=== PATIENT | male | born 1955 | race Caucasian/White ===

== ENCOUNTER 2022-02-15 09:30 | Outpatient (RCR) | payer MEDICARE, BC, SELFPAY | END 2022-03-12 13:48 | disposition home or self-care (01) | PROVIDERS: PCP Surgery; Visit Provider Surgery | DX: M62.81 Muscle weakness (generalized) (principal) | CPT/HCPCS: 97110; 97112 ==

== ENCOUNTER 2022-05-26 11:38 | Emergency (ER) | payer MEDICARE, BC, SELFPAY ==
[2022-05-26 11:51] VITALS: BP 137/93; PULSE 74; RESP 18; TEMP 36.9; O2SAT 95
--- NOTE | 2022-05-26 13:10 | CRLHL7_ITS ---
For Patients: As a result of the Century Cures Act, medical imaging exams and procedure reports are released immediately into your electronic medical record. You may view this report before your referring provider. If you have questions, please contact your health care provider. INDICATION: Fall. Head and neck pain. TECHNIQUE: CT head without contrast. COMPARISON: 09/25/2021 CT head FINDINGS: CSF spaces: Prominence of the ventricles and sulci similar to prior exam likely due to age related volume loss. Brain parenchyma: The ray-white differentiation is normal. No sign of hemorrhage, or midline shift. Pituitary mass measures 1.5 cm in AP dimension, similar to prior examination. Skull base and calvarium: Ethmoid sinus mucosal thickening. Right sphenoid sinus opacification/fluid level. The visualized orbits are grossly unremarkable. No skull fractures. IMPRESSION: : 1. No acute intracranial abnormality. 2. Ethmoid sinus mucosal thickening and right sphenoid sinus opacification/fluid level which can be seen with sinusitis. 3. 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 Please note that all CT scans at this facility use dose modulation, iterative reconstruction, and/or weight-based dosing when appropriate to reduce radiation dose to as low as reasonably achievable. Dictated by Crow Elizabeth MD @ 05/26/2022 2:29:32 PM (Electronically Signed)
--- NOTE | 2022-05-26 13:10 | CRLHL7_ITS ---
For Patients: As a result of the Century Cures Act, medical imaging exams and procedure reports are released immediately into your electronic medical record. You may view this report before your referring provider. If you have questions, please contact your health care provider. INDICATION: Fall with head and neck pain. TECHNIQUE: CT cervical spine without contrast. COMPARISON: 09/16/2014 CT neck. 11/22/2016 CT chest. FINDINGS: Vertebrae: Alignment is normal. There are no fractures or suspicious bony lesions. Discs and facet joints: There are degenerative disc changes most severe at C4-C5. There are multilevel degenerative changes in the facets. Extraspinal findings: Changes of right upper lobectomy are partially imaged, better seen on 11/22/2016 CT chest. Small left apical pulmonary nodules are similar to prior chest CT. IMPRESSION: 1. No sign of acute injury. 2. Multilevel degenerative changes as above. Please note that all CT scans at this facility use dose modulation, iterative reconstruction, and/or weight-based dosing when appropriate to reduce radiation dose to as low as reasonably achievable. Dictated by Crow Elizabeth MD @ 05/26/2022 2:36:59 PM (Electronically Signed)
[2022-05-26] MEDS: ACETAMINOPHEN 500 MG TABLET 1000 MG PO (13:25)
--- NOTE | 2022-05-26 13:25 | ED.FALL ---
HPI - Fall General Date Seen: 05/26/22 Chief Complaint: Fall/Minor Trauma Stated Complaint: Fell last night, face injured Time Seen by Provider: 05/26/22 11:43 Source: patient Mode of arrival: ambulatory Limitations: no limitations History of Present Illness HPI Narrative: Patient is a 67-year-old gentleman who was at his niece's last night was coming down the stairs and tripped on the last stair falling flat onto the concrete onto his face. No loss of conscious he is not on any anticoagulants, but is not face and head did bruise and bleed a little bit, his niece who is the nurse was able to put some Steri-Strips on the laceration on his forehead, he called the clinic today but they said they could not cm, he came here to the emergency room, he has no nausea vomiting, diplopia double vision or any feeling of dizziness or vertigo, there is no loss of consciousness when this occurred, he did not feel his heart racing. He does however have some neck discomfort he says with this. Has not MD complaint: fall Onset (ago): day(s) Fall from: standing Fall witnessed: yes, by family Place fall occurred: home Loss of consciousness: No Prolonged down time: no Symptoms prior to fall: none Context: tripped/slipped Location of injury: head and neck Severity: moderate Associated symptoms (after fall): neck pain Related Data Allergies Allergy/AdvReac Type Severity Reaction Status Date / Time quetiapine [From Seroquel] AdvReac Severe Hallucinati Verified 05/26/22 11:57 ng Review of Systems Status of ROS: Reports: 10 or more systems reviewed and unremarkable except as noted in History and below Exam Narrative: Exam Narrative: Patient is seen in room 3 in no apparent distress alert oriented x3 speaking to me normally, he has a laceration of approximately 2.5-3 cm just above his right eyebrow and oblique type presentation with some slight bit gaping, and Steri-Strips across this small hematomas noted, his nose appears to be fairly straight, I do not see a obvious fracture noted within it or least externally, there is no septal hematomas, he can breathe out of both nostrils. There is some dry blood at naris. His mouth opening is normal, TMJs are normal, no tenderness on palpation over cervical spine, on palpation percussion, he is however have been decreased range of motion of his cervical spine, he can come to 8 cm on flexion is extensions to 16, his lateral flexion is 5 in his rotation is approximately 50?. Beater Room Supervisor strengths are equal bilaterally, biceps triceps power and shoulder abduction are normal, pulses are normal, he is able to walk around the room normally formed. Const: Vital Signs, click to edit/add: Vital Signs - 24 hr 05/26/22 11:51 Temperature 98.4 F Pulse Rate [Pulse Oximeter] 74 Respiratory Rate 18 Blood Pressure [Ri ght Upper Arm] 137/93 H Pulse Oximetry 95 Oxygen Delivery Me thod Room Air Documenting provider has reviewed patient's vital signs: yes Course Vital Signs Vital signs: Initial Vital Signs Temperature 98.4 F 05/26/22 11:51 Temperature Source Temporal Artery Scan 05/26/22 11:51 Pulse Rate 74 05/26/22 11:51 Pulse Rhythm 05/26/22 11:51 Respiratory Rate 18 05/26/22 11:51 Blood Pressure 137/93 H 05/26/22 11:51 Blood Pressure Mean 107 05/26/22 11:51 Blood Pressure Position Sitting 05/26/22 11:51 Pulse Oximetry 95 05/26/22 11:51 Oxygen Delivery Method 05/26/22 11:51 Vital Signs Temperature 98.4 F 05/26/22 11:51 Pulse Rate 74 05/26/22 11:51 Respiratory Rate 18 05/26/22 11:51 Blood Pressure 137/93 H 05/26/22 11:51 Pulse Oximetry 95 05/26/22 11:51 Oxygen Delivery Method 05/26/22 11:51 Temperature 98.4 F 05/26/22 11:51 Pulse Rate 74 05/26/22 11:51 Respiratory Rate 18 05/26/22 11:51 Blood Pressure 137/93 H 05/26/22 11:51 Pulse Oximetry 95 05/26/22 11:51 Oxygen Delivery Method 05/26/22 11:51 MDM - Fall MDM Narrative Medical decision making narrative: We will go ahead and do a CT of the head and neck, we will put some let on his wound, and clean it up. Medical Records Attestation: I reviewed the patient's medical records. Imaging Data CT scan - head: Attestation: I have reviewed the pertinent imaging results. My impression: Nasal fracture with a fluid level is at might sinus, Radiologist's impression: Patient: [facility] Facility: [facility] Site . Site : 1955 Study: CT Spine Cervical W/O-05/26/2022 1:47:40 PM Ordering Physician: Parish Serrano Final Report: INDICATION: Fall with head and neck pain. TECHNIQUE: CT cervical spine without contrast. COMPARISON: 09/16/2014 CT neck. 11/22/2016 CT chest. FINDINGS: Vertebrae: Alignment is normal. There are no fractures or suspicious bony lesions. Discs and facet joints: There are degenerative disc changes most severe at C4-C5. There are multilevel degenerative changes in the facets. Extraspinal findings: Changes of right upper lobectomy are partially imaged, better seen on 11/22/2016 CT chest. Small left apical pulmonary nodules are similar to prior chest CT. IMPRESSION: 1. No sign of acute injury. 2. Multilevel degenerative changes as above. Please note that all CT scans at this facility use dose modulation, iterative reconstruction, and/or weight-based dosing when appropriate to reduce radiation dose to as low as reasonably achievable. Dictated by Crow Elizabeth MD @ 05/26/2022 2:36:59 PM (Electronic Signature) Patient: [facility] Facility: [facility] Site . Site : 1955 Study: CT Head W/O-05/26/2022 1:47:03 PM Ordering Physician: Parish Serrano Final Report: INDICATION: Fall. Head and neck pain. TECHNIQUE: CT head without contrast. COMPARISON: 09/25/2021 CT head FINDINGS: CSF spaces: Prominence of the ventricles and sulci similar to prior exam likely due to age related volume loss. Brain parenchyma: The ray-white differentiation is normal. No sign of hemorrhage, or midline shift. Pituitary mass measures 1.5 cm in AP dimension, similar to prior examination. Skull base and calvarium: Ethmoid sinus mucosal thickening. Right sphenoid sinus opacification/fluid level. The visualized orbits are grossly unremarkable. No skull fractures. IMPRESSION: : 1. No acute intracranial abnormality. 2. Ethmoid sinus mucosal thickening and right sphenoid sinus opacification/fluid level which can be seen with sinusitis. 3. 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 Please note that all CT scans at this facility use dose modulation, iterative reconstruction, and/or weight-based dosing when appropriate to reduce radiation dose to as low as reasonably achievable. Dictated by Crow Elizabeth MD @ 05/26/2022 2:29:32 PM (Electronic Signature) Discharge Plan Discharge Clinical Impression: Cervical spine pain, Closed fracture nasal bone, Laceration, Head injury Patient Disposition: Home, Self-Care Condition: Stable Instructions: Head Injury (ED), Skin Adhesive Care (ED), Neck Pain (ED) Additional Instructions: Home rest Tylenol 1 g p.o. t.i.d., leave the glue on her forehead, this will come off by itself in approximately 3-4 days, increasing swelling redness, fevers chills is infection he should come back to be seen, Follow Up/Referrals: Joon Dodson MD [Primary Care Provider] - Stand Alone Forms: [employer] Info Instructions
[2022-05-26] MEDS: TETANUS/DIPHTH/PERTUSSIS 0.5 ML SYRINGE IM (14:55)
--- NOTE | 2022-05-26 15:10 | ED.NURSE ---
Wound cleansed. Dermabond per MD. No sutures. Adacel administered in R AC. VIS provided.
[2022-05-26 15:12] VITALS: BP 137/93; PULSE 74; RESP 18; TEMP 36.9
== END 2022-05-26 15:12 | disposition home or self-care (01) ==
PROVIDERS: Emergency Provider Family Medicine; PCP Surgery
DX: S01.111A Laceration without foreign body of right eyelid and periocular area, initial encounter (principal); M54.2 Cervicalgia; S02.2XXA Fracture of nasal bones, initial encounter for closed fracture; W10.8XXA Fall (on) (from) other stairs and steps, initial encounter
CPT/HCPCS: 12011; 70450; 72125; 90471; 90715; 99284; A9270

== ENCOUNTER 2023-04-15 11:27 | Emergency (ER) | payer MEDICARE, BC, SELFPAY ==
[2023-04-15 12:22] VITALS: BP 182/128; PULSE 83; RESP 16; TEMP 36.5; O2SAT 97; BMI 27.6
[2023-04-15 13:30] VITALS: BP 198/123; PULSE 52; RESP 16; TEMP 36.7; O2SAT 96
== END 2023-04-15 15:28 | disposition left against medical advice (07) ==
PROVIDERS: Emergency Provider Emergency Medicine; PCP Surgery
DX: Z53.21 Procedure and treatment not carried out due to patient leaving prior to being seen by health care provider (principal)

== ENCOUNTER 2023-12-03 14:30 | Outpatient (RCR) | payer MEDICARE, SELFPAY, BC, MEDICAID | END 2024-02-11 09:40 | disposition home or self-care (01) | PROVIDERS: PCP Surgery; Visit Provider Surgery | DX: M76.62 Achilles tendinitis, left leg (principal); M72.2 Plantar fascial fibromatosis; Z51.89 Encounter for other specified aftercare | CPT/HCPCS: 97110; 97140; 97162 ==

== ENCOUNTER 2024-04-18 13:34 | Outpatient (CLI) | payer MEDICARE, MEDICAID, SELFPAY ==
--- OUTSIDE RECORDS SUMMARY | 2024-04-21 04:11 | XMS_ITS | Encounter Summary ---
Author Organization [facility] Address [address] [place] [address] Care Team Providers Care Furnace Feeder Name Role Phone Joon Dodson MD Primary Care Provider [phone] Encounter Details Date Type Department Care Team (Late st Contact Info) Description 12/26/2020 Lab Requisition [facility] [address] [facility] [place], [place] [address] [facility] [place], [place] [id number] Anemia, unspecified Social History Tobacco Use Types Packs/Day Years Used Date Smoking Tobacco: Light Smoker Cigarettes Smokeless Tobacco: Never Comments:Smoking History Pac ks/day: Alcohol Use Standard Drinks/Week Comments Yes 0 (1 standard drink = 0.6 oz pur e alcohol) occasional Sex and Gender Information Value Date Recorded Sex Assigned at Not on file Gender Identity Not on file Sexual Orientation Not on file documented as of this encounter Plan of Treatment Not on file documented as of this encounter Procedures Procedure Name Priority Date/Time Associated Diagnosis Comments HEMOGLOBIN, BLOOD Routine 12/26/2020 7:1 0 AM CDT Anemia, unspecified documented in this encounter Results * (ABNORMAL) Hemoglobin, Blood (12/26/2020 7:10 AM CDT) Hemoglobin 10.0(L) 13.5 - 17.5 g/dL 12/26/2020 1:51 PM CDT [facility] Blood Venipuncture / Unknown 12/26/2020 7:10 AM CDT 12/26/2020 1:25 PM CDT Deonna Leela LAB_1 [facility] [address] [place], [place] [phone] [place] [address] documented in this encounter Visit Diagnoses Diagnosis Anemia, unspecified documented in this encounter Care Teams Furnace Feeder Relationship Specialty Start Date End Date Joon Dodson MD [address] [place] [address] PCP - General Family Practice 10/16/17 documented as of this encounter
--- OUTSIDE RECORDS SUMMARY | 2024-04-21 04:11 | XMS_ITS | Encounter Summary ---
Author Organization [facility] Address [address] [place] [address] Care Team Providers Care Bell Cleaner Name Role Phone Joon Dodson MD Primary Care Provider [phone] Adrianne Steele Primary Care Provider Unavailab paula Montoya Tanya PharmD Unavailable [phone] Joon Dodson MD Primary Care Provider [phone] Adrianne Steele Primary Care Provider Unavailab paula Montoya, Tanya PharmD Unavailable [phone] Jan Tanya PharmD Unavailable [phone] Encounter Details Date Type Department Care Team (Late st Contact Info) Description 08/17/2020 Documentation Only INTERFACED REPORT Unknown, Provider Social History Tobacco Use Types Packs/Day Years Used Date Smoking Tobacco: Former Cigarettes 0.5 35 0 11/27/1980 - 11/28/2015 Smokeless Tobacco: Never Alcohol Use Standard Drinks/Week Comments No 0 (1 standard drink = 0.6 oz pur e alcohol) Sex and Gender Information Value Date Recorded Sex Assigned at Not on file Legal Sex Male 3:29 AM [employer] INTER[employer] Gender Identity Not on file Sexual Orientation Not on file documented as of this encounter Plan of Treatment Not on file documented as of this encounter Visit Diagnoses Not on filedocumented in this encounter Additional Health Concerns Infection Onset Date Last Indicated Resolved Time COVID-19 06/26/2021 06/26/2021 07/07/2021 9:38 AM [employer] 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 Pt meets Covid Recovered criteria. 06/26/2021 08/28/2021 09/25/2021 11:39 PM CDT documented as of this encounter Care Teams Bell Cleaner Relationship Specialty Start Date End Date Joon Dodson MD [address] [place] [address] PCP - General 03/25/17 10/04/20 Adrianne Steele PCP - General 10/05/20 12/17/20 Joon Dodson MD [address] [place] [address] PCP - General 12/18/20 08/30/21 Adrianne Steele PCP - General 08/31/21 Tanya Montoya, PharmD [address] [place] [address] [id number] Pharmacist Pharmacist 11/08/20 Tanya Montoya, PharmD [address] [place] [address] [id number] Assigned MTM Pharmacist 10/27/21 Tanya Montoya, PharmD [address] [place] [address] [id number] Assigned MTM Pharmacist 02/27/22 3 documented as of this encounter
--- OUTSIDE RECORDS SUMMARY | 2024-04-21 04:11 | XMS_ITS | Encounter Summary ---
Author Organization [facility] Address [address] [place] [address] Care Team Providers Care Tobacco Stripper Hand Name Role Phone Tanya Montoya PharmD Unavailable [phone] Joon Dodson MD Primary Care Provider [phone] Adrianne Steele Primary Care Provider Unavailab le Tanya Montoya PharmD Unavailable [phone] Tanya Montoya PharmD Unavailable [phone] Reason for Visit * Reason Onset Date Comments MH/CD Inpatient 06/05/2021 Encounter Details Date Type Department Care Team ([facility] st Contact Info) Description 06/05/2021 [facility] Behavioral Health Intake [address] [place] [phone] Generic, Behavioral Intake, MH/CD Inpatient Social History Tobacco Use Types Packs/Day Years Used Date Smoking Tobacco: Some Days Cigarettes 0.5 35 Started: 11/27/1980; Last attempted to quit: 11/28/2015 Pipe Smokeless Tobacco: Never Comments:occas pipe tobacco Alcohol Use Standard Drinks/Week Comments Yes 0 (1 standard drink = 0.6 oz pur e alcohol) very rare Sex and Gender Information Value Date Recorded Sex Assigned at Not on file Legal Sex Male 3:29 AM MANAGER TRANSMISSION Gender Identity Not on file Sexual Orientation Not on file COVID-19 Exposure Response Date Recorded In the last month, have you been in contact with someone who was confirmed or suspected to have Coronavirus / COVID-19? No / Unsure 06/04/2021 1:08 PM MANAGER TRANSMISSION documented as of this encounter Miscellaneous Notes * Telephone Encounter - Evelyne Thompson - 06/06/2021 5:23 AM CST 0523 Bed Search Update [facility]): [facility] beds [facility] Pt remains on wait list pending bed availability. GER TRANSMISSION * Telephone Encounter - Tonya Smith - 06/05/2021 10:20 PM CST Updated Bed Search @930PM: Joselyn llamas [facility] @ [facility] @ cap [facility] @ [facility] @ [facility] @ cap [facility] @ [facility] @ [facility] @ [facility] @ cap Pt remains on work list until appropriate placement is available. GER TRANSMISSION * Telephone Encounter - Evelyne Thomposn - 06/05/2021 4:25 AM CST 0245 Bed Search Update ([facility]): [facility] beds available [facility] available [facility] available [facility] beds available Pt remains on wait list pending bed availability. GER [employer]SMISSION documented in this encounter Plan of Treatment Not on file documented as of this encounter Visit Diagnoses Not on filedocumented in this encounter Additional Health Concerns Infection Onset Date Last Indicated Resolved Time COVID-19 06/26/2021 06/26/2021 07/07/2021 9:38 AM MANAGER TRANSMISSION 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 Pt meets Covid Recovered criteria. 06/26/2021 08/28/2021 09/25/2021 11:39 PM CDT documented as of this encounter Care Teams Tobacco Stripper Hand Relationship Specialty Start Date End Date Joon Dodson MD [address] [place] [address] PCP - General 12/18/20 08/30/21 Adrianne Steele PCP - General 08/31/21 Tanya Montoya, PharmD [facility] [phone] Pharmacist Pharmacist 11/08/20 Tanya Montoya, PharmD [address] [phone] Assigned MTM Pharmacist 10/27/21 Tanya Montoya, PharmD [address] [place] [address] [phone] Assigned MTM Pharmacist 02/27/22 3 documented as of this encounter
--- OUTSIDE RECORDS SUMMARY | 2024-04-21 04:11 | XMS_ITS | Encounter Summary ---
Author Organization [facility] Address [address] [place] [address] Care Team Providers Care Television Program Director Name Role Phone Joon Dodson MD Primary Care Provider [phone] Encounter Details Date Type Department Care Team (Late st Contact Info) Description 01/02/2021 Lab Requisition [facility] [address] [facility] [place], [place] [phone] Margaux Man, PA-C [address] [facility] [address] [place], [place] [phone] Magnesium deficiency Social History Tobacco Use Types Packs/Day Years [...] Procedure Name Priority Date/Time Associated Diagnosis Comments MAGNESIUM Routine 01/03/2021 7:07 AM CDT Magnesium deficiency documented in this encounter Results * Magnesium (01/03/2021 7:07 AM CDT) Magnesium 2.5 1.6 - 2.6 mg/dL 01/03/2021 1:22 PM CDT [facility] Blood Venipuncture / Unknown 01/03/2021 7:07 AM CDT 01/03/2021 12:44 PM CDT Margaux aMn PA-C LAB_1 [facility] [address] documented in this encounter Visit Diagnoses Diagnosis 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
--- OUTSIDE RECORDS SUMMARY | 2024-04-21 04:11 | XMS_ITS | Encounter Summary ---
Author Organization [facility] Address [address] [place] [address] Care Team Providers Care Terminal Operations Supervisor Name Role Phone Joon Dodson MD Primary Care Provider [phone] Encounter Details Date Type Department Care Team (Late st Contact Info) Description 01/01/2021 Lab Requisition [facility] [address] [facility] [place], [place] [phone] Julia Victor MD [address] [place], [place] [phone] Dyspnea, unspecified Social History Tobacco Use Types Packs/Day [...] Procedure Name Priority Date/Time Associated Diagnosis Comments CBC AND DIFFERENTIAL PANEL Routine 01/02/2021 6:30 AM CDT Dyspnea, unspecified BRAIN NATRIURETIC PEPTIDE (BNP) Routine 01/02/2021 6:30 AM CDT Dyspnea, unspecified COMPLETE BLOOD COUNT-W/DIFF Routine 01/02/2021 6:30 AM CDT Dyspnea, unspecified documented in this encounter Results * (ABNORMAL) Complete Blood Count-W/Diff (01/02/2021 6:30 AM CDT) WBC 8.1 3.5 - 10.5 x10(9)/L 01/02/2021 2:16 PM CDT [facility] RBC 3.46(L) 4.32 - 5.72 x10(12)/L 01/02/2021 2:16 PM CDT [facility] Hemoglobin 10.7(L) 13.5 - 17.5 g/dL 01/02/2021 2:16 PM CDT [facility] HCT 35.4(L) 38.8 - 50.0 % 01/02/2021 2:16 PM CDT [facility] MCV 102.3(H) 80.0 - 100.0 fL 01/02/2021 2:16 PM CDT [facility] MCH 30.9 27.6 - 33.3 pg 01/02/2021 2:16 PM CDT [facility] MCHC 30.2(L) 31.5 - 35.2 g/dL 01/02/2021 2:16 PM CDT [facility] RDW 13.4 11.9 - 15.5 % 01/02/2021 2:16 PM CDT [facility] Platelets 486(H) 150 - 450 x10(9)/L 01/02/2021 2:16 PM CDT [facility] Automated NRBC 0 <=0 /100 WBC 01/02/2021 2:16 PM CDT [facility] Neutrophil Absolute 4.3 1.7 - 7.0 10(9)/L 01/02/2021 2:16 PM CDT [facility] Lymphocyte Absolute 2.3 1.0 - 4.8 10(9)/L 01/02/2021 2:16 PM CDT [facility] Monocyte Absolute 0.8 0.2 - 0.9 10(9)/L 01/02/2021 2:16 PM CDT [facility] Eosinophil Absolute 0.6(H) 0.0 - 0.5 10(9)/L 01/02/2021 2:16 PM CDT [facility] Basophil Absolute 0.1 0.0 - 0.3 10(9)/L 01/02/2021 2:16 PM CDT [facility] Immature Granulocyte % 2.0(H) 0.0 - 0.5 % 01/02/2021 2:16 PM CDT [facility] Blood Venipuncture / Unknown 01/02/2021 6:30 AM CDT 01/02/2021 1:45 PM CDT Julia Victor MD LAB_1 Performing Organization Address City/[facility]/ZIP Co de Phone Number [facility] [address] * B-Type Natriuretic Peptide (01/02/2021 6:30 AM CDT) B Type Natr. Peptide <10 <=99 pg/mL 01/02/2021 2:33 PM CDT [facility] Blood Venipuncture / Unknown 01/02/2021 6:30 AM CDT 01/02/2021 1:43 PM CDT Julia Victor MD LAB_1 Performing Organization Address [facility] [[email or web address]] Co de Phone Number [facility] [address] documented in this encounter Visit Diagnoses Diagnosis Dyspnea, unspecified documented in this encounter Care Teams Terminal Operations Supervisor Relationship Specialty Start Date End Date Joon Dodson MD [address] [place] [address] PCP - General Family Practice 10/16/17 documented as of this encounter
--- OUTSIDE RECORDS SUMMARY | 2024-04-21 04:11 | XMS_ITS | Encounter Summary ---
Author Organization [facility] Address [address] [place] [address] Care Team Providers Care Oyster Unloader Name Role Phone Sandra, Inder Coronado Primary Care Provider Joon Dodson MD Primary Care Provider Adrianne Steele Primary Care Provider Unavailab Tanya Ruiz PharmD Unavailable [phone] Joon Dodson MD Primary Care Provider [phone] Adrianne Steele Primary Care Provider Unavailab Tanya Ruiz PharmD Unavailable Tanya Montoya PharmD Unavailable Encounter Details Date Type Department Care Team (Late st Contact Info) Description 09/11/2016 [facility] Only [facility] [address] [place] [address] Panda Mesa MD [facility] [address] [facility] [address] [place] [address] Pre-operative laboratory examination (Primary Dx) Social History Tobacco Use Types Packs/Day Years Used Date Smoking Tobacco: Every Day Cigarettes 0.5 35 Smokeless Tobacco: Never Alcohol Use Standard Drinks/Week Comments Yes 0 (1 standard drink = 0.6 oz pur e alcohol) rare Sex and Gender Information Value Date Recorded Sex Assigned at Not on file Legal Sex Male 3:29 AM PROGRAMMING DIRECTOR Gender Identity Not on file Sexual Orientation Not on file documented as of this encounter Plan of Treatment Not on file documented as of this encounter Results * Methicillin Resistant Staph Aureus PCR (09/12/2016 12:36 PM CDT) Specimen Description Nares [facility] Methicillin Resist/Sens S. aureus PCR Negative MRSA Negative: SA Negative MRSA and Staphylococcus aureus target DNA not detected, presumed negative for MRSA and SA colonization or the number of bacteria present may be below the limit of detection for the assay. FDA approved assay performed using [employer] GeneXpert(R) real-time PCR. [facility] 09/12/2016 12:3 6 PM CDT 09/12/2016 1:24 PM CDT us Panda Mesa MD LAB - MICRO GENERAL ORDERABLES Final Result [facility] [address] [place], [place] [address] [phone] documented in this encounter Visit Diagnoses Diagnosis Pre-operative laboratory examination- Primary Pre-procedural laboratory examination documented in this encounter Additional Health Concerns Infection Onset Date Last Indicated Resolved Time COVID-19 06/26/2021 06/26/2021 07/07/2021 9:38 AM PROGRAMMING DIRECTOR 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 Pt meets Covid Recovered criteria. 06/26/2021 08/28/2021 09/25/2021 11:39 PM CDT documented as of this encounter Care Teams Oyster Unloader Relationship Specialty Start Date End Date [facility], [facility] [address] [place] [address] PCP - General 09/30/14 03/24/17 Joon Dodson MD [address] [place] [address] PCP - General 03/25/17 10/04/20 Adrianne Steele PCP - General 10/05/20 12/17/20 Joon Dodson MD [address] [place] [address] PCP - General 12/18/20 08/30/21 Adrianne Steele PCP - General 08/31/21 Tanya Montoya, PharmD [address] [place] [address] Pharmacist Pharmacist 11/08/20 Tanya Montoya, PharmD [address] [place] [id number] Assigned MTM Pharmacist 10/27/21 Tanya Montoya, PharmD [address] [place] [address] Assigned MTM Pharmacist 02/27/22 3 documented as of this encounter
--- OUTSIDE RECORDS SUMMARY | 2024-04-21 04:11 | XMS_ITS | Encounter Summary ---
Author Organization [facility] Address [address] [place] [address] Care Team Providers Care Sales Support Representative Name Role Phone Joon Dodson MD Primary Care Provider Adrianne Steele Primary Care Provider Unavailab paula Jan, Tanya PharmD Unavailable Joon Dodson MD Primary Care Provider [phone] Adrianne Steele Primary Care Provider Unavailab le Jan, Tanya PharmD Unavailable [phone] Jan, Tanya PharmD Unavailable [phone] Encounter Details Date Type Department Care Team (Late st Contact Info) Description 08/29/2020 [facility] [address] [place] [address] Seth Sutton MD [facility] [address] [facility] [address] [place] [address] Pre-operative laboratory examination (Primary Dx) Social History Tobacco Use Types Packs/Day Years Used Date Smoking Tobacco: Former Cigarettes 0.5 35 0 11/27/1980 - 11/28/2015 Smokeless Tobacco: Never Alcohol Use Standard Drinks/Week Comments No 0 (1 standard drink = 0.6 oz pur e alcohol) Sex and Gender Information Value Date Recorded Sex Assigned at Not on file Legal Sex Male 3:29 AM PHARMACY TECHNICIAN TRAINEE Gender Identity Not on file Sexual Orientation Not on file documented as of this encounter Plan of Treatment Not on file documented as of this encounter Visit Diagnoses Diagnosis Pre-operative laboratory examination- Primary Pre-procedural laboratory examination documented in this encounter Additional Health Concerns Infection Onset Date Last Indicated Resolved Time COVID-19 06/26/2021 06/26/2021 07/07/2021 9:38 AM PHARMACY TECHNICIAN TRAINEE 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 Pt meets Covid Recovered criteria. 06/26/2021 08/28/2021 09/25/2021 11:39 PM CDT documented as of this encounter Care Teams Sales Support Representative Relationship Specialty Start Date End Date Joon Dodson MD [address] [place] [address] PCP - General 03/25/17 10/04/20 Adrianne Steele PCP - General 10/05/20 12/17/20 Joon Dodson MD [address] [place] [address] PCP - General 12/18/20 08/30/21 Adrianne Steele PCP - General 08/31/21 Tanya Montoya, MartitaD [address] [place] [address] Pharmacist Pharmacist 11/08/20 Tanya Montoya, MartitaD [address] [place] [address] Assigned MTM Pharmacist 10/27/21 Tanya Montoya, MartitaD [address] [place] [address] Assigned MTM Pharmacist 02/27/22 3 documented as of this encounter
--- OUTSIDE RECORDS SUMMARY | 2024-04-21 04:11 | XMS_ITS | Encounter Summary ---
Author Organization [facility] Address [address] [place] [address] Care Team Providers Care Legger Press Operator Name Role Phone Joon Dodson MD Primary Care Provider [phone] Adrianne Steele Primary Care Provider Unavailab paula Montoya, Tanya PharmD Unavailable [phone] Joon Dodson MD Primary Care Provider [phone] Adrianne Steele Primary Care Provider Unavailab paula Jan, Tanya PharmD Unavailable [phone] Jan, Tayna PharmD Unavailable [phone] Reason for Visit * Reason Onset Date Comments MH/CD Inpatient 10/23/2017 Encounter Details Date Type Department Care Team ([facility] st Contact Info) Description 10/23/2017 Telephone [facility]ake [address] [place] [address] Generic, Behavioral Intake, MH/CD Inpatient Social History Tobacco Use Types Packs/Day Years Used Date Smoking Tobacco: Some Days Cigarettes 0.5 35 Started: 11/27/1980; Last attempted to quit: 11/28/2015 Smokeless Tobacco: Never Alcohol Use Standard Drinks/Week Comments No 0 (1 standard drink = 0.6 oz pur e alcohol) Sex and Gender Information Value Date Recorded Sex Assigned at Not on file Legal Sex Male 3:29 AM GRINDING ROOM SUPERVISOR Gender Identity Not on file Sexual Orientation Not on file documented as of this encounter Miscellaneous Notes * Telephone Encounter - Alexandra Engle - 10/23/2017 8:11 AM CDT R: called [facility] for potential d/c @ 8:03 AM and spoke to nurse. Potential step-down bed d/c @ 9am. Nurse going to meet pt in ED to verify step- down bed. Pt wants to stay at [facility]. Tawanda/ Daly: notified ED @ 8:32. [address] went to meet with pt for step-down bed. documented in this encounter Plan of Treatment Not on file documented as of this encounter Visit Diagnoses Not on filedocumented in this encounter Additional Health Concerns Infection Onset Date Last Indicated Resolved Time COVID-19 06/26/2021 06/26/2021 07/07/2021 9:38 AM GRINDING ROOM SUPERVISOR 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 Pt meets Covid Recovered criteria. 06/26/2021 08/28/2021 09/25/2021 11:39 PM CDT documented as of this encounter Care Teams Legger Press Operator Relationship Specialty Start Date End Date Joon Dodson MD [address] [place] [address] PCP - General 03/25/17 10/04/20 Adrianne Steele PCP - General 10/05/20 12/17/20 Joon Dodson MD [address] [place] [address] PCP - General 12/18/20 08/30/21 Adrianne Steele PCP - General 08/31/21 Tanya Montoya PharmD [address] [place] [address] [phone] Pharmacist Pharmacist 11/08/20 Tanya Montoya PharmD [address] [place] [address] [phone] Assigned MTM Pharmacist 10/27/21 Tanya Montoya, PharmD [address] [place], [place] [id number] [place] [address] Assigned MTM Pharmacist 02/27/22 3 documented as of this encounter
--- OUTSIDE RECORDS SUMMARY | 2024-04-21 04:11 | XMS_ITS | Encounter Summary ---
Author Organization [facility] Address [address] [place] [address] Care Team Providers Care Pellet Mill Operator Name Role Phone Adrianne Steele Primary Care Provider Unavailab Jerrica Ruizine PharmD Unavailable [phone] Joon Dodson MD Primary Care Provider Adrianne Steele Primary Care Provider Unavailab paula Montoya Tanya PharmD Unavailable [phone] Jan Tanya PharmD Unavailable [phone] Encounter Details Date Type Department Care Team (Late st Contact Info) Description 11/13/2020 Documentation Only INTERFACED REPORT Unknown, Provider Social History Tobacco Use Types Packs/Day Years Used Date Smoking Tobacco: Former Cigarettes 0.5 35 0 11/27/1980 - 11/28/2015 Pipe Smokeless Tobacco: Never Comments:occas pipe tobacco Alcohol Use Standard Drinks/Week Comments Yes 0 (1 standard drink = 0.6 oz pur e alcohol) very rare Sex and Gender Information Value Date Recorded Sex Assigned at Not on file Legal Sex Male 3:29 AM REFERENCE AND INSTRUCTION LIBRARIAN Gender Identity Not on file Sexual Orientation Not on file COVID-19 Exposure Response Date Recorded In the last month, have you been in contact with someone who was confirmed or suspected to have Coronavirus / COVID-19? No / Unsure 11/16/2020 1:16 PM CDT documented as of this encounter Plan of Treatment Not on file documented as of this encounter Visit Diagnoses Not on filedocumented in this encounter Additional Health Concerns Infection Onset Date Last Indicated Resolved Time COVID-19 06/26/2021 06/26/2021 07/07/2021 9:38 AM REFERENCE AND INSTRUCTION LIBRARIAN 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 Pt meets Covid Recovered criteria. 06/26/2021 08/28/2021 09/25/2021 11:39 PM CDT documented as of this encounter Care Teams Pellet Mill Operator Relationship Specialty Start Date End Date Adrianne Steele PCP - General 10/05/20 12/17/20 Joon Dodson MD [address] [place] [address] PCP - General 12/18/20 08/30/21 Adrianne Steele PCP - General 08/31/21 Tanya Montoya, PharmD [address] [place] [address] [phone] Pharmacist Pharmacist 11/08/20 Tanya Montoya, PharmD [address] [place] [address] [phone] Assigned MTM Pharmacist 10/27/21 Tanya Montoya, PharmD [address] [place] [address] [phone] Assigned MTM Pharmacist 02/27/22 3 documented as of this encounter
--- OUTSIDE RECORDS SUMMARY | 2024-04-21 04:11 | XMS_ITS | Encounter Summary ---
Author Organization [facility] Address [address] [place] [address] Care Team Providers Care Pin Machine Tender Name Role Phone Tanya Montoya PharmD Unavailable [phone] Joon Dodson MD Primary Care Provider [phone] Adrianne Steele Primary Care Provider Unavailab le Tanya Montoya PharmD Unavailable [phone] Tanya Montoya PharmD Unavailable [phone] Encounter Details Date Type Department Care Team (Late st Contact Info) Description 07/16/2021 Community Resource Summary INTERFACED REPORT Social History Tobacco Use Types Packs/Day Years Used Date Smoking Tobacco: Some Days Cigarettes 0.5 35 Started: 11/27/1980; Last attempted to quit: 11/28/2015 Pipe Smokeless Tobacco: Never Comments:occas pipe tobacco Alcohol Use Standard Drinks/Week Comments Yes 0 (1 standard drink = 0.6 oz pur e alcohol) very rare PHQ-2 Answer Date Recorded PHQ-2 Score 6 07/08/2021 Sex and Gender Information Value Date Recorded Sex Assigned at Not on file Legal Sex Male 3:29 AM INTERNAL MEDICINE VETERINARY TECHNICIAN Gender Identity Not on file Sexual Orientation Not on file COVID-19 Exposure Response Date Recorded In the last month, have you been in contact with someone who was confirmed or suspected to have Coronavirus / COVID-19? No / Unsure 07/18/2021 8:10 AM INTERNAL MEDICINE VETERINARY TECHNICIAN documented as of this encounter Plan of Treatment Not on file documented as of this encounter Visit Diagnoses Not on filedocumented in this encounter Additional Health Concerns Infection Onset Date Last Indicated Resolved Time 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 Pt meets Covid Recovered criteria. 06/26/2021 08/28/2021 09/25/2021 11:39 PM CDT Assessment Noted Time PHQ-9 Depression Total Score: 26 022 9:58 AM INTERNAL MEDICINE VETERINARY TECHNICIAN documented as of this encounter Care Teams Pin Machine Tender Relationship Specialty Start Date End Date Joon Dodson MD [address] [place] [address] PCP - General 12/18/20 08/30/21 Adrianne Steele PCP - General 08/31/21 Tanya Montoya, PharmD [address] [place] [address] [phone] Pharmacist Pharmacist 11/08/20 Tanya Montoya, PharmD [address] [place] [address] [phone] Assigned MTM Pharmacist 10/27/21 Tanya Montoya, PharmD [address] [place] [address] [phone] Assigned MTM Pharmacist 02/27/22 3 documented as of this encounter
--- OUTSIDE RECORDS SUMMARY | 2024-04-21 04:11 | XMS_ITS | Encounter Summary ---
Author Organization [facility] Address [address] [place] [address] Care Team Providers Care Broadcast Meteorologist Name Role Phone Sandra, Guremetgayatri Marcus Hook Primary Care Provider Joon Dodson MD Primary Care Provider Adrianne Steele Primary Care Provider Unavailab Tanya Ruiz PharmD Unavailable Joon Dodson MD Primary Care Provider Adrianne Steele Primary Care Provider Unavailab Tanya Ruiz PharmD Unavailable [phone] Tanya Montoya PharmD Unavailable Reason for Visit * Reason Onset Date Comments MH/CD Inpatient 10/11/2014 Encounter Details Date Type Department Care Team ([facility] st Contact Info) Description 10/11/2014 Telephone [facility] [address] [place] [address] Generic, Behavioral Intake, MH/CD Inpatient Social History Tobacco Use Types Packs/Day Years Used Date Smoking Tobacco: Every Day Cigarettes 0.5 35 Smokeless Tobacco: Never Alcohol Use Standard Drinks/Week Comments No 0 (1 standard drink = 0.6 oz pur e alcohol) Sex and Gender Information Value Date Recorded Sex Assigned at Not on file Legal Sex Male 3:29 AM CANVAS CUTTER HAND Gender Identity Not on file Sexual Orientation Not on file documented as of this encounter Miscellaneous Notes * Telephone Encounter - Tonya Smith - 10/11/2014 7:48 PM CDT S: pt is a 59 yr old male in [facility] for SI w/ no plan B: pt reports hx of bipolar. Pt reports racing thoughts, feeling helpless and hopeless and increasing anxiety. 3 prev ip admissions. Several recent med changes. 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 Denies any cd issues. A: vol R: 77 / [place] documented in this encounter Plan of Treatment Not on file documented as of this encounter Visit Diagnoses Not on filedocumented in this encounter Additional Health Concerns Infection Onset Date Last Indicated Resolved Time COVID-19 06/26/2021 06/26/2021 07/07/2021 9:38 AM CANVAS CUTTER HAND 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 Pt meets Covid Recovered criteria. 06/26/2021 08/28/2021 09/25/2021 11:39 PM CDT documented as of this encounter Care Teams Broadcast Meteorologist Relationship Specialty Start Date End Date [facility], [facility] [address] [place] [address] PCP - General 09/30/14 03/24/17 Joon Dodson MD [address] [place] [address] PCP - General 03/25/17 10/04/20 Adrianne Steele PCP - General 10/05/20 12/17/20 Joon Dodson MD [address] [place] [address] PCP - General 12/18/20 08/30/21 Adrianne Steele PCP - General 08/31/21 Tanya Montoya, PharmD [address] [id number] [place] [address] Pharmacist Pharmacist 11/08/20 Tanya Montoya, PharmD [address] [place] [address] [phone] Assigned MTM Pharmacist 10/27/21 Tanya Montoya, PharmD [address] [place] [address] [phone] Assigned MTM Pharmacist 02/27/22// 3 documented as of this encounter
--- OUTSIDE RECORDS SUMMARY | 2024-04-21 04:11 | XMS_ITS | Encounter Summary ---
Author Organization [facility] Address [address] [place] [address] Care Team Providers Care Substitute Nurse Name Role Phone Adrianne Steele Primary Care Provider Unavailab Jerrica Ruizine PharmD Unavailable [phone] Joon Dodson MD Primary Care Provider [phone] Adrianne Steele Primary Care Provider Unavailab paula Montoya Tanya PharmD Unavailable [phone] Jan Tanya PharmD Unavailable [phone] Encounter Details Date Type Department Care Team (Late st Contact Info) Description 12/08/2020 Documentation Only INTERFACED REPORT Unknown, Provider Social [...] file Legal Sex Male 3:29 AM MANAGER CRISIS Gender Identity Not on file Sexual Orientation [...] COVID-19 06/26/2021 06/26/2021 07/07/2021 9:38 AM MANAGER CRISIS 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 Pt meets Covid Recovered criteria. 06/26/2021 08/28/2021 09/25/2021 11:39 PM CDT documented as of this encounter Care Teams Substitute Nurse Relationship Specialty Start Date End Date Adrianne Steele PCP - General 10/05/20 12/17/20 Joon Dodson MD [address] [place] [address] PCP - General 12/18/20 08/30/21 Adrianne Steele PCP - General 08/31/21 Tanya Montoya, PharmD [address] [place], [place] 56[address] Pharmacist Pharmacist 11/08/20 Tanya Montoya, PharmD [address] [place], [place] 785[address] Assigned MTM Pharmacist 10/27/21 Tanya Montoya, PharmD [address] [place], [place] 250924 Assigned MTM Pharmacist 02/27/22 3 documented as of this encounter
--- OUTSIDE RECORDS SUMMARY | 2024-04-21 04:11 | XMS_ITS | Encounter Summary ---
Author Organization [facility] Address [address] [place] [address] Care Team Providers Care Eligibility Technician Name Role Phone Sandra, Inder Coronado Primary Care Provider Joon Dodson MD Primary Care Provider [phone] Adrianne Steele Primary Care Provider Unavailab Tanya Ruiz PharmD Unavailable Joon Dodson MD Primary Care Provider [phone] Adrianne Steele Primary Care Provider Unavailab Tanya Ruiz PharmD Unavailable Tanya Montoya PharmD Unavailable Encounter Details Date Type Department Care Team (Late st Contact Info) Description 01/23/2017 Orders Only [facility] [address] [place] [address] Panda Mesa MD [facility] [address] [facility] [address] [place] [address] Pre-operative laboratory examination (Primary Dx) [...] on file Legal Sex Male 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 Gender Identity Not on file Sexual Orientation Not on file documented as of this encounter Plan of Treatment Not on file documented as of this encounter Results * ABO/Rh type and screen (01/24/2017 1:49 PM CDT) ABO O 01/24/2017 2:53 PM CDT [facility] RH(D) Pos [facility] Antibody Screen Neg 01/24/2017 2:53 PM CDT [facility] Test Valid Only At [facility] 01/24/2017 2:54 PM CDT [facility] Specimen Expires 01/30/2017 01/24/2017 2:54 PM CDT [facility] Blood specimen (specimen) 01/24/2017 1:49 PM CDT 01/24/2017 1:52 PM CDT Panda Mesa MD LAB - BLOOD BANK TEST ORDER Fi nal Result Performing Organization Address [facility] Co de Phone Number [facility] [address] [phone] * Hemoglobin (01/24/2017 1:49 PM CDT) Hemoglobin 14.9 13.3 - 17.7 g/dL 01/24/2017 1:55 PM CDT [facility] Blood specimen (specimen) 01/24/2017 1:49 PM CDT 01/24/2017 1:52 PM CDT Panda Mesa MD LAB - BLOOD ORDERABLES Final R esult Performing Organization Address [facility] Co de Phone Number [facility] [address] [phone] documented in this encounter Visit Diagnoses Diagnosis Pre-operative laboratory examination- Primary Pre-procedural laboratory examination documented in this encounter Additional Health Concerns Infection Onset Date Last Indicated Resolved Time COVID-19 06/26/2021 06/26/2021 07/07/2021 9:38 AM POLE TRUCK DRIVER 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 Pt meets Covid Recovered criteria. 06/26/2021 08/28/2021 09/25/2021 11:39 PM CDT documented as of this encounter Care Teams Eligibility Technician Relationship Specialty Start Date End Date Clinic, [facility] [address] [place] [address] PCP - General 09/30/14 03/24/17 Joon Dodson MD [address] [place] [address] PCP - General 03/25/17 10/04/20 Adrianne Steele PCP - General 10/05/20 12/17/20 Joon Dodson MD [address] [place] [address] PCP - General 12/18/20 08/30/21 Adrianne Steele PCP - General 08/31/21 Tanya Montoya, PharmD [address] [place] [address] [address] Pharmacist Pharmacist 11/08/20 Tanya Montoya, PharmD [address] [place] [address] [address] Assigned MTM Pharmacist 10/27/21 Tanya Montoya, PharmD [facility] [place], [place] [phone] Assigned MTM Pharmacist 02/27/22 1// 3 documented as of this encounter
--- OUTSIDE RECORDS SUMMARY | 2024-04-21 04:11 | XMS_ITS | Encounter Summary ---
Author Organization [facility] Address [address] [place] [address] Care Team Providers Care Er Medical Technician Name Role Phone Joon Dodson MD Primary Care Provider [phone] Adrianne Steele Primary Care Provider Unavailab paula Jan, Tanya PharmD Unavailable [phone] Joon Dodson MD Primary Care Provider [phone] Adrianne Steele Primary Care Provider Unavailab le Jan, Tanya PharmD Unavailable [phone] Jan, Tanya PharmD Unavailable [phone] Encounter Details Date Type Department Care Team (Late st Contact Info) Description 02/10/2019 [facility] [address] [place] [address] Seth Sutton MD [facility] [address] [facility] [address] [place] [address] Pre-operative laboratory examination (Primary Dx) Social History Tobacco Use Types Packs/Day Years Used Date Smoking Tobacco: Former Cigarettes 0.5 35 0 11/27/1980 - 11/28/2015 Smokeless Tobacco: Never Alcohol Use Standard Drinks/Week Comments No 0 (1 standard drink = 0.6 oz pur e alcohol) Sex and Gender Information Value Date Recorded Sex Assigned at Not on file Legal Sex Male 3:29 AM METER AND REGULATOR SHOP SUPERVISOR Gender Identity Not on file Sexual Orientation Not on file documented as of this encounter Plan of Treatment Not on file documented as of this encounter Results * Methicillin Resist/Sens S. aureus PCR (02/16/2019 2:50 PM CDT) Specimen Description Nares 02/16/2019 2:55 PM CDT [facility] Methicillin Resist/Sens S. aureus PCR Negative NEG^Negat darius 02/16/2019 10:12 PM CDT [facility] Comment: MRSA Negative: SA Negative MRSA and Staphylococcus aureus target DNA not detected, presumed negative for MRSA and SA colonization or the number of bacteria present may be below the limit of detection for the assay. FDA approved assay performed using [employer] GeneXpert(R) real-time PCR. Nasal structure (body structure) 02/16/2019 2:50 PM CDT 02/16/2019 2:55 PM CDT us Seth Sutton MD LAB - MICRO GENERAL ORDERA BLES Final Result Performing Organization Address City/State/[place] Co de Phone Number [facility] [address] [phone] documented in this encounter Visit Diagnoses Diagnosis Pre-operative laboratory examination- Primary Pre-procedural laboratory examination documented in this encounter Additional Health Concerns Infection Onset Date Last Indicated Resolved Time COVID-19 06/26/2021 06/26/2021 07/07/2021 9:38 AM METER AND REGULATOR SHOP SUPERVISOR 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 Pt meets Covid Recovered criteria. 06/26/2021 08/28/2021 09/25/2021 11:39 PM CDT documented as of this encounter Care Teams Er Medical Technician Relationship Specialty Start Date End Date Joon Dodson MD [address] [place] [address] PCP - General 03/25/17 10/04/20 Adrianne Steele PCP - General 10/05/20 12/17/20 Joon Dodson MD [address] [place] [address] PCP - General 12/18/20 08/30/21 Adrianne Steele PCP - General 08/31/21 Tanya Montoya, PharmD [id number] [phone] Pharmacist Pharmacist 11/08/20 Tanya Montoya, PharmD [address] [phone] Assigned MTM Pharmacist 10/27/21 Tanya Montoya, PharmD [id number] [address] [phone] Assigned MTM Pharmacist 02/27/22 3 documented as of this encounter
--- OUTSIDE RECORDS SUMMARY | 2024-04-21 04:11 | XMS_ITS | Clinical Summary ---
Author Organization [facility] Address [address] [place] [address] Care Team Providers Care Ground Crew Linesman Name Role Phone Joon Dodson MD Primary Care Provider [phone] Source Comments You are receiving this document as you are listed as the primary care provider,follow-up provider, or the patient has been referred to you for consultation.This is in compliance with the Medicare and[facility], In[facility]aid EHR Incentive Program,which states Providers who transition their patient to another setting of careor provider of care or refers their patient to another provider of care shouldprovide summary care record for each transition of care or referral. [facility] Allergies Active Allergy Reactions Criticality Noted Date Comments Other 06/04/2012 PN: seasonal allergies Medications Medication Sig Dispensed Refills Start Date End Date Status buPROPion (AKA WELLBUTRIN SR) 200 MG 12 hour release tablet Take 1 tablet by mouth daily (every 24 hours). LW Addl Instr:Indicated for: Depression 02/19/2010 Active LITHium carbonate 300 MG capsule Take 1 capsule by mouth 2 times daily. Take 1 tab in AM and 1.5 tab at HS 3 08/20/2012 Active B COMPLEX-C OR follow package directions 1 Bottle 12 06/11/2013 Active ALBUterol sulfate HFA 108 (90 BASE) MCG/ACT inhaler Inhale 1-2 puffs every 6 hours as needed for Wheezing. 3 Inhaler 3 07/28/2013 Active terbinafine (ANTIFUNGAL FOOT) 1 % cream Apply topically 2 times daily. 30 g 6 11/19/2013 Active traZODone (AKA DESYREL) 50 MG tablet Indications: PN: 11/16/2013 Active mometasone (AKA NASONEX) 50 MCG/ACT nasal solution Place 2 sprays into each nostril daily (every 24 hours). 17 g 11 02/11/2014 Active simvastatin (AKA ZOCOR) 20 MG tablet Take 1 tablet by mouth nightly. 90 tablet 1 06/21/2014 Active ketoconazole (AKA NIZORAL) 2 % cream Apply topically daily (every 24 hours). 60 g 0 12/01/2014 Active Multiple Vitamins-Minerals (MULTIVITAMIN ADULT OR) Take 1 tablet by mouth daily (every 24 hours). 06/04/2012 Active Bitely-3 Fatty Acids (SUPER OMEGA 3 EPA/DHA OR) Take by mouth. 06/04/2012 Active lurasidone (LATUDA) 40 MG tablet Take 40 mg by mouth daily with food. Active hydrOXYzine HCl (ATARAX) 25 MG tablet Take 25 mg by mouth three times a day as needed. Active montelukast (SINGULAIR) 10 MG tablet Take 10 mg by mouth every evening. Active Fluticasone-[place] rol (ADVAIR DISKUS IN) Take 1 Puff by mouth two times a day. Active HYDROcodone-acetami nophen (NORCO) 5-325 MG tablet Take 1-2 Tabs by mouth every 4 hours as needed. 20 Tab 10/16/2017 Active Active Problems Problem Noted Date Diagnosed Date HTN (hypertension) 06/24/2013 Hyperlipidemia 06/24/2013 Personal history of smoking 06/24/2013 Obstructive sleep apnea 05/28/2011 Overview (01/22/2017): Setting: Auto 10/14 Supplied by: PSG done: 05-24-11 AHI 84 RDI 103 Lowest O2 Sat: 81% Freking / CODER Ed. Order 01/28/13 Addison CAMACHO/cmn 2-24-16 mailed to home ; Severe Obstructive sleep apnea Bipolar affective disorder 02/19/2010 Overview (01/22/2017): Bipolar II Dis Immunizations Name Administration Dates Next Due Flu Vac Preserv Free (3+yrs) 05/01/2011,02/20/20 10 Influenza, Unspecified Formulation 2012 PPSV23 (Pneumovax) 05/14/2011 TDAP (ADACEL) 05/01/2011 Zoster (Zostavax) 05/17/2011 Family History Medical History Relation Name Comments Cataract Father High Blood Pressure Father High Cholesterol Father Hypertension Father Macular Degeneration Father Stroke Father Vision Loss Father macular deg Mental Disorder Mother bipolar, marbella cide Heart Disease Sister 1 [place]'s in 50's Hypertension Sister 1 Hypertension Sister 2 Relation Name Status Comments Father (Age 88) broken nec k, fall from wheelchair Mother (Age 54) suicide Sister 1 Alive Sister 2 Alive Sister 3 Alive Social History Tobacco Use Types Packs/Day Years Used Date Smoking Tobacco: Light Smoker Cigarettes Smokeless Tobacco: Never Comments:Smoking History Pac ks/day: Alcohol Use Standard Drinks/Week Comments Yes 0 (1 standard drink = 0.6 oz pur e alcohol) occasional Sex and Gender Information Value Date Recorded Sex Assigned at Not on file Gender Identity Not on file Sexual Orientation Not on file Last Filed Vital Signs Vital Sign Reading Time Taken Comments Blood Pressure 137/74 10/16/2017 9:14 AM CDT Pulse 72 10/16/2017 9:14 AM CDT Temperature 37.1 C (98.7 F) 10/16/2017 8:58 AM CDT Respiratory Rate 16 10/16/2017 9:14 AM CDT Oxygen Saturation 98% 10/16/2017 9:14 AM CDT Inhaled Oxygen Concentration - - Weight 90.7 kg (200 lb) 10/16/2017 6:39 AM CDT Height 188 cm (6' 2.02) 10/16/2017 6:39 AM CDT Body Mass Index 25.67 10/16/2017 6:39 AM CDT Plan of Treatment Health Maintenance Due Date Last Done Comments Colon Cancer Screening Plan Due 1955 Hep C Screening (Preventive Services) 1955 Medicare Annual Wellness Visit 1955 PSA Screening Discussion 06/24/2014 014, 05/05/2012, 05/01/2011, Additional history exists Cholesterol 03/28/2019 03/28/2014, 06/03, 06/19/2012, Additional history exists Zoster/Shingles (3 of 3) 06/05/2020 04/10/2020, 05/02 Pneumococcal 65+ Yrs (2 - PCV) 2022 05/14/2011 DTaP/Tdap/Td (3 - Tdap) 06/02/2022 06/02/2012, 05/01 COVID-19 Vaccine ( season) 2024 Influenza (#1) 2024 02/17/2020, 1007/2018, 06/01/2018, Additional history exists RSV (1 - 1-dose 75+ series) 2032 HepA Aged Out No longer eligi ble based on patient's age to complete this topic HepB Aged Out No longer eligi ble based on patient's age to complete this topic Hib Aged Out No longer eligi ble based on patient's age to complete this topic IPV (Polio) Aged Out No longer eligi ble based on patient's age to complete this topic RSV Aged Out No longer eligi ble based on patient's age to complete this topic MCV4 Aged Out No longer eligi ble based on patient's age to complete this topic Procedures Procedure Name Priority Date/Time Associated Diagnosis Comments LIPID PANEL & DIRECT LDL (IF NEEDED) Routine 03/28/2014 12:35 PM CDT Bipolar disorder, unspecified ([facility]) PROSTATIC SPECIFIC ANTIGEN(SCREEN) Routine 06/24/2013 11:41 AM BRADDISHER Screening for prostate cancer from Last 3 Months or Most Recently Relevant to Health Maintenance Results * Lipid Panel and Direct LDL(If Needed) (03/28/2014 12:35 PM CDT) Cholesterol 160 0 - 200 mg/dL HP CONVERSION Triglycerides 62 0 - 149 mg/dL HP CONVERSION HDL Cholesterol 65 >39 mg/dL HP CONVERSION Cholesterol/HDL Ratio Screen 2.5 HP CONVERSION LDL Calculated 83 19 - 130 mg/dL HP CONVERSION Hours Fasting 12.0 HP CONVERSION 03/28/2014 12:3 5 PM CDT 03/28/2014 4:02 PM CDT Shayne Espinal MD LAB_1 HP CONVERSION * Prostatic Specific Antigen (Screen) (06/24/2013 11:41 AM BRADDISHER) Prostate Specific Antigen 1.7 0.0 - 4.0 ng/mL HP CONVERSION 06/24/2013 11:4 1 AM BRADDISHER 06/24/2013 1:22 PM BRADDISHER Panda Escamilla MD LAB_1 HP CONVERSION from Last 3 Months or Most Recently Relevant to Health Maintenance Advance Directives * Full Code (Latest Code Status on File) Date Activated Date Inactivated Comments 10/16/2017 7:45 AM 10/16/2017 11:45 AM Care Teams Ground Crew Linesman Relationship Specialty Start Date End Date Joon Dodson MD [address] [place] [address] PCP - General Family Practice 10/16/17
--- OUTSIDE RECORDS SUMMARY | 2024-04-21 04:11 | XMS_ITS | Encounter Summary ---
Author Organization [facility] Address [address] [place] [address] Care Team Providers Care Dust Sampler Name Role Phone Sandra, Inder Coronado Primary Care Provider Joon Dodson MD Primary Care Provider [phone] Adrianne Steele Primary Care Provider Unavailab Tanya Ruiz PharmD Unavailable Joon Dodson MD Primary Care Provider Adrianne Steele Primary Care Provider Unavailab Tanya Ruiz PharmD Unavailable Tanya Montoya PharmD Unavailable Encounter Details Date Type Department Care Team (Late st Contact Info) Description 01/03/2017 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 aureus PCR Negative NEG^Negat darius 01/14/2017 8:36 PM CDT [facility] Comment: MRSA Negative: SA Negative MRSA and Staphylococcus aureus target DNA not detected, presumed negative for MRSA and SA colonization or the number of bacteria present may be below the limit of detection for the assay. FDA approved assay performed using [employer] GeneXpert(R) real-time PCR. Nasal structure (body structure) 01/14/2017 1:00 PM CDT 01/14/2017 1:42 PM CDT us Panda Mesa MD LAB - MICRO GENERAL [place] [address], [facility] [address] [phone] documented in this encounter Visit Diagnoses Diagnosis Pre-operative laboratory examination- Primary Pre-procedural laboratory examination documented in this encounter Additional Health Concerns Infection Onset Date Last Indicated Resolved Time COVID-19 06/26/2021 06/26/2021 07/07/2021 9:38 AM RENTAL AGENT 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 Pt meets Covid Recovered criteria. 06/26/2021 08/28/2021 09/25/2021 11:39 PM CDT documented as of this encounter Care Teams Dust Sampler Relationship Specialty Start Date End Date [facility], [address] [address] PCP - General 09/30/14 03/24/17 Joon Dodson MD [address] [place] [id number] PCP - General 03/25/17 10/04/20 Lupillojose Adrianne Pappas PCP - General 10/05/20 12/17/20 Joon Dodson MD [address] [facility] [place] [id number] PCP - General 12/18/20 08/30/21 Lupillojose Adrianne Pappas PCP - General 08/31/21 Tanya Montoya, MartitaD [address] [place] [phone] Pharmacist Pharmacist 11/08/20 Tanya Montoya, PharmD [address] [place] [phone] Assigned MTM Pharmacist 10/27/21 Tanya Montoya, PharmD [address] [place] [phone] Assigned MTM Pharmacist 02/27/2206/07/ 3 documented as of this encounter
--- OUTSIDE RECORDS SUMMARY | 2024-04-21 04:11 | XMS_ITS | Clinical Summary ---
Author Organization [employer] [facility] Address [place], [place] [address] Care Team Providers Care Disintegrator Feeder Name Role Phone Joon Dodson MD Primary Care Provider [phone] Steph Oneil MD Unavailable [phone] Zen Ybarra MD Unavailable [phone] Allergies Active Allergy Reactions Criticality Noted Date Comments House Dust Runny Nose 04/26/2020 Other reaction(s): Runny Nose Mold Cough 01/21/2019 Quetiapine Encephalopathy,Hallu ci nations,Other - Describe In Comment Field High 11/02/2021 Other reaction(s): Other (see comments) Encephalopathy Other reaction(s): Hallucinating Medications Medication Sig Dispensed Refills Start Date End Date Status vitamin E 200 unit capsule Take 400 units by mouth once daily. Active multivitamin (MVI) tablet Take 1 Tablet by mouth once daily. Active ascorbic acid, vitamin C, (Vitamin C) 1,000 mg tablet Take 1,000 mg by mouth once daily. Active acetaminophen (TYLENOL EXTRA STRGTH) 500 mg tablet Take 2 Tablets (1,000 mg) by mouth 3 times daily. Max acetaminophen dose: 4000mg in 24 hrs. 1 Active albuterol HFA (PRO-AIR; VENTOLIN; PROVENTIL) 90 mcg/actuation inhalerIndications: Pulmonary emphysema, unspecified emphysema type (HC) Inhale 1-2 Puffs by mouth every 4 hours if needed for Shortness Of Breath or Wheezing. 2 Each 3 3 Active albuterol-ipratropi um (DUONEB) (2.5-0.5 mg) in 3 mL NEBULIZATION solutionIndications :Pulmonary emphysema, unspecified emphysema type (HC) Inhale 3 mL via a nebulizer 4 times daily if needed for Shortness Of Breath or Wheezing. 84 mL 3 3 Active [id number]-[id number]-[id number]-Fis h Oil (Fish OiL) 1,000 mg (120 mg-180 mg) cap Take by mouth. 4 Active vitamin B complex (B-COMPLEX VITAMIN) tablet Take 1 Tablet by mouth once daily. 4 Active cyclobenzaprine (FLEXERIL) 5 mg tabletIndications:M uscle spasms of neck Take 1 Tablet (5 mg) by mouth at bedtime. As needed for muscle spasms 15 Tablet 4 Active theanine 100 mg capIndications:Weig ht loss Take by mouth. Liquid, also includes quercetin, resveratrol, curcumin, berberine, respiratory crawl, green tea extracts, moringa leaf 4 Active celecoxib (CELEBREX) 100 mg capsuleIndications: Chronic left shoulder pain Take 1 Capsule (100 mg) by mouth two times daily with meals. 180 Capsule 3 4 Active lamoTRIgine 200 mg tabletIndications:B ipolar 1 disorder (HC) Take 1 Tablet (200 mg) by mouth once daily. 90 Tablet 3 4 Active primidone (MYSOLINE) 50 mg tabletIndications:M edication-induced postural tremor Take 1 Tablet (50 mg) by mouth once daily. if needed for tremors/shaking. 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 16 mL 5 4 Active ketoconazole 2 % creamIndications:Gr oin rash Use twice daily as needed for rash in groin 60 g 1 4 Active lisinopriL (PRINIVIL; ZESTRIL) 5 mg tabletIndications:H ypertension Take 1 Tablet (5 mg) by mouth once daily. 90 Tablet 3 4 Active amLODIPine (NORVASC) 5 mg tabletIndications:H ypertension Take 1 Tablet (5 mg) by mouth once daily. 90 Tablet 3 4 Active tamsulosin (FLOMAX) 0.4 mg capsuleIndications: BPH with urinary obstruction Take 2 Capsules (0.8 mg) by mouth once daily after a meal. 180 Capsule 3 4 Active atorvastatin (LIPITOR) 20 mg tabletIndications:H yperlipidemia, unspecified hyperlipidemia type Take 1 Tablet (20 mg) by mouth once daily. 90 Tablet 3 4 Active fluticasone propion-salmeteroL (Advair HFA) 115-21 mcg/actuation inhalerIndications: Chronic obstructive pulmonary disease, unspecified COPD type (HC) Inhale 2 Puffs by mouth two times daily. 1 Each 11 4 Active lithium carbonate (LITHONATE) 300 mg capsuleIndications: Bipolar I disorder with seasonal pattern (HC) Take 1 Capsule (300 mg) by mouth at bedtime. 90 Capsule 3 4 Active cariprazine (Vraylar) 1.5 mg capsuleIndications: Bipolar 1 disorder (HC) Take 1 Capsule (1.5 mg) by mouth once daily. 90 Capsule 3 4 Active hydrOXYzine HCL (ATARAX) 25 mg tabletIndications:B ipolar 1 disorder (HC),Insomnia due to mental condition Take 1 Tablet (25 mg) by mouth every 4 hours if needed (anxiety). Preferably limit yourself to 100 mg per day to limit the risk of confusion, trouble peeing or constipation 180 Tablet 5 4 Active lumateperone (CAPLYTA) 42 mg capsuleIndications: Bipolar 1 disorder (HC) Take 1 Capsule (42 mg) by mouth once daily. 30 Capsule 2 4 Active hydrOXYzine HCL (ATARAX) 50 mg tabletIndications:B ipolar 1 disorder (HC),Insomnia due to mental condition Take 1/2-1 tablet (25-50mg) by mouth up to twice daily as needed for anxiety or sleep 90 Tablet 3 4 04/05/20 Discontinu ed(*Medica tion adjustment ) cariprazine (Vraylar) 3 mg capsuleIndications: Bipolar 1 disorder (HC) Take 1 Capsule (3 mg) by mouth once daily. 90 Capsule 3 4 04/05/20 Discontinu ed(*Medica tion adjustment ) lithium carbonate (LITHONATE) 150 mg capsuleIndications: Bipolar I disorder with seasonal pattern (HC) Take 1 Capsule (150 mg) by mouth at bedtime. Start on 03/28/2024 in addition to a 300 mg capsule for a total of 450 mg at bedtime. Blood draw needed for refills 90 Capsule 4 04/05/20 Discontinu ed(*Medica tion adjustment ) lithium carbonate (LITHONATE) 300 mg capsuleIndications: Bipolar I disorder with seasonal pattern (HC) Take 1 Capsule (300 mg) by mouth at bedtime. Blood draw needed for refills 90 Capsule 4 04/05/20 Discontinu ed(*Medica tion adjustment ) Active Problems Problem Noted Date Diagnosed Date Neuroleptic-induced tardive dyskinesia 4 Controlled substance agreeme nt signed By Joey Ramirez MD, psychiatry on 02/12/24 / Harry Barriga, MANUEL 02/12/2024 Medication-induced postural tremor 08/25/2023 Colon polyp 10/29/2022 Overview (10/29/2022): Colonoscopy 08/2022 multiple TA, repeat in 3 years, PEG 8L Head injury 07/11/2022 Closed fracture nasal bone 07/11/2022 History of partial adherence to treatment 2021 Bipolar I disorder with seas onal pattern, hypomania in the fall 05/03/2021 S/P total knee arthroplasty 12/18/2020 Bilateral impacted cerumen 09/29/2019 Suicidal ideations 08/19/2019 ACP (advance care planning) 10/19/2016 Overview (10/19/2016): 10/19/15: Patient's code status reviewed upon admission to TCU as FULL CODE. Jeannette Espinoza, ANP/GNP [facility] M &Weds: [phone] Brad: [phone] Pager: [phone] Constipation 10/14/2016 Insomnia due to mental condition 10/14/2016 Aftercare following right knee joint replacement surgery 10/11/2016 Gastroesophageal reflux disease 10/11/2016 Benign prostatic hyperplasia 10/11/2016 Degenerative arthritis of knee 10/07/2016 Tobacco use disorder, modera te, in sustained remission since 201509/12/2016 Kidney cysts 06/17/2016 Neuroendocrine carcinoma 02/10/2015 Overview (02/10/2015): Removed 10/2014. Recommended 6 month follow up 05/2015 Nodule of right lung 11/18/2014 Hyperlipidemia 09/16/2014 COPD (chronic obstructive pulmonary disease) 10/2014 Syncopal episodes 09/05/2014 Overview (02/14/2020): Unknown cause - 3x in past 15 years. Hospitalized for observation 2x. Hypertension 06/24/2013 JORDAN 05/14/2011 AHI-57 pillows 05/28/2011 Overview (11/15/2021): Overview: AutoPAP 5-15 cmH20, SS 05/24/2011 AHI 84 RDI 103 low sats 81% [place] Manpreet Freking / HEAVY REPAIRER Ed. Order 01/28/13 [place] Setting: Auto 10/14 Supplied by: PSG done: 05-24-11 AHI 84 RDI 103 Lowest O2 Sat: 81% Freking / HEAVY REPAIRER Ed. Order 01/28/13 [place] CMS/cmn 2-24-16 mailed to home ; Severe Obstructive sleep apnea Resolved Problems Problem Noted Date Diagnosed Date Resolved Date Neuroleptic-induced tardive dyskinesia 12/25/2023 02/12/2024 History of partial adherence to treatment 02/17/2023 02/12/2024 Pullman-induced postural and intention tremor 03/14/20 22 05/09/2023 Dizziness 05/10/2021 12/21/2021 Hypotension 05/10/2021 09/17/2021 ARLEEN (generalized anxiety disorder) 10/11/2014 12/27/2022 Bipolar affective disorder, currently depressed, mild 09/17/2014 11/02/2021 Overview (02/14/2020): Numerous hospitalizations. Many med trials. ECT 2017 (mild effect? With 5-6 treatments). Distinct episodes of devon/hypomania and major depression. Tobacco dependence 09/05/2014 7 Personal history of tobacco use, presenting hazards to health 06/24/2013 11/02/2021 Encounters Date Type Department Care Team Description 04/20/2024 11:00 AM REGISTERED NURSE AMBULATORY Telemedicine [facility] [address] [place] [address] Joey Ramirez MD Telehealth 04/20/2024 Telephone [facility] [address] [place] [address] Ines Beltran 04/20/2024 Travel 04/20/2024 Telephone [facility] [address] [place] [address] Joey Ramirez MD Appointment 04/13/2024 Telephone [facility] [address] [place] [address] Joey Ramirez MD Medication Management (cariprazine (Vraylar) 1.5 mg capsule ) 04/07/2024 Telephone [facility] [address] [place] [address] Joon Dodson MD Form 04/05/2024 12:30 PM REGISTERED NURSE AMBULATORY Office Visit [address] [address] Joey Ramirez MD Medication Management (finances-anxious ) 04/05/[address] [address] Joey Ramirez MD Error-please disregard 04/05/2024 Travel 03/25/2024 10:00 AM CDT Office Visit [facility] [address] [place] [address] Joey Ramirez MD Medication Management (Feeling pretty stressed out) 03/25/2024 Telephone [facility] [address] [place] [address] Joon Dodson MD Questions; Follow Up (Sharmila from [facility] following up with Faye Smith LPN.) 03/25/2024 Travel 03/22/2024 Telephone [facility] [address] [place] [address] Joey Ramirez MD Medication Management (cariprazine (Vraylar) 3 mg capsule) 02/27/2024 2:00 PM CDT Office Visit [facility] [address] [place] [address] Joon Dodson MD Medicare ANNUAL (subsequent) Visit (68 years) 02/27/2024 Telephone [facility] [address] [place] [address] Joon Dodson MD Medication Management (fluticasone propion-salmeteroL (Advair Diskus) 250-50 mcg/Dose diskus inhaler) 02/27/2024 Travel 02/16/2024 Refill [facility] [address] [place] [address] Joon Dodson MD Refill Request (Lisinopril) 02/12/2024 8:30 AM CDT Office Visit [facility] [address] [place] [address] Joey Ramirez MD Follow Up; Medication Management (feeling, great, except it's early for me) 02/12/2024 Travel from Last 3 Months Immunizations Name Administration Dates Next Due COVID-19 vaccine (Moderna 100mcg/0.5mL) PF MDV 11/03/2020 Influenza Intradermal PF 18-64 yrs 2012 Influenza Virus, Unspecified 2012,02/20/20 10 Influenza, IIV3 (Age 6-35 mos) 05/01/2011 Influenza, IIV3 (Age >=3 years) 05/01/2011,02/19 Influenza, IIV4 02/08/2022, 0,03/04/2019,2017,04/28/2017,05/09/2015 Pneumococcal Conj 20-valent (Prevnar 20) 06/11/2022 Pneumococcal Poly,23-Valent (Pneumovax) 05/14/2011 Pneumococcal, Unspecified 05/14/2011 Tdap 05/26/2022,06/02/2012,05/01/2011 Zoster (Shingrix-RZV, recombinant) 07/29/2022, Zoster (Zostavax-ZVL, live) 05/17/2011 Family History Medical History Relation Name Comments Arthritis Father Hypertension Father Other Father macular degener ation Arthritis Mother Bipolar disorder Mother Schizophrenia Mother Suicide Attempts Mother Hypertension Sister 3 Hypertension Sister 4 Heart Disease Sister 5 heart attack Arthritis Sister 6 Relation Name Status Comments Father (Age 88) Fractured neck r/t accident Mother (Age 56) Suicide, h x of manic depression Sister 1 Alive Sister 2 Alive Sister 3 Sister 4 Sister 5 Sister 6 Social History Tobacco Use Types Packs/Day Years Used Date Smoking Tobacco: Former Cigarettes Q uit: 11/01/2015 Pipe Smokeless Tobacco: Never Tobacco Cessation:Counseling Given: No Comments:pipe Alcohol Use Standard Drinks/Week Comments Yes 0 (1 standard drink = 0.6 oz pur e alcohol) occasional PHQ-2 Answer Date Recorded PHQ-2 TOTAL SCORE 6 04/20/2024 Social Connections Answer Date Recorded Do you often feel lonely or isolated from those around you? 0 09/04/2023 Alcohol Use Answer Date Recorded How often do you have a drink containing alcohol ? 2 11/02/2021 How many drinks containing a lcohol do you have on a typical day when you are drinking? 0 11/02/2021 How often do you have five or more drinks on one occasion? 0 11/02/2021 Financial Resource Strain Answer Date R ecorded Difficulty of Paying Living Expenses 3 09/04/2023 Difficulty of Paying Living Expenses Not on file 09/04/2023 Food Insecurity Answer Date Recorded Do you worry your food will run out before you are able to buy more? 1 09/04/2023 Transportation Needs Answer Date Record ed Does lack of transportation keep you from medica l appointments? 1 09/04/2023 Does lack of transportation keep you from work, meetings or getting things that you need? 1 09/04/2023 Housing Stability Answer Date Recorded What is your housing situation today? 2 09/04/2023 Education Answer Date Recorded What is the highest level of school you have completed or the highest degree you have received? Bachelor's degree (e.g., BA, AB, BS) 11/02/2021 Sex and Gender Information Value Date Recorded Sex Assigned at Not on file Gender Identity Not on file Sexual Orientation Not on file Obstetrics History Last Filed Vital Signs Vital Sign Reading Time Taken Comments Blood Pressure 111/74 04/05/2024 12:25 PM REGISTERED NURSE AMBULATORY Pulse 107 04/05/2024 12:25 PM REGISTERED NURSE AMBULATORY Temperature 36.4 C (97.5 F) 02/21/2023 9:45 AM CDT Respiratory Rate 16 02/21/2023 9:45 AM CDT Oxygen Saturation 95% 02/27/2024 1:57 PM CDT Inhaled Oxygen Concentration - - Weight 76.7 kg (169 lb) 04/05/2024 12:25 PM REGISTERED NURSE AMBULATORY Height 183.5 cm (6' 0.24) 02/27/2024 1:53 PM CD T Body Mass Index 22.77 02/27/2024 1:53 PM CDT Plan of Treatment Upcoming Encounters Date Type Department Care Team (Late st Contact Info) Description 04/27/2024 11:20 AM REGISTERED NURSE AMBULATORY Office Visit [facility] [address] [place] [address] Joon Dodson MD [address] [place] [address] 05/03/2024 12:30 PM REGISTERED NURSE AMBULATORY Office Visit [facility] [address] [place] [address] Joey Ramirez MD [address] [place] [address] 05/24/2024 8:30 AM REGISTERED NURSE AMBULATORY Office Visit [facility] [address] [place] [address] Joey Ramirez MD [address] [place] [address] 06/07/2024 8:00 AM REGISTERED NURSE AMBULATORY Office Visit [facility] [address] [facility] [address] Joey Ramirez MD [address] [place] [address] Health Maintenance Due Date Last Done Comments COVID-19 vaccine series ( season) 2024 12/01/2020, 11/03/2020 Influenza for age 65+ 02/01/2024 02/08/2022 , 02/17/2020, 03/04/2019, Additional history exists BMI (ht and wt on same day) for age 18+ 02/26/2025 02/27/2024, 12/27/2022, 09/28/2021, Additional history exists Medicare Wellness for age 65+ 02/27/2025, 01/14/2023, 09/28/2021, Additional history exists Depression screening for age 12+ 04/20/2025 04/20/2024, 04/20/2024, 04/07/2024, Additional history exists Colonoscopy through age 75 10/24/202510/24, 10/24/2022, 10/24/2022, Additional history exists Lipids for age 45-75 04/05/2029 04/05/2024, 05/01/2023, 03/25/2022, Additional history exists Tetanus booster 05/26/2032 05/26/2022, 06/2012, 05/01/2011 Hepatitis C screening for ag e 18-79 Completed 10/20/2015 Tdap Completed 05/26/2022, 06/2012, 05/01/2011 Pneumococcal series for age 65+ Completed 06/11/2022, 05/14/2011, 05/14/2011 AAA screening age 65-74 Completed 07/22/2022 Zoster (shingles) series for age 50+ Completed 07/29/2022, 04/10/2020, 05/17/2011 Procedures Procedure Name Priority Date/Time Associated Diagnosis Comments HEMOGLOBIN A1C Routine 04/05/2024 2:14 PM REGISTERED NURSE AMBULATORY Long-term use of high-risk medication LIPID PANEL W REFLEX MEASURED LDL Routine 04/05/2024 2:14 PM REGISTERED NURSE AMBULATORY Long-term use of high-risk medication UA W/ SEDIMENT EXAM REFLEXED PER CRITERIA Routine 04/05/2024 2:14 PM REGISTERED NURSE AMBULATORY Long-term use of high-risk medication BASIC METABOLIC PANEL Routine 04/05/2024 2:14 PM REGISTERED NURSE AMBULATORY Long-term use of high-risk medication CBC WITH AUTO DIFFERENTIAL Routine 04/05/2024 2:14 PM REGISTERED NURSE AMBULATORY Long-term use of high-risk medication TSH WITH REFLEX Routine 04/05/2024 2:14 PM REGISTERED NURSE AMBULATORY Long-term use of high-risk medication LITHIUM Routine 04/05/2024 2:14 PM REGISTERED NURSE AMBULATORY Long-term use of high-risk medication COLONOSCOPY SCREENING Routine 10/24/2022 10:55 AM CDT Screening for colon cancer US ABD AORTA SCREENING Routine 07/22/2022 2:00 PM REGISTERED NURSE AMBULATORY Screening for AAA (aortic abdominal aneurysm) ANTI HCV Routine 10/20/2015 2:41 PM CDT Need for hepatitis C screening test from Last 3 Months or Most Recently Relevant to Health Maintenance Results * HEMOGLOBIN A1C (04/05/2024 2:14 PM REGISTERED NURSE AMBULATORY) HEMOGLOBIN A1C 5.5 <5.7 % of total Hgb [facility] Comment: For the purpose of screening for the presence of diabetes: <5.7% Consistent with the absence of diabetes 5.7-6.4% Consistent with increased risk for diabetes (prediabetes) > or =6.5% Consistent with diabetes This assay result is consistent with a decreased risk of diabetes. Currently, no consensus exists regarding use of hemoglobin A1c for diagnosis of diabetes in children. According to [place] Diabetes Association (ADA) guidelines, hemoglobin A1c <7.0% represents optimal control in non- diabetic patients. Different metrics may apply to specific patient populations. Standards of Medical Care in Diabetes(ADA). Blood BLOOD SPECIMEN / Unknown 04/05/2024 2:14 PM REGISTERED NURSE AMBULATORY 04/05/2024 2:15 PM REGISTERED NURSE AMBULATORY Joey Ramirez MD CHEMISTRY [facility] [address] [place] [address], [facility] [address] [place] [address] * TSH WITH REFLEX (04/05/2024 2:14 PM REGISTERED NURSE AMBULATORY) TSH W/REFLEX TO FT4 1.46 0.40 - 4.50 mIU/L [facility] Blood BLOOD SPECIMEN / Unknown 04/05/2024 2:14 PM REGISTERED NURSE AMBULATORY 04/05/2024 2:15 PM REGISTERED NURSE AMBULATORY Joey Ramirez MD CHEMISTRY Performing Organization Address City/[facility]/ZIP Co de Phone Number [facility] [address] [place] [address], [facility] [address] [place] [address] * LIPID PANEL W REFLEX MEASURED LDL (04/05/2024 2:14 PM REGISTERED NURSE AMBULATORY) CHOLESTEROL, TOTAL 169 <200 mg/dL [facility] HDL CHOLESTEROL 67 > OR = 40 mg/dL [facility] TRIGLYCERIDES 84 <150 mg/dL [facility] LDL-CHOLESTEROL 85 mg/dL (calc) [facility] Comment: Reference range: <100 Desirable range <100 mg/dL for primary prevention; <70 mg/dL for patients with CHD or diabetic patients with > or = 2 CHD risk factors. LDL-C is now calculated using the Lucia calculation, which is a validated novel method providing better accuracy than the Friedewald equation in the estimation of LDL-C. Trino SS et al. EVELYN. 2013;310(19): 1811-7621 (http://education.[employer]/faq/NXE491) CHOL/HDLC RATIO 2.5 <5.0 (calc) [facility] NON HDL CHOLESTEROL 102 <130 mg/dL (calc) [facility] Comment: For patients with diabetes plus 1 major ASCVD risk factor, treating to a non-HDL-C goal of <100 mg/dL (LDL-C of <70 mg/dL) is considered a therapeutic option. Blood BLOOD SPECIMEN / Unknown 04/05/2024 2:14 PM REGISTERED NURSE AMBULATORY 04/05/2024 2:15 PM REGISTERED NURSE AMBULATORY Joey Ramirez MD CHEMISTRY Performing Organization Address [facility]/ZIP Co de Phone Number [facility] [address] [address], [facility] [address] * UA W/ SEDIMENT EXAM REFLEXED PER CRITERIA (04/05/2024 2:14 PM REGISTERED NURSE AMBULATORY) COLOR YELLOW YELLOW [facility] APPEARANCE CLEAR CLEAR [facility] SPECIFIC GRAVITY 1.020 1.001 - 1.035 [facility] PH 7.0 5.0 - 8.0 [facility] GLUCOSE NEGATIVE NEGATIVE [facility] BILIRUBIN NEGATIVE NEGATIVE [facility] KETONES NEGATIVE NEGATIVE [facility] OCCULT BLOOD NEGATIVE NEGATIVE [facility] PROTEIN NEGATIVE NEGATIVE [facility] NITRITE NEGATIVE NEGATIVE [facility] LEUKOCYTE ESTERASE NEGATIVE NEGATIVE [facility] Urine URINE SPECIMEN / Unknown 04/05/2024 2:14 PM REGISTERED NURSE AMBULATORY 04/05/2024 2:15 PM REGISTERED NURSE AMBULATORY Joey Ramirez MD URINE Performing Organization Address [facility]/ZIP Co de Phone Number [facility] [address] [place] [address], [facility] [address] [place] [address] * CBC AND DIFFERENTIAL (04/05/2024 2:14 PM REGISTERED NURSE AMBULATORY) Pathologist [facility] WHITE BLOOD CELL COUNT 10.5 3.8 - 10.8 Thousand/u L [email or web address] RED BLOOD CELL COUNT 4.83 4.20 - 5.80 Million/uL [email or web address] HEMOGLOBIN 15.2 13.2 - 17.1 g/dL [facility] HEMATOCRIT 45.2 38.5 - 50.0 % [facility] MCV 93.6 80.0 - 100.0 fL [facility] MCH 31.5 27.0 - 33.0 pg [facility] MCHC 33.6 32.0 - 36.0 g/dL [facility] Comment: For adults, a slight decrease in the calculated MCHC value (in the range of 30 to 32 g/dL) is most likely not clinically significant; however, it should be interpreted with caution in correlation with other red cell parameters and the patient's clinical condition. RDW 12.1 11.0 - 15.0 % [facility] PLATELET COUNT 327 140 - 400 Thousand/u L [email or web address] MPV 9.6 7.5 - 12.5 fL [email or web address] ABSOLUTE NEUTROPHILS 7,392 1,500 - 7,800 cells/uL [facility] ABSOLUTE LYMPHOCYTES 2,132 850 - 3,900 cells/uL [facility] ABSOLUTE MONOCYTES 819 200 - 950 cells/uL [facility] ABSOLUTE EOSINOPHILS 95 15 - 500 cells/uL [facility] ABSOLUTE BASOPHILS 63 0 - 200 cells/uL [facility] NEUTROPHILS 70.4 % [facility] LYMPHOCYTES 20.3 % [facility] MONOCYTES 7.8 % [facility] EOSINOPHILS 0.9 % [facility] BASOPHILS 0.6 % [facility] Blood BLOOD SPECIMEN / Unknown 04/05/2024 2:14 PM REGISTERED NURSE AMBULATORY 04/05/2024 2:15 PM REGISTERED NURSE AMBULATORY Joey Ramirez MD HEMATOLOGY [facility] [address] [place] [address], [facility] [address] [place] [address] * (ABNORMAL) LITHIUM (04/05/2024 2:14 PM REGISTERED NURSE AMBULATORY) LITHIUM 0.3(L) 0.6 - 1.2 mmol/L [facility] Blood BLOOD SPECIMEN / Unknown 04/05/2024 2:14 PM REGISTERED NURSE AMBULATORY 04/05/2024 2:15 PM REGISTERED NURSE AMBULATORY Joey Ramirez MD CHEMISTRY Performing Organization Address City/[facility]/ZIP Co de Phone Number [facility] [address] [address], [facility] [address] [place] [address] * BASIC METABOLIC PANEL (04/05/2024 2:14 PM REGISTERED NURSE AMBULATORY) GLUCOSE 87 65 - 99 mg/dL [facility] Comment: Fasting reference interval UREA NITROGEN (BUN) 21 7 - 25 mg/dL [facility] CREATININE 0.86 0.70 - 1.35 mg/dL [facility] EGFR 95 > OR = 60 mL/min/1. 73m2 [facility] BUN/CREATININE RATIO SEE NOTE: 6 - 22 (calc) [facility] Comment: Not Reported: BUN and Creatinine are within reference range. SODIUM 139 135 - 146 mmol/L [facility] POTASSIUM 4.5 3.5 - 5.3 mmol/L [facility] CHLORIDE 107 98 - 110 mmol/L [facility] CARBON DIOXIDE 24 20 - 32 mmol/L [facility] ELECTROLYTE BALANCE 8 7 - 17 mmol/L (calc) [facility] CALCIUM 10.0 8.6 - 10.3 mg/dL [facility] Blood BLOOD SPECIMEN / Unknown 04/05/2024 2:14 PM REGISTERED NURSE AMBULATORY 04/05/2024 2:15 PM REGISTERED NURSE AMBULATORY Joey Ramirez MD CHEMISTRY [facility] [address] [place] [address], [facility] [address] [place] [address] * COLONOSCOPY (10/24/2022 11:01 AM CDT) 10/24/2022 11:0 1 AM CDT Narrative Transcriptions Trino Strickland MD - 10/24/2022 12:15 PM CDT Patient Name: Reynaldo Bruget Procedure Date: 10/24/2022 Gender: Male Date of : 1955 Admit Type: Outpatient Procedure: Colonoscopy Proceduralist: Trino Strickland MD , Elly Espinoza RN(Nurse), Carmen Dickinson (Nurse) Referring MD: Joon Dodson Indications/Pre-Op Diagnosis: Screening for colorectal malignant neoplasm, Last colonoscopy: June 2012 Medications: Fentanyl 100 micrograms IV, Midazolam 2 mgIV, The level of sedation administered wasmoderate Procedure Description: The patient had risks, benefits and alternatives explained to andgave informed consent. The patient had a stable cardiopulmonary status and judged an adequate candidate for conscious sedation. The endoscope [id number] was passed through the anus andadvanced to the cecum, identified by appendiceal orifice and ileocecal valve.The colonoscopy was performed without difficulty. The patient toleratedthe procedure well. The quality of the bowel preparation was good. The ileocecal valve, appendiceal orifice, and rectum were photographed. Complications: No immediate complications. Estimated Blood Loss & Specimen: Estimated blood loss: none. Specimen collected - Yes and sent to Laboratory Findings: The perianal and digital rectal examinations were normal. A 3 mm polyp was found in the cecum. The polyp was sessile. The polyp was removed with a cold snare. Resection was complete, but the polyp tissue was not retrieved. Four sessile polyps were found in the transverse colon. The polypswere 3 to 4 mm in size. These polyps were removed with a cold snare. Resection was complete, but the polyp tissue was only partially retrieved. Two sessile polyps were found in the descending colon. The polypswere 3 to 4 mm in size. These polyps were removed with a cold snare.Resection was complete, but the polyp tissue was only partially retrieved. Scattered small and large-mouthed diverticula were found in thesigmoid colon and descending colon. A small amount of semi-solid stool was found in the ascending colonand in the cecum, interfering with visualization. Lavage of the area was performed using a large amount of sterile water, resulting inclearance with good visualization. The exam was otherwise without abnormality on direct and retroflexion views. Impressions/Post-Op Diagnosis: - One 3 mm polyp in the cecum, removed with a cold snare. Complete resection. Polyp tissue not retrieved. - Four 3 to 4 mm polyps in the transverse colon, removed with a cold snare. Complete resection. Partial retrieval. - Two 3 to 4 mm polyps in the descending colon, removed with a cold snare. Complete resection. Partial retrieval. - Diverticulosis in the sigmoid colon and in the descending colon. - Stool in the ascending colon and in the cecum. - The examination was otherwise normal on direct and retroflexionviews. Recommendation: - Patient has a contact number available for emergencies. The signsand symptoms of potential delayed complications were discussed with the patient. Return to normal activities tomorrow. Written discharge instructions were provided to the patient. - Resume previous diet. - Continue present medications. - Await pathology results. - Repeat colonoscopy is recommended. The colonoscopy date will be determined after pathology results from today's exam become available for review. - For future colonoscopy the patient will require an extended preparation, Peg 8L. If there are any questions, please contact the packer denture. Moderate Sedation: A time out was performed before the procedure. Moderate (conscious) sedation was administered by the endoscopy nurse and supervised bythe endoscopist. The following parameters were monitored: oxygensaturation, heart rate, blood pressure, EKG, CO2, respiratory rate, adequacy of pulmonary ventilation and reponse to care. Please refer to the patient's medical record flowsheets and nursing notes for moderate sedation details. Total physician intraservice time was 30 minutes. Trino Strickland MD 10/24/2022 12:15:34 PM This report has been signed electronically. Note Initiated On: 10/24/2022 11:01 AM Procedure Code(s): --- Professional --- 35490, Colonoscopy, flexible; with removalof tumor(s), polyp(s), or other lesion(s) bysnare technique Diagnosis Code(s): --- Professional --- Z12.11, Encounter for screening formalignant neoplasm of colon D12.0, Benign neoplasm of cecum D12.3, Benign neoplasm of transverse colon (hepatic flexure or splenic flexure) D12.4, Benign neoplasm of descending colon K57.30, Diverticulosis of large intestine without perforation or abscess withoutbleeding CPT copyright 2021 [employer]. All rights reserved. The codes documented in this report are preliminary and upon hair specialist reviewmay be revised to meet current compliance requirements. Scope In: 11:33:03 AM Scope Withdrawal Time 0 hours 21 minutes 20 seconds Scope Out: 12:01:37 PM Trino Strickland MD PROCEDURE ORD * US ABD AORTA SCREENING [[id number]] (07/22/2022 2:00 PM REGISTERED NURSE AMBULATORY) Anatomical Region Laterality Modality Abdomen, AORTA Ultrasound 07/22/2022 3:15 PM REGISTERED NURSE AMBULATORY Narrative 07/22/2022 3:15 PM REGISTERED NURSE AMBULATORY For Patients: As a result of the Cures Act, medical imaging exams and procedure reports are released immediately into your electronic medical record. You may view this report before your referring provider. If you have questions, please contact your health care provider. Examination: US abdominal aorta Indication: Abdominal aortic aneurysm screening. Technique: Casey scale and color Doppler images of the aorta and common iliac arteries are obtained. Comparison: None Findings: Proximal aorta: 2.7 x 2.6 cm Mid aorta: 2.3 x 2.2 cm Distal aorta: 1.9 x 1.9 cm Right common iliac artery: 1.6 x 1.4 cm Left common iliac artery: 1.6 x 1.5 cm Impression: No abdominal aortic aneurysm. Dictated by Crow Zambrano MD @ Jul 22 2022 3:15PM (Electronically Signed) Procedure Note Crow Zambrano MD - 07/22/2022 For Patients: As a result of the Cures Act, medical imagingexams and procedure reports are released immediately into your electronicmedical record. You may view this report before your referring provider.If you have questions, please contact your health care provider. Examination: US abdominal aorta Indication: Abdominal aortic aneurysm screening. Technique: Casey scale and color Doppler images of the aorta and common iliac arteriesare obtained. Comparison: None Findings: Proximal aorta: 2.7 x 2.6 cm Mid aorta: 2.3 x 2.2 cm Distal aorta: 1.9 x 1.9 cm Right common iliac artery: 1.6 x 1.4 cm Left common iliac artery: 1.6 x 1.5 cm Impression: No abdominal aortic aneurysm. Dictated by Crow Zambrano MD @ Jul 22 2022 3:15PM (Electronically Signed) Joon Dodson MD US * ANTI HCV [[id number]] (10/20/2015 2:41 PM CDT) HEPATITIS C ANTIBODY Non-Reacti ve Non-Reacti ve 10/20/2015 8:58 PM CDT [facility] Blood specimen (specimen) BLOOD SPECIMEN / Unknown Venipuncture / Unknown 10/20/2015 2:41 PM CDT 10/20/2015 2:41 PM CDT Narrative [facility] - 10/20/2015 8:58 PM CDT Antibodies to HCV not detected; does not exclude the possibility of exposure to HCV. Joon Dodson MD SEND OUTS [facility] [address] [place] [address], from Last 3 Months or Most Recently Relevant to Health Maintenance Advance Directives * Full Code (Latest Code Status on File) Date Activated Date Inactivated Comments 02/21/2023 7:05 AM 02/21/2023 2:50 PM Question Answer Comments Code Status Discussion: Not Discussed Care Teams Disintegrator Feeder Relationship Specialty Start Date End Date [place] [address] PCP - General Family Practice 08/29/14 [place] [address] [address], [place] [address] Clinical Nurse Specialist 01/27/20 Zen Ybarra MD [address] [facility] [address] [place] [address] Endocrinology 07/23/23
--- OUTSIDE RECORDS SUMMARY | 2024-04-21 04:11 | XMS_ITS | Encounter Summary ---
Author Organization [facility] Address [address] [place] [id number] Care Team Providers Care [facility] Pruner Name Role Phone Joon Dodson MD Primary Care Provider [phone] Adrianne Steele Primary Care Provider Unavailab paula Montoya, Tanya PharmD Unavailable [phone] Joon Dodson MD Primary Care Provider [phone] Adrianne Steele Primary Care Provider Unavailab paula Montoya, Tanya PharmD Unavailable [phone]- [phone], Tanya PharmD Unavailable [phone] Encounter Details Date Type Department Care Team (Late st Contact Info) Description 08/12/2019 Records - [facility] CONVERSION Scan, Non-Provider Social History Tobacco Use Types Packs/Day Years Used Date Smoking Tobacco: Former Cigarettes 0.5 35 0 11/27/1980 - 11/28/2015 Smokeless Tobacco: Never Alcohol Use Standard Drinks/Week Comments No 0 (1 standard drink = 0.6 oz pur e alcohol) Sex and Gender Information Value Date Recorded Sex Assigned at Not on file 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 Pt meets Covid Recovered criteria. 06/26/2021 08/28/2021 09/25/2021 11:39 PM CDT documented as of this encounter Care Teams Orchard Pruner Relationship Specialty Start Date End Date Joon Dodson MD [address] [place] [address] PCP - General 03/25/17 10/04/20 Adrianne Steele PCP - General 10/05/20 12/17/20 Joon Dodson MD [address] [place] [address] PCP - General 12/18/20 08/30/21 Adrianne Steele PCP - General 08/31/21 Tanya Montoya, PharmD [address] [place] [id number] Pharmacist Pharmacist 11/08/20 Tanya Montoya, PharmD [address] [place] [address] [id number] Assigned MTM Pharmacist 10/27/21 Tanya Montoya, PharmD [address] [place] [address] [id number] Assigned MTM Pharmacist 02/27/22 3 documented as of this encounter
--- OUTSIDE RECORDS SUMMARY | 2024-04-21 04:11 | XMS_ITS | Referral Summary ---
Author Organization [facility] Address [address] [place] [address] Care Team Providers Care Co Founder And President Name Role Phone Tanya Montoya PharmD Unavailable [phone] Adrianne Steele Primary Care Provider Unavailab le Allergies Active Allergy Reactions Criticality Noted Date Comments Dust Mite Extract 04/26/2020 Other reaction(s): Runny Nose Mold Cough 01/21/2019 Medications * This document contains information received from the source organization and may not represent a complete record from that organization. Ascorbic Acid (VITAMIN C PO) Take 1,000 mg by mouth daily Active [place]-3 Fatty Acids (FISH OIL OMEGA-3 PO) Take 1,000 mg by mouth daily Active acetaminophen (TYLENOL) 325 MG tabletIndicatio ns:Pain Take 3 tablets (975 mg) by mouth 3 times daily 270 tablet 1 09/01/19 22 Active famotidine (PEPCID) 10 MG tabletIndicatio ns:Gastroesopha geal reflux disease, unspecified whether esophagitis present Take 1 tablet (10 mg) by mouth 2 times daily as needed (heartburn) 180 tablet 1 09/01/19 22 Active multivitamin, therapeutic (THERA-VIT) TABS tabletIndicatio ns:Severe bipolar I disorder, most recent episode depressed with mixed features (H) Take 1 tablet by mouth daily 90 tablet 1 09/01/19 22 Active simvastatin (ZOCOR) 20 MG tabletIndicatio ns:Hypercholest erolemia Take 1 tablet (20 mg) by mouth At Bedtime 90 tablet 1 09/01/19 22 Active umeclidinium (INCRUSE ELLIPTA) 62.5 MCG/INH inhalerIndicati ons:Severe bipolar I disorder, most recent episode depressed with mixed features (H) Inhale 1 puff into the lungs daily 30 each 09/01/19 22 Active vitamin E (TOCOPHEROL) 200 units (90 mg) capsuleIndicati ons:Vitamin deficiency Take 2 capsules (400 Units) by mouth daily 180 capsule 1 09/01/19 22 Active alum & mag hydroxide-simet hicone (MAALOX) 200-200-20 MG/5ML SUSP suspensionIndic ations:Gastroes ophageal reflux disease, unspecified whether esophagitis present Take 30 mLs by mouth every 4 hours as needed for indigestion 355 mL 1 09/01/19 22 Active amLODIPine (NORVASC) 2.5 MG tabletIndicatio ns:Severe bipolar I disorder, most recent episode depressed with mixed features (H) Take 1 tablet (2.5 mg) by mouth daily 90 tablet 1 09/01/19 22 Active fluticasone-radha anterol (BREO ELLIPTA) 200-25 MCG/INH inhalerIndicati ons:Chronic obstructive pulmonary disease, unspecified COPD type (H) Inhale 1 puff into the lungs daily 60 each 09/01/19 22 Active folic acid (FOLVITE) 1 MG tabletIndicatio ns:Bipolar disorder, current episode depressed, severe, without psychotic features (H) Take 5 tablets (5 mg) by mouth daily 150 tablet 09/01/19 22 Active hydrOXYzine (ATARAX) 50 MG tabletIndicatio ns:Severe bipolar I disorder, most recent episode depressed with mixed features (H) Take 1 tablet (50 mg) by mouth every 6 hours as needed for anxiety 90 tablet 09/01/19 22 Active lamoTRIgine (LAMICTAL) 200 MG tabletIndicatio ns:Mood disorder (H) Take 1 tablet (200 mg) by mouth 2 times daily 180 tablet 09/01/19 22 Active lithium (ESKALITH CR/LITHOBID) 450 MG CR tabletIndicatio ns:Severe bipolar I disorder, most recent episode depressed with mixed features (H) Take 1 tablet (450 mg) by mouth At Bedtime 90 tablet 09/01/19 22 Active lithium ER (LITHOBID) 300 MG CR tabletIndicatio ns:Bipolar I disorder, most recent episode (or current) manic (H) Take 1 tablet (300 mg) by mouth daily 90 tablet 3 09/01/19 22 Active sennosides (SENOKOT) 8.6 MG tabletIndicatio ns:Severe bipolar I disorder, most recent episode depressed with mixed features (H) Take 2 tablets by mouth 2 times daily as needed for constipation 60 tablet 09/01/19 22 Active tamsulosin (FLOMAX) 0.4 MG capsuleIndicati ons:Benign prostatic hyperplasia without lower urinary tract symptoms Take 1 capsule (0.4 mg) by mouth daily 90 capsule 1 09/01/19 22 Active artificial saliva (BIOTENE MT) SOLN solutionIndicat ions:Dry mouth, unspecified Swish and spit 1-2 mLs in mouth 4 times daily as needed for dry mouth 44.3 mL 1 09/01/19 Active gabapentin (NEURONTIN) 100 MG capsuleIndicati ons:Anxiety Take 1 capsule (100 mg) by mouth 3 times daily (with meals) 270 capsule 09/01/19 22 Active nicotine polacrilex (NICORETTE) 4 MG gumIndications: Nicotine dependence, uncomplicated, unspecified nicotine product type Place 1 each (4 mg) inside cheek every hour as needed for other (nicotine withdrawal symptoms) 110 each 09/01/19 22 Active OLANZapine (ZYPREXA) 15 MG tabletIndicatio ns:Hallucinatio ns Take 1 tablet (15 mg) by mouth daily (with dinner) 90 tablet 09/01/19 22 Active pramipexole (MIRAPEX) 1 MG tabletIndicatio ns:Severe bipolar I disorder, most recent episode depressed with mixed features (H) Take 1 tablet (1 mg) by mouth daily 90 tablet 09/01/19 22 Active propranolol (INDERAL) 10 MG tabletIndicatio ns:Akathisia Take 0.5 tablets (5 mg) by mouth 3 times daily (before meals) 135 tablet 09/01/19 22 Active traZODone (DESYREL) 50 MG tabletIndicatio ns:Other insomnia Take 1 tablet (50 mg) by mouth At Bedtime 90 tablet 09/01/19 22 Active albuterol (PROAIR HFA/PROVENTIL HFA/VENTOLIN HFA) 108 (90 Base) MCG/ACT inhalerIndicati ons:Chronic obstructive pulmonary disease, unspecified COPD type (H) Inhale 1-2 puffs into the lungs every 2 hours as needed for shortness of breath / dyspnea 18 g 4 09/01/19 22 Active buPROPion (WELLBUTRIN SR) 200 MG 12 hr tabletIndicatio ns:Severe bipolar I disorder, most recent episode depressed with mixed features (H) Take 1 tablet (200 mg) by mouth daily 180 tablet 3 09/01/19 22 Active Atorvastatin Calcium (LIPITOR PO) Take 10 mg by mouth At Bedtime 015 Discontin ued(Patie nt Discharge ) escitalopram (LEXAPRO) 20 MG tablet Take 20 mg by mouth daily 019 Discontin ued(Patie nt Discharge ) Active Problems Problem Noted Date Diagnosed Date Other insomnia 07/03/2021 Mood disorder 06/27/2021 Noncompliance with medication regimen 06/06/2021 Unable to function independently 06/06/2021 Bipolar I disorder, most recent episode (or curr ent) manic 05/03/2021 S/P total knee arthroplasty 12/18/2020 Suicidal thoughts 10/04/2020 Severe bipolar I disorder, m ost recent episode depressed with mixed features 10/03/2020 Passive suicidal ideations 10/03/2020 Depression 10/23/2017 Syncope 03/25/2017 Degenerative arthritis of knee 10/07/2016 Nodule of right lung 11/18/2014 ARLEEN (generalized anxiety disorder) 10/11/2014 Bipolar 1 disorder 06/30/2012 Resolved Problems Problem Noted Date Diagnosed Date Resolved Date Severe episode of recurrent major depressive disorder, without psychotic features 08/12/2019 Immunizations Name Administration Dates Next Due Flu, Unspecified 2012,02/19/2010 Influenza (IIV3) PF 05/01/2011,02/19/2010 Influenza (intradermal) 2012 Influenza (prior to 2023) 05/01/2011,02/19/2010 Influenza Vaccine >6 months,quad, PF ,03/04/2019,06/01/2018,2016,05/09/2015 Pneumococcal 23 valent 05/14/2011 Pneumococcal, Unspecified 05/14/2011 TDAP (Adacel,Boostrix) 06/02/2012,05/01/2011 Zoster recombinant adjuvante d (SHINGRIX) 04/10/2020 Zoster vaccine, live 05/17/2011 Social History Tobacco Use Types Packs/Day Years Used Date Smoking Tobacco: Some Days Cigarettes 0.5 35 Started: 11/27/1980; Last attempted to quit: 11/28/2015 Pipe Smokeless Tobacco: Never Comments:occas pipe tobacco Alcohol Use Standard Drinks/Week Comments Yes 0 (1 standard drink = 0.6 oz pur e alcohol) very rare PHQ-2 Answer Date Recorded PHQ-2 Score 6 07/08/2021 Adolescent Education Answer Date Record ed Getting School Help Needed Not on file 02/22 Sex and Gender Information Value Date Recorded Sex Assigned at Not on file Legal Sex Male 3:29 AM PARK MANAGER Gender Identity Not on file Sexual Orientation Not on file Last Filed Vital Signs Vital Sign Reading Time Taken Comments Blood Pressure 127/86 08/31/2021 12:29 PM CDT Pulse 75 08/31/2021 12:29 PM CDT Temperature 36.4 C (97.5 F) 08/31/2021 7:40 AM CDT Respiratory Rate 16 08/31/2021 7:40 AM CDT Oxygen Saturation 97% 08/31/2021 7:40 AM CDT Inhaled Oxygen Concentration - - Weight 89.3 kg (196 lb 14.4 oz) 08/30/2021 8:10 AM CDT Height 188 cm (6' 2) 07/21/2021 1:00 PM PARK MANAGER Body Mass Index 25.28 07/21/2021 1:00 PM PARK MANAGER Plan of Treatment Not on file Medical Devices Implanted Type Area President Practicing Urologist Device Identifier Shelf Expiration Date Model / Serial / Lot Bone Cement Simplex Full Dose 6191-1-001 Implanted:Qty : 1 on 10/07/2016 by Panda Mesa MD at [facility] Cement, Bone Right: Knee [employer] 01/30/2019 6191-1-00 1 / / [id number] Bone Cement Simplex Full Dose 6191-1-001 Implanted:Qty : 1 on 10/07/2016 by Panda Mesa MD at [facility] Cement, Bone Right: Knee [employer] 04/01/2018 6191-00 1 / / [id number] Bone Cement Simplex Full Dose 6191-1-001 - [id number] Implanted:Qty : 2 on 12/18/2020 by Seth Sutton MD at [facility] Cement, Bone Left: Knee [employer] 03/01/2022 6191-1-00 1 / / [id number] Imp Comp Fem Strk Triathln Ps Rt 6 5515-F-602 Implanted:Qty : 1 on 10/07/2016 by Panda Mesa MD at [facility] Total Joint Component /Insert Right: Knee [employer] 06/26/2021 5515-F-60 2 / / [id number] Imp Peg Distal Femoral Strk 5575-X-000 Implanted:Qty : 1 on 10/07/2016 by Panda Mesa MD at [facility] Total Joint Component /Insert Right: Knee [employer] 07/31/2021 5575-X-00 0 / / [id number] Imp Comp Patella Strk Tri Sym X3 33x9mm 5550-G-339 Implanted:Qty : 1 on 10/07/2016 by Panda Mesa MD at [facility] Total Joint Component /Insert Right: Knee [employer] 09/04/2021 5550-G-33 9 / / [id number] Imp Baseplate Tibial Howm Tri 6 5520-B-600 Implanted:Qty : 1 on 10/07/2016 by Panda Mesa MD at [facility] Total Joint Component /Insert Right: Knee [employer] 06/10/2021 5520-B-60 0 / / [id number] Imp Insert Tibial Howm Tri Size 6 09mm 5532-G-609 Implanted:Qty : 1 on 10/07/2016 by Panda Mesa MD at [facility] Total Joint Component /Insert Right: Knee [employer] 04/10/2021 5532-G-60 9 / / [id number] Imp Insert Baseplate Tibial Howm Tri 5 5521-B-500 - [id number] Implanted:Qty : 1 on 12/18/2020 by Seth Sutton MD at [facility] Total Joint Component /Insert Left: Knee [employer] 07/19/2025 5521-B-50 0 / / [id number] Imp Comp Patella Tri 33x9mm 5550-L-339 - [id number] Implanted:Qty : 1 on 12/18/2020 by Seth Sutton MD at [facility] Total Joint Component /Insert Left: Knee [employer] 06/06/2025 5550-L-33 9 / / [id number] Imp Insert Tibial Howm Tri Size 5 09mm 5532-G-509 - [id number] Implanted:Qty : 1 on 12/18/2020 by Seth Sutton MD at [facility] Total Joint Component /Insert Left: Knee [employer] 03/22/2024 5532-G-50 9 / / [id number] Imp Insert Tibial Howm Tri Size 5 09mm 5532-G-509 - [id number] Implanted:Qty : 1 on 12/18/2020 by Seth Sutton MD at [facility] Total Joint Component /Insert Left: Knee [employer] [id number] 08/31/2022 5532-G-50 9 / / [id number] Imp Comp Fem Strk Triathln Ps Lt 5 5515-F-501 - [id number] Implanted:Qty : 1 on 12/18/2020 by Seth Sutton MD at [facility] Total Joint Component /Insert Left: Knee [employer] 08/15/2025 5515-F-50 1 / / [id number] Procedures Procedure Name Priority Date/Time Associated Diagnosis Comments COMPREHENSIVE METABOLIC PANEL Routine 08/07/2021 2:04 PM PARK MANAGER LIPID REFLEX TO DIRECT LDL PANEL Routine 06/08/2021 8:[address] CHEST W/O CONTRAST Routine 11/18/2014 7:48 AM CDT Lung nodule from Last 3 Months or Most Recently Relevant to Health Maintenance Results * (ABNORMAL) Comprehensive metabolic panel (08/07/2021 2:04 PM PARK MANAGER) Sodium 138 133 - 144 mmol/L 08/07/2021 2:53 PM PARK MANAGER [facility] Potassium 5.1 3.4 - 5.3 mmol/L 08/07/2021 2:53 PM PARK MANAGER [facility] Chloride 107 94 - 109 mmol/L 08/07/2021 2:53 PM PARK MANAGER [facility] Carbon Dioxide (CO2) 25 20 - 32 mmol/L 08/07/2021 2:53 PM PARK MANAGER [facility] Anion Gap 6 3 - 14 mmol/L 08/07/2021 2:53 PM PARK MANAGER [facility] Urea Nitrogen 25 7 - 30 mg/dL 08/07/2021 2:53 PM PARK MANAGER [facility] Creatinine 1.09 0.66 - 1.25 mg/dL 08/07/2021 2:53 PM PARK MANAGER [facility] Calcium 9.4 8.5 - 10.1 mg/dL 08/07/2021 2:53 PM PARK MANAGER [facility] Glucose 115(H) 70 - 99 mg/dL 08/07/2021 2:53 PM PARK MANAGER [facility] Alkaline Phosphatase 92 40 - 150 U/L 08/07/2021 2:53 PM PARK MANAGER [facility] AST 21 0 - 45 U/L 08/07/2021 2:53 PM PARK MANAGER [facility] ALT 30 0 - 70 U/L 08/07/2021 2:53 PM PARK MANAGER [facility] Protein Total 6.5(L) 6.8 - 8.8 g/dL 08/07/2021 2:53 PM PARK MANAGER [facility] Albumin 3.3(L) 3.4 - 5.0 g/dL 08/07/2021 2:53 PM PARK MANAGER [facility] Bilirubin Total 0.2 0.2 - 1.3 mg/dL 08/07/2021 2:53 PM PARK MANAGER [facility] GFR Estimate 76 >60 mL/min/1.7 3m2 08/07/2021 2:53 PM PARK MANAGER [facility] Comment:Effective May 032020 eGFRcr in adults is calculated using the 2020 CKD-EPI creatinine equation which includes age and gender (Yeny et al., NEJM, DOI: 10.1056/MJUStv1021876) Blood STRUCTURE OF RIGHT UPPER LIMB / Unknown Venipuncture / Unknown 08/07/2021 2:04 PM PARK MANAGER 08/07/2021 2:26 PM PARK MANAGER us Margaux Osborn MD LAB - BLOOD ORDERABLES F inal Result [facility] [address] [facility], [address] [place] [phone], [facility] [phone] * Lipid panel reflex to direct LDL (06/08/2021 8:24 AM PARK MANAGER) Pathologist [facility] Cholesterol 169 <200 mg/dL 06/08/2021 9:48 AM PARK MANAGER [facility] Triglycerides 130 <150 mg/dL 06/08/2021 9:48 AM PARK MANAGER [facility] Direct Measure HDL 51 >=40 mg/dL 2021 9:48 AM PARK MANAGER [facility] LDL Cholesterol Calculated 92 <=100 mg/dL 06/08/2021 9:48 AM PARK MANAGER [facility] Non HDL Cholesterol 118 <130 mg/dL 06/08/2021 9:48 AM PARK MANAGER [facility] Blood STRUCTURE OF RIGHT HAND / Unknown Venipuncture / Unknown 06/08/2021 8:24 AM PARK MANAGER 06/08/2021 8:57 AM PARK MANAGER Narrative [facility] - 06/08/2021 9:48 AM PARK MANAGER Cholesterol Desirable: <200 mg/dL Triglycerides Normal: Less than 150 mg/dL Borderline High: 150-199 mg/dL High: 200-499 mg/dL Very High: Greater than or equal to 500 mg/dL Direct Measure HDL Female: Greater than or equal to 50 mg/dL Male: Greater than or equal to 40 mg/dL LDL Cholesterol Desirable: <100mg/dL Above Desirable: 100-129 mg/dL Borderline High: 130-159 mg/dL High: 160-189 mg/dL Very High: >= 190 mg/dL Non HDL Cholesterol Desirable: 130 mg/dL Above Desirable: 130-159 mg/dL Borderline High: 160-189 mg/dL High: 190-219 mg/dL Very High: Greater than or equal to 220 mg/dL us Malorie James MD LAB - BLOOD ORDERABLES Kim l Result UR LABORATORY [facility] [address] [facility] [address], [address] [place] [address], [facility] [phone] * CT Chest w/o Contrast (11/18/2014 7:48 AM CDT) Anatomical Region Laterality Modality Chest, SUBRAD CT BODY, [facility] CT CHEST Computed Tomography Impressions 11/18/2014 8:12 AM CDT IMPRESSION: 1. Indeterminate nodule in the right upper lobe. 2. Mild pleural nodularity bilaterally. 3. Coronary calcifications. 4. Mild pericardial thickening and/or fluid anteriorly. 5. Right renal cyst with several tiny calcifications in the upper pole of the left kidney. DARLEEN SCHULTZ MD Narrative 11/18/2014 8:[address] CHEST WITHOUT CONTRAST 11/18/2014 7:48 AM HISTORY: Right upper lobe nodule. TECHNIQUE: Scans obtained from the apices through the diaphragm without IV contrast. COMPARISON: None. FINDINGS: No mediastinal or hilar adenopathy or mass. Coronary calcifications. Mild pericardial thickening and/or fluid anteriorly. Benign cyst in the left kidney with several tiny calcifications in the left kidney. 0.8 x 1.1 cm mildly lobulated nodule in the right upper lobe on image 11 which is nonspecific. Mild pleural nodularity bilaterally in the upper lungs most marked on the right. No other intrapulmonary abnormality identified. Remainder of the scan is negative. Procedure Note Darleen Schultz MD - 11/18/2014 CT CHEST WITHOUT CONTRAST 11/18/2014 7:48 AM HISTORY: Right upper lobe nodule. TECHNIQUE: Scans obtained from the apices through the diaphragm without IV contrast. COMPARISON: None. FINDINGS: No mediastinal or hilar adenopathy or mass. Coronary calcifications. Mild pericardial thickening and/or fluid anteriorly. Benign cyst in the left kidney with several tiny calcifications in the left kidney. 0.8 x 1.1 cm mildly lobulated nodule in the right upper lobe on image 11 which is nonspecific. Mild pleural nodularity bilaterally in the upper lungs most marked on the right. No other intrapulmonary abnormality identified. Remainder of the scan is negative. IMPRESSION IMPRESSION: 1. Indeterminate nodule in the right upper lobe. 2. Mild pleural nodularity bilaterally. 3. Coronary calcifications. 4. Mild pericardial thickening and/or fluid anteriorly. 5. Right renal cyst with several tiny calcifications in the upper pole of the left kidney. DARLEEN SCHULTZ MD Zeyad Ivey MD IMG CT ORDERABLES Kim schwarz Result from Last 3 Months or Most Recently Relevant to Health Maintenance Insurance * Guarantor: Reynaldo Rivers Rakesh Account Type Relation to Patient Date of Phone Billing Address Personal/Family Self 1955 [address] [place] [address] MEDICARE [facility] MEDICARE SUPPLEMENT * Guarantor: Coralloyd Reynaldo Rakesh Account Type Relation to Patient Date of Phone Billing Address Behavioral Self 1955 [address] [place] [address] [place] * Guarantor: Reynaldo Rivers Account Type Relation to Patient Date of Phone Billing Address Medication Therapy Self 1955 [address] [place] [address] [place] Advance Directives For more information, please contact: [phone] * Full Code (Latest Code Status on File) Date Activated Date Inactivated Comments 07/21/2021 2:04 PM 08/31/2021 3:27 PM All basic and advanced life-sustaining interventions are performed as appropriate Question Answer Comments Code status determined by: Unable to dis cuss and no AD/POLST on file; continue PREVIOUSLY ORDERED code status * Full Code Date Activated Date Inactivated Comments 07/08/2021 12:13 PM 07/21/2021 1:19 PM All basic an d advanced life-sustaining interventions are performed as appropriate Question Answer Comments Code status determined by: Unable to dis cuss and no AD/POLST on file; continue PREVIOUSLY ORDERED code status * Full Code Date Activated Date Inactivated Comments 07/07/2021 11:06 AM 07/08/2021 12:13 PM All basic an d advanced life-sustaining interventions are performed as appropriate Question Answer Comments Code status determined by: Unable to dis cuss and no AD/POLST on file; continue PREVIOUSLY ORDERED code status * Full Code Date Activated Date Inactivated Comments 06/29/2021 8:20 PM 07/07/2021 11:05 AM All basic an d advanced life-sustaining interventions are performed as appropriate Question Answer Comments Code status determined by: Unable to dis cuss and no AD/POLST on file; continue PREVIOUSLY ORDERED code status * Full Code Date Activated Date Inactivated Comments 06/29/2021 6:21 PM 06/29/2021 8:20 PM All basic an d advanced life-sustaining interventions are performed as appropriate Question Answer Comments Code status determined by: Unable to dis cuss and no AD/POLST on file; continue PREVIOUSLY ORDERED code status Care Teams Co Founder And President Relationship Specialty Start Date End Date Adrianne Steele PCP - General 08/31/21 Tanya Montoya, PharmD [address] [place] [id number] Pharmacist Pharmacist 11/08/20
--- OUTSIDE RECORDS SUMMARY | 2024-04-21 04:11 | XMS_ITS | Clinical Summary ---
Author Organization [facility] Address [address] [place] [id number] Care Team Providers Care Vice President Business Development Name Role Phone Tanya Montoya PharmD Unavailable [phone] Adrianne Steele Primary Care Provider Unavailab le Allergies Active Allergy Reactions Criticality Noted Date Comments Dust Mite Extract 04/26/2020 Other reaction(s): Runny Nose Mold Cough 01/21/2019 Medications * This document contains information received from the source organization and may not represent a complete record from that organization. 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 Gender Identity Not on file Sexual Orientation [...] 188 cm (6' 2) 07/21/2021 1:00 PM ASSEMBLER BICYCLE Body Mass Index 25.28 07/21/2021 1:00 PM ASSEMBLER BICYCLE Plan of Treatment Health Maintenance Due Date Last Done Comments ADVANCE CARE PLANNING 1955 ANNUAL REVIEW OF HM ORDERS 1955 CT COLONOGRAPHY 1955 FIT 1955 FLEX SIG 1955 sDNA (Cologuard) 1955 HEPATITIS C SCREENING 1975 LUNG CANCER SCREENING 11/19/2015 11/18/2014 ZOSTER IMMUNIZATION (3 of 3) 06/05/2020 04/10/2020, 05/17/2011 FALL RISK ASSESSMENT 2022 Pneumococcal Vaccine: 65+ Years (3 of 3 - PPSV23 or PCV20) 2022 05/14/2011, 05/14/2011 DTAP/TDAP/TD IMMUNIZATION (3 - Td or Tdap) 06/02/2022 06/02/2012, 05/01/2011 LIPID 06/08/2022 06/08/2021, 05/0 10/2020, 08/13/2019 BMP 08/07/2022 08/07/2021, 07/03, 07/07/2021, Additional history exists PHQ-2 (once per calendar year) 2023 07/06/2021, 07/06/2021 MEDICARE ANNUAL WELLNESS VISIT 01/15/2024 01/14/2023, 09/28/2021, 01/27/2020 COVID-19 Vaccine ( season) 2024 12/01/2020, 11/03/2020 INFLUENZA VACCINE (#1) 2024 , 03/04/2019, 06/01/2018, Additional history exists GLUCOSE 08/07/2024 08/07/2021, 07/03, 07/07/2021, Additional history exists RSV VACCINE (1 - 1-dose 75+ series) 2032 COLONOSCOPY 10/24/2032 10/24/2022 COLORECTAL CANCER SCREENING 10/24/2032 HPV IMMUNIZATION Aged Out No longer e ligible based on patient's age to complete this topic MENINGITIS IMMUNIZATION Aged Out No l onger eligible based on patient's age to complete this topic RSV MONOCLONAL ANTIBODY Aged Out No l onger eligible based on patient's age to complete this topic Medical Devices Implanted Type Area Law Firm Partner Device Identifier Shelf Expiration Date Model / Serial / Lot Bone Cement Simplex Full Dose 6191-1-001 Implanted:Qty : 1 on 10/07/2016 by Panda Mesa MD at [facility] Cement, Bone Right: Knee [employer] 01/30/2019 6191-1-00 1 / / [id number] Bone Cement Simplex Full Dose 6191-1-001 Implanted:Qty : 1 on 10/07/2016 by Panda Mesa MD at [facility] Cement, Bone Right: Knee [employer] 04/01/2018 6191-1-00 1 / / [id number] Bone Cement Simplex Full Dose 6191-1-001 - [id number] Implanted:Qty : 2 on 12/18/2020 by Seth Sutton MD at [facility] Cement, Bone Left: Knee [employer] 03/01/2022 6191-1-00 1 / / [id number] Imp Comp Fem Strk Triathln Ps Rt 6 5515-F-602 Implanted:Qty : 1 on 10/07/2016 by Panda Mesa MD at [facility] Total Joint Component /Insert Right: Knee [employer] 06/26/2021 5515-F-60 2 / / [id number] Imp Peg Distal Femoral Strk 5575-X-000 Implanted:Qty : 1 on 10/07/2016 by Panda Mesa MD at [facility] Total Joint Component /Insert Right: Knee [employer] 07/31/2021 5575-X-00 0 / / [id number] Imp Comp Patella Strk Tri Sym X3 33x9mm 5550-G-339 Implanted:Qty : 1 on 10/07/2016 by Panda Mesa MD at [facility] Total Joint Component /Insert Right: Knee [employer] 09/04/2021 5550-G-33 9 / / [id number] Imp Baseplate Tibial Howm Tri 6 5520-B-600 Implanted:Qty : 1 on 10/07/2016 by Panda Mesa MD at [facility] Total Joint Component /Insert Right: Knee [employer] 06/10/2021 5520-B-60 0 / / [id number] Imp Insert Tibial Howm Tri Size 6 09mm 5532-G-609 Implanted:Qty : 1 on 10/07/2016 by Panda Mesa MD at [facility] Total Joint Component /Insert Right: Knee [employer] 04/10/2021 5532-G-60 9 / / [id number] Imp Insert Baseplate Tibial Howm Tri 5 5521-B-500 - [id number] Implanted:Qty : 1 on 12/18/2020 by Seth Sutton MD at [facility] Total Joint Component /Insert Left: Knee [employer] 07/19/2025 5521-B-50 0 / / [id number] Imp Comp Patella Tri 33x9mm 5550-L-339 - [id number] Implanted:Qty : 1 on 12/18/2020 by Seth Sutton MD at [facility] Total Joint Component /Insert Left: Knee [employer] 06/06/2025 5550-L-33 9 / / [id number] Imp Insert Tibial Howm Tri Size 5 09mm 5532-G-509 - [id number] Implanted:Qty : 1 on 12/18/2020 by Seth Sutton MD at [facility] Total Joint Component /Insert Left: Knee [employer] 03/22/2024 5532-G-50 9 / / [id number] Imp Insert Tibial Howm Tri Size 5 09mm 5532-G-509 - [id number] Implanted:Qty : 1 on 12/18/2020 by Seth Sutton MD at [facility] Total Joint Component /Insert Left: Knee [employer] [id number] 08/31/2022 5532-G-50 9 / / [id number] Imp Comp Fem Strk Triathln Ps Lt 5 5515-F-501 - [id number] Implanted:Qty : 1 on 12/18/2020 by Seth Sutton MD at [facility] Total Joint Component /Insert Left: Knee [employer] 08/15/2025 5515-F-50 1 / / [id number] Procedures Procedure Name Priority Date/Time Associated Diagnosis Comments COMPREHENSIVE METABOLIC PANEL Routine 08/07/2021 2:04 PM ASSEMBLER BICYCLE LIPID REFLEX TO DIRECT LDL PANEL Routine 06/08/2021 8:[address] CHEST W/O CONTRAST Routine 11/18/2014 7:48 AM CDT Lung nodule from Last 3 Months or Most Recently Relevant to Health Maintenance Results * (ABNORMAL) Comprehensive metabolic panel (08/07/2021 2:04 PM ASSEMBLER BICYCLE) Sodium 138 133 - 144 mmol/L 08/07/2021 2:53 PM ASSEMBLER BICYCLE [facility] Potassium 5.1 3.4 - 5.3 mmol/L 08/07/2021 2:53 PM ASSEMBLER BICYCLE [facility] Chloride 107 94 - 109 mmol/L 08/07/2021 2:53 PM ASSEMBLER BICYCLE [facility] Carbon Dioxide (CO2) 25 20 - 32 mmol/L 08/07/2021 2:53 PM ASSEMBLER BICYCLE [facility] Anion Gap 6 3 - 14 mmol/L 08/07/2021 2:53 PM ASSEMBLER BICYCLE [facility] Urea Nitrogen 25 7 - 30 mg/dL 08/07/2021 2:53 PM ASSEMBLER BICYCLE [facility] Creatinine 1.09 0.66 - 1.25 mg/dL 08/07/2021 2:53 PM ASSEMBLER BICYCLE [facility] Calcium 9.4 8.5 - 10.1 mg/dL 08/07/2021 2:53 PM ASSEMBLER BICYCLE [facility] Glucose 115(H) 70 - 99 mg/dL 08/07/2021 2:53 PM ASSEMBLER BICYCLE [facility] Alkaline Phosphatase 92 40 - 150 U/L 08/07/2021 2:53 PM ASSEMBLER BICYCLE [facility] AST 21 0 - 45 U/L 08/07/2021 2:53 PM ASSEMBLER BICYCLE [facility] ALT 30 0 - 70 U/L 08/07/2021 2:53 PM ASSEMBLER BICYCLE [facility] Protein Total 6.5(L) 6.8 - 8.8 g/dL 08/07/2021 2:53 PM ASSEMBLER BICYCLE [facility] Albumin 3.3(L) 3.4 - 5.0 g/dL 08/07/2021 2:53 PM ASSEMBLER BICYCLE [facility] Bilirubin Total 0.2 0.2 - 1.3 mg/dL 08/07/2021 2:53 PM ASSEMBLER BICYCLE [facility] GFR Estimate 76 >60 mL/min/1.7 3m2 08/07/2021 2:53 PM ASSEMBLER BICYCLE [facility] Comment:Effective May 032020 eGFRcr in adults is calculated using the 2020 CKD-EPI creatinine equation which includes age and gender (Yeny et al., NEJM, DOI: 10.1056/TJOSwe9656943) Blood STRUCTURE OF RIGHT UPPER LIMB / Unknown Venipuncture / Unknown 08/07/2021 2:04 PM ASSEMBLER BICYCLE 08/07/2021 2:26 PM ASSEMBLER BICYCLE us Margaux Osborn MD LAB - BLOOD ORDERABLES F inal Result UR LABORATORY [facility] [address] [place] [address], [facility] [phone] * Lipid panel reflex to direct LDL (06/08/2021 8:24 AM ASSEMBLER BICYCLE) Pathologist [facility] Cholesterol 169 <200 mg/dL 06/08/2021 9:48 AM ASSEMBLER BICYCLE [facility] Triglycerides 130 <150 mg/dL 06/08/2021 9:48 AM ASSEMBLER BICYCLE [facility] Direct Measure HDL 51 >=40 mg/dL 2021 9:48 AM ASSEMBLER BICYCLE [facility] LDL Cholesterol Calculated 92 <=100 mg/dL 06/08/2021 9:48 AM ASSEMBLER BICYCLE [facility] Non HDL Cholesterol 118 <130 mg/dL 06/08/2021 9:48 AM ASSEMBLER BICYCLE [facility] Blood STRUCTURE OF RIGHT HAND / Unknown Venipuncture / Unknown 06/08/2021 8:24 AM ASSEMBLER BICYCLE 06/08/2021 8:57 AM ASSEMBLER BICYCLE Narrative UR LAB[facility] - 06/08/2021 9:48 AM ASSEMBLER BICYCLE Cholesterol Desirable: <200 mg/dL Triglycerides Normal: Less [...] BLOOD ORDERABLES Kim l Result UR LABORATORY [facility] [address], [address] [place] [address], [facility] [phone] * CT Chest w/o Contrast (11/18/2014 7:48 AM CDT) Anatomical Region Laterality Modality Chest, [facility]BRAD CT BODY, [facility] CT CHEST Computed Tomography Impressions 11/18/2014 [...] to Health Maintenance Insurance * Guarantor: Reynaldo Rivesr Rakesh Account Type Relation to Patient Date of Phone Billing Address Personal/Family Self 1955 [address] [place] [address] MEDICARE [facility] MEDICARE SUPPLEMENT * Guarantor: Coralloyd Reynaldo Rakesh Account Type Relation to Patient Date of Phone Billing Address Behavioral Self 1955 [address] [place] [address] [place] * Guarantor: Reynaldo Rivers Account Type Relation to Patient Date of Phone Billing Address Medication Therapy Self 1955 [address] [place] [address] [place] Advance Directives For more information, please contact: [phone] * Full Code (Latest Code Status on [...] continue PREVIOUSLY ORDERED code status Care Teams Vice President Business Development Relationship Specialty Start Date End Date Adrianne Steele PCP - General 08/31/21 Tanya Montoya, PharmD [address] [place] [id number] Pharmacist Pharmacist 11/08/20
--- OUTSIDE RECORDS SUMMARY | 2024-04-21 04:11 | XMS_ITS | Encounter Summary ---
Author Organization [facility] Address [address] [place] [address] Care Team Providers Care Spot Sprayer Name Role Phone Joon Dodson MD Primary Care Provider [phone] Adrianne Steele Primary Care Provider Unavailab paula Montoya, Tanya PharmD Unavailable [phone] Joon Dodson MD Primary Care Provider Adrianne Steele Primary Care Provider Unavailab paula Jan, Tanya PharmD Unavailable [phone] Jan Tanya PharmD Unavailable [phone] Reason for Visit * Reason Onset Date Comments MH/CD Inpatient 10/22/2017 Encounter Details Date Type Department Care Team ([facility] st Contact Info) Description 10/22/2017 Telephone [facility] Intake [address] [place] [id number] Generic, Behavioral Intake, MH/CD Inpatient Social [...] on file 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 Pt reports feeling dep. Pt reports he's not getting out of bed and when he does he paces. Pt reports some delusions and paranoia. No reported hx of attempts. Medical: COPD, hyperlipidemia, and sleep apnea. A: vol R: Pt requesting to be admitted at [facility]. Pt waiting in ED at this time due to no availability for a male admission at [facility]. documented in this encounter Plan of Treatment Not on file documented as of this encounter Visit Diagnoses Not on filedocumented in this encounter Additional Health Concerns Infection Onset Date Last Indicated Resolved Time COVID-19 06/26/2021 06/26/2021 07/07/2021 9:38 AM ANIMAL CRUELTY INVESTIGATOR 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 Pt meets Covid Recovered criteria. 06/26/2021 08/28/2021 09/25/2021 11:39 PM CDT documented as of this encounter Care Teams Spot Sprayer Relationship Specialty Start Date End Date Joon Dodson MD [address] [place] [address] PCP - General 03/25/17 10/04/20 Adrianne Steele PCP - General 10/05/20 12/17/20 Joon Dodson MD [address] [place] [address] PCP - General 12/18/20 08/30/21 Adrianne Steele PCP - General 08/31/21 Tanya Montoya, PharmD [address] [place] [phone] Pharmacist Pharmacist 11/08/20 Tanya Montoya, MartitaD [address] [place] [address] [phone] Assigned MTM Pharmacist 10/27/21 Tanya Montoya, PharmD [address] [place] [address] [phone] Assigned MTM Pharmacist 02/27/22 3 documented as of this encounter
--- OUTSIDE RECORDS SUMMARY | 2024-04-21 04:12 | XMS_ITS | Data Portability ---
Author Organization [place] [facility] [place] [facility], [facility] Address [address] [facility] [address] [place] [address] Care Team Providers Care Hop Farmer Name Role Phone [facility] Primary Care Pro vider Assessment No assessment recorded. Plan of Treatment Reminders Order Date Submit Date Provider Last Modified By Organization Details Last Modified Time Details Appointments None recorded. Lab PSA, total, serum or plasma 2022 023 [email or web address] Not available 3 10:01:08 PSA, serum or plasma 2022 023 [email or web address] [facility], [address], [place], [address], 3 15:23:46 biopsy, prostate 2022 023 [email or web address] 30 Not available 3 14:11:37 PSA, serum or plasma 2023 024 [email or web address] [facility], [address], [place], [address], 4 14:50:00 PSA, total, serum or plasma 2023 024 [email or web address] [facility], [address] [facility], [place], [address], 4 08:11:52 Referral None recorded. Procedures None recorded. Surgeries None recorded. Imaging MRI, prostate, w/wo contrast 2022 023 [email or web address] 30 [facility], [address], [address], [place], [address], 3 09:04:34 Medication Orders ceftriaxone 1 gram solution for injection 2022 023 [id number], [address] [facility] [address], [place], [address], 4 14:32:29 Patient TargetsNo targets recorded. Patient InstructionsNo instructions recorded. Reason for Referral None Reported. Results Created Date Observation Date Name Description Value Unit Range Abnormal Flag Note LastModifiedBy Organization Detail LastModifiedTime 12/10/1912/09/2022 PSA, serum or plasm a PSA 5.5 ng/mL 0-4.0 Not Available [facility] [address], [place], [address], 12/09/2022 15:23:28 09/08/19 24 09/08/2023 PSA, serum or plasm a PSA 4.8ng/ mL 0-4.0 Not Available [facility] [address], [place], [address], 09/08/2023 14:39:05 12/20/19 23 12/18/2022 MRI, prost ate, w/wo contr ast No observ ation record ed. LEE [facility] [address], [place], [address], 12/23/2022 15:25:47 Result Notes None recorded. Procedures Surgical History Date Name Laterality Status Provider Name and Address Organization Details Recorded Time 4 Blood Draw/TRICHOLOGIST/PSA RESULTS completed Cindi Hidalgo [facility] 09/04/2023 15:51:29 3 Prostate Biopsy Procedure completed Valentino Baker MD [address] [facility],[address], [place], [address], [facility] 01/31/2023 17:08:26 3 URONAV completed Valentino Baker MD [address] [facility],[address], [place], [address], [facility] 01/30/2023 23:48:02 3 Blood Draw/TRICHOLOGIST/PSA RESULTS completed Toyin Olivaresrosalind [facility] 12/09/2022 15:23:15 3 [facility] 15:41:40 Hernia [facility]air [facility]/23[facility]2022 15:41:47 Orthopedic Surgery completed Segundo Leonardo [facility] 09/23/2022 15:41:56 repair of lung completed [facility] 09/23/2022 15:42:13 Imaging Results Imaging Date Name Status LastModified by Organiz ation Details LastModified Time 12/18/2022 MRI, prostate, w/wo contrast completed [facility] [address] [facility] [address], [place], [address], 12/23/2022 15:25:47 Procedure Notes None recorded. Medical Equipment None Reported. Allergies No known drug allergies Medications Name Sig Start Date Stop Date Status Note LastModified by Organization Details LastModified Time cyclobenzap rine 10 mg tablet TAKE 1 TABLET BY MOUTH THREE TIMES DAILY NEEDED FOR MUSCLE SPASMS 09/07 completed Not Available Not Available Not Available pramipexole 1 mg tablet TAKE 1 TABLET BY MOUTH EVERY DAY 09/23 completed Not Available Not Available Not Available primidone 50 mg tablet TAKE ONE TABLET BY MOUTH TWICE DAILY* active Not Available Not Available No t Available lamotrigine 200 mg tablet Take 1 Tablet (200 mg) by mouth once daily* active Not Available Not Available No t Available ipratropium 0.5 mg-albutero l 3 mg (2.5 mg base)/3 mL nebulizatio n soln Inhale 3 mL via a nebulizer 4 times daily if needed for Shortness Of Breath or Wheezing. * active Not Available Not Available No t Available trazodone 50 mg tablet TAKE ONE OR TWO TABLETS BY MOUTH AT BEDTIME NEEDED FOR SLEEP 09/07 completed Not Available Not Available Not Available ibuprofen 800 mg tablet TAKE 1 TABLET BY MOUTH EVERY 8 HOURS WITH FOOD NEEDED FOR PAIN active Not Available Not Available No t Available olanzapine 10 mg tablet TAKE 1 TABLET BY MOUTH EVERYDAY AT BEDTIME 09/23 completed Not Available Not Available Not Available lithium carbonate ER 300 mg tablet,exte nded release PLEASE SEE ATTACHED FOR DETAILED DIRECTION S 09/23 completed Not Available Not Available Not Available lithium carbonate 150 mg capsule TAKE THREE CAPSULES BY MOUTH AT BEDTIME* 12/09 completed Not Available Not Available Not Available amlodipine 2.5 mg tablet Take 1 Tablet (2.5 mg) by mouth once daily* 09/07 completed Not Available Not Available Not Available hydroxyzine HCl 50 mg tablet Take 1/2-1 tablet by mouth up to twice daily as needed for anxiety or sleep* active Not Available Not Available No t Available amlodipine 5 mg tablet TAKE ONE TABLET BY MOUTH ONE TIME DAILY* active Not Available Not Available No t Available ciprofloxac in 500 mg tablet Take 1 tablet every 12 hours by oral route for 4 days. 09/07 completed Not Available Not Available Not Available acetaminoph en 500 mg tablet TAKE 2 TABLETS BY MOUTH EVERY 6 HOURS NEEDED FOR PAIN active Not Available Not Available No t Available lithium carbonate ER 450 mg tablet,exte nded release TAKE 1 TABLET BY MOUTH AT BEDTIME 09/23 completed Not Available Not Available Not Available propranolol 10 mg tablet TAKE 1/2 TABLET BY MOUTH 3 TIMES DAILY BEFORE MEALS 09/23 completed Not Available Not Available Not Available ceftriaxone 1 gram solution for injection Take 1 g by injection route. 09/07 completed Not Available Not Available Not Available tamsulosin 0.4 mg capsule Take 2 Capsules (0.8 mg) by mouth once daily after a meal* active Not Available Not Available No t Available lithium carbonate 600 mg capsule TAKE ONE CAPSULE BY MOUTH AT BEDTIME 09/07 completed Not Available Not Available Not Available lithium carbonate 300 mg capsule TAKE ONE CAPSULE BY MOUTH ONE TIME DAILY AT BEDTIME IN COMBINATI ON WITH 600MG CAPSULE FOR A TOTAL DOSE OF 900MG. 12/09 completed Not Available Not Available Not Available simvastatin 20 mg tablet TAKE ONE TABLET BY MOUTH AT BEDTIME* active Not Available Not Available No t Available divalproex ER 500 mg tablet,exte nded release 24 hr TAKE 2 TABLETS (1,000 MG) BY MOUTH AT BEDTIME. 09/23 completed Not Available Not Available Not Available lisinopril 5 mg tablet TAKE ONE TABLET BY MOUTH ONE TIME DAILY* active Not Available Not Available No t Available gabapentin 100 mg capsule TAKE 1 CAP IN THE MORNING AND THE EVENING. FURTHER REFILLS WILL BE PRESCRIBE D DURING AN APPOINTME NT 09/23 completed Not Available Not Available Not Available albuterol sulfate HFA 90 mcg/actuati on aerosol inhaler INHALE ONE OR TWO PUFFS BY MOUTH EVERY FOUR HOURS NEEDED SHORTNESS OF BREATH/WH EEZING* active Not Available Not Available No t Available ketoconazol e 2 % topical cream Apply topically to affected area(s) two times daily. 09/07 completed Not Available Not Available Not Available fluticasone propionate 50 mcg/actuati on nasal spray,suspe nsion Inhale 1 [place] to both nostrils once daily.* active Not Available Not Available No t Available naproxen 500 mg tablet Take 1 Tablet (500 mg) by mouth two times daily with meals* 09/07 completed Not Available Not Available Not Available bupropion HCl SR 200 mg tablet,12 hr sustained-r elease TAKE ONE TABLET BY MOUTH IN THE MORNING 09/23 completed Not Available Not Available Not Available cyclobenzap rine 5 mg tablet Take 1 Tablet (5 mg) by mouth 3 times daily if needed for Muscle Spasm* 09/07 completed Not Available Not Available Not Available bupropion HCl XL 300 mg 24 hr tablet, extended release TAKE ONE TABLET BY MOUTH EVERY DAY IN THE MORNING. active Not Available Not Available No t Available bupropion HCl XL 150 mg 24 hr tablet, extended release TAKE ONE TABLET BY MOUTH EVERY DAY IN THE MORNING, in combinati on with 300mg tablet for a total daily dose of 450mg. 12/09 completed Not Available Not Available Not Available GaviLyte-G 236 gram-22.74 gram-6.74 gram-5.86 gram oral solution Drink 2 liters the day before colonosco py, then drink 2 liters 6 hours before colonosco py appointme nt.* 12/09 completed Not Available Not Available Not Available Senexon-S 8.6 mg-50 mg tablet TAKE ONE TABLET BY MOUTH TWICE DAILY* 12/09 completed Not Available Not Available Not Available Vraylar active Not Available Not Avail able Not Available Vitals Date Recorded Body height Body mass index (BMI) Body weight Provider Name and Address Organization Details Last Updated DateTime 09/23/2022 185.42 cm 28.4 kg/m2 91450.36 g Segundo Leonardo [facility] 09/23/2022 15:39:11 Date Recorded Body height Body mass index (BMI) Body weight Provider Name and Address Organization Details Last Updated DateTime 12/09/2022 185.42 cm 28.4 kg/m2 55018.36 g Toyin Rodrigues [facility] 12/09/2022 15:17:31 Date Recorded Body height Body mass index (BMI) Body weight Provider Name and Address Organization Details Last Updated DateTime 09/08/2023 185.42 cm 25.1 kg/m2 82693.55 g Valentino Baker MD [address] [place] [address], [address] 09/08/2023 14:31:28 Social History Question Answer Notes LastModified by Organizat ion Details LastModified Time Tobacco Smoking Status Never Smoker Segundo Leonardo [facility] 09/23/2022 15:41:29 What Is Your Level Of Alcohol Consumption? Occasional Information not available 09/08/2023 What Is Your Level Of Caffeine Consumption? Moderate Information not available 09/23/2022 What Was The Date Of Your Most Recent Tobacco Screening? 09/08/2023 Information not available 09/08/2023 Have You Ever Been Counseled For Unhealthy Alcohol Use? No Information not available 09/08/2023 Do You Use Any Illicit Or Recreational Drugs? No Information not available 09/23/2022 Do You Or Have You Ever Used Any Other Forms Of Tobacco Or Nicotine? No Information not available 09/23/2022 How Many Days In The Past Year Have You Consumed 5 Or More Drinks? 0 Information no t available 09/08/2023 Sex: Unknown Functional Status None recorded. Mental Status None recorded. Family History Relationship Description Onset Age of this Age Resolved Age Notes LastModified by Organization Details LastModified Time Father Family history of Hypertension carlito Not available 03/2023 15:21:54 Sister Family history of Hypertension carlito Not available 03/2023 15:21:54 Medical History Condition Response GERD/Acid Reflux N Heart Disease N High Blood Pressure Y Kidney Stones N Depression Y High Cholesterol Y Immunizations Vaccine Type Date Status Provider Name and Address Organization Details Recorded Time zoster recombinant 07/29/2022 completed Valentino chavez MD [address] [place] [address],[address], [address], [facility] 09/08/2023 14:30:44 zoster recombinant 04/10/2020 completed Valentino chavez MD [address] [place] [address],[address], [address], [facility] 09/08/2023 14:30:44 COVID-19, mRNA, LNP-S, PF, 100 mcg/0.5mL dose or 50 mcg/0.25mL dose 11/03/2020 completed Valentino Baker MD [address] [place] [address], [address], [facility] 09/08/2023 14:30:44 COVID-19, mRNA, LNP-S, PF, 100 mcg/0.5mL dose or 50 mcg/0.25mL dose 12/01/2020 completed Valentino Baker MD [address] [place] [address],[address], [address], [facility] 09/08/2023 14:30:44 Pneumococcal conjugate PCV20, polysaccharide CCT320 conjugate, adjuvant, PF 06/11/2022 completed Valentino Baker MD [address] [place] [address], [address], [facility] 09/08/2023 14:30:44 pneumococcal polysaccharide PPV23 05/14/2011 completed Valentino Baker MD [address] [place] [address], [address], [facility] 09/08/2023 14:30:44 influenza, unspecified formulation 02/19/2010 completed Valentino Baker MD [address] [place] [address],[address], [address], [facility] 09/08/2023 14:30:44 Tdap 06/02/2012 completed Valentino Baker MD [address] [facility],[address], [place], [address], [facility] 09/08/2023 14:30:44 Tdap 05/01/2011 completed Valentino Baker MD [address] [place] [address],[address], [place], [address], [facility] 09/08/2023 14:30:44 Tdap 05/26/2022 completed Valentino Baker MD [address] [place] [address],[address], [place], [address], [facility] 09/08/2023 14:30:44 zoster live 05/17/2011 completed Valentino Baker MD [address] [place] [address],[address], [place], [address], [facility] 09/08/2023 14:30:44 Influenza, split virus, trivalent, PF 05/01/2011 completed Valentino Baker MD [address] [place] [address],[address], [place], [address], [facility] 09/08/2023 14:30:44 influenza, seasonal, intradermal, preservative free 2012 completed Valentino Baker MD [address] [place] [address],[address], [place], [address], [facility] 09/08/2023 14:30:44 Influenza, split virus, quadrivalent, PF 02/08/2022 completed Valentino Baker MD [address] [place] [address],[address], [place], [address], [facility] 09/08/2023 14:30:44 Influenza, split virus, quadrivalent, PF 02/17/2020 completed Valentino Baker MD [address] [place] [address],[address], [place], [address], [facility] 09/08/2023 14:30:44 Influenza, split virus, quadrivalent, PF 03/04/2019 completed Valentino Baker MD [address] [place] [address],[address], [place], [address], [facility] 09/08/2023 14:30:44 Influenza, split virus, quadrivalent, PF 04/28/2017 completed Valentino Baker MD [address] [place] [address],[address], [place], [address], [facility] 09/08/2023 14:30:44 Influenza, split virus, quadrivalent, PF 05/09/2015 completed Valentino Baker MD [address] [facility],[address], [place], [address], [facility] 09/08/2023 14:30:44 Influenza, split virus, quadrivalent, PF 06/01/2018 completed Valentino Baker MD [address] [facility],[address], [place], [address], [facility] 09/08/2023 14:30:44 Past Encounters Encounter ID Performer Location Encounter Start Date Encounter Closed Date Diagnosis/Indication Diagnosis SNOMED-CT Code Diagnosis ICD10 Code [id number] MD JOHANNA AlexanderSangita [address] [place] [address] 09/23/2022 15:21:35 09/26/2022 13:52:50 Prostate specific antigen above reference range 021602717 R97.20 Benign pro static hyperplasia with outflow obstruction 850570196 N40.1 [id number] MD JOHANNA AlexanderSangita [address] [place] [address] 12/09/2022 14:58:31 12/13/2022 09:54:04 Prostate specific antigen above reference range 001842832 R97.20 Benign pro static hyperplasia with outflow obstruction [id number] N40.1 [id number] Valentino Baker MD [facility] [address] [facility] [address] [place] [address] 01/31/2023 15:42:30 02/08/2023 19:45:05 Prostate specific antigen above reference range 224041328 R97.20 Benign pro static hyperplasia with outflow obstruction 472797444 N40.1 Antibiotic prophylaxis indicated [id number] Z78.9 [id number] MD Andre Alexander [address] [place] [address] 09/08/2023 14:15:26 09/09/2023 08:34:28 Prostate specific antigen above reference range 989735873 R97.20 Benign pro static hyperplasia with outflow obstruction 212277923 N40.1 Health Concerns Section Related Observation LastModified by Organization Detai ls LastModified Time None Recorded Concern Status LastModified by Organization Details LastModified Time None Recorded Advance Directives Directive None Recorded Payers Encounter Date Sequence Insurance Name Policy Number Policy Cochran Covered Member ID Cochran Member ID Guarantor Name 09/23/2022 1 [place] [employer] Reynaldo L Bruget [id number] Reynaldo L Bruget 09/23/2022 2 [place] [id number] Reynaldo L Bruget [id number] Reynaldo L Bruget 12/09/2022 1 [place] [employer] Reynaldo L Bruget [id number] Reynaldo L Bruget 12/09/2022 2 [place] [id number] Reynaldo L Bruget [id number] Reynaldo L Bruget 01/31/2023 1 [place] [employer] Reynaldo L Bruget [id number] Reynaldo L Bruget 01/31/2023 2 [place] [id number] Reynaldo L Bruget [id number] Reynaldo L Bruget 09/08/2023 1 [place] [employer] Reynaldo L Bruget [id number] Reynaldo L Bruget 09/08/2023 2 [place] [id number] Reynaldo L Bruget [id number] Reynaldo L Bruget Notes Date Note Type Note Provider Name and Address Organization Details Recorded Time 09/23/2022 text/html 67 yo male with history of elevated PSA and Bilateral renal cysts and a questionable hyperdense cysts in the Left kidney (midpole) on PET scan and CT scan in 2014. Renal MRI (06/22/16) revealed simple renal cyst. He uses CPAP for JORDAN. He voids every 2-3 hours during the day and 2-3x/night. He denies hesitancy, urgency, and dysuria.+ Family hx of Prostate cancer - (m) 1st cousin.He is on Flomax 0.8 mg daily. 09/22/22 - He presents for follow-up on elevated PSA. He voids every 1-2 hours during the day and 1-2x/night. He notes hesitancy and occasional urgency - denies weak stream and dysuria. - PVR -10mL PSA - 2.21 (09/06/14)- 2.55 (10/20/15)- 2.10 (11/05/16)- 3.18 (12/28/18)- 4.33 (01/27/20)- 2.09 (04/12/20)- 5.33 (09/21/21)- 4.11 (12/14/21)- 5.0 (07/22/22) CT scan (10/31/14)Impression: 1. 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 This contains mural calcifications or small calculi. 2. 1.2 cm hyperdense cyst anterior inter pole aspect left kidney. 3. Tiny cortical cyst anterior mid pole right kidney. Renal MRI (06/22/16) - Left - 2.4 cm dilated upper pole calyx - 1.3 cm cyst (upper pole) - benign Valentino Baker MD [address] [place] [address],[address], [place], [address], [facility] 09/23/2022 21:33:28 12/09/2022 text/html 67 yo male with history of elevated PSA and Bilateral renal cysts and a questionable hyperdense cysts in the Left kidney (midpole) on PET scan and CT scan in 2014. Renal MRI (06/22/16) revealed simple renal cyst. He uses CPAP for JORDAN. He voids every 2-3 hours during the day and 2-3x/night. He denies hesitancy, urgency, and dysuria.+ Family hx of Prostate cancer - (m) 1st cousin.He is on Flomax 0.8 mg daily. 09/22/22 - He presents for follow-up on elevated PSA. He voids every 1-2 hours during the day and 1-2x/night. He notes hesitancy and occasional urgency - denies weak stream and dysuria. 12/09/22 - He presents for follow-up on elevated PSA. He voids every 1-2 hours during the day and 1-2x/night.- PSA - 5.5 (12/09/22) PSA - 2.21 (09/06/14)- 2.55 (10/20/15)- 2.10 (11/05/16)- 3.18 (12/28/18)- 4.33 (01/27/20)- 2.09 (04/12/20)- 5.33 (09/21/21)- 4.11 (12/14/21)- 5.0 (07/22/22)- 5.5 (12/09/22) CT scan (10/31/14)Impression: 1. 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 This contains mural calcifications or small calculi. 2. 1.2 cm hyperdense cyst anterior inter pole aspect left kidney. 3. Tiny cortical cyst anterior mid pole right kidney. Renal MRI (06/22/16) - Left - 2.4 cm dilated upper pole calyx - 1.3 cm cyst (upper pole) - benign Valentino Baker MD [address] [place] [address],[address], [place], [address], [facility] - [facility] 12/09/2022 17:49:45 01/31/2023 text/html 67 yo male with history of elevated PSA and Bilateral renal cysts and a questionable hyperdense cysts in the Left kidney (midpole) on PET scan and CT scan in 2014. Renal MRI (06/22/16) revealed simple renal cyst. He uses CPAP for JORDAN. He voids every 2-3 hours during the day and 2-3x/night. He denies hesitancy, urgency, and dysuria.+ Family hx of Prostate cancer - (m) 1st cousin.He is on Flomax 0.8 mg daily. 09/22/22 - He presents for follow-up on elevated PSA. He voids every 1-2 hours during the day and 1-2x/night. He notes hesitancy and occasional urgency - denies weak stream and dysuria. 12/09/22 - He presents for follow-up on elevated PSA. He voids every 1-2 hours during the day and 1-2x/night. 01/31/23 - He presents for UroNav bx of the prostate for elevated PSA and PI-RADS 4. PSA - 2.21 (09/06/14)- 2.55 (10/20/15)- 2.10 (11/05/16)- 3.18 (12/28/18)- 4.33 (01/27/20)- 2.09 (04/12/20)- 5.33 (09/21/21)- 4.11 (12/14/21)- 5.0 (07/22/22)- 5.5 (12/09/22) Prostate MRI (12/18/22) - 67 gm- Lesion 1 - (PI-RADS 4) - 1 x 1 cm - Left lateral mid-gland (PZ) CT scan (10/31/14)Impression: 1. 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 This contains mural calcifications or small calculi. 2. 1.2 cm hyperdense cyst anterior inter pole aspect left kidney. 3. Tiny cortical cyst anterior mid pole right kidney. Renal MRI (06/22/16) - Left - 2.4 cm dilated upper pole calyx - 1.3 cm cyst (upper pole) - benign Valentino Baker MD [address] [facility],[address], [place], [address], [place] [facility] 01/31/2023 17:11:06 09/08/2023 text/html 68 yo male with history of elevated PSA and Bilateral renal cysts and a questionable hyperdense cysts in the Left kidney (midpole) on PET scan and CT scan in 2014. Renal MRI (06/22/16) revealed simple renal cyst. He uses CPAP for JORDAN. He voids every 2-3 hours during the day and 2-3x/night. He denies hesitancy, urgency, and dysuria.+ Family hx of Prostate cancer - (m) 1st cousin.He is on Flomax 0.8 mg daily and Saw [place] - s/p (MRI cognitive) TRUS bx - (02/21/23) - 56 mL - benign 09/08/23 - He presents for follow-up on Elevated PSA. He voids every 1-2 hours during the day and 1-2x/night.- PSA - 4.8 ___PSA - 2.21 (09/06/14)- 2.55 (10/20/15)- 2.10 (11/05/16)- 3.18 (12/28/18)- 4.33 (01/27/20)- 2.09 (04/12/20)- 5.33 (09/21/21)- 4.11 (12/14/21)- 5.0 (07/22/22)- 5.5 (12/09/22)- 4.8 (09/08/23) Prostate MRI (12/18/22) - 67 gm- Lesion 1 - (PI-RADS 4) - 1 x 1 cm - Left lateral mid-gland (PZ) CT scan (10/31/14)Impression: 1. 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 This contains mural calcifications or small calculi. 2. 1.2 cm hyperdense cyst anterior inter pole aspect left kidney. 3. Tiny cortical cyst anterior mid pole right kidney. Renal MRI (06/22/16) - Left - 2.4 cm dilated upper pole calyx - 1.3 cm cyst (upper pole) - benign Valentino Baker MD [address], [place], [address], [facility] 09/08/2023 17:50:28
== END 2024-04-18 13:35 | disposition home or self-care (01) ==
LOC: AMB 04-21 04:08
PROVIDERS: PCP Surgery; Visit Provider Emergency Medicine
DX: F29 Unspecified psychosis not due to a substance or known physiological condition (principal)
CPT/HCPCS: A0998

== ENCOUNTER 2024-05-28 16:12 | Emergency (ER) | payer MEDICARE, MEDICAID, SELFPAY ==
--- OUTSIDE RECORDS SUMMARY | 2024-05-28 16:14 | XMS_ITS | Data Portability ---
[facility] Address [address] [place] [address] Care Team Providers Care Linoleum Tile Floor Layer Name Role Phone [facility] Primary Care Provider Assessment No assessment recorded. Plan of Treatment Reminders Order Date Submit Date Provider Last Modified By Organization Details Last Modified Time Details Appointments None recorded. Lab PSA, total, serum or plasma 2022 023 [email or web address] Not available 3 10:01:08 PSA, serum or plasma 2022 023 [email or web address] [facility], [address], [place], [address], 3 15:23:46 biopsy, prostate 2022 023 [email or web address] 30 Not available 3 14:11:37 PSA, serum or plasma 2023 024 [email or web address] [facility], [address], [place], [address], 4 14:50:00 PSA, total, serum or plasma 2023 024 [email or web address] [facility], [address] [facility], [place], [address], 4 08:11:52 Referral None recorded. Procedures None recorded. Surgeries None recorded. Imaging MRI, prostate, w/wo contrast 2022 023 [email or web address] 30 [facility], [address], [place], [address], 3 09:04:34 Medication Orders ceftriaxone 1 gram solution for injection 2022 023 [id number], [address], [address], 4 14:32:29 Patient TargetsNo targets recorded. Patient InstructionsNo instructions recorded. Reason for Referral None Reported. Results Created Date Observation Date Name Description Value Unit Range Abnormal Flag Note LastModifiedBy Organization Detail LastModifiedTime 12/10/1912/09/2022 PSA, serum or plasm a PSA 5.5 ng/mL 0-4.0 Not Available [facility] [address], [place], [address], 12/09/2022 15:23:28 09/08/19 24 09/08/2023 PSA, serum or plasm a PSA 4.8ng/ mL 0-4.0 Not Available [facility] [address], [place], [address], 09/08/2023 14:39:05 12/20/19 23 12/18/2022 MRI, prost ate, w/wo contr ast No observ ation record ed. LEE [facility] [address], [place], [address], 12/23/2022 15:25:47 Result Notes None recorded. Procedures Surgical History Date Name Laterality Status Provider Name and Address Organization Details Recorded Time 4 Blood Draw/VETERANS' COUNSELOR/PSA RESULTS completed Cindi Hidalog [facility] 09/04/2023 15:51:29 3 Prostate Biopsy Procedure completed Valentino Baker MD [address], [place], [address], [facility] 01/31/2023 17:08:26 3 URONAV completed Valentino Baker MD [address], [place], [address], [place] [facility] 01/30/2023 23:48:02 3 Blood Draw/VETERANS' COUNSELOR/PSA RESULTS completed Toyin Rodrigues [facility] 12/09/2022 15:23:15 3 Bladder [facility] 15:41:40 Hernia Repair [facility] 09/23/2022 15:41:47 Orthopedic Surgery completed Segundo Leonardo [facility] 09/23/2022 15:41:56 repair of lung completed [facility] 09/23/2022 15:42:13 Imaging Results Imaging Date Name Status LastModified by Organiz ation Details LastModified Time 12/18/2022 MRI, prostate, w/wo contrast completed [facility] [address] [facility] [address], [place], [address], 12/23/2022 15:25:47 Procedure Notes None recorded. Medical [...] mcg/actuati on nasal spray,suspe nsion Inhale 1 [facility] to both nostrils once daily.* active Not [...] Updated DateTime 09/23/2022 185.42 cm 28.4 kg/m2 86085.36 g Segundo Leonardo [facility] 09/23/2022 15:39:11 Date Recorded Body height Body mass index (BMI) Body weight Provider Name and Address Organization Details Last Updated DateTime 12/09/2022 185.42 cm 28.4 kg/m2 [address]73.[address] [facility] 12/09/2022 15:17:31 Date Recorded Body height Body mass index (BMI) Body weight Provider Name and Address Organization Details Last Updated DateTime 09/08/2023 185.42 cm 25.1 kg/m2 24087.55 g Valentino Baker MD [address] [place] [address], [place], [address] 09/08/2023 14:31:28 Social History Question Answer Notes [...] Cholesterol Y Immunizations Vaccine Type Date Status Note Provider Nam e and Address Organization Details Recorded Time zoster recombinant 3 completed Valentino Baker MD [address] [place] [address],[facility] [address], [place], [address], [facility] 09/08/2023 14:30:44 zoster recombinant 0 completed Valentino Baker MD [address] [place] [address],[address], [place], [address], [facility] 09/08/2023 14:30:44 COVID-19, mRNA, LNP-S, PF, 100 mcg/0.5mL dose or 50 mcg/0.25mL dose 1 completed Valentino Baker MD [address] [place] [address],[address], [address], [facility] 09/08/2023 14:30:44 COVID-19, mRNA, LNP-S, PF, 100 mcg/0.5mL dose or 50 mcg/0.25mL dose 1 completed Valentino Baker MD [address] [place] [address],[facility] [address], [place], [address], [facility] 09/08/2023 14:30:44 Pneumococcal conjugate PCV20, polysaccharide UHH165 conjugate, adjuvant, PF 3 completed Valentino Baker MD [address] [place] [address],[address], [address], [facility] 09/08/2023 14:30:44 pneumococcal polysaccharide PPV23 1 completed Valentino Baker MD [address] [place] [address],[address], [address], [facility] 09/08/2023 14:30:44 influenza, unspecified formulation 0 completed Valentino Baker MD [address] [place] [address],[address], [place], [address], [facility] 09/08/2023 14:30:44 Tdap 3 completed Valentino Baker MD [address] [place] [address],[address], [place], [address], [facility] 09/08/2023 14:30:44 Tdap 1 completed Valentino Baker MD [address] [place] [address],[address], [place], [address], [facility] 09/08/2023 14:30:44 Tdap 2 completed Valentino Baker MD [address] [place] [address],[address], [place], [address], [facility] 09/08/2023 14:30:44 zoster live 1 completed Valentino Baker MD [address] [place] [address],[address], [place], [address], [facility] 09/08/2023 14:30:44 Influenza, split virus, trivalent, PF 1 completed Valentino aBker MD [address] [place] [address],[address], [place], [address], [facility] 09/08/2023 14:30:44 influenza, seasonal, intradermal, preservative free 2 completed Valentino Baker MD [address] [place] [address],[address], [place], [address], [facility] 09/08/2023 14:30:44 Influenza, split virus, quadrivalent, PF 2 completed Valentino Baker MD [address] [place] [address],[address], [place], [address], [facility] 09/08/2023 14:30:44 Influenza, split virus, quadrivalent, PF 0 completed Valentino Baker MD [address] [place] [address],[address], [place], [address], [facility] 09/08/2023 14:30:44 Influenza, split virus, quadrivalent, PF 9 completed Valentino Baker MD [address] [place] [address],[address], [place], [address], [facility] 09/08/2023 14:30:44 Influenza, split virus, quadrivalent, PF 7 completed Valentino Baker MD [address], [place], [address], [facility] 09/08/2023 14:30:44 Influenza, split virus, quadrivalent, PF 5 completed Valentino Baker MD [address], [place], [address], [facility] 09/08/2023 14:30:44 Influenza, split virus, quadrivalent, PF 8 completed Valentino Baker MD [address] [place] [address],[address], [place], [address], [facility] 09/08/2023 14:30:44 Past Encounters Encounter ID Performer Location Encounter Start Date Encounter Closed Date Diagnosis/Indication Diagnosis SNOMED-CT Code Diagnosis ICD10 Code [id number] Valentino Baker MD [facility] [address] [place] [address] 09/23/2022 15:21:35 09/26/2022 13:52:50 Prostate specific antigen above reference range 683210364 R97.20 Benign pro static hyperplasia with outflow obstruction 851455011 N40.1 [id number] Valentino Baker MD [facility] [address] [place] [address] 12/09/2022 14:58:31 12/13/2022 09:54:04 Prostate specific antigen above reference range 018558412 R97.20 Benign pro static hyperplasia with outflow obstruction 260765080 N40.[id number] MD [facility] [address] [place] [address] 01/31/2023 15:42:30 02/08/2023 19:45:05 Prostate specific antigen above reference range 526819751 R97.20 Benign pro static hyperplasia with outflow obstruction 939314269 N40.1 Antibiotic prophylaxis indicated 999156051 Z78.9 [id number] Valentino Baker MD [facility] [address] [place] [address] 09/08/2023 14:15:26 09/09/2023 08:34:28 Prostate specific antigen above reference range 928223949 R97.20 Benign pro static hyperplasia with outflow obstruction 006924476 N40.1 Health Concerns Section Related Observation LastModified by Organization Detai ls LastModified Time None Recorded Concern Status LastModified by Organization Details LastModified Time None Recorded Advance Directives Directive None Recorded Payers Encounter Date Sequence Insurance Name Policy Number Policy Cochran Covered Member ID Cochran Member ID Guarantor Name 09/23/2022 1 [place] [employer] Reynaldo L Bruget [id number] Reynaldo L Bruget 09/23/2022 2 [place] [id number] Reynaldo L Bruget [id number] Reynaldo L Bruget 12/09/2022 1 [place] [employer] Reynaldo L Bruget [id number] Reynaldo L Bruget 12/09/2022 2 [place] [id number] Reynaldo L Bruget [id number] Reynaldo L Bruget 01/31/2023 1 [place] [employer] Reynaldo L Bruget [id number] Reynaldo L Bruget 01/31/2023 2 [place] [id number] Reynaldo L Bruget [id number] Reynaldo L Bruget 09/08/2023 1 [place] [employer] Reynaldo L Bruget [id number] Reynaldo L Bruget 09/08/2023 2 [place] [id number] Reynaldo L Bruget [id number] Reynaldo L Bruget Notes Date Note Type [...] pole) - benign Valentino Baker MD [address], [place], [address], [facility] 09/23/2022 21:33:28 12/09/2022 text/html 67 yo male with history of elevated PSA and Bilateral renal cysts and a questionable hyperdense cysts in the Left kidney (midpole) on PET scan and CT scan in 2015. Renal MRI (06/22/16) revealed simple renal cyst. [...] pole) - benign Valentino Baker MD [address], [place], [address], [facility] 12/09/2022 17:49:45 01/31/2023 text/html 67 yo [...] (upper pole) - benign Valentino Baker MD [address], [place], [address], [place] [facility] 01/31/2023 17:11:06 09/08/2023 text/html 68 yo [...] on Flomax 0.8 mg daily and Saw Rogers - s/p (MRI cognitive) TRUS bx - [...] (upper pole) - benign Valentino Baker MD [address], [place], [address], [facility] 09/08/2023 17:50:28
[2024-05-28 16:27] VITALS: BP 116/77; PULSE 75; RESP 18; TEMP 36.4; O2SAT 96; BMI 21.8
--- NOTE | 2024-05-28 16:45 | ED.GENADULT ---
HPI - General Adult General Date Seen: 05/28/24 Chief complaint: Psychiatric Problem/Disorder Stated complaint: severe depression. bipolar, suicidal thoughts Time Seen by Provider: 05/28/24 16:37 Source: patient and other History of Present Illness HPI narrative: Patient is a 69-year-old male here with his girlfriend for evaluation of depression and setting of bipolar disorder. His current medications include lamotrigine, Vraylar, and a new medicine which he was started on about 4 weeks ago by his psychiatrist. They are not sure of the name of that however. He notes of long history of intermittent suicidal thoughts but feels more hopeless over the past couple of days. On and off he feels like he might not be safe at home. In general he is very passive about our conversation. He does not have any specific plan, isn't sure what he hopes to gain in the ER, does not note any prior suicide attempts but notes multiple prior hospitalizations. He says he wants to be here but he does not want to be here. 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 He denies any substance use. He lives in an apartment 1 floor away from his girlfriend, she says that she is at his apartment very often but they do not live together. He says he sleeps a lot during the day, has some difficulty sleeping at night. He does not really eat anything unless his girlfriend is they are to encourage him. He has a psychiatrist who he sees about once a month or every 2 weeks. He has a counselor who he sees every week. They tell me that he talk to his counselor earlier today and it was recommended that he come into the ER for a ?psychiatric evaluation. Related Data Home Medications ?Medication ?Instructions ?Recorded ?Confirmed albuterol sulfate 90 mcg/actuation 1 - 2 puff inhalation Q4H PRN 04/15/23 04/15/23 aerosol inhaler wheezing amlodipine 2.5 mg tablet 2.5 mg PO DAILY 04/15/23 04/15/23 fluticasone propionate 50 1 spray intranasal DAILY 04/15/23 04/15/23 mcg/actuation nasal spray,suspension hydroxyzine HCl 50 mg tablet 50 mg PO BID 04/15/23 04/15/23 ipratropium 0.5 mg-albuterol 3 mg 3 ml inhalation QID PRN wheezing 04/15/23 04/15/23 (2.5 mg base)/3 mL nebulization soln lamotrigine 200 mg tablet 200 mg PO DAILY 04/15/23 04/15/23 naproxen 500 mg tablet 500 mg PO BID 04/15/23 04/15/23 primidone 50 mg tablet 50 mg PO BID 04/15/23 04/15/23 simvastatin 20 mg tablet 20 mg PO QPM 04/15/23 04/15/23 tamsulosin 0.4 mg capsule 0.8 mg PO DAILY 04/15/23 04/15/23 trazodone 50 mg tablet 50 - 100 mg PO QPM PRN insomnia 04/15/23 04/15/23 Allergies Allergy/AdvReac Type Severity Reaction Status Date / Time quetiapine (From Seroquel) AdvReac Severe Hallucinati Verified 04/15/23 12:32 ng Review of Systems Status of ROS: Reports: 6 or more systems reviewed and unremarkable except as noted in History and below [facility] Social History Smoking Status: Unknown if ever smoked Do you use any of these nicotine containing products: None How often do you have a drink containing alcohol: monthly or less AUDIT-C Alcohol total score: 1 Non-prescribed substance use: denies use Exam Narrative: Exam Narrative: Vital signs reviewed In general, alert, nontoxic elderly male. He is thin. Well groomed. Little eye contact. Head: Normocephalic, atraumatic. Eyes: Sclera clear. Pupils equal and reactive. ENT: Mucous membranes moist. Neck: Supple without adenopathy. Heart: Regular rate and rhythm without murmur. Lungs: Clear. No increased work of breathing, crackles or wheezes. Abdomen: Soft, nontender to palpation. Extremities: Well perfused, pulses intact. No significant edema. Neurologic: Alert, conversant. Speech fluent, face symmetric. Moves all extremities equally. Skin: Warm, dry well perfused. Affect: Flat. Const: Vital Signs, click to edit/add: Vital Signs - 24 hr 05/28/24 16:27 Temperature 97.5 F L Pulse Rate [Pulse Oximeter] 75 Respiratory Rate 18 Blood Pressure [Ri ght Upper Arm] 116/77 Pulse Oximetry 96 Oxygen Delivery Me thod Room Air Documenting provider has reviewed patient's vital signs: yes Course Course ED Course: I will have him speak with the mental health equipment sterilizer through [facility]. It seems that he is fairly well doubt in to Psychiatric Services, unclear to me how actively suicidal he is right now, will review further before determining whether he will need placement. Care discussed with on-call psychiatrist from [facility]. His conversation with this patient was similar to mine in that he somewhat ambivalent about his symptoms as well as what he feels would be helpful. He is not clearly suicidal actively, does not have a plan, and the psychiatrist does not think he probably needs criteria for admission at this time. He also asked the patient if he felt he needed to be inpatient for safety, patient says that he does not want to hurt himself, was ambivalent about admission to the hospital. Psychiatrist recommendation to him was that we send him home, girlfriend's stay with him tonight, and if he is feeling worse tomorrow but he returns. He is comfortable with that plan. Vital Signs Vital signs: Initial Vital Signs Temperature 97.5 F L 05/28/24 16:27 Temperature Source Temporal Artery Scan 05/28/24 16:27 Pulse Rate 75 05/28/24 16:27 Respiratory Rate 18 05/28/24 16:27 Blood Pressure 116/77 05/28/24 16:27 Blood Pressure Mean 90 05/28/24 16:27 Blood Pressure Position Sitting 05/28/24 16:27 Pulse Oximetry 96 05/28/24 16:27 Oxygen Delivery Method Room Air 05/28/24 16:27 Vital Signs Temperature 97.5 F L 05/28/24 16:27 Pulse Rate 75 05/28/24 16:27 Respiratory Rate 18 05/28/24 16:27 Blood Pressure 116/77 05/28/24 16:27 Pulse Oximetry 96 05/28/24 16:27 Oxygen Delivery Method Room Air 05/28/24 16:27 Temperature 97.5 F L 05/28/24 16:27 Pulse Rate 75 05/28/24 16:27 Respiratory Rate 18 05/28/24 16:27 Blood Pressure 116/77 05/28/24 16:27 Pulse Oximetry 96 05/28/24 16:27 Oxygen Delivery Method Room Air 05/28/24 16:27 Discharge Plan Discharge Clinical Impression: Depression Patient Disposition: Home, Self-Care Condition: Stable Instructions: Depression Management for Older Adults (ED) Additional Instructions: Return at any time if you feel that your symptoms are worsening or you do not feel safe at home. Otherwise, follow up as planned with your psychiatrist and counselor. Continue current medications unless advised differently by your psychiatrist. Prescriptions: No Action primidone 50 mg tablet 50 mg PO BID lamotrigine 200 mg tablet 200 mg PO DAILY ipratropium-albuterol 0.5 mg-3 mg(2.5 mg base)/3 mL solution for nebulization 3 ml INHALATION QID PRN (Reason: wheezing) trazodone 50 mg tablet 50 - 100 mg PO QPM PRN (Reason: insomnia) amlodipine 2.5 mg tablet 2.5 mg PO DAILY hydroxyzine HCl 50 mg tablet 50 mg PO BID tamsulosin 0.4 mg capsule 0.8 mg PO DAILY simvastatin 20 mg tablet 20 mg PO QPM albuterol sulfate 90 mcg/actuation HFA aerosol inhaler 1 - 2 puff INHALATION Q4H PRN (Reason: wheezing) fluticasone propionate 50 mcg/actuation spray,suspension 1 spray INTRANASAL DAILY naproxen 500 mg tablet 500 mg PO BID Follow Up/Referrals: Joon Dodson MD [Primary Care Provider] - Stand Alone Forms: My eStore App Info Instructions
--- NOTE | 2024-05-28 17:16 | ED.NURSE ---
Hakeem in room with
--- NOTE | 2024-05-28 17:16 | ED.NURSE ---
Pt is calm and cooperative at this time. Pt states he has no specific plan in place for suicide
--- NOTE | 2024-05-28 18:31 | ED.NURSE ---
Safety plan reviewed with patient, patient states understanding.
== END 2024-05-28 18:32 | disposition home or self-care (01) ==
PROVIDERS: Emergency Provider Emergency Medicine; PCP Surgery
DX: F32.A Depression, unspecified (principal)
CPT/HCPCS: 99283; 99284

== ENCOUNTER 2025-02-21 08:30 | Inpatient (IN) | payer MEDICARE, MEDICAID, SELFPAY ==
[2025-02-21] VITALS (22 sets, daily range): BP systolic 128–161; BP diastolic 82–106; PULSE 77–106; RESP 18–28; TEMP 36.7–36.9; O2SAT 88–96; BMI 25.0
--- OUTSIDE RECORDS SUMMARY | 2025-02-21 08:32 | XMS_ITS | Encounter Summary ---
Author Organization [facility] Address [address] [place] [address] Care Team Providers Care Zyglo Inspector Name Role Phone [facility], [facility] [place] Primary Care Provider Joon Dodson MD Primary Care Provider Adrianne [place] Primary Care Provider Unavailab Tanya Ruiz PharmD Unavailable Joon Dodson MD Primary Care Provider Adrianne [place] Primary Care Provider Unavailab Tanya Ruiz PharmD Unavailable Tanya Montoya PharmD Unavailable Joon Dodson MD Primary Care Provider [phone] Encounter Details Date Type Department Care Team (Late st Contact Info) Description 01/23/2017 [facility] [address] [place] [address] Panda Mesa MD [facility] [address] [place] [address] Pre-operative laboratory examination (Primary Dx) [...] on file Legal Sex Male 3:29 AM AREA MANAGER Gender Identity Not on file Sexual Orientation Not on file documented as of this encounter Plan of Treatment Not on file documented as of this encounter Results * ABO/Rh type and screen (01/24/2017 1:49 PM CDT) ABO O 01/24/2017 2:53 PM CDT [facility] RH(D) Pos [facility] Antibody Screen Neg 01/24/2017 2:53 PM CDT [facility] Test Valid Only At [facility] 01/24/2017 2:54 PM CDT [facility] Specimen Expires 01/30/2017 01/24/2017 2:54 PM CDT [facility] Blood specimen (specimen) 01/24/2017 1:49 PM CDT 01/24/2017 1:52 PM CDT us Panda Mesa MD LAB - BLOOD BANK TEST ORDER Fi nal Result Performing Organization Address [facility] Co de Phone Number [facility] [address] [phone] * Hemoglobin (01/24/2017 1:49 PM CDT) Hemoglobin 14.9 13.3 - 17.7 g/dL 01/24/2017 1:55 PM CDT [facility] Blood specimen (specimen) 01/24/2017 1:49 PM CDT 01/24/2017 1:52 PM CDT Panda Mesa MD LAB - BLOOD ORDERABLES Final R esult Performing Organization Address [facility] Co de Phone Number [facility] [address] [phone] documented in this encounter Visit Diagnoses Diagnosis Pre-operative laboratory examination- Primary Pre-procedural laboratory examination documented in this encounter Additional Health Concerns Infection Onset Date Last Indicated Resolved Time COVID-19 06/26/2021 06/26/2021 07/07/2021 9:38 AM AREA MANAGER 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 Pt meets Covid Recovered criteria. 06/26/2021 08/28/2021 09/25/2021 11:39 PM CDT documented as of this encounter Care Teams Zyglo Inspector Relationship Specialty Start Date End Date Clinic, [facility] [address] [place] [address] PCP - General 09/30/14 03/24/17 Joon Dodson MD [address] [place] [address] PCP - General 03/25/17 10/04/20 Adrianne Steele PCP - General 10/05/20 12/17/20 Joon Dodson MD [address] [place] [address] PCP - General 12/18/20 08/30/21 Adrianne Steele PCP - General 08/31/21 06/04/24 Joon Dodson MD [address] [place] [address] PCP - General 06/05/24 Tanya Montoya, PharmD [address] [place], [place] [address] Pharmacist Pharmacist 11/08/20 Tanya Montoya, PharmD [address] [place] [address] Assigned MTM Pharmacist 10/27/21 Tanya Montoya, PharmD [address] [facility] [address] [place] [address] Assigned MTM Pharmacist 02/27/22 3 documented as of this encounter
--- OUTSIDE RECORDS SUMMARY | 2025-02-21 08:32 | XMS_ITS | Encounter Summary ---
Author Organization [facility] Address [address] [place] [address] Care Team Providers Care Heating Mechanic Name Role Phone Joon Dodson MD Primary Care Provider [phone] Adrianne Steele Primary Care Provider Unavailab Tanya Ruiz PharmD Unavailable Joon Dodosn MD Primary Care Provider Adrianne Steele Primary Care Provider Unavailab Tanya Ruiz PharmD Unavailable Tanya Montoya PharmD Unavailable Joon Dodson MD Primary Care Provider Encounter Details Date Type Department Care Team (Late st Contact Info) Description 02/10/2019 [facility] [address] [place] [phone] Seth Sutton MD [facility] [address] [place], [place] [id number] Pre-operative laboratory examination (Primary Dx) Social History Tobacco Use Types Packs/Day Years Used Date Smoking Tobacco: Former Cigarettes 0.5 35 0 11/27/1980 - 11/28/2015 Smokeless Tobacco: Never Alcohol Use Standard Drinks/Week Comments No 0 (1 standard drink = 0.6 oz pur e alcohol) Sex and Gender Information Value Date Recorded Sex Assigned at Not on file Legal Sex Male 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 aureus PCR (02/16/2019 2:50 PM CDT) Specimen Description Nares 02/16/2019 2:55 PM CDT [facility] Methicillin Resist/Sens S. aureus PCR Negative NEG^Negat darius 02/16/2019 10:12 PM CDT [facility] Comment: MRSA Negative: SA Negative MRSA and Staphylococcus aureus target DNA not detected, presumed negative for MRSA and SA colonization or the number of bacteria present may be below the limit of detection for the assay. FDA approved assay performed using [employer] GeneXpert(R) real-time PCR. Nasal structure (body structure) 02/16/2019 2:50 PM CDT 02/16/2019 2:55 PM CDT us Seth Sutton MD LAB - MICRO GENERAL ORDERA BLES Final Result [facility] [address] [phone] documented in this encounter Visit Diagnoses Diagnosis Pre-operative laboratory examination- Primary Pre-procedural laboratory examination documented in this encounter Additional Health Concerns Infection Onset Date Last Indicated Resolved Time COVID-19 06/26/2021 06/26/2021 07/07/2021 9:38 AM CARD PAINTER Recovered COVID Comment:Pt Covid + 06/26/21, Dr zO Keys Resolved covid on 07/07/21. Pt meets Covid Recovered criteria. 06/26/2021 08/28/2021 09/25/2021 11:39 PM CDT documented as of this encounter Care Teams Heating Mechanic Relationship Specialty Start Date End Date Joon Dodson MD [address] [place] [address] PCP - General 03/25/17 10/04/20 Adrianne Steele PCP - General 10/05/20 12/17/20 Joon Dodson MD [address] [place] [address] PCP - General 12/18/20 08/30/21 Adrianne Steele PCP - General 08/31/21 06/04/24 Joon Dodson MD [address] [place] [address] PCP - General 06/05/24 Tanya Montoya, PharmD [address] [address] Pharmacist Pharmacist 11/08/20 Tanya Montoya, PharmD [address] [id number] Assigned MTM Pharmacist 10/27/21 Tanya Montoya, PharmD [address] [id number] Assigned MTM Pharmacist 02/27/22 3 documented as of this encounter
--- OUTSIDE RECORDS SUMMARY | 2025-02-21 08:32 | XMS_ITS | Encounter Summary ---
Author Organization [facility] Address [address] [place] [address] Care Team Providers Care Clerk General Office Name Role Phone [facility] [place] [place] Primary Care Provider Joon Dodson MD Primary Care Provider Adrianne Steele Primary Care Provider Unavailab Tanya Ruiz PharmD Unavailable Joon Dodson MD Primary Care Provider Adrianne Steele Primary Care Provider Unavailab Tanya Ruiz PharmD Unavailable Tanya Montoya PharmD Unavailable Joon Dodson MD Primary Care Provider Encounter Details Date Type Department Care Team (Late st Contact Info) Description 01/03/2017 [facility] [address] [place] [phone] Panda Mesa MD 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 aureus PCR Negative NEG^Negat darius 01/14/2017 8:36 PM CDT [facility] Comment: MRSA Negative: SA Negative MRSA and Staphylococcus aureus target DNA not detected, presumed negative for MRSA and SA colonization or the number of bacteria present may be below the limit of detection for the assay. FDA approved assay performed using [employer] GeneXpert(R) real-time PCR. Nasal structure (body structure) 01/14/2017 1:00 PM CDT 01/14/2017 1:42 PM CDT us Panda Mesa MD LAB - MICRO GENERAL ORDERABLES Final Result Performing Organization Address City/State/[facility] Co de Phone Number [address] [address], [facility] [address] [place], [place] [address] [phone] documented in this encounter Visit Diagnoses Diagnosis Pre-operative laboratory examination- Primary Pre-procedural laboratory examination documented in this encounter Additional Health Concerns Infection Onset Date Last Indicated Resolved Time COVID-19 06/26/2021 06/26/2021 07/07/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 Pt meets Covid Recovered criteria. 06/26/2021 08/28/2021 09/25/2021 11:39 PM CDT documented as of this encounter Care Teams Clerk General Office Relationship Specialty Start Date End Date [facility], [address] [address] PCP - General 09/30/14 03/24/17 Joon Dodson MD [address] [place] [address] PCP - General 03/25/17 10/04/20 Harshil Steelen [place] PCP - General 10/05/20 12/17/20 Joon Dodson MD [address] [place] [address] PCP - General 12/18/20 08/30/21 Ivette Adrianne [place] PCP - General 08/31/21 06/04/24 Joon Dodson MD [address] [place] [address] PCP - General 06/05/24 Tanya Montoya, PharmD [address] [place], [place] [phone] Pharmacist Pharmacist 11/08/20 Tanya Montoya, PharmD [address] [place] [address] Assigned MTM Pharmacist 10/27/21 Tanya Montoya, PharmD [address] [place] [address] Assigned MTM Pharmacist 02/27/22 3 documented as of this encounter
--- OUTSIDE RECORDS SUMMARY | 2025-02-21 08:32 | XMS_ITS | Clinical Summary ---
Author Organization [employer] [facility] Address [address] [place] [address] Care Team Providers Care Chemical Analyst Name Role Phone Jono Dodson MD Primary Care Provider [phone] Steph Oneil MD Unavailable Zen Ybarra MD Unavailable Allergies Active Allergy Reactions Criticality Noted Date Comments House Dust Runny Nose 04/26/2020 Other reaction(s): Runny Nose Mold Cough 01/21/2019 Quetiapine Encephalopathy,Hallu ci nations,Other - Describe In Comment Field High 11/02/2021 Other reaction(s): Other (see comments) Encephalopathy Other reaction(s): Hallucinating Medications multivitamin (MVI) tablet Take 1 Tablet by mouth once daily. Active ascorbic acid, vitamin C, (Vitamin C) 1,000 mg tablet Take 1,000 mg by mouth once daily. Active albuterol HFA (PRO-AIR; VENTOLIN; PROVENTIL) 90 mcg/actuation inhalerIndication s:Pulmonary emphysema, unspecified emphysema type (HC) Inhale 1-2 Puffs by mouth every 4 hours if needed for Shortness Of Breath or Wheezing. 2 Each 3 05/01/20 23 Active albuterol-ipratro pium (DUONEB) (2.5-0.5 mg) in 3 mL NEBULIZATION solutionIndicatio ns:Pulmonary emphysema, unspecified emphysema type (HC) Inhale 3 mL via a nebulizer 4 times daily if needed for Shortness Of Breath or Wheezing. 84 mL 3 05/01/20 23 Active fluticasone (50 mcg per actuation) nasal solution (FLONASE)Indicati ons:Chronic sinusitis, unspecified location Inhale 1 [place] in both nostrils once daily. 16 mL 5 02/27/20 24 Active ketoconazole 2 % creamIndications: Groin rash Use twice daily as needed for rash in groin 60 g 1 02/27/20 24 Active tamsulosin (FLOMAX) 0.4 mg capsuleIndication s:BPH with urinary obstruction Take 2 Capsules (0.8 mg) by mouth once daily after a meal. 180 Capsule 3 02/27/20 24 Active Npgrf-3-LNV-EPA-F ramonita Oil (Fish OiL) 1,200 (144-216) mg capsuleIndication s:Bipolar 1 disorder (HC) Take 2 Capsules by mouth once daily. 07/23/19 25 Active acetaminophen 500 mg tablet Take 2 Tablets (1,000 mg) by mouth every 6 hours if needed for Pain or Temp>101.5F (38.6C). Max acetaminophen dose: 4000mg in 24 hrs. 09/29/19 25 Active amLODIPine 5 mg tabletIndications :Hypertension Take 1 Tablet (5 mg) by mouth once daily. 90 Tablet 3 11/30/19 25 Active polyethylene glycoL 17 gram/scoop powderIndications :Drug induced constipation Mix 1 scoop (17 g) in liquid then take by mouth once daily. May also mix 1 scoop (17 g) once daily if needed for Constipation. If no improvement after 3 days of daily use. 850 g 12/08/19 25 Active risperiDONE 1 mg tabletIndications :Bipolar 1 disorder (HC) Take 1 Tablet (1 mg) by mouth 2 times daily if needed (anxiety). 90 Tablet 3 12/08/19 25 Active carBAMazepine (TEGRETOL XR) 200 mg Extended-Release tabletIndications :Bipolar 1 disorder (HC) Take 1 Tablet (200 mg) by mouth two times daily. With a 400 mg tablet for a total of 600 mg twice daily 180 Tablet 3 01/11/20 25 Active carBAMazepine (TEGRETOL XR) 400 mg Extended-Release tabletIndications :Bipolar 1 disorder (HC) Take 1 Tablet (400 mg) by mouth two times daily. 180 Tablet 3 01/11/20 25 Active risperiDONE (RISPERDAL) 4 mg tabletIndications :Bipolar 1 disorder (HC) Take 0.5 tablets (2 mg) by mouth every morning AND 1 tablet (4 mg) every evening for 7 days, THEN take 1 tablet (4 mg) 2 times daily. 180 Tablet 01/19/20 25 Active atorvastatin (LIPITOR) 20 mg tabletIndications :Hyperlipidemia, unspecified hyperlipidemia type TAKE ONE TABLET BY MOUTH ONE TIME DAILY 60 Tablet 01/21/20 25 Active medication order composer FOCUS eye vitamin for macular degeneration 025 Discontin ued(*Brittni ent states no longer taking) ketoconazole 2% shampoo 2 % shampooIndication s:Seborrheic dermatitis Apply to wet scalp, lather, leave on 3 to 5 minutes, and rinse; apply twice weekly for 4 weeks. 120 mL 10/19/19 25 025 Discontin ued(*Brittni ent states no longer taking) Active Problems Problem Noted Date Diagnosed Date Drug induced constipation 12/07/2024 Neuroleptic-induced tardive dyskinesia 4 Controlled substance agreeme nt signed By Joye Ramirez MD, psychiatry on 02/12/24 / [address] 02/12/2024 Colon polyp 10/29/2022 Overview (10/29/2022): Colonoscopy 08/2022 multiple TA, repeat in 3 years, PEG 8L Head injury 07/11/2022 Closed fracture nasal bone 07/11/2022 History of partial adherence to treatment 2021 Bipolar I disorder with seas onal pattern, hypomania in the fall 05/03/2021 S/P total knee arthroplasty 12/18/2020 Bilateral impacted cerumen 09/29/2019 ACP (advance care planning) 10/19/2016 Overview (10/19/2016): 10/19/15: Patient's code status reviewed upon admission to TCU as FULL CODE. Jeannette Espinoza, FAIZAN/GNP [facility] M &Weds: [phone] Brad: [phone] Pager: [phone] Constipation 10/14/2016 Insomnia due to mental condition [...] 09/16/2014 COPD (chronic obstructive pulmonary disease) 10/2014 Hypertension 06/24/2013 JORDAN 05/14/2011 AHI-57 pillows 05/28/2011 Overview (11/15/2021): Overview: AutoPAP 5-15 cmH20, SS 05/24/2011 AHI 84 RDI 103 low sats 81% Park Manpreet Freking / VEHICLE SERVICE AGENT Ed. Order 01/28/13 [place] Setting: Auto /15 Supplied by: PSG done: 05-24-11 AHI 84 RDI 103 Lowest O2 Sat: 81% Freking / VEHICLE SERVICE AGENT Ed. Order 01/28/13 Addison CMS/cmn 2-24-16 mailed to home ; Severe Obstructive sleep apnea Resolved Problems Problem Noted Date Diagnosed Date Resolved Date Neuroleptic-induced tardive dyskinesia 12/25/2023 02/12/2024 Medication-induced postural tremor 08/25/2023 01/10/2025 History of partial adherence to treatment 02/17/2023 02/12/2024 Arnot-induced postural and intention tremor 03/14/20 22 05/09/2023 Dizziness 05/10/2021 12/21/2021 Hypotension 05/10/2021 09/17/2021 Suicidal ideations 08/19/2019 ARLEEN (generalized anxiety disorder) 10/11/2014 12/27/2022 Bipolar affective disorder, currently depressed, mild 09/17/2014 11/02/2021 Overview (02/14/2020): Numerous hospitalizations. Many med trials. ECT 2018 (mild effect? With 5-6 treatments). Distinct episodes of devon/hypomania and major depression. Tobacco dependence 09/05/2014 7 Syncopal episodes 09/05/2014 01/10/2025 Overview (02/14/2020): Unknown cause - 3x in past 15 years. Hospitalized for observation 2x. Personal history of tobacco use, presenting hazards to health 06/24/2013 11/02/2021 Encounters Date Type Department Care Team Description 02/15/2025 9:00 AM CDT Office Visit [address] [address] Joey Ramirez MD Follow Up; Medication Management (been better, anxiety, last couple weeks have been rough) 02/14/2025 Travel 02/07/2025 4:00 PM CDT Ancillary Procedure [address] [address] 02/07/2025 Travel 02/04/2025 2:05 PM CDT Office Visit [address] [address] Estelle Perez PA Testicle Pain (2-3 weeks, urinary leaking); Abdominal Pain (lower right side abdomen pain intermittent 1-2 weeks); Cough (1-2 weeks coughs up phlegm) 02/04/2025 Travel 02/04/2025 Nurse Triage [address] [address] Joon Dodson MD Urinary Problem (Frequently ) 01/19/[address] [address] Joey Ramirez MD Abnormal Lab Results 01/18/[address] [address] Joon Dodson MD Refill Request (Atorvastatin) 01/10/2025 12:30 PM CDT Office Visit [address] [address] Joey Ramirez MD Follow Up 01/10/2025 Travel 12/07/2024 8:30 AM CDT Office Visit [facility] [address] [facility] [address] Joey Ramirez MD Follow Up; Medication Management 12/07/2024 Travel 11/29/2024 1:25 PM CDT Office Visit [facility] [address] [facility] [place] [address] Joon Dodson MD Follow Up 11/29/2024 Travel from Last 3 Months Immunizations Immunization Administration Dates Next Due COVID-19 vaccine (Moderna 100mcg/0.5mL) PF, MDV 11/03/2020 Influenza Intradermal PF 18-64 yrs [...] Pipe Smokeless Tobacco: Never Tobacco Cessation:Counseling Given: Not Answered Comments:pipe Alcohol Use Standard Drinks/Week Comments Not Currently 0 (1 standard drink = 0.6 oz pur e alcohol) occasional PHQ-2 Answer Date Recorded PHQ-2 TOTAL SCORE 5 02/14/2025 Social Connections Answer Date Recorded Do you often feel lonely or isolated from those around you? 4 09/24/2024 Alcohol Use Answer Date Recorded How often do you have a drink containing alcohol ? 2 11/02/2021 How many drinks containing a lcohol do you have on a typical day when you are drinking? 0 11/02/2021 How often do you have five or more drinks on one occasion? 0 11/02/2021 Financial Resource Strain Answer Date R ecorded Difficulty of Paying Living Expenses 1 09/24/2024 Difficulty of Paying Living Expenses 2 09/24/2024 Food Insecurity Answer Date Recorded Do you worry your food will run out before you are able to buy more? 2 09/24/2024 Transportation Needs Answer Date Record ed Does lack of transportation keep you from medica l appointments? 1 09/24/2024 Does lack of transportation keep you from work, meetings or getting things that you need? 1 09/24/2024 Housing Stability Answer Date Recorded What is your housing situation today? 2 09/24/2024 Utilities Answer Date Recorded Do you have trouble paying f or utilities (for example, heat, electricity, water, phone)? 1 09/24/2024 Education Answer Date Recorded What is the highest level of school you have completed or the highest degree you have received? 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 Not on file Not on file Not on kumar e Obstetrics History Last Filed Vital Signs Vital Sign Reading Time Taken Comments Blood Pressure 144/92 02/15/2025 9:03 AM CDT Pulse 80 02/15/2025 9:03 AM CDT Temperature 36.4 C (97.5 F) 02/21/2023 9:45 AM CDT Respiratory Rate 16 02/21/2023 9:45 AM CDT Oxygen Saturation 94% 02/04/2025 1:38 PM CDT Inhaled Oxygen Concentration - - Weight 90.3 kg (199 lb) 02/15/2025 9:00 AM CDT Height 183.5 cm (6' 0.24) 02/27/2024 1:53 PM CD T Body Mass Index 26.81 02/27/2024 1:53 PM CDT Plan of Treatment Upcoming Encounters Date Type Department Care Team (Late st Contact Info) Description 03/03/2025 11:05 AM CDT Office Visit [facility] [address] [place] [address] Joon Dodson MD [address] [place] [address] 03/21/2025 10:30 AM CDT Office Visit [facility] [address] [place] [address] Joey Ramirez MD [address] [place] [address] 04/18/2025 10:30 AM NURSE RECEPTIONIST Office Visit [facility] [address] [place] [address] Joey Ramirez MD [address] [place] [address] 05/16/2025 9:00 AM NURSE RECEPTIONIST Office Visit [facility] [address] [place] [address] Joey Ramirez MD [address] [place] [address] 06/13/2025 9:00 AM NURSE RECEPTIONIST Office Visit [facility] [address] [place] [address] Joey Ramirez MD [address] [place] [address] 07/18/2025 9:00 AM NURSE RECEPTIONIST Office Visit [facility] [address] [facility] [place] [address] Joey Ramirez MD [address] [place] [address] 08/15/2025 9:30 AM CDT Office Visit [facility] [address] [place] [address] Joey Ramirez MD [address] [place] [address] 09/12/2025 10:30 AM CDT Office Visit [facility] [address] [place] [address] Joey Ramirez MD [address] [place] [address] 10/17/2025 10:30 AM CDT Office Visit [facility] [address] [place] [address] Joey Ramirez MD [address] [place] [address] Health Maintenance Due Date Last Done Comments RSV vaccine for adults or (1 - Risk 60-74 years 1-dose series) 2017 COVID-19 vaccine series ( season) 2025 12/01/2020, 11/03/2020 Influenza Vaccine (#1) 2025 , 02/17/2020, 03/04/2019, Additional history exists BMI (ht and wt on same day) for age 18+ 02/26/2025 02/27/2024, 12/27/2022, 09/28/2021, Additional history exists Medicare Wellness for age 65+ 02/27/2025 02/27/2024, 01/14/2023, 09/28/2021, Additional history exists Colonoscopy through age 75 10/24/202510/24, 10/24/2022, 10/24/2022, Additional history exists Depression screening for age 12+ 02/15/2026 02/15/2025, 02/14/2025, 01/10/2025, Additional history exists Lipids for age 45-75 04/05/2029 04/05/2024, 05/01/2023, 03/25/2022, Additional history exists Tetanus booster 05/26/2032 05/26/2022, 06/2012, 05/01/2011 Hepatitis C screening for age 18-79 Completed 10/20/2015 Pneumococcal series for age 50+ Completed 06/11/2022, 05/14/2011, 05/14/2011 AAA screening age 65-74 Completed 07/22/2022 Zoster (shingles) series for age 50+ Completed 07/29/2022, 04/10/2020, 05/17/2011 Hepatitis B series for 19+ Aged Out N o longer eligible based on patient's age to complete this topic Procedures Procedure Name Priority Date/Time Associated Diagnosis Comments US SCROTUM WITH DUPLEX BELINDA 4:00 PM CDT Pain in both testicles URINE CULTURE Routine 02/04/2025 2:16 PM CDT Lower urinary tract symptoms (LUTS) URINALYSIS MACROSCOPIC - [facility] ONLY POC DIP ([facility]) Routine 02/04/2025 2:16 PM CDT Lower urinary tract symptoms (LUTS) PSA TOTAL Routine 01/10/2025 1:45 PM CDT Elevated PSA RISPERIDONE AND METABOLITE Routine 01/10/2025 1:45 PM CDT Long-term use of high-risk medication CARBAMAZEPINE TOTAL Routine 01/10/2025 1 :45 PM CDT Long-term use of high-risk medication LIPID PANEL W REFLEX MEASURED LDL Routine 04/05/2024 2:14 PM NURSE RECEPTIONIST Long-term use of high-risk medication COLONOSCOPY 10/24/2022 11:01 AM CDT US ABD AORTA SCREENING Routine 3 2:00 PM NURSE RECEPTIONIST Screening for AAA (aortic abdominal aneurysm) ANTI HCV Routine 10/20/2015 2:41 PM CDT Need for hepatitis C screening test from Last 3 Months or Most Recently Relevant to Health Maintenance Results * US SCROTUM W DUPLEX (02/07/2025 4:00 PM CDT) Anatomical Region Laterality Modality SCROTUM, TESTES Ultrasound 02/07/2025 4:19 PM CDT Impressions 02/07/2025 4:19 PM CDT Normal testicles. No torsion or inflammation. Incidental 6 millimeter left epididymal head cyst. Dictated by Crow Zambrano MD @ 02/07/2025 4:19:22 PM (Electronically Signed) Narrative 02/07/2025 4:19 PM CDT For Patients: As a result of the Cures Act, medical imaging exams and procedure reports are released immediately into your electronic medical record. You may view this report before your referring provider. If you have questions, please contact your health care provider. INDICATION: Pain in both testicles COMPARISON: none TECHNIQUE: Corrales scale imaging was performed of the scrotum. In addition color Doppler and spectral Doppler analysis was performed of the testes. FINDINGS: The testes demonstrate normal arterial and venous blood flow on color Doppler and spectral Doppler analysis. The testes have uniform echogenicity with no evidence of a suspicious mass or area of inflammation. The right testis measures 3.8 x 2.2 x 3.0 cm in size and the left testis measures 3.7 x 1.9 x 3.0 cm. Simple cyst left epididymal head measures 4 x 6 x 4 millimeters. Normal right epididymis. There is no evidence of a hydrocele or varicocele. Procedure Note Crow Zambrano MD - 02/07/2025 For Patients: As a result of the Cures Act, medical imagingexams and procedure reports are released immediately into your electronicmedical record. You may view this report before your referring provider.If you have questions, please contact your health care provider. INDICATION: Pain in both testicles COMPARISON: none TECHNIQUE: Corrales scale imaging was performed of the scrotum. In addition color Dopplerand spectral Doppler analysis was performed of the testes. FINDINGS: The testes demonstrate normal arterial and venous blood flow on colorDoppler and spectral Doppler analysis. The testes have uniformechogenicity with no evidence of a suspicious mass or area ofinflammation. The right testis measures 3.8 x 2.2 x 3.0 cm in size and theleft testis measures 3.7 x 1.9 x 3.0 cm. Simple cyst left epididymal headmeasures 4 x 6 x 4 millimeters. Normal right epididymis. There is noevidence of a hydrocele or varicocele. IMPRESSION: Normal testicles. No torsion or inflammation. Incidental 6 millimeter leftepididymal head cyst. Dictated by Crow Zambrano MD @ 02/07/2025 4:19:22 PM (Electronically Signed) Estelle MARTINES Final Result * (ABNORMAL) POCT Urinalysis Dipstick Only [[id number]] (02/04/2025 2:16 PM CDT) SPECIFIC GRAVITY 1.015 1.001 - 1.035 02/04/2025 2:25 PM CDT [facility] PROTEIN TRACE(A) NEGATIVE 02/04/2025 2:25 PM CDT [facility] GLUCOSE NEGATIVE NEGATIVE 02/04/2025 2:25 PM CDT [facility] KETONES NEGATIVE NEGATIVE 02/04/2025 2:25 PM CDT [facility] BILIRUBIN NEGATIVE NEGATIVE 02/04/2025 2:25 PM CDT [facility] OCCULT BLOOD TRACE(A) NEGATIVE 02/04/2025 2:25 PM CDT [facility] NITRITE NEGATIVE NEGATIVE 02/04/2025 2:25 PM CDT [facility] PH 6.5 5.0 - 8.0 02/04/2025 2:25 PM CDT [facility] LEUKOCYTE ESTERASE NEGATIVE NEGATIVE 02/04/2025 2:25 PM CDT [facility] Urine URINE SPECIMEN / Unknown Non-Blood / Unknown 02/04/2025 2:16 PM CDT 02/04/2025 2:16 PM CDT Estelle MARTINES URINE Final Result Actionality [facility] [address] [place] [address], [place] [phone] [facility] [address] [place] [address], [place] [phone] * URINE CULTURE [16687.2] (02/04/2025 2:16 PM CDT) CULTURE <10,000 CFU/mL multiple organisms 02/06/2025 3:12 PM CDT [facility] Urine URINE SPECIMEN / Unknown Non-Blood / Unknown 02/04/2025 2:16 PM CDT 02/04/2025 2:16 PM CDT Estelle MARTINES MICROBIOLOGY Final Result [facility] [address] [place] [address], * RISPERIDONE AND METABOLITE (01/10/2025 1:45 PM CDT) RISPERIDONE <1.0 ng/mL [facility]Rula [facility] Comment: This test was developed and its analytical performance characteristics have been determined by [facility]. It has not been cleared or approved by the FDA. This assay has been validated pursuant to the CLIA regulations and is used for clinical purposes. [place] RISPERIDONE 15.1 ng/mL [facility]Rula Piña Comment: This test was developed and its analytical performance characteristics have been determined by [facility]. It has not been cleared or approved by the FDA. This assay has been validated pursuant to the CLIA regulations and is used for clinical purposes. RISPERIDONE+ [place] RISPERIDONE [facility] lauren Piña Comment: Unable to accurately calculate since one or more components is below detection limit. Mean steady-state serum levels of Risperidone + OH-Risperidone following daily regimens: 2mg/day 14.0 ng total active drug/mL 6mg/day 45.0 ng total active drug/mL 10mg/day 73.0 ng total active drug/mL 16mg/day 110.0 ng total active drug/mL Risperidone and OH-Risperidone are approximately equally effective; therefore, the sum of their concentrations are reported as total active drug. This test was developed and its analytical performance characteristics have been determined by [facility]. It has not been cleared or approved by the FDA. This assay has been validated pursuant to the CLIA regulations and is used for clinical purposes. Blood BLOOD SPECIMEN / Unknown 01/10/2025 1:45 PM CDT 01/10/2025 1:46 PM CDT Joey Ramirez MD SEND OUTS Final Result Performing Organization Address [facility] Co de Phone Number ActionalityKRISTIAN LOGAN [address] [facility], [facility] [address] [place] [address], [place] * PSA TOTAL (DIAG OR SCREEN) (01/10/2025 1:45 PM CDT) PSA, TOTAL 3.60 < OR = 4.00 ng/mL [facility]-Joi Ernandez Comment: The total PSA value from this assay system is standardized against the WHO standard. The test result will be approximately 20% lower when compared to the equimolar-standardized total PSA (Oly Summerfield). Comparison of serial PSA results should be interpreted with this fact in mind. This test was performed using the Siemens chemiluminescent method. Values obtained from different assay methods cannot be used interchangeably. PSA levels, regardless of value, should not be interpreted as absolute evidence of the presence or absence of disease. Blood BLOOD SPECIMEN / Unknown 01/10/2025 1:45 PM CDT 01/10/2025 1:46 PM CDT Joon Dodson MD CHEMISTRY Final Resu lt Performing Organization Address City/[facility]/ZIP Co de Phone Number Actionality [facility] [address] [place] [address], [place] [phone] [facility] [address] [place] [address] * CARBAMAZEPINE TOTAL (01/10/2025 1:45 PM CDT) CARBAMAZEPINE, TOTAL 9.7 4.0 - 12.0 mg/L to-BBBWo vasyl Ernandez Blood BLOOD SPECIMEN / Unknown 01/10/2025 1:45 PM CDT 01/10/2025 1:46 PM CDT Joey Ramirez MD CHEMISTRY Final Result [facility] [address] [place] [address], to-BBBPhil Campbell [address] [place] [address] * LIPID PANEL W REFLEX MEASURED LDL (04/05/2024 2:14 PM NURSE RECEPTIONIST) [facility] CHOLESTEROL, TOTAL 169 <200 mg/dL [facility] HDL CHOLESTEROL 67 > OR = 40 mg/dL [facility] TRIGLYCERIDES 84 <150 mg/dL [facility] LDL-CHOLESTEROL 85 mg/dL (calc) [facility] Comment: Reference range: <100 Desirable range <100 mg/dL for primary prevention; <70 mg/dL for patients with CHD or diabetic patients with > or = 2 CHD risk factors. LDL-C is now calculated using the Trino-Angela calculation, which is a validated novel method providing better accuracy than the Friedewald equation in the estimation of LDL-C. Trino PHILLIPS et al. EVELYN. 2013;310(19): 4611-5309 (http://education.MyClean.Womai/faq/MMJ366) CHOL/HDLC RATIO 2.5 <5.0 (calc) [facility] NON HDL CHOLESTEROL 102 <130 mg/dL (calc) [facility] Comment: For patients with diabetes plus 1 major ASCVD risk factor, treating to a non-HDL-C goal of <100 mg/dL (LDL-C of <70 mg/dL) is considered a therapeutic option. Blood BLOOD SPECIMEN / Unknown 04/05/2024 2:14 PM NURSE RECEPTIONIST 04/05/2024 2:15 PM NURSE RECEPTIONIST Joey Ramirez MD CHEMISTRY Final Result Actionality [facility] [address] [place] [address], [facility] [address] [place] [address] * COLONOSCOPY (10/24/2022 11:01 AM CDT) 10/24/2022 11:0 1 AM CDT Narrative Transcriptions Trino Strickland MD - 10/24/2022 12:15 PM CDT Patient Name: Reynaldo Bruget Procedure Date: 10/24/2022 Gender: Male Date of : 1955 Admit Type: Outpatient Procedure: Colonoscopy Proceduralist: Trino Strickland MD , Elly Espinoza, DARRYL(Nurse), Carmen Dickinson (Nurse) Referring MD: Joon Dodson Indications/Pre-Op Diagnosis: Screening for colorectal malignant neoplasm, Last colonoscopy: June 2012 Medications: Fentanyl 100 micrograms IV, Midazolam 2 mgIV, The level of sedation administered wasmoderate Procedure Description: The patient had risks, benefits and alternatives explained to andgave informed consent. The patient had a stable cardiopulmonary status and judged an adequate candidate for conscious sedation. The endoscope -[id number] was passed through the anus andadvanced to [...] there are any questions, please contact the elevator builder. Moderate Sedation: A time out was performed [...] 11:01 AM Procedure Code(s): --- Professional --- 25628, Colonoscopy, flexible; with removalof tumor(s), polyp(s), or other lesion(s) bysnare technique Diagnosis Code(s): --- Professional --- Z12.11, Encounter for screening formalignant neoplasm of colon D12.0, Benign neoplasm of cecum D12.3, Benign neoplasm of transverse colon (hepatic flexure or splenic flexure) D12.4, Benign neoplasm of descending colon K57.30, Diverticulosis of large intestine without perforation or abscess withoutbleeding CPT copyright 2021 [employer]. All rights reserved. The codes documented in this report are preliminary and upon oil and gas superintendent reviewmay be revised to meet current compliance requirements. Scope In: 11:33:03 AM Scope Withdrawal Time 0 hours 21 minutes 20 seconds Scope Out: 12:01:37 PM us Trino Strickland MD PROCEDURE ORD Final Res ult * US ABD AORTA SCREENING [[id number]] (07/22/2022 2:00 PM NURSE RECEPTIONIST) Anatomical Region Laterality Modality Abdomen, AORTA Ultrasound 07/22/2022 3:15 PM NURSE RECEPTIONIST Narrative 07/22/2022 3:15 PM NURSE RECEPTIONIST For Patients: As a result of the [...] @ Jul 22 2022 3:15PM (Electronically Signed) us Joon Dodson MD Final Resu lt * ANTI HCV [[id number]] (10/20/2015 2:41 PM CDT) HEPATITIS C ANTIBODY Non-Reacti ve Non-Reacti ve 10/20/2015 8:58 PM CDT [facility] Blood specimen (specimen) BLOOD SPECIMEN / Unknown Venipuncture / Unknown 10/20/2015 2:41 PM CDT 10/20/2015 2:41 PM CDT Narrative [facility] - 10/20/2015 8:58 PM CDT Antibodies to HCV not detected; does not exclude the possibility of exposure to HCV. us Joon Dodson MD SEND OUTS Final Resu lt [facility] [address] [place] [address], [place] from Last 3 Months or Most Recently Relevant to Health Maintenance Insurance MEDICARE PART B HB ONLY MEDICARE PART A HB ONLY [facility] Advance Directives * Full Code (Latest Code Status on File) Date Activated Date Inactivated Comments 02/21/2023 7:05 AM 02/21/2023 2:50 PM Question Answer Comments Code Status Discussion: Not Discussed Care Teams Chemical Analyst Relationship Specialty Start Date End Date Joon Dodson MD [address] [place] [address] PCP - General Family Practice 08/29/14 [place] [address] [place] [address] Clinical Nurse Specialist 01/27/20 Zen Ybarra MD [address] [facility] [address] [place] [address] Endocrinology 07/23/23
--- OUTSIDE RECORDS SUMMARY | 2025-02-21 08:32 | XMS_ITS | Encounter Summary ---
Author Organization [place] Address [address] [place] [address] Care Team Providers Care Roto Rooter Operator Name Role Phone Joon Dodson MD Primary Care Provider Adrianne Steele Primary Care Provider Unavailab Tanya Ruiz PharmD Unavailable [phone] Joon Dodson MD Primary Care Provider Adrianne Steele Primary Care Provider Unavailab Tanya Ruiz PharmD Unavailable Tanya Montoya PharmD Unavailable Joon Dodson MD Primary Care Provider Encounter Details Date Type Department Care Team (Late st Contact Info) Description 08/29/2020 [facility] Only [facility] [address] [place] [phone] Seth Sutton MD [facility] [address] [place] [address] Pre-operative laboratory examination (Primary Dx) Social History Tobacco Use Types Packs/Day Years Used Date Smoking Tobacco: Former Cigarettes 0.5 35 0 11/27/1980 - 11/28/2015 Smokeless Tobacco: Never Alcohol Use Standard Drinks/Week Comments No 0 (1 standard drink = 0.6 oz pur e alcohol) Sex and Gender Information Value Date Recorded Sex Assigned at Not on file Legal Sex Male 3:29 AM RADIOLOGY RN Gender Identity Not on file Sexual Orientation Not on file documented as of this encounter Plan of Treatment Not on file documented as of this encounter Visit Diagnoses Diagnosis Pre-operative laboratory examination- Primary Pre-procedural laboratory examination documented in this encounter Additional Health Concerns Infection Onset Date Last Indicated Resolved Time COVID-19 06/26/2021 06/26/2021 07/07/2021 9:38 AM RADIOLOGY RN 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 Pt meets Covid Recovered criteria. 06/26/2021 08/28/2021 09/25/2021 11:39 PM CDT documented as of this encounter Care Teams Roto Rooter Operator Relationship Specialty Start Date End Date Joon Dodson MD [address] [place] [address] PCP - General 03/25/17 10/04/20 Adrianne Steele PCP - General 10/05/20 12/17/20 Joon Dodson MD [address] [place] [address] PCP - General 12/18/20 08/30/21 Adrianne Steele PCP - General 08/31/21 06/04/24 Joon Dodson MD [address] [place] [address] PCP - General 06/05/24 Tanya Montyoa PharmD [address] [id number] Pharmacist Pharmacist 11/08/20 Tanya Montoya, MartitaD [address] [facility] [place], [place] [address] Assigned MTM Pharmacist 10/27/21 Tanya Montoya, MartitaD [address] [place], [place] [address] [place] [address] Assigned MTM Pharmacist 02/27/22 1// 3 documented as of this encounter
--- OUTSIDE RECORDS SUMMARY | 2025-02-21 08:32 | XMS_ITS | Encounter Summary ---
Author Organization [facility] Address [address] [place] [address] Care Team Providers Care Manager Sas Name Role Phone Joon Dodson MD Primary Care Provider Adrianne Steele Primary Care Provider Unavailab Tanya Ruiz PharmD Unavailable [phone] Joon Dodson MD Primary Care Provider Adrianne Steele Primary Care Provider Unavailab Tanya Ruiz PharmD Unavailable [phone] Tanya Montoya PharmD Unavailable [phone] Joon Dodson MD Primary Care Provider Encounter [...] on file Legal Sex Male 3:29 AM DIRECTOR OF CLINICAL SERVICES Gender Identity Not on file Sexual Orientation Not on file documented as of this encounter Plan of Treatment Not on file documented as of this encounter Visit Diagnoses Not on filedocumented in this encounter Additional Health Concerns Infection Onset Date Last Indicated Resolved Time COVID-19 06/26/2021 06/26/2021 07/07/2021 9:38 AM DIRECTOR OF CLINICAL SERVICES 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 Pt meets Covid Recovered criteria. 06/26/2021 08/28/2021 09/25/2021 11:39 PM CDT documented as of this encounter Care Teams Manager Sas Relationship Specialty Start Date End Date Joon Dodson MD [address] [place] [address] PCP - General 03/25/17 10/04/20 Adrianne Steele PCP - General 10/05/20 12/17/20 Joon Dodson MD [address] [place] [address] PCP - General 12/18/20 08/30/21 Adrianne Steele PCP - General 08/31/21 06/04/24 Joon Dodson MD [address] [place] [address] PCP - General 06/05/24 Tanya Montoya, MartitaD [address] [place] [address] Pharmacist Pharmacist 11/08/20 Tanya Montoya, PharmD [address] [place] [address] Assigned MTM Pharmacist 10/27/21 Tanya Montoya, PharmD [address] [place] [address] Assigned MTM Pharmacist 02/27/22 3 documented as of this encounter
--- OUTSIDE RECORDS SUMMARY | 2025-02-21 08:32 | XMS_ITS ---
Author Organization [facility] Care Team Providers Care Personal Chef Name Role Phone ^\\, ^\\ Unavailable Unavailable AYESHA Swenson, Deonna Unavailable Unavailroseann Munguia PA-C, Mayco Unavailable Unavailable MD Kayleigh, Julia Beth Unavailable Darlene Seth Gerardo Unavailable Unavailable Allergies and adverse reactions Code CodeSystem Substance Reaction Severity StartDate Concern Status Mold Unknown 12/19/2020 active Dust Unknown 12/19/2020 active Care Team Name Role Address Phone Organization Dates Julia Victor MD PCP [address], [place], [address], [place] (Office[facility] : [facility] 12/20/2020 - 01/05/2021 ^\\ ^\\ [place] [facility] 12/20/2020 - 01/05/2021 Deonna Swenson NP [address] [address], [place], [address], [place] (Office): : : [facility] 12/20/2020 - 01/05/2021 Mayco Munguia PA-C [address], [place], [address], [place] (Office): : [facility] 12/20/2020 - 01/05/2021 Seth Sutton [address], [place], [address], [place] (Office): : [facility] 12/20/2020 - 01/05/2021 Immunizations Immunization Status Vaccine Details Vaccine Code CodeSystem Date Notes Influenza completed Influenza, high-dose, split virus, quadrivalent, injectable, preservative free 197 CVX created date: 12/20/2020 administere d date: 02/19/2020 Pneumovax Dose 1 completed pneumococcal polysaccharide vaccine, 23 valent 33 CVX created date: 12/20/2020 administere d date: 05/14/2011 TB 2 Step Mantoux Skin Test completed tuberculin skin test; unspecified formulation lotNumber: [id number] expiry: 12/05/2022 Mfg: [employer] Given 0.1 ml Right Forearm intradermally Step 1 of Multi-step with next step required 98 CVX created date: 12/20/2020 consent date: 12/20/2020 administere d date: 12/20/2020 TB 2 Step Mantoux Skin Test completed tuberculin skin test; unspecified formulation lotNumber: [id number] expiry: 03/29/2018 Mfg: [employer] Given 0.1 ml Left Forearm intradermally Step 1 of Multi-step with next step required 98 CVX created date: 10/11/2016 consent date: 10/11/2016 administere d date: 10/11/2016 SARS-COV-2 (COVID-19) completed SARS-COV-2 (COVID-19) vaccine, mRNA, spike protein, LNP, preservative free, 100 mcg/0.5mL dose or 50 mcg/0.25mL dose Mfg: Moderna Step 2 of Multi-step with next step required 207 CVX created date: 12/20/2020 administere d date: 12/01/2020 SARS-COV-2 (COVID-19) completed SARS-COV-2 (COVID-19) vaccine, mRNA, spike protein, LNP, preservative free, 100 mcg/0.5mL dose or 50 mcg/0.25mL dose Mfg: Moderna Step 1 of Multi-step with next step required 207 CVX created date: 12/20/2020 administere d date: 11/03/2020 Mental Status Section Date Assessment Total Score Description 01/05/2021 BIMS 15 cognitively int act CAM 0 No delirium ind icated PHQ-9 06 mild depression 12/23/2020 BIMS 15 cognitively int act CAM 0 No delirium ind icated PHQ-9 07 mild depression Problems Problem # Description Date of onset Resolved Date Code CodeSystem Concern Status 1 PNEUMONIA, UNSPECIFIED ORGANISM 12/22/[address] active 2 AFTERCARE FOLLOWING JOINT REPLACEMENT SURGERY 12/20/[address] active 3 BENIGN PROSTATIC HYPERPLASIA WITHOUT LOWER URINARY TRACT SYMPTOMS 12/20/[address] active 4 CHRONIC OBSTRUCTIVE PULMONARY DISEASE, UNSPECIFIED 12/20/[address] active 5 CYST OF KIDNEY, ACQUIRED 12/20/[address] active 6 DEPENDENCE ON OTHER ENABLING MACHINES AND DEVICES 12/20/[address] active 7 ESSENTIAL (PRIMARY) HYPERTENSION 12/20/[address] active 8 INSOMNIA, UNSPECIFIED 12/20/[address] active 9 NICOTINE DEPENDENCE, UNSPECIFIED, IN REMISSION 12/20/[address] active 10 OBSTRUCTIVE SLEEP APNEA (ADULT) (PEDIATRIC) 12/20/[address] active 11 OTHER MALIGNANT NEUROENDOCRINE TUMORS 12/20/[address] active 12 PRESENCE OF LEFT ARTIFICIAL KNEE JOINT 12/20/[address] active 13 SYNCOPE AND COLLAPSE 12/20/19 21 12/20/[address] completed 14 UNSPECIFIED OSTEOARTHRITIS, UNSPECIFIED SITE 12/20/[address] active 15 DIFFICULTY IN WALKING, NOT ELSEWHERE CLASSIFIED 10/12/19 17 12/20/[address] completed 16 MUSCLE WEAKNESS (GENERALIZED) 10/12/19 17 12/20/[address] completed 17 PAIN IN RIGHT KNEE 10/12/19 17 12/20/[address] completed 18 AFTERCARE FOLLOWING JOINT REPLACEMENT SURGERY 10/11/19 17 12/20/[address] completed 19 ANXIETY DISORDER, UNSPECIFIED 10/11/[address] active 20 BIPOLAR DISORDER, UNSPECIFIED 10/11/[address] active 21 GASTRO-ESOPHAGEAL REFLUX DISEASE WITHOUT ESOPHAGITIS 10/11/[address] active 22 HYPERLIPIDEMIA, UNSPECIFIED 10/11/[address] active 23 MAJOR DEPRESSIVE DISORDER, SINGLE EPISODE, UNSPECIFIED 10/11/[address] active 24 PRESENCE OF RIGHT ARTIFICIAL KNEE JOINT 10/11/[address] active 25 RETENTION OF URINE, UNSPECIFIED 10/11/19 17 12/20/[address] completed 26 SOLITARY PULMONARY NODULE 10/11/[address] active 27 STIFFNESS OF RIGHT KNEE, NOT ELSEWHERE CLASSIFIED 10/11/19 17 12/20/[address] completed 28 UNILATERAL PRIMARY OSTEOARTHRITIS, RIGHT KNEE 10/11/19 17 12/20/[address] completed 29 UNSPECIFIED ASTHMA, UNCOMPLICATED 10/11/[address] active Reason for Referral No Reasons for Referral Entered Social History Social History Observation Description Start Date End Date Code Code System Current Smoking Status Tobacco smoking consumption unknown 048972443 SNOMED CT Sex Assigned At Male 1955 21789-4 [facility] Gender Identity Sexual Orientation Vital Signs Code Code System Vitals Name Values and Units Timing Information 76373-0 LOINC Pain Level Value=1.0 01/05/2021 9279-1 LOINC Respiratory Rate Value=18.0 Units=/m in 01/05/2021 8462-4 LOINC Blood Pressure-Diastolic Value=80 Un its=mmHg 01/05/2021 8480-6 LOINC Blood Pressure-Systolic Kxsxq=624 Un its=mmHg 01/05/2021 8310-5 [facility] Body Temperature Value=98.1 Units= F 01/05/2021 8867-4 [facility] Heart rate Value=90.0 Units=/min 10/2020 22179-4 [facility] O2 % BldC Oximetry Value=93.0 Units= % 01/05/2021 53007-7 [facility] Weight Qdenh=052.2 Units=Lbs 07/2020 8302-2 [facility] Height Value=70.0 Units=Inches 10/11/2016
--- OUTSIDE RECORDS SUMMARY | 2025-02-21 08:32 | XMS_ITS | Encounter Summary ---
Author Organization [facility] Address [address] [place] [address] Care Team Providers Care Seal Mixing Operator Name Role Phone Joon Dodson MD Primary Care Provider [phone] Encounter Details Date Type Department Care Team (Late st Contact Info) Description 01/02/2021 Lab Requisition [facility] [address] [facility]. [place], [place] [address] Margaux Man, PA-C [address] [facility] [address] [place], [place] [address] Magnesium deficiency Social History Tobacco Use Types Packs/Day Years Used Date Smoking Tobacco: Light Smoker Cigarettes Smokeless Tobacco: Never Comments:Smoking History Pac ks/day: Alcohol Use Standard Drinks/Week Comments Yes 0 (1 standard drink = 0.6 oz pur e alcohol) occasional Sex and Gender Information Value Date Recorded Sex Assigned at Not on file Legal Sex Male 3:59 AM CDT Gender Identity Not on file Sexual Orientation Not on file Occupation Industry Job Start Date Job End Date disability Not on file Not on file Not on file documented as of this encounter Plan of Treatment Not on file documented as of this encounter Procedures Procedure Name Priority Date/Time Associated Diagnosis Comments MAGNESIUM Routine 01/03/2021 7:07 AM CDT Magnesium deficiency documented in this encounter Results * Magnesium (01/03/2021 7:07 AM CDT) Magnesium 2.5 1.6 - 2.6 mg/dL 01/03/2021 1:22 PM CDT [facility] Blood Venipuncture / Unknown 01/03/2021 7:07 AM CDT 01/03/2021 12:44 PM CDT us Margaux Man PA-C LAB_1 Final R esult [facility] [address] documented in this encounter Visit Diagnoses Diagnosis 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
--- OUTSIDE RECORDS SUMMARY | 2025-02-21 08:32 | XMS_ITS | Clinical Summary ---
Author Organization [facility] Address [address] [place] [address] Care Team Providers Care Hydraulic Plumber Helper Name Role Phone Joon Dodson MD Primary Care Provider [phone] Source Comments You are receiving this document as you are listed as the primary care provider,follow-up provider, or the patient has been referred to you for consultation.This is in compliance with the Medicare andOhio[facility] Health Cent[facility]aid EHR Incentive Program,which states Providers who transition their patient to another setting of careor provider of care or refers their patient to another provider of care shouldprovide summary care record for each transition of care or referral. [facility] Active Allergy Reactions Criticality Noted Date Comments Other 06/04/2012 PN: seasonal allergies Medications buPROPion (AKA WELLBUTRIN SR) 200 MG 12 hour release tablet Take 1 tablet by mouth daily (every 24 hours). LW Addl Instr:Indicated for: Depression 0 Active LITHium carbonate 300 MG capsule Take 1 capsule by mouth 2 times daily. Take 1 tab in AM and 1.5 tab at HS 3 3 Active B COMPLEX-C OR follow package directions 1 Bottle 12 4 Active ALBUterol sulfate HFA 108 (90 BASE) MCG/ACT inhaler Inhale 1-2 puffs every 6 hours as needed for Wheezing. 3 Inhaler 3 4 Active terbinafine (ANTIFUNGAL FOOT) 1 % cream Apply topically 2 times daily. 30 g 6 4 Active traZODone (AKA DESYREL) 50 MG tablet Indications: PN: 4 Active mometasone (AKA NASONEX) 50 MCG/ACT nasal solution Place 2 sprays into each nostril daily (every 24 hours). 17 g 11 4 Active simvastatin (AKA ZOCOR) 20 MG tablet Take 1 tablet by mouth nightly. 90 tablet 1 5 Active ketoconazole (AKA NIZORAL) 2 % cream Apply topically daily (every 24 hours). 60 g 0 5 Active Multiple Vitamins-Minera ls (MULTIVITAMIN ADULT OR) Take 1 tablet by mouth daily (every 24 hours). 3 Active Locke-3 Fatty Acids (SUPER OMEGA 3 EPA/DHA OR) Take by mouth. 3 Active lurasidone (LATUDA) 40 MG tablet Take 40 mg by mouth daily with food. Active hydrOXYzine HCl (ATARAX) 25 MG tablet Take 25 mg by mouth three times a day as needed. Active montelukast (SINGULAIR) 10 MG tablet Take 10 mg by mouth every evening. Active Fluticasone-Gael meterol (ADVAIR DISKUS IN) Take 1 Puff by mouth two times a day. Active HYDROcodone-ryan taminophen (NORCO) 5-325 MG tablet Take 1-2 Tabs by mouth every 4 hours as needed. 20 Tab 8 Active Active Problems Problem Noted Date Diagnosed Date HTN (hypertension) 06/24/2013 Hyperlipidemia 06/24/2013 Personal history of smoking 06/24/2013 Obstructive sleep apnea 05/28/2011 Overview (01/22/2017): Setting: Auto 10/14 Supplied by: PSG done: 05-24-11 AHI 84 RDI 103 Lowest O2 Sat: 81% Freking / HELICOPTER OFFICER Ed. Order 01/28/13 [place]/cmn 2-24-16 mailed to home ; Severe Obstructive sleep apnea Bipolar affective disorder 02/19/2010 Overview (01/22/2017): Bipolar II Dis Immunizations Immunization Administration Dates Next Due Flu Vac Preserv Free (3+yrs) 05/01/2011,02/20/20 10 Influenza, Unspecified Formulation 2012 PPSV23 (Pneumovax) 05/14/2011 TDAP (ADACEL) 05/01/2011 Zoster (Zostavax) 05/17/2011 Family History Medical History Relation Name Comments Cataract Father High Blood Pressure Father High Cholesterol Father Hypertension Father Macular Degeneration Father Stroke Father Vision Loss Father macular deg Mental Disorder Mother bipolar, marbella cide Heart Disease Sister 1 NV's in 50's Hypertension Sister 1 Hypertension Sister [...] file Not on file Not on file Last Filed Vital Signs [...] Services) 1955 Medicare Annual Wellness Visit 1955 Pneumococcal Vaccine 50+ Yrs (2 of 2 - PCV) 05/14/2012 05/14/2011 PSA Screening Discussion 06/24/2014 014, 05/05/2012, 05/01/2011, Additional history exists Cholesterol 03/28/2019 03/28/2014, 06/03, 06/19/2012, Additional history exists Zoster/Shingles Vaccine (3 of 3) 06/05/2020 04/10/2020, 05/17/2011 DTaP/Tdap/Td Vaccine (3 - Tdap) 06/02/2022 06/02/2012, 05/01/2011 COVID-19 Vaccine (1 - season) 2025 Influenza Vaccine (#1) 2025 0, 03/04/2019, 06/01/2018, Additional history exists RSV Vaccine (1 - 1-dose 75+ series) 2032 HepA Vaccine Aged Out No longer eligi ble based on patient's age to complete this topic HepB Vaccine Aged Out No longer eligi ble based on patient's age to complete this topic Hib Vaccine Aged Out No longer eligi ble based on patient's age to complete this topic IPV (Polio) Vaccine Aged Out No longe r eligible based on patient's age to complete this topic MCV4 Vaccine Aged Out No longer eligi ble based on patient's age to complete this topic Meningococcal B Vaccine Aged Out No l onger eligible based on patient's age to complete this topic Procedures Procedure Name Priority Date/Time Associated Diagnosis Comments LIPID PANEL & DIRECT LDL (IF NEEDED) Routine 03/28/2014 12:35 PM CDT Bipolar disorder, unspecified (HRC) PROSTATIC SPECIFIC ANTIGEN(SCREEN) Routine 06/24/2013 11:41 AM PICTURE ENGRAVER Screening for prostate cancer from Last 3 [...] 5 PM CDT 03/28/2014 4:02 PM CDT us Shayne Espinal MD LAB_1 Final Result HP CONVERSION * Prostatic Specific Antigen (Screen) (06/24/2013 11:41 AM PICTURE ENGRAVER) Prostate Specific Antigen 1.7 0.0 - 4.0 ng/mL HP CONVERSION 06/24/2013 11:4 1 AM PICTURE ENGRAVER 06/24/2013 1:22 PM PICTURE ENGRAVER us Panda Escamilla MD LAB_1 Final Resul t HP CONVERSION from Last 3 Months or Most Recently Relevant to Health Maintenance Insurance [id number] [place] [address] MEDICARE MANAGED CARE [facility] [place] [id number] MEDICARE MANAGED CARE BC [facility] [place] Advance Directives * Full Code (Latest Code Status on File) Date Activated Date Inactivated Comments 10/16/2017 7:45 AM 10/16/2017 11:45 AM Care Teams Hydraulic Plumber Helper Relationship Specialty Start Date End Date Joon Dodson MD [address] [place] [address] PCP - General Family Practice 10/16/17
--- OUTSIDE RECORDS SUMMARY | 2025-02-21 08:32 | XMS_ITS | Encounter Summary ---
Author Organization [facility] Address [address] [place] [address] Care Team Providers Care Television Installer Name Role Phone Joon Dodson MD Primary Care Provider [phone] Encounter Details Date Type Department Care Team (Late st Contact Info) Description 12/26/2020 Lab Requisition [facility] [address] [facility] [place] [address] Deonna Swenson [facility] [place] [address] Anemia, unspecified Social History Tobacco Use Types [...] - 17.5 g/dL 12/26/2020 1:51 PM CDT [facility] Blood Venipuncture / Unknown 12/26/2020 7:10 AM CDT 12/26/2020 1:25 PM CDT us Deonna Swenson LAB_1 Final Result [facility] [address] [place], [place] [address] [place] [address] documented in this encounter Visit Diagnoses Diagnosis Anemia, unspecified documented in this encounter Care Teams Television Installer Relationship Specialty Start Date End Date Joon Dodson MD [address] [place] [address] PCP - General Family Practice 10/16/17 documented as of this encounter
--- OUTSIDE RECORDS SUMMARY | 2025-02-21 08:32 | XMS_ITS | Clinical Summary ---
Author Organization [facility] Address [address] [place] [address] Care Team Providers Care Lead Pourer Name Role Phone Tanya Montoya PharmD Unavailable [phone] Joon Dodson MD Primary Care Provider Allergies Active Allergy Reactions Criticality Noted Date Comments Dust Mite Extract 04/26/2020 Other reaction(s): Runny Nose Mold Cough 01/21/2019 Quetiapine Unknown 06/05/2024 Medications * This document contains information received from the source organization and may not represent a complete record from that organization. Ascorbic Acid (VITAMIN C PO) Take 1,000 mg by mouth daily Active multivitamin, therapeutic (THERA-VIT) TABS tabletIndicatio ns:Severe bipolar I disorder, most recent episode depressed with mixed features (H) Take 1 tablet by mouth daily 90 tablet 1 09/01/19 22 Active hydrOXYzine (ATARAX) 50 MG tabletIndicatio ns:Severe bipolar I disorder, most recent episode depressed with mixed features (H) Take 1 tablet (50 mg) by mouth every 6 hours as needed for anxiety 90 tablet 3 09/01/19 22 Active sennosides (SENOKOT) 8.6 MG tabletIndicatio ns:Severe bipolar I disorder, most recent episode depressed with mixed features (H) Take 2 tablets by mouth 2 times daily as needed for constipation 60 tablet 3 09/01/19 22 Active albuterol (PROAIR HFA/PROVENTIL HFA/VENTOLIN HFA) 108 (90 Base) MCG/ACT inhalerIndicati ons:Chronic obstructive pulmonary disease, unspecified COPD type (H) Inhale 1-2 puffs into the lungs every 2 hours as needed for shortness of breath / dyspnea 18 g 4 09/01/19 22 Active amLODIPine (NORVASC) 5 MG tablet Take 5 mg by mouth daily. Active lamoTRIgine (LAMICTAL) 200 MG tablet Take 200 mg by mouth daily. Active tamsulosin (FLOMAX) 0.4 MG capsule Take 0.8 mg by mouth daily. Active cariprazine (VRAYLAR) 1.5 MG capsule Take 1.5 mg by mouth daily. Active OXcarbazepine (TRILEPTAL) 600 MG tablet Take 600 mg by mouth 2 times daily. Active fluticasone (FLONASE) 50 MCG/ACT nasal spray [place] 1 spray into both nostrils daily as needed for rhinitis or allergies. Active atorvastatin (LIPITOR) 20 MG tablet Take 20 mg by mouth daily. Active lisinopril (ZESTRIL) 5 MG tablet Take 5 mg by mouth daily. Active ipratropium - albuterol 0.5 mg/2.5 mg/3 mL (DUONEB) 0.5-2.5 (3) MG/3ML neb solution Take 1 vial by nebulization 4 times daily as needed for shortness of breath, wheezing or cough. Active escitalopram (LEXAPRO) 20 MG tablet Take 20 mg by mouth daily 019 Discontin ued(Patie nt Discharge ) Active Problems Problem Noted Date Diagnosed Date Bipolar 1 disorder, depressed, severe 06/05/2024 Other insomnia 07/03/2021 Mood disorder 06/27/2021 Noncompliance [...] depressive disorder, without psychotic features 08/12/2019 Immunizations Immunization Administration Dates Next Due Flu, Unspecified 2012,02/19/2010 Influenza (IIV3) PF 05/01/2011,02/19/2010 Influenza (intradermal) 2012 Influenza (prior to 2023) 05/01/2011,02/19/2010 Influenza Vaccine >6 months,quad, PF ,03/04/2019,06/01/2018,2016,05/09/2015 Pneumococcal 23 valent 05/14/2011 Pneumococcal, Unspecified 05/14/2011 TDAP (Adacel,Boostrix) 06/02/2012,05/01/2011 Zoster recombinant adjuvante d (Shingrix) 04/10/2020 Zoster vaccine, live 05/17/2011 Social History [...] on file Legal Sex Male 3:29 AM SERVER SOFTWARE ENGINEER Gender Identity Not on file Sexual Orientation Not on file Last Filed Vital Signs Vital Sign Reading Time Taken Comments Blood Pressure 97/61 06/06/2024 2:06 PM SERVER SOFTWARE ENGINEER Pulse 62 06/06/2024 2:06 PM SERVER SOFTWARE ENGINEER Temperature 36.6 C (97.8 F) 06/06/2024 9:11 AM SERVER SOFTWARE ENGINEER Respiratory Rate 16 06/06/2024 2:06 PM SERVER SOFTWARE ENGINEER Oxygen Saturation 98% 06/06/2024 2:06 PM SERVER SOFTWARE ENGINEER Inhaled Oxygen Concentration - - Weight 77.2 kg (170 lb 3.1 oz) 06/05/2024 1:08 P M SERVER SOFTWARE ENGINEER Height 185.4 cm (6' 1) 06/05/2024 1:08 PM SERVER SOFTWARE ENGINEER Body Mass Index 22.45 06/05/2024 1:08 PM SERVER SOFTWARE ENGINEER Plan of Treatment Health Maintenance Due Date Last Done Comments ADVANCE CARE PLANNING 1955 ANNUAL REVIEW OF HM ORDERS 1955 CT COLONOGRAPHY 1955 FIT 1955 FLEX SIG 1955 sDNA (Cologuard) 1955 LUNG CANCER SCREENING 11/22/2017 11/22/2016 , 05/14/2016, 05/08/2015, Additional history exists NICOTINE/TOBACCO CESSATION COUNSELING Q 1 YR 12/04/2021 12/04/2020 FALL RISK ASSESSMENT 2022 LIPID 06/08/2022 06/08/2021, 0510/2020, 08/13/2019 PHQ-2 (once per calendar year) 2024 07/06/2021, 07/06/2021 COVID-19 VACCINE ( season) 2025 12/01/2020, 11/03/2020 INFLUENZA VACCINE (#1) 2025 , 02/19/2020, 02/17/2020, Additional history exists MEDICARE ANNUAL WELLNESS VISIT 02/26/2025 02/27/2024, 01/14/2023, 09/28/2021, Additional history exists DIABETES SCREENING 06/05/2027 06/05/2024, 0 08/07/2021, 07/15/2021, Additional history exists RSV VACCINE (1 - 1-dose 75+ series) 2032 DTAP/TDAP/TD VACCINE (4 - Td or Tdap) 05/26/2032 05/26/2022, 06/02/2012, 05/01/2011 COLONOSCOPY 10/24/2032 10/24/2022 COLORECTAL CANCER SCREENING 10/24/2032 HEPATITIS C SCREENING Completed 10/20/2015 PNEUMOCOCCAL VACCINE 50+ YEARS Completed 06/11/2022, 05/14/2011, 05/14/2011 AORTIC ANEURYSM SCREENING (SYSTEM ASSIGNED) Completed 07/22/2022, 07/22/2022 ZOSTER VACCINE Completed 07/29/2022, 11/0 02/2020, 05/17/2011 HPV VACCINE (No Doses Required) Completed MENINGITIS VACCINE Aged Out No longer eligible based on patient's age to complete this topic Medical Devices Implanted Type Area Electrical Electronics Engineer Device Identifier Shelf Expiration Date Model / Serial / Lot Bone Cement Simplex Full Dose 6191-1-001 Implanted:Qty : 1 on 10/07/2016 by Panda Mesa MD at [facility] Cement, Bone Right: Knee [employer] 01/30/2019 6191-1-00 1 / / [id number] Bone Cement Simplex Full Dose 6191-1-001 Implanted:Qty : 1 on 10/07/2016 by Panda Mesa MD at [facility] Cement, Bone Right: Knee [employer] 04/01/2018 6191-1-00 1 / / [id number] Bone Cement Simplex Full Dose 6191-1-001 - [id number] Implanted:Qty : 2 on 12/18/2020 by Seth Sutton MD at [facility] Cement, Bone Left: Knee [employer] 03/01/2022 6191-1-00 1 / / [id number] Imp Comp Fem Strk Triathln Ps Rt 6 5515-F-602 Implanted:Qty : 1 on 10/07/2016 by Panda Mesa MD at [facility] Total Joint Component /Insert Right: Knee [employer] 06/26/2021 5515-F-60 2 / / [id number] Imp Peg Distal Femoral Strk 5575-X-000 Implanted:Qty : 1 on 10/07/2016 by Panda Mesa MD at [facility] Total Joint Component /Insert Right: Knee [employer] 07/31/2021 5575-X-00 0 / / [id number] Imp Comp Patella Strk Tri Sym X3 33x9mm 5550-G-339 Implanted:Qty : 1 on 10/07/2016 by Panda Mesa MD at [facility] Total Joint Component /Insert Right: Knee [employer] 09/04/2021 5550-G-33 9 / / [id number] Imp Baseplate Tibial Howm Tri 6 5520-B-600 Implanted:Qty : 1 on 10/07/2016 by Panda Mesa MD at [facility] Total Joint Component /Insert Right: Knee [employer] 06/10/2021 5520-B-60 0 / / [id number] Imp Insert Tibial Howm Tri Size 6 09mm 5532-G-609 Implanted:Qty : 1 on 10/07/2016 by Panda Mesa MD at [facility] Total Joint Component /Insert Right: Knee [employer] 04/10/2021 5532-G-60 9 / / [id number] Imp Insert Baseplate Tibial Howm Tri 5 5521-B-500 - [id number] Implanted:Qty : 1 on 12/18/2020 by Seth Sutton MD at [facility] Total Joint Component /Insert Left: Knee [employer] 07/19/2025 5521-B-50 0 / / [id number] Imp Comp Patella Tri 33x9mm 5550-L-339 - [id number] Implanted:Qty : 1 on 12/18/2020 by Seth Sutton MD at [facility] Total Joint Component /Insert Left: Knee [employer] 06/06/2025 5550-L-33 9 / / [id number] Imp Insert Tibial Howm Tri Size 5 09mm 5532-G-509 - [id number] Implanted:Qty : 1 on 12/18/2020 by Seth Sutton MD at [facility] Total Joint Component /Insert Left: Knee [employer] 03/22/2024 5532-G-50 9 / / [id number] Imp Insert Tibial Howm Tri Size 5 09mm 5532-G-509 - [id number] Implanted:Qty : 1 on 12/18/2020 by Seth Sutton MD at [facility] Total Joint Component /Insert Left: Knee [employer] [id number] 08/31/2022 5532-G-50 9 / / [id number] Imp Comp Fem Strk Triathln Ps Lt 5 5515-F-501 - [id number] Implanted:Qty : 1 on 12/18/2020 by Seth Sutton MD at [facility] Total Joint Component /Insert Left: Knee [employer] 08/15/2025 5515-F-50 4UD Procedures Procedure Name Priority Date/Time Associated Diagnosis Comments COMPREHENSIVE METABOLIC PANEL STAT 06/05/2024 7:36 PM SERVER SOFTWARE ENGINEER LIPID REFLEX TO DIRECT LDL PANEL Routine 06/08/2021 8:[address] CHEST W/O CONTRAST Routine 11/18/2014 7:48 AM CDT Lung nodule from Last 3 Months or Most Recently Relevant to Health Maintenance Results * (ABNORMAL) Comprehensive metabolic panel (06/05/2024 7:36 PM SERVER SOFTWARE ENGINEER) Sodium 137 135 - 145 mmol/L 06/05/2024 8:12 PM SERVER SOFTWARE ENGINEER [facility] Potassium 4.4 3.4 - 5.3 mmol/L 06/05/2024 8:12 PM SERVER SOFTWARE ENGINEER [facility] Carbon Dioxide (CO2) 23 22 - 29 mmol/L 06/05/2024 8:12 PM SERVER SOFTWARE ENGINEER [facility] Anion Gap 11 7 - 15 mmol/L 06/05/2024 8:12 PM SERVER SOFTWARE ENGINEER [facility] Urea Nitrogen 20.7 8.0 - 23.0 mg/dL 06/05/2024 8:12 PM SERVER SOFTWARE ENGINEER [facility] Creatinine 0.91 0.67 - 1.17 mg/dL 06/05/2024 8:12 PM SERVER SOFTWARE ENGINEER [facility] GFR Estimate >90 >60 mL/min/1.7 3m2 06/05/2024 8:12 PM SERVER SOFTWARE ENGINEER [facility] Comment:eGFR calculated usin g 2020 CKD-EPI equation. Calcium 9.2 8.8 - 10.4 mg/dL 06/05/2024 8:12 PM SERVER SOFTWARE ENGINEER [facility] Comment:Reference intervals for this test were updated on 12/16/2023 to reflect our healthy population more accurately. There may be differences in the flagging of prior results with similar values performed with this method. Those prior results can be interpreted in the context of the updated reference intervals. Chloride 103 98 - 107 mmol/L 06/05/2024 8:12 PM SERVER SOFTWARE ENGINEER [facility] Glucose 169(H) 70 - 99 mg/dL 06/05/2024 8:12 PM SERVER SOFTWARE ENGINEER [facility] Alkaline Phosphatase 98 40 - 150 U/L 06/05/2024 8:12 PM SERVER SOFTWARE ENGINEER [facility] AST 16 0 - 45 U/L 06/05/2024 8:12 PM SERVER SOFTWARE ENGINEER [facility] ALT 19 0 - 70 U/L 06/05/2024 8:12 PM SERVER SOFTWARE ENGINEER [facility] Protein Total 6.2(L) 6.4 - 8.3 g/dL 06/05/2024 8:12 PM SERVER SOFTWARE ENGINEER [facility] Albumin 3.8 3.5 - 5.2 g/dL 06/05/2024 8:12 PM SERVER SOFTWARE ENGINEER [facility] Bilirubin Total <0.2 <=1.2 mg/dL 06/05/2024 8:12 PM SERVER SOFTWARE ENGINEER [facility] Blood STRUCTURE OF LEFT UPPER LIMB / Unknown Venipuncture / Unknown 06/05/2024 7:36 PM SERVER SOFTWARE ENGINEER 06/05/2024 7:43 PM SERVER SOFTWARE ENGINEER us Earle Jamil DO LAB - BLOOD ORDERABLES Final Res ult [facility] [address] Lab (1st floor, no room number) [place] [address], [facility] * Lipid panel reflex to direct LDL (06/08/2021 8:24 AM SERVER SOFTWARE ENGINEER) Cholesterol 169 <200 mg/dL 06/08/2021 9:48 AM SERVER SOFTWARE ENGINEER [facility] Triglycerides 130 <150 mg/dL 06/08/2021 9:48 AM SERVER SOFTWARE ENGINEER [facility] Direct Measure HDL 51 >=40 mg/dL 2021 9:48 AM SERVER SOFTWARE ENGINEER [facility] LDL Cholesterol Calculated 92 <=100 mg/dL 06/08/2021 9:48 AM SERVER SOFTWARE ENGINEER [facility] Non HDL Cholesterol 118 <130 mg/dL 06/08/2021 9:48 AM SERVER SOFTWARE ENGINEER [facility] Blood STRUCTURE OF RIGHT HAND / Unknown Venipuncture / Unknown 06/08/2021 8:24 AM SERVER SOFTWARE ENGINEER 06/08/2021 8:57 AM SERVER SOFTWARE ENGINEER Narrative [facility] - 06/08/2021 9:48 AM SERVER SOFTWARE ENGINEER Cholesterol Desirable: <200 mg/dL Triglycerides Normal: Less [...] James MD LAB - BLOOD ORDERABLES Kim schwarz Result [facility] [address] [facility] [place] [phone], [facility] [phone] * CT Chest w/o Contrast (11/18/2014 7:48 AM CDT) Anatomical Region Laterality Modality Chest, SUBRAD CT BODY, [facility] CT CHEST Computed Tomography Impressions 11/18/2014 8:12 [...] of the left kidney. DARLEEN SCHULTZ MD [facility] Cooper Ivey MD IMG CT ORDERABLES Kim l Result from Last 3 Months or Most Recently Relevant to Health Maintenance Insurance [employer] MEDICARE ADVANTAGE * Guarantor: Reynaldo Rivers Account Type Relation to Patient Date of Phone Billing Address Behavioral Self 1955 [address] [place] [address] * Guarantor: Reynaldo Rivers Account Type Relation to Patient Date of Phone Billing Address Medication Therapy Self 1955 [address] [place] [address] Advance Directives For more information, please contact: [phone] * Full Code (Latest Code Status on [...] continue PREVIOUSLY ORDERED code status Care Teams Lead Pourer Relationship Specialty Start Date End Date Joon Dodson MD [facility] [place] [address] PCP - General 06/05/24 Tanya Montoya, MartitaD [facility] [address] [address] Pharmacist Pharmacist 11/08/20
--- OUTSIDE RECORDS SUMMARY | 2025-02-21 08:32 | XMS_ITS | Encounter Summary ---
Author Organization [facility] Address [address] [place] [address] Care Team Providers Care Extrusion Die Repairer Name Role Phone Joon Dodson MD Primary Care Provider [phone] Encounter Details Date Type Department Care Team (Late st Contact Info) Description 01/01/2021 Lab Requisition [facility] [address] [facility] [place], [place] [address] Julia Victor MD [facility] [place], [place] [id number] Dyspnea, unspecified Social History Tobacco Use Types [...] - 10.5 x10(9)/L 01/02/2021 2:16 PM CDT [facility] RBC 3.46(L) 4.32 - 5.72 x10(12)/L 01/02/2021 2:16 PM CDT [facility] Hemoglobin 10.7(L) 13.5 - 17.5 g/dL 01/02/2021 2:16 PM CDT [facility] HCT 35.4(L) 38.8 - 50.0 % 01/02/2021 2:16 PM CDT [facility] MCV 102.3(H) 80.0 - 100.0 fL 01/02/2021 2:16 PM CDT [facility] MCH 30.9 27.6 - 33.3 pg 01/02/2021 2:16 PM CDT [facility] MCHC 30.2(L) 31.5 - 35.2 g/dL 01/02/2021 2:16 PM CDT [facility] RDW 13.4 11.9 - 15.5 % 01/02/2021 2:16 PM CDT [facility] Platelets 486(H) 150 - 450 x10(9)/L 01/02/2021 2:16 PM CDT [facility] Automated NRBC 0 <=0 /100 WBC 01/02/2021 2:16 PM CDT [facility] Neutrophil Absolute 4.3 1.7 - 7.0 10(9)/L 01/02/2021 2:16 PM CDT [facility] Lymphocyte Absolute 2.3 1.0 - 4.8 10(9)/L 01/02/2021 2:16 PM CDT [facility] Monocyte Absolute 0.8 0.2 - 0.9 10(9)/L 01/02/2021 2:16 PM CDT [facility] Eosinophil Absolute 0.6(H) 0.0 - 0.5 10(9)/L 01/02/2021 2:16 PM CDT [facility] Basophil Absolute 0.1 0.0 - 0.3 10(9)/L 01/02/2021 2:16 PM CDT [facility] Immature Granulocyte % 2.0(H) 0.0 - 0.5 % 01/02/2021 2:16 PM CDT [facility] Blood Venipuncture / Unknown 01/02/2021 6:30 AM CDT 01/02/2021 1:45 PM CDT Julia Victor MD LAB_1 Final Result Performing Organization Address City/[facility]/ZIP Co de Phone Number [facility] [address] * B-Type Natriuretic Peptide (01/02/2021 6:30 AM CDT) B Type Natr. Peptide <10 <=99 pg/mL 01/02/2021 2:33 PM CDT [facility] Blood Venipuncture / Unknown 01/02/2021 6:30 AM CDT 01/02/2021 1:43 PM CDT Julia Victor MD LAB_1 Final Result Performing Organization Address City/[facility]/ZIP Co de Phone Number [facility] [address] documented in this encounter Visit Diagnoses Diagnosis Dyspnea, unspecified documented in this encounter Care Teams Extrusion Die Repairer Relationship Specialty Start Date End Date Joon Dodson MD [address] [place] [address] PCP - General Family Practice 10/16/17 documented as of this encounter
--- OUTSIDE RECORDS SUMMARY | 2025-02-21 08:33 | XMS_ITS | Encounter Summary ---
Author Organization [facility] Address [address] [place] [address] Care Team Providers Care Automobile Mechanic Supervisor Name Role Phone Tanya Montoya PharmD Unavailable [phone] Joon Dodson MD Primary Care Provider [phone] Adrianne Steele Primary Care Provider Unavailab le Tanya Montoya PharmD Unavailable [phone] Tanya Montoya PharmD Unavailable [phone] Joon Dodson MD Primary Care Provider [phone] Encounter Details Date Type Department Care Team [...] on file Legal Sex Male 3:29 AM PACKAGE SORTER Gender Identity Not on file Sexual Orientation Not on file COVID-19 Exposure Response Date Recorded In the last month, have you been in contact with someone who was confirmed or suspected to have Coronavirus / COVID-19? No / Unsure 07/18/2021 8:10 AM PACKAGE SORTER documented as of this encounter Plan of [...] Depression Total Score: 26 022 9:58 AM PACKAGE SORTER documented as of this encounter Care Teams Automobile Mechanic Supervisor Relationship Specialty Start Date End Date Joon Dodson MD [address] [place] [address] PCP - General 12/18/20 08/30/21 Adrianne Steele PCP - General 08/31/21 06/04/24 Joon Dodson MD [address] [place] [address] PCP - General 06/05/24 Tanya Montoya, PharmD [address] [place] [address] Pharmacist Pharmacist 11/08/20 Tanya Montoya, PharmD [address] [place] [address] [address] Assigned MTM Pharmacist 10/27/21 Tanya Montoya, PharmD [address] [address] Assigned MTM Pharmacist 02/27/22 3 documented as of this encounter
--- OUTSIDE RECORDS SUMMARY | 2025-02-21 08:33 | XMS_ITS | Encounter Summary ---
Author Organization [facility] Address [address] [place] [address] Care Team Providers Care Covering Machine Operator Name Role Phone [facility], [facility] [place] Primary Care Provider Joon Dodson MD Primary Care Provider Adrianne Steele Primary Care Provider Unavailab Tanya Ruiz PharmD Unavailable Joon Dodson MD Primary Care Provider [phone] Adrianne Steele Primary Care Provider Unavailab Tanya Ruiz PharmD Unavailable Tanya Montoya PharmD Unavailable Joon Dodson MD Primary Care Provider Encounter Details Date Type Department Care Team (Late st Contact Info) Description 09/11/2016 [facility] [address] [place] [phone] Panda Mesa MD [facility] [address] [place] [address] Pre-operative laboratory examination (Primary Dx) Social History Tobacco Use Types Packs/Day Years Used Date Smoking Tobacco: Every Day Cigarettes 0.5 35 Smokeless Tobacco: Never Alcohol Use Standard Drinks/Week Comments Yes 0 (1 standard drink = 0.6 oz pur e alcohol) rare Sex and Gender Information Value Date Recorded Sex Assigned at Not on file Legal Sex Male 3:29 AM CASTING MOLDER Gender Identity Not on file Sexual Orientation Not on file documented as of this encounter Plan of Treatment Not on file documented as of this encounter Results * Methicillin Resistant Staph Aureus PCR (09/12/2016 12:36 PM CDT) Specimen Description [facility] Methicillin Resist/Sens S. aureus PCR Negative MRSA Negative: SA Negative MRSA and Staphylococcus aureus target DNA not detected, presumed negative for MRSA and SA colonization or the number of bacteria present may be below the limit of detection for the assay. FDA approved assay performed using Nuv[employer] GeneXpert(R) real-time PCR. NEG [facility] 09/12/2016 12:3 6 PM CDT 09/12/2016 1:24 PM CDT Panda Mesa MD LAB - MICRO GENERAL ORDERABLES Final Result Performing Organization Address City/State/[facility] Co de Phone Number [facility] [address] [place] [address], [facility] [address] [phone] documented in this encounter Visit Diagnoses Diagnosis Pre-operative laboratory examination- Primary Pre-procedural laboratory examination documented in this encounter Additional Health Concerns Infection Onset Date Last Indicated Resolved Time COVID-19 06/26/2021 06/26/2021 07/07/2021 9:38 AM CASTING MOLDER 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 Pt meets Covid Recovered criteria. 06/26/2021 08/28/2021 09/25/2021 11:39 PM CDT documented as of this encounter Care Teams Covering Machine Operator Relationship Specialty Start Date End Date Clinic, [facility] [address] [place] [address] PCP - General 09/30/14 03/24/17 Joon Dodson MD [address] [place] [address] [place] [address] PCP - General 03/25/17 10/04/20 Adrianne Steele PCP - General 10/05/20 12/17/20 Joon Dodson MD [address] [place] [address] PCP - General 12/18/20 08/30/21 Ivette Adrianne Pappas PCP - General 08/31/21 06/04/24 Joon Dodson MD [address] [place] [address] PCP - General 06/05/24 Tanya Montoya, PharmD [facility] [address] Pharmacist Pharmacist 11/08/20 Tanya Montoya, PharmD [address] [address] Assigned MTM Pharmacist 10/27/21 Tanya Montoya, PharmD [address] [facility] [address] [place] [address] Assigned MTM Pharmacist 02/27/22 3 documented as of this encounter
--- OUTSIDE RECORDS SUMMARY | 2025-02-21 08:33 | XMS_ITS | Clinical Summary ---
Author Organization [facility] Address [address] [place] [address] Care Team Providers Care Parking Lot Spotter Name Role Phone Unavailable Primary Care Provider Unavailabl e Source Comments Patient records contain information from all sites at [facility]. For routine questions regarding patient records, call [phone] during business hours, M-F 8:00 AM - 5:00 PM Central Time. Record requests for emergency care only can be directed to [phone] at any time.[facility] Allergies Active Allergy Reactions Criticality Noted Date Comments House Dust Other (see comments) 04/26/2020 Other reaction(s): Runny Nose Mold Cough 05/26/2019 Quetiapine Other (see comments),Hallucinations 11/02/2021 Encephalopathy Medications * This document contains information received from the source organization and may not represent a complete record from that organization. albuterol (ACCUNEB) 2.5 mg /3 mL nebulizer solution Inhale 2.5 mg by nebulization every 6 (six) hours as needed for shortness of breath. 9 Active acetaminophen (TYLENOL) 500 mg tablet Take 1,000 mg by mouth every 6 (six) hours as needed for pain or fever. 1 Active ipratropium-alb uteroL (DUONEB) 0.5-2.5 mg/3 mL nebulizer solution Inhale 3 mL by nebulization 4 (four) times a day as needed for wheezing or shortness of breath. 1 Active tamsulosin (FLOMAX) 0.4 mg 24 hr capsule Take 0.8 mg by mouth. 2 Active albuterol 90 mcg/actuation inhaler Inhale 2 puffs every 4 (four) hours as needed for shortness of breath or wheezing. 0 Active atorvastatin (Lipitor) 20 mg tablet Take 20 mg by mouth daily. 4 Active ibuprofen 800 mg tablet Take 800 mg by mouth every 8 (eight) hours as needed for pain. 3 Active VITAMIN B COMPLEX ORAL Take 1 tablet by mouth daily. 4 Active cariprazine (Vraylar) 3 mg capsule Take 1 capsule (3 mg total) by mouth daily. 30 capsule 5 Active hydrOXYzine (Atarax) 10 mg tablet Take 1 tablet (10 mg total) by mouth 3 (three) times a day as needed for anxiety (and or sleep). 10 tablet 5 Active hydrOXYzine (Atarax) 25 mg tablet Take 1 tablet (25 mg total) by mouth at bedtime. 30 tablet 5 Active lamoTRIgine (LaMICtaL) 200 mg tablet Take 1 tablet (200 mg total) by mouth daily. 30 tablet 5 Active lamoTRIgine (LaMICtaL) 25 mg tablet Take 2 tablets (50 mg total) by mouth daily. 60 tablet 5 Active benztropine (Cogentin) 0.5 mg tablet Take 1 tablet (0.5 mg total) by mouth 2 (two) times a day as needed for tremors. 10 tablet 5 Active Active Problems Problem Noted Date Diagnosed Date Bipolar I Depressed 06/07/2024 Suicide Ideation 06/07/2024 Posttraumatic Stress Disorder Prolonged 06/07/19 25 Depression 06/06/2024 Family History Medical History Relation Name Comments Bipolar disorder Mother Completed Suicide Mother Bipolar disorder Niece Relation Name Status Comments Mother Niece Alive Social History Tobacco Use Types Packs/Day Years Used Date Smoking Tobacco: Former Smokeless Tobacco: Never Tobacco Cessation:Counseling Given: Not Answered Alcohol Use Standard Drinks/Week Comments Yes 3 (1 standard drink = 0.6 oz pure alcohol) socially, 1x/month (bloody paola occasionally if out socially) [facility] Utilities Answer Date Recorded In the past 12 months has e [employer], gas, oil, or water [employer] threatened to shut off services in your home? No 06/07/2024 Humiliation, Afraid, Rape, and Kick questionnair e Answer Date Recorded Within the last year, have y ou been afraid of your partner or ex-partner? No 06/06/2024 Within the last year, have y ou been humiliated or emotionally abused in other ways by your partner or ex-partner? No Within the last year, have y ou been kicked, hit, slapped, or otherwise physically hurt by your partner or ex-partner? No 06/06/2024 Within the last year, have y ou been raped or forced to have any kind of sexual activity by your partner or ex-partner? No 06/06/2024 Hunger Vital Sign Answer Date Recorded Within the past 12 months, y ou worried that your food would run out before you got the money to buy more. Sometimes true Within the past 12 months, t he food you bought just didn't last and you didn't have money to get more. Sometimes true 09/2024 PRAPARE - Transportation Answer Date Re corded In the past 12 months, has l ack of transportation kept you from medical appointments or from getting medications? Yes 10/2024 In the past 12 months, has l ack of transportation kept you from meetings, work, or from getting things needed for daily living? Yes 06/07/2024 Depression Answer Date Recor ded PHQ-9 Total Score (max 27) 22 07/02 Housing Stability Answer Date Recorded What is your living situation today? I h ave a place to live today, but I am worried about losing it in the future 06/07/2024 Sex and Gender Information Value Date Recorded Sex Assigned at Not on file Legal Sex Male 4:16 PM CHEMICAL PRODUCTION ENGINEER Gender Identity Not on file Sexual Orientation Not on file Last Filed Vital Signs Vital Sign Reading Time Taken Comments Blood Pressure 116/80 07/02/2024 7:23 AM CHEMICAL PRODUCTION ENGINEER Pulse 63 07/02/2024 7:23 AM CHEMICAL PRODUCTION ENGINEER Temperature 36.3 C (97.3 F) 07/02/2024 7:23 AM CHEMICAL PRODUCTION ENGINEER Respiratory Rate 19 07/02/2024 7:23 AM CHEMICAL PRODUCTION ENGINEER Oxygen Saturation 97% 07/02/2024 7:23 AM CHEMICAL PRODUCTION ENGINEER Inhaled Oxygen Concentration - - Weight 75.6 kg (166 lb 10.7 oz) 06/26/2024 9:37 AM CHEMICAL PRODUCTION ENGINEER Height 186.7 cm (6' 1.5) 06/06/2024 3:51 PM CHEMICAL PRODUCTION ENGINEER Body Mass Index 21.69 06/06/2024 3:51 PM CHEMICAL PRODUCTION ENGINEER Plan of Treatment Health Maintenance Due Date Last Done Comments Abdominal Aortic Aneurysm (AAA) Screen 1955 [address] Colonography 1955 Cologuard 1955 FIT 1955 Hepatitis C Screening 1955 RSV vaccine - (32-36 weeks) or 60+ years (1 - Risk 60-74 years 1-dose series) 2017 Depression Screening (Annual PHQ-2) 06/02/2024 Fall Risk Screen (Annual) 06/02/2024 COVID-19 Vaccine ( season) 2025 12/01/2020, 11/03/2020 Influenza Vaccine (#1) 2025 , 02/19/2020, 02/17/2020, Additional history exists Fasting Glucose for Diabetes Screening 06/05/2027 06/05/2024, 04/05/2024, 05/01/2023, Additional history exists DTaP,Tdap,and Td Vaccines (4 - Td or Tdap) 05/26/2032 05/26/2022, 06/02/2012, 05/01/2011 Colonoscopy 10/24/2032 10/24/2022 Colorectal Cancer Screening 10/24/2032 Pneumococcal vaccine (50+ years) Completed 06/11/2022, 05/14/2011, 05/14/2011 Zoster Vaccines Completed 07/29/2022, 1102/2020, 05/17/2011 IPV Vaccines Aged Out No longer eligi ble based on patient's age to complete this topic Medical Devices Implanted Type Area Sociology Instructor Device Identifier Shelf Expiration Date Model / Serial / Lot Knee Implant Knee Implant Right: Knee Knee Implant Knee Implant Right: Knee Procedures Procedure Name Priority Date/Time Associated Diagnosis Comments BASIC METABOLIC PANEL, S/P STAT 05/26/2019 4:58 PM CHEMICAL PRODUCTION ENGINEER from Last 3 Months or Most Recently Relevant to Health Maintenance Results * BMP (Basic Metabolic Panel) (05/26/2019 4:58 PM CHEMICAL PRODUCTION ENGINEER) Potassium, P 4.3 3.6 - 5.2 mmol/L 05/26/2019 5:22 PM CHEMICAL PRODUCTION ENGINEER STMA Sodium, P 138 135 - 145 mmol/L 05/26/2019 5:22 PM CHEMICAL PRODUCTION ENGINEER STMA Chloride, P 103 98 - 107 mmol/L 05/26/2019 5:22 PM CHEMICAL PRODUCTION ENGINEER STMA Bicarbonate, P 24 22 - 29 mmol/L 05/26/2019 5:22 PM CHEMICAL PRODUCTION ENGINEER STMA Anion Gap, P 11 7 - 15 05/26/2019 5:22 PM CHEMICAL PRODUCTION ENGINEER STMA BUN (Blood Urea Nitrogen), P 24 8 - 24 mg/dL 05/26/2019 5:22 PM CHEMICAL PRODUCTION ENGINEER STMA Creatinine 1.04 0.74 - 1.35 mg/dL 05/26/2019 5:22 PM CHEMICAL PRODUCTION ENGINEER STMA eGFR-Black/Afric an Irish 89 >=60 mL/min/BSA 05/26/2019 5:22 PM CHEMICAL PRODUCTION ENGINEER STMA Comment: ----ADDITIONAL INFORMATION---- Estimated GFR calculated using the 2009 CKD_EPI creatinine equation. eGFR Non-Black/Katlyn n Irish 77 >=60 mL/min/BSA 05/26/2019 5:22 PM CHEMICAL PRODUCTION ENGINEER STMA Comment: ----ADDITIONAL INFORMATION---- Estimated GFR calculated using the 2009 CKD_EPI creatinine equation. Calcium, Total, P 9.5 8.8 - 10.2 mg/dL 05/26/2019 5:22 PM CHEMICAL PRODUCTION ENGINEER STMA Glucose, P 104 70 - 140 mg/dL 05/26/2019 5:22 PM CHEMICAL PRODUCTION ENGINEER STMA Blood (Blood, Venous) 05/26/2019 4:58 PM CHEMICAL PRODUCTION ENGINEER 05/26/2019 5:04 PM CHEMICAL PRODUCTION ENGINEER Nayla Hassan M.D. LAB BLOOD ADD-ON Final Result [facility] [address] [place] [address], [facility] [address] [place] [address] from Last 3 Months or Most Recently Relevant to Health Maintenance Insurance * Guarantor: Reynaldo Rivers Account Type Relation to Patient Date of Phone Billing Address Personal/Family Self 1955 [address] [place] [address] [employer] Advance Directives For more information, please contact: [phone] * Full Code (Latest Code Status on File) Date Activated Date Inactivated Comments 06/06/2024 5:02 PM 07/02/2024 1:12 PM Question Answer Comments Full Code: Not Discussed Due to: Not medically appropriate Care Teams Parking Lot Spotter Relationship Specialty Start Date End Date Kimberly Lopez Transportation Maintenance Supervisor 01/31/22
--- NOTE | 2025-02-21 08:58 | CRLHL7_ITS ---
For Patients: As a result of the Cures Act, medical imaging exams and procedure reports are released immediately into your electronic medical record. You may view this report before your referring provider. If you have questions, please contact your health care provider. Indication: COUGH, FEVER Technique: PA and lateral views of the chest. Comparison: 11/25/2022. Findings: Normal cardiomediastinal silhouette. Mild patchy right basilar opacity. No pleural effusions or visualized pneumothorax. Moderate degenerative changes of the visualized spine. Impression: Mild patchy right basilar opacity is compatible with atelectasis or developing infection. Dictated by Denis Anderson MD @ 02/21/2025 11:07:41 AM (Electronically Signed)
[2025-02-21 09:15] LABS: Lactate* 1.0 mmol/L (0.5-1.9)
[2025-02-21 09:27] LABS: Troponin, Point-of-Care* 0.05 ng/ml (0.01-0.04)
[2025-02-21 09:28] LABS: PCR FLU A Negative PCR FLU A (Negative); PCR FLU B Negative PCR FLU B (Negative); PCR RSV Negative PCR RSV (Negative); SARS PCR* Negative SARS-CoV-2 (Negative)
[2025-02-21 09:31] LABS: Albumin* 3.7 g/dL (3.3-5.0); Chloride* 104 mmol/L (96-114); Potassium* 3.8 mmol/L (3.6-5.1); Sodium* 133 mmol/L (135-149)
--- NOTE | 2025-02-21 09:31 | ED.GENADULT ---
HPI - General Adult General Date Seen: 02/21/25 Chief complaint: Shortness of Breath/Dyspnea Stated complaint: shortness of breath, cough Time Seen by Provider: 02/21/25 08:50 Source: patient, family, RN notes reviewed and old records reviewed Mode of arrival: ambulatory Limitations: no limitations History of Present Illness HPI narrative: Patient is a 69-year-old gentleman who presents here for evaluation with his significant other for feeling of weakness for the past 2 days, cough, and incontinence of urine. He has had 3-4 episodes she says in the last 24 hours and incontinence a urine re just can not make it to the bathroom. No diarrhea associated with this no nausea vomiting a coughing, overall weakness associated with this and some shortness of breath. He is coughing up some yellowish-green mucus. Fever overnight of 100.8 that they took. Denies any chest pain associated with this any abdominal pain. No rashes associated with this and no other contacts sick. Past history of bipolar disorder, taking his medications as directed, Related Data Home Medications ?Medication ?Instructions ?Recorded ?Confirmed albuterol sulfate 90 mcg/actuation 1 - 2 puff inhalation Q4H PRN 04/15/23 04/15/23 aerosol inhaler wheezing amlodipine 2.5 mg tablet 2.5 mg PO DAILY 04/15/23 04/15/23 fluticasone propionate 50 1 spray intranasal DAILY 04/15/23 04/15/23 mcg/actuation nasal spray,suspension hydroxyzine HCl 50 mg tablet 50 mg PO BID 04/15/23 04/15/23 ipratropium 0.5 mg-albuterol 3 mg 3 ml inhalation QID PRN wheezing 04/15/23 04/15/23 (2.5 mg base)/3 mL nebulization soln lamotrigine 200 mg tablet 200 mg PO DAILY 04/15/23 02/21/25 naproxen 500 mg tablet 500 mg PO BID 04/15/23 04/15/23 primidone 50 mg tablet 50 mg PO BID 04/15/23 04/15/23 simvastatin 20 mg tablet 20 mg PO QPM 04/15/23 04/15/23 tamsulosin 0.4 mg capsule 0.8 mg PO DAILY 04/15/23 02/21/25 trazodone 50 mg tablet 50 - 100 mg PO QPM PRN insomnia 04/15/23 04/15/23 amlodipine 5 mg tablet 5 mg PO DAILY 02/21/25 02/21/25 atorvastatin 20 mg tablet 20 mg PO DAILY 02/21/25 02/21/25 carbamazepine 200 mg 200 mg PO BID 02/21/25 02/21/25 tablet,extended release,12 hr carbamazepine 400 mg 400 mg PO BID 02/21/25 02/21/25 tablet,extended release,12 hr risperidone 2 mg tablet 2 mg PO BID 02/21/25 02/21/25 risperidone 4 mg tablet mg PO 02/21/25 Allergies Allergy/AdvReac Type Severity Reaction Status Date / Time quetiapine (From Seroquel) AdvReac Severe Hallucinati Verified 02/21/25 11:09 ng Review of Systems Status of ROS: Reports: 10 or more systems reviewed and unremarkable except as noted in History and below [facility] Social History Smoking Status: Former smoker Do you use any of these nicotine containing products: None How often do you have a drink containing alcohol: never How often do you have six or more drinks on one occasion: Never AUDIT-C Alcohol total score: 0 Non-prescribed substance use: denies use Exam Narrative: Exam Narrative: On examination in room 1, he appears weak, some mild distress is noted. With decreased saturations, and increased respiratory effort. I reviewed previous oxygen saturations and he typically runs in the 96% range. His pupils are equal round reactive to light, he appears nontoxic, is TMs are normal, oropharynx is normal, neck is supple for range of motion absence of any meningismus. His chest has decreased air entry throughout, some mild crackles right greater than left, these do clear when he takes deep breaths in I do not detect any wheezing. Heart sounds no clicks murmurs or gallops are noted. Abdomen is soft there is no guarding no organomegaly bowel sounds are normal. No significant scarring is noted negative Torrez sign, normal male genitalia no evidence of any hernias, uncircumcised. No CVA tenderness no tenderness on palpation over his thoracic or lumbar region, moves all extremities independently and well both proximal distal muscle strength is normal. There is no rashes, no evidence of any edema. Const: Vital Signs, click to edit/add: Vital Signs - 24 hr 02/21/25 08:35 02/21/25 08:47 02/21/25 08:47 Temperature 98.4 F Pulse Rate 96 Pulse Rate [Pulse Oximeter] 106 H Respiratory Rate 28 H Blood Pressure 153/101 H Blood Pressure [Ri ght Upper Arm] 157/88 H Pulse Oximetry 90 88 91 Oxygen Delivery Me thod Room Air Room Air 02/21/25 08:48 02/21/25 08:58 02/21/25 09:19 Temperature Pulse Rate 95 91 Pulse Rate [Pulse Oximeter] Respiratory Rate 22 Blood Pressure 143/98 H Blood Pressure [Ri ght Upper Arm] Pulse Oximetry 91 90 92 Oxygen Delivery Me thod 02/21/25 09:32 02/21/25 10:05 02/21/25 11:08 Temperature Pulse Rate 89 96 93 Pulse Rate [Pulse Oximeter] Respiratory Rate 25 H 26 H Blood Pressure 145/93 H 157/103 H 150/87 H Blood Pressure [Ri ght Upper Arm] Pulse Oximetry 92 92 92 Oxygen Delivery Me thod Room Air 02/21/25 11:30 02/21/25 12:00 02/21/25 12:30 Temperature Pulse Rate 78 79 77 Pulse Rate [Pulse Oximeter] Respiratory Rate 21 28 H 23 Blood Pressure Blood Pressure [Ri ght Upper Arm] Pulse Oximetry 91 91 92 Oxygen Delivery Me thod Room Air Room Air Room Air 02/21/25 12:49 02/21/25 13:01 02/21/25 13:15 Temperature Pulse Rate 79 80 86 Pulse Rate [Pulse Oximeter] Respiratory Rate 24 23 18 Blood Pressure 142/95 H 152/96 H Blood Pressure [Ri ght Upper Arm] Pulse Oximetry 93 92 92 Oxygen Delivery Me thod Room Air Room Air Room Air 02/21/25 13:31 02/21/25 14:01 02/21/25 14:31 Temperature Pulse Rate 77 86 84 Pulse Rate [Pulse Oximeter] Respiratory Rate 26 H 22 Blood Pressure 153/106 H 161/98 H 143/83 H Blood Pressure [Ri ght Upper Arm] Pulse Oximetry 93 91 92 Oxygen Delivery Me thod Room Air Room Air Room Air Documenting provider has reviewed patient's vital signs: yes Course Reevaluation(s) Time of Reevaluation #1: 13:01 Reevaluation #1: I reviewed with the patient and his partner, that he has the lower lobe pneumonia on the right side along with bilateral pulmonary emboli, there is some evidence of some mild strain according to the chest CT, I have ordered an echo for him, his troponin was mildly positive at 0.5 will have to be trended. He needs to come into the hospital and we have given him Rocephin and Zithromax IV here. I do recommend that he be started also on heparin, and this can be stopped, and he can be transitioned to oral direct anticoagulants if the echo looks okay, I will speak to the inpatient doctor, Time of Reevaluation #2: 15:05 Reevaluation #2: Discussed the case with our hospitalist Dr. Cruzito Muir, pulmonary echo read by the tech, does not show anything significant. I believe given this, we will keep him on the heparin, and IV antibiotics for his pneumonia, he is safe for this institution. As I do not think he requires any thrombolytics. This is discussed with the patient also. Vital Signs Vital signs: Initial Vital Signs Temperature 98.4 F 02/21/25 08:35 Temperature Source Temporal Artery Scan 02/21/25 08:35 Pulse Rate 106 H 02/21/25 08:35 Respiratory Rate 28 H 02/21/25 08:35 Blood Pressure 157/88 H 02/21/25 08:35 Blood Pressure Mean 111 H 02/21/25 08:35 Blood Pressure Position Sitting 02/21/25 08:35 Pulse Oximetry 90 02/21/25 08:35 Oxygen Delivery Method Room Air 02/21/25 08:35 Vital Signs Temperature 98.4 F 02/21/25 08:35 Pulse Rate 106 H 02/21/25 08:35 Respiratory Rate 28 H 02/21/25 08:35 Blood Pressure 157/88 H 02/21/25 08:35 Pulse Oximetry 90 02/21/25 08:35 Oxygen Delivery Method Room Air 02/21/25 08:35 Temperature 98.4 F 02/21/25 08:35 Pulse Rate 84 02/21/25 14:31 Respiratory Rate 22 02/21/25 14:01 Blood Pressure 143/83 H 02/21/25 14:31 Pulse Oximetry 92 02/21/25 14:31 Oxygen Delivery Method Room Air 02/21/25 14:31 Medications Administered Medications: Generic Name Dose Route Start Last Admin Trade Name Freq PRN Reason Stop Dose Admin Heparin Sodium/Dextrose 25,000 unit in 500 mls @ 0 mls/hr 02/21/25 12:15 02/21/25 12:46 Heparin IV 1,500 unit/hr .Q0M KIM 30 mls/hr Protocol Administration Per Protocol Discontinued Medications Generic Name Dose Route Start Last Admin Trade Name Klever PRN Reason Stop Dose Admin Heparin Sodium (Porcine) 7,100 unit 02/21/25 12:01 02/21/25 12:44 Heparin 5,000 Unit/0.5 Ml Inj 80 unit/kg (7100 unit) 02/21/25 12:02 7,100 unit IVP Administration ONCE ONE Sodium Chloride 1,000 mls @ 1,000 mls/hr 02/21/25 09:00 02/21/25 11:38 0.9 % Sodium Chloride 1000 Ml IV 02/21/25 09:59 Infused .Q1H KIM Infusion Ceftriaxone Sodium 1 gm/ 100 mls @ 200 mls/hr 02/21/25 11:12 02/21/25 12:19 Sodium Chloride IVPB 02/21/25 11:13 Infused ONCE ONE Infusion Azithromycin 500 mg/ Sodium 255 mls @ 255 mls/hr 02/21/25 11:13 02/21/25 12:40 Chloride IVPB 02/21/25 11:14 Infused ONCE ONE Infusion Medical Decision Making MDM Narrative Medical decision making narrative: Life-threatening differential diagnosis considered include stroke, coronary artery disease, pneumonia, and heart failure. Other differential diagnosis include but are not limited to electrolyte imbalances, anemia, medication reactions, and urinary tract infection He definitely seems like this is more of an infectious etiology either a pneumonia like process, or possibly urine. We will do a workup for this give him some fluids. He may require admission. Lab Data Lab results reviewed: Yes I reviewed the patient's lab results Labs: Lab Results 02/21/25 02/21/25 02/21/25 Range/Units 08:44 08:55 08:59 WBC 10.51 (4.50-11.00) K/uL RBC 4.24 L (4.30-5.90) m/uL Hgb 13.5 (13.5-17.5) gm/dL Hct 39.8 (37.0-53.0) % MCV 94 (80-100) fL MCH 32 (26-34) pg MCHC 34 (32-36) gm/dL RDW Coeff of Janina 12.0 (11.5-15.5) % Plt Count 280 (140-440) K/uL Neut % (Auto) 73.0 H (42.0-72.0) % Lymph % (Auto) 11.3 L (20-44) % Pacific % (Auto) 13.9 H (0.0-11.0) % Eos % (Auto) 1.1 (0.0-7.0) % Baso % (Auto) 0.5 (0.0-3.0) % Neut # (Auto) 7.70 H (1.7-7.0) K/uL Lymph # (Auto) 1.20 (0.90-2.90) K/uL Pacific # (Auto) 1.50 H (0.00-0.90) K/UL Eos # (Auto) 0.12 (0.00-0.50) K/uL Baso # (Auto) 0.05 (0.00-0.30) K/uL Abs Immat Gran (auto) 0.02 (0.00-0.30) K/uL Imm/Tot Granulo (auto) 0.2 % INR 1.03 (0.91-1.10) APTT 31 (23-33) Seconds D-Dimer Quant (PE/DVT) 2.30 H (0.00-0.50) ug/ml Sodium 133 L (135-149) mmol/L Potassium 3.8 (3.6-5.1) mmol/L Chloride 104 (96-114) mmol/L Carbon Dioxide 23 (20-32) mmol/L Anion Gap 6 L (7-15) mEq/L BUN 14 (7-30) mg/dL Creatinine 0.8 (0.5-1.5) mg/dL Estimated Creat Clear 83.34 Estimated GFR 97 ml/min Glucose 122 H (60-115) mg/dL Lactate 1.0 (0.5-1.9) mmol/L Calcium 9.2 (8.4-10.6) mg/dL Total Bilirubin 0.4 (0.1-1.5) mg/dL Direct Bilirubin 0.2 (0.0-0.5) mg/dL AST 27 (12-35) U/L ALT 26 (4-50) U/L Alkaline Phosphatase 96 (40-150) U/L C-Reactive Protein 12.9 H (0.5-1.0) mg/dL NT-Pro-B Natriuret Pep 172 (See Note) pg/mL Total Protein 6.8 (6.0-8.3) g/dL Albumin 3.7 (3.3-5.0) g/dL Procalcitonin 0.10 (<0.50) ng/mL Urine Color (Yellow) Urine Appearance (Clear) Urine pH (5.0-8.5) Ur Specific [place] (1.000-1.030) Urine Protein (Negative) Urine Glucose (UA) (Negative) Urine Ketones (Negative) Urine Blood (Negative) Urine Nitrite (Negative) Urine Bilirubin (Negative) Urine Urobilinogen (0.2-1.0) Ur Leukocyte Esterase (Negative) Urine RBC (0-2) Urine WBC (0-5) Ur Squamous Epith Cells (None-Few) Urine Bacteria (None) Urine Opiates Screen (Negative) Ur Oxycodone Screen (Negative) Urine Methadone Screen (Negative) Ur Barbiturates Screen (Negative) U Tricyclic Antidepress (Negative) Ur Phencyclidine Scrn (Negative) Ur Amphetamines Screen (Negative) U Methamphetamines Scrn (Negative) U Benzodiazepines Scrn (Negative) Urine Cocaine Screen (Negative) U Marijuana (THC) Screen (Negative) Ur Drug Screen Comment Ethyl Alcohol < 0.01 (0.01-0.03) % SARS-CoV-2 (PCR) Negative SARS-CoV-2 (Negative) Influenza Type A (PCR) Negative PCR FLU A (Negative) Influenza Type B (PCR) Negative PCR FLU B (Negative) RSV (PCR) Negative PCR RSV (Negative) POC Troponin I 0.05 H (0.01-0.04) ng/ml 02/21/25 Range/Units 10:00 WBC (4.50-11.00) K/uL RBC (4.30-5.90) m/uL Hgb (13.5-17.5) gm/dL Hct (37.0-53.0) % MCV (80-100) fL MCH (26-34) pg MCHC (32-36) gm/dL RDW Coeff of Janina (11.5-15.5) % Plt Count (140-440) K/uL Neut % (Auto) (42.0-72.0) % Lymph % (Auto) (20-44) % Pacific % (Auto) (0.0-11.0) % Eos % (Auto) (0.0-7.0) % Baso % (Auto) (0.0-3.0) % Neut # (Auto) (1.7-7.0) K/uL Lymph # (Auto) (0.90-2.90) K/uL Pacific # (Auto) (0.00-0.90) K/UL Eos # (Auto) (0.00-0.50) K/uL Baso # (Auto) (0.00-0.30) K/uL Abs Immat Gran (auto) (0.00-0.30) K/uL Imm/Tot Granulo (auto) % INR (0.91-1.10) APTT (23-33) Seconds D-Dimer Quant (PE/DVT) (0.00-0.50) ug/ml Sodium (135-149) mmol/L Potassium (3.6-5.1) mmol/L Chloride (96-114) mmol/L Carbon Dioxide (20-32) mmol/L Anion Gap (7-15) mEq/L BUN (7-30) mg/dL Creatinine (0.5-1.5) mg/dL Estimated Creat Clear Estimated GFR ml/min Glucose (60-115) mg/dL Lactate (0.5-1.9) mmol/L Calcium (8.4-10.6) mg/dL Total Bilirubin (0.1-1.5) mg/dL Direct Bilirubin (0.0-0.5) mg/dL AST (12-35) U/L ALT (4-50) U/L Alkaline Phosphatase (40-150) U/L C-Reactive Protein (0.5-1.0) mg/dL NT-Pro-B Natriuret Pep (See Note) pg/mL Total Protein (6.0-8.3) g/dL Albumin (3.3-5.0) g/dL Procalcitonin (<0.50) ng/mL Urine Color Yellow (Yellow) Urine Appearance Clear (Clear) Urine pH 6.0 (5.0-8.5) Ur Specific [place] 1.020 (1.000-1.030) Urine Protein 1+ A (Negative) Urine Glucose (UA) Negative (Negative) Urine Ketones Negative (Negative) Urine Blood Trace-intact A (Negative) Urine Nitrite Negative (Negative) Urine Bilirubin Negative (Negative) Urine Urobilinogen 0.2 (0.2-1.0) Ur Leukocyte Esterase Negative (Negative) Urine RBC 2-5 A (0-2) Urine WBC 0-2 (0-5) Ur Squamous Epith Cells Few (None-Few) Urine Bacteria None (None) Urine Opiates Screen Negative (Negative) Ur Oxycodone Screen Negative (Negative) Urine Methadone Screen Negative (Negative) Ur Barbiturates Screen Negative (Negative) U Tricyclic Antidepress Negative (Negative) Ur Phencyclidine Scrn Negative (Negative) Ur Amphetamines Screen Negative (Negative) U Methamphetamines Scrn Negative (Negative) U Benzodiazepines Scrn Negative (Negative) Urine Cocaine Screen Negative (Negative) U Marijuana (THC) Screen Negative (Negative) Ur Drug Screen Comment See Note Ethyl Alcohol (0.01-0.03) % SARS-CoV-2 (PCR) (Negative) Influenza Type A (PCR) (Negative) Influenza Type B (PCR) (Negative) RSV (PCR) (Negative) POC Troponin I (0.01-0.04) ng/ml Imaging Data CT scan - chest: Attestation: I have reviewed the pertinent imaging results. My impression: Bilateral PEs on a pneumonia Radiologist's impression: [place] [address] Diagnostic Imaging Report Patient: Reynaldo Rivers MR#: [id number] : 1955 Acct:[id number] Loc: ED Service Date: 02/21/[address]: Ordering Physician: Zach Lugo M.D. Date of Service: 02/21/25 Procedure(s): CT angio chest PE protocol Accession Number(s): [id number] cc: Joon Dodson M.D.; Zach Lugo M.D.~ For Patients: As a result of the Cures Act, medical imaging exams and procedure reports are released immediately into your electronic medical record. You may view this report before your referring provider. If you have questions, please contact your health care provider. INDICATION: Pulmonary embolism suspected, high probability. Cough TECHNIQUE: CT chest PE was acquired with 95 cc Omnipaque 350 IV contrast. Coronal and MIP reconstructions were performed. COMPARISON: None. FINDINGS: Thrombus subsegmental left upper lobe pulmonary arteries. Thrombus within segmental and subsegmental right middle lobe pulmonary arteries. Right lower lobe segmental thrombus is seen. No saddle pulmonary embolus is seen. Indeterminate patchy nodular right lower lobe consolidation with a small amount of ground-glass and clustered nodularity. There is associated bronchial wall thickening with evidence of mucous plugging. A trace right pleural effusion is present. Moderate emphysema is noted within the background. Likely prior right upper lobe wedge resection. Indeterminate right perihilar lymphadenopathy. Mild cardiomegaly. Subtle bowing of the IV septum could represent subtle findings of heart strain. Small pericardial effusion. No axillary lymphadenopathy. No chest wall mass is seen. Images of the upper abdomen are unremarkable. Bone windows demonstrate indeterminate T8 lucent lesion. Recommend close attention on follow-up. IMPRESSION: 1. Bilateral pulmonary emboli. Mild bowing of the interventricular cardiac septum could represent subtle findings of heart strain. Recommend correlation with echocardiogram. 2. Indeterminate patchy right lower lobe consolidations. Primary differential considerations are pneumonia, less likely malignancy or pulmonary infarct. Associated bronchial wall thickening, likely represents bronchitis. Short-term chest CT follow-up is recommended in 6-8 weeks. 3. Prominent right perihilar lymph nodes. Recommend close attention on follow-up. Case discussed with Dr. Lugo at approximate 11:30 a.m. on 02/21/2025. Please note that all CT scans at this facility use dose modulation, iterative reconstruction, and/or weight-based dosing when appropriate to reduce radiation dose to as low as reasonably achievable. Dictated by Jann Sutton MD @ 02/21/2025 11:36:00 AM (Electronically Signed) ECG Data Attestation: I personally reviewed and interpreted this ECG as follows: Prior ECG tracings: not available for review Interpretation: No previous EKGs available for review. Normal sinus rhythm, with a ventricular rate of 90, QRS 96 milliseconds QT 338 QTC 413, Assessment: Normal EKG no acute changes Discharge Plan Discharge Clinical Impression: Pulmonary embolism, Bacterial pneumonia, History of bipolar disorder Patient Disposition: Admitted As Inpatient Condition: Guarded Activity Level: Light activity Discharge Diet: Regular
[2025-02-21 09:32] LABS: Hematocrit* 39.8 % (37.0-53.0); Hemoglobin* 13.5 gm/dL (13.5-17.5); Immature Granulocytes Abs Auto 0.02 K/uL (0.00-0.30); Immature Granulocytes Pct Auto 0.2 %; Lymphocytes Absolute Auto 1.20 K/uL (0.90-2.90); Mean Corpuscular HGB Conc 34 gm/dL (32-36); Mean Corpuscular Hemoglobin 32 pg (26-34); Mean Corpuscular Volume 94 fL (80-100); RDW Coefficient of Variation % 12.0 % (11.5-15.5); Red Blood Count* 4.24 m/uL (4.30-5.90); Slide Review Reflex No; White Blood Count* 10.51 K/uL (4.50-11.00)
[2025-02-21 09:33] LABS: Blood Urea Nitrogen* 14 mg/dL (7-30); Creatinine* 0.8 mg/dL (0.5-1.5); Est. Creatinine Clearance* 83.34; Estimated Glomerular Filt Rate 97 ml/min; INR 1.03 (0.91-1.10); Prothrombin Time 14.3 Seconds
[2025-02-21 09:34] LABS: Alanine Aminotransferase* 26 U/L (4-50); Alkaline Phosphatase* 96 U/L (40-150); Anion Gap 6 mEq/L (7-15); Aspartate Amino Transferase* 27 U/L (12-35); Bilirubin Direct* 0.2 mg/dL (0.0-0.5); Bilirubin Total* 0.4 mg/dL (0.1-1.5); Calcium* 9.2 mg/dL (8.4-10.6); Carbon Dioxide* 23 mmol/L (20-32); Glucose* 122 mg/dL (60-115); Total Protein* 6.8 g/dL (6.0-8.3)
[2025-02-21 09:36] LABS: D Dimer Quantitative* 2.30 ug/ml (0.00-0.50)
[2025-02-21 09:48] LABS: Ethanol* < 0.01 % (0.01-0.03); NT Pro B Type NatriureticPept* 172 pg/mL (See Note)
[2025-02-21 09:51] LABS: Procalcitonin* 0.10 ng/mL (<0.50)
--- NOTE | 2025-02-21 10:04 | CRLHL7_ITS ---
For Patients: As a result of the 21st Century Cures Act, medical imaging exams and procedure reports are released immediately into your electronic medical record. You may view this report before your referring provider. If you have questions, please contact your health care provider. INDICATION: Pulmonary embolism suspected, high probability. Cough TECHNIQUE: CT chest PE was acquired with 95 cc Omnipaque 350 IV contrast. Coronal and MIP reconstructions were performed. COMPARISON: None. FINDINGS: Thrombus subsegmental left upper lobe pulmonary arteries. Thrombus within segmental and subsegmental right middle lobe pulmonary arteries. Right lower lobe segmental thrombus is seen. No saddle pulmonary embolus is seen. Indeterminate patchy nodular right lower lobe consolidation with a small amount of ground-glass and clustered nodularity. There is associated bronchial wall thickening with evidence of mucous plugging. A trace right pleural effusion is present. Moderate emphysema is noted within the background. Likely prior right upper lobe wedge resection. Indeterminate right perihilar lymphadenopathy. Mild cardiomegaly. Subtle bowing of the IV septum could represent subtle findings of heart strain. Small pericardial effusion. No axillary lymphadenopathy. No chest wall mass is seen. Images of the upper abdomen are unremarkable. Bone windows demonstrate indeterminate T8 lucent lesion. Recommend close attention on follow-up. IMPRESSION: 1. Bilateral pulmonary emboli. Mild bowing of the interventricular cardiac septum could represent subtle findings of heart strain. Recommend correlation with echocardiogram. 2. Indeterminate patchy right lower lobe consolidations. Primary differential considerations are pneumonia, less likely malignancy or pulmonary infarct. Associated bronchial wall thickening, likely represents bronchitis. Short-term chest CT follow-up is recommended in 6-8 weeks. 3. Prominent right perihilar lymph nodes. Recommend close attention on follow-up. Case discussed with Dr. Lugo at approximate 11:30 a.m. on 02/21/2025. Please note that all CT scans at this facility use dose modulation, iterative reconstruction, and/or weight-based dosing when appropriate to reduce radiation dose to as low as reasonably achievable. Dictated by Jann Sutton MD @ 02/21/2025 11:36:00 AM (Electronically Signed)
[2025-02-21 10:10] LABS: Appearance Urine Clear (Clear)
[2025-02-21 10:20] LABS: Cannabinoid Screen Urine Negative (Negative); Methamphetamines Screen Urine Negative (Negative); Tricyclic Antidepressant Urine Negative (Negative)
--- OUTSIDE RECORDS SUMMARY | 2025-02-21 10:49 | XMS_ITS | Clinical Summary ---
Author Organization [facility] Address [address] [place] [address] Care Team Providers Care Commercial Administrator Name Role Phone Unavailable Primary Care Provider Unavailabl e Source Comments [facility],non-owned Affiliates and Associated Physician Practices is amultiple site organization consisting of ambulatory clinics and hospital sitesin [place], [place], [place] and [place]. This disclosure is being madepursuant to the Care Everywhere program and may not contain all information available regarding this patient. Last updated 18.[facility] [employer] Allergies Active Allergy Reactions Criticality Noted Date Comments Quetiapine Psychiatric Medium 05/30/2023 Medications * Be aware that medications may not be up to date on this document. Alwaysverify current medications with the patient. lamoTRIgine (LaMICtal) 100 MG tablet Take 1 (one) tablet by mouth 2 times daily Active simvastatin (Zocor) 20 MG tablet Take 1 (one) tablet by mouth at bedtime Active tamsulosin (Flomax) 0.4 MG capsule Take 1 (one) capsule by mouth once daily At the same time every day after a meal. Active ibuprofen (Motrin) 800 MG tablet Take 1 (one) tablet by mouth every 8 hours as needed for Pain (take with food) 30 tablet 05/30/2023 Active cyclobenzaprine (Flexeril) 10 MG tablet Take 1 (one) tablet by mouth 3 times daily as needed for Muscle Spasms 30 tablet 05/30/2023 Active acetaminophen (Tylenol) 500 MG capsule Take 2 (two) capsules by mouth every 6 hours as needed for Pain 30 capsule 05/30/2023 Active Social History Tobacco Use Types Packs/Day Years Used Date Smoking Tobacco: Some Days Pipe Smokeless Tobacco: Never Tobacco Cessation:Ready to Q uit: Not Asked; Counseling Given: Not Answered Alcohol Use Standard Drinks/Week Comments Yes 0 (1 standard drink = 0.6 oz pur e alcohol) rare Sex and Gender Information Value Date Recorded Sex Assigned at Not on file Legal Sex Male 9:17 AM [employer] Gender Identity Not on file Sexual Orientation Not on file Last Filed Vital Signs Vital Sign Reading Time Taken Comments Blood Pressure 171/92 05/30/2023 9:25 AM [employer] Pulse 81 05/30/2023 9:25 AM [employer] Temperature 36.9 C (98.4 F) 05/30/2023 9:25 AM [employer] Respiratory Rate 20 05/30/2023 9:25 AM [employer] Oxygen Saturation 98% 05/30/2023 9:25 AM [employer] Inhaled Oxygen Concentration - - Weight - - Height - - Body Mass Index - - Plan of Treatment Health Maintenance Due Date Last Done Comments COLOGUARD (AGES 45-75) - COLON CA SCREENING 1955 COLON MONITORING 1955 COLONOSCOPY - COLON CA SCREENING 1955 CT COLONOGRAPHY - COLON CA SCREENING 1955 Colorectal Cancer Screening 1955 FIT - COLON CA SCREENING 1955 FLEX SIG - COLON CA SCREENING 1955 MEDICARE AWV 12 MONTHS 1955 HEPATITIS C SCREENING 03/16/1975 DTAP/TDAP/TD VACCINES (1 - Tdap) 1976 PNEUMOCOCCAL VACCINE 50+ (1 of 2 - PCV) 1976 ZOSTER VACCINE (1 of 2) 2007 DEPRESSION SCREENING 06/02/2024 COVID-19 VACCINE (2 - season) 2025 11/03/2020 INFLUENZA VACCINE (#1) 2025 2, 02/17/2020, 03/04/2019, Additional history exists Respiratory Syncytial Virus (RSV) Vaccine Pt: or over 60 yrs (1 - 1-dose 75+ series) 2032 AAA SCREENING Completed 07/22/2022 HEPATITIS B VACCINE Aged Out No longe r eligible based on patient's age to complete this topic HIB VACCINE Aged Out No longer eligi ble based on patient's age to complete this topic HPV VACCINE Aged Out No longer eligi ble based on patient's age to complete this topic MENINGOCOCCAL (Group B) VACCINE SHARED DECISION-MAKING Aged Out No longer eligible based on patient's age to complete this topic MENINGOCOCCAL GROUPS A/C/Y/W VACCINE Aged Out No longer eligible based on patient's age to complete this topic Insurance MEDICARE [facility] [employer] [employer] MEDICARE SUPPLEMENT PAYOR GENERIC
--- OUTSIDE RECORDS SUMMARY | 2025-02-21 10:49 | XMS_ITS ---
Author Organization [facility] Care Team Providers Care Manager Sign Name Role Phone ^\\, ^\\ Unavailable Unavailable AYESHA Swenson, Deonna Unavailable Unavailroseann Munguia PA-C, Mayco Unavailable Unavailable MD Kayleigh, Julia Beth Unavailable Darlene Seth Gerardo Unavailable Unavailable Allergies and adverse reactions Code CodeSystem Substance Reaction Severity StartDate Concern Status Mold Unknown 12/19/2020 active Dust Unknown 12/19/2020 active Care Team Name Role Address Phone Organization Dates Julia Victor MD PCP [address], [place], [address], [place] (Office): : [facility] 12/20/2020 - 01/05/2021 ^\\ ^\\ [place] [facility] 12/20/2020 - 01/05/2021 Deonna Swenson NP [address] [address], [place], [address], [place] (Office): : : [facility] 12/20/2020 - 01/05/2021 Mayco Munguia PA-C [address], [place], [address], [place] (Office): : [facility] 12/20/2020 - 01/05/2021 Seth Sutton [address], [place], [address], [place] (Office): : [facility] [...] completed tuberculin skin test; unspecified formulation lotNumber: [id number] expiry: 12/05/2022 Mfg: SavvyCard Given 0.1 ml Right Forearm intradermally Step 1 of Multi-step with next step required 98 CVX created date: 12/20/2020 consent date: 12/20/2020 administere d date: 12/20/2020 TB 2 Step Mantoux Skin Test completed tuberculin skin test; unspecified formulation lotNumber: [id number] expiry: 03/29/2018 Mfg: Class Messenger Given 0.1 ml Left Forearm intradermally Step [...] Concern Status 1 PNEUMONIA, UNSPECIFIED ORGANISM 12/22/[address] active 2 AFTERCARE FOLLOWING JOINT REPLACEMENT SURGERY 12/20/[address] active 3 BENIGN PROSTATIC HYPERPLASIA WITHOUT LOWER URINARY TRACT SYMPTOMS 12/20/[address] active 4 CHRONIC OBSTRUCTIVE PULMONARY DISEASE, UNSPECIFIED 12/20/[address] active 5 CYST OF KIDNEY, ACQUIRED 12/20/[address] active 6 DEPENDENCE ON OTHER ENABLING MACHINES AND DEVICES 12/20/[address] active 7 ESSENTIAL (PRIMARY) HYPERTENSION 12/20/[address] active 8 INSOMNIA, UNSPECIFIED 12/20/[address] active 9 NICOTINE DEPENDENCE, UNSPECIFIED, IN REMISSION 12/20/[address] active 10 OBSTRUCTIVE SLEEP APNEA (ADULT) (PEDIATRIC) 12/20/[address] active 11 OTHER MALIGNANT NEUROENDOCRINE TUMORS 12/20/[address] active 12 PRESENCE OF LEFT ARTIFICIAL KNEE JOINT 12/20/[address] active 13 SYNCOPE AND COLLAPSE 12/20/19 21 12/20/[address] completed 14 UNSPECIFIED OSTEOARTHRITIS, UNSPECIFIED SITE 12/20/[address] active 15 DIFFICULTY IN WALKING, NOT ELSEWHERE CLASSIFIED 10/12/19 17 12/20/[address] completed 16 MUSCLE WEAKNESS (GENERALIZED) 10/12/19 17 12/20/[address] completed 17 PAIN IN RIGHT KNEE 10/12/19 17 12/20/[address] completed 18 AFTERCARE FOLLOWING JOINT REPLACEMENT SURGERY 10/11/19 17 12/20/[address] completed 19 ANXIETY DISORDER, UNSPECIFIED 10/11/[address] active 20 BIPOLAR DISORDER, UNSPECIFIED 10/11/[address] active 21 GASTRO-ESOPHAGEAL REFLUX DISEASE WITHOUT ESOPHAGITIS 10/11/[address] active 22 HYPERLIPIDEMIA, UNSPECIFIED 10/11/[address] active 23 MAJOR DEPRESSIVE DISORDER, SINGLE EPISODE, UNSPECIFIED 10/11/[address] active 24 PRESENCE OF RIGHT ARTIFICIAL KNEE JOINT 10/11/[address] active 25 RETENTION OF URINE, UNSPECIFIED 10/11/19 17 12/20/[address] completed 26 SOLITARY PULMONARY NODULE 10/11/[address] active 27 STIFFNESS OF RIGHT KNEE, NOT ELSEWHERE CLASSIFIED 10/11/19 17 12/20/[address] completed 28 UNILATERAL PRIMARY OSTEOARTHRITIS, RIGHT KNEE 10/11/19 17 12/20/[address] completed 29 UNSPECIFIED ASTHMA, UNCOMPLICATED 10/11/[address] active Reason for Referral No Reasons for Referral Entered Social History Social History Observation Description Start Date End Date Code Code System Current Smoking Status Tobacco smoking consumption unknown 446538837 SNOMED CT Sex Assigned At Male 1955 27693-0 [facility] Gender Identity Sexual Orientation Vital Signs Code Code System Vitals Name Values and Units Timing Information 65169-8 LOINC Pain Level Value=1.0 01/05/2021 9279-1 LOINC Respiratory Rate Value=18.0 Units=/m in 01/05/2021 8462-4 LOINC Blood Pressure-Diastolic Value=80 Un its=mmHg 01/05/2021 8480-6 LOINC Blood Pressure-Systolic Kther=470 Un its=mmHg 01/05/2021 8310-5 [facility] Body Temperature Value=98.1 Units= F 01/05/2021 8867-4 [facility] Heart rate Value=90.0 Units=/min 10/2020 96123-6 [facility] O2 % BldC Oximetry Value=93.0 Units= % 01/05/2021 14895-7 [facility] Weight Isbdn=234.2 Units=Lbs 07/2020 8302-2 [facility] Height Value=70.0 Units=Inches 10/11/2016
[2025-02-21] MEDS: cefTRIAXone 1 GM in 0.9 % SODIUM CHLORIDE Mini-bag 100 ML IVPB (11:33)
[2025-02-21] MEDS: AZITHROMYCIN 500 MG in 0.9 % SODIUM CHLORIDE 250 ml 250 ML 255 MG IVPB (11:34)
[2025-02-21] MEDS: HEPARIN 5,000 UNIT/0.5 ML INJ 7100 UNIT IVP (12:44)
[2025-02-21] MEDS: HEPARIN 25,000 UNIT/500 ML BAG 30 UNIT IV (12:46)
--- NOTE | 2025-02-21 15:54 | RESP.RT ---
PEP with Aerobika, explaned use and benefits of Aerobika PEP to patient and family. Patient made good exhalation effort with fair chest shake, promoted good, forceful cough for thick light brown/creme colored secretions.
--- NOTE | 2025-02-21 16:09 | PM.IMHP1 ---
Assessment and Plan Assessment and plan (1) Bacterial pneumonia: Status: Acute (2) Pulmonary embolism: Status: Acute (3) History of bipolar disorder: Problem comment: Currently reporting ongoing symptoms of depression. Saw his psychiatrist a week ago. Status: Acute (4) Neuroendocrine carcinoma: Problem comment: Vats assisted right thoracotomy to remove a right upper lobe lung nodule in October of 2014. Biopsy showed a typical carcinoid tumor which is well differentiated/low-grade neuroendocrine tumor negative surgical margins Status: Acute (5) Lymphadenopathy: Problem comment: Perihilar right lymphadenopathy seen on chest CT from 02/21/2025. With history of right neuroendocrine tumor 10 years ago would definitely want close follow-up, 6-8 weeks. Status: Acute (6) Pituitary adenoma: Problem comment: Followed with serial a brain MRI. September 2019 for MRI showed slight increase in size compared to October of 2021 Status: Acute (7) Constipation: Problem comment: Needs more aggressive management of chronic constipation. May also help with bladder problems. Status: Acute (8) COPD (chronic obstructive pulmonary disease): Problem comment: Does not regularly use inhaled treatments. Quit smoking about 2023 Status: Acute (9) BPH (benign prostatic hyperplasia): Problem comment: On tamsulosin. Check bladder scan. Status: Acute (10) Urinary incontinence: Problem comment: Check bladder scan. If large postvoid residual may need urology follow-up. Status: Acute Plan 69-year-old male presents with progressive cough and dyspnea. Surprisingly has symptoms and findings consistent with both right-sided pneumonia and bilateral pulmonary emboli. Will treat for both. At this point he does not appear to be having a significant COPD exacerbation but will need monitoring for that as well. Currently I am recommending long-term anticoagulation and also follow-up chest CT imaging in 6-8 weeks regarding his infiltrate, hilar lymphadenopathy and history of neuroendocrine tumor. Total Time Spent Total Time Spent: Total time spent today is 85 minutes in reviewing med side records, coordination of care, discussion with patient, girlfriend and other providers ongoing of management of pneumonia and PE Hospitalist- H&P: HPI History of Present Illness Date Seen: 02/21/25 Chief complaint: shortness of breath, cough Narrative: Reynaldo Rivers is a 69 year old male with COPD, bipolar depression, untreated sleep apnea presents with a 1-2 week history of worsening cough and dyspnea. Last night he reports a fever of 100.8. He is having pleuritic chest pain with coughing on his right side. Does have longstanding history of smoking with a diagnosis of COPD. He quit smoking about a year ago. He reports that he does not normally have dyspnea with exertion but has developed dyspnea with exertion in the last few days. In the emergency department he was diagnosed with bilateral pulmonary emboli and right lower lobe infiltrate. He has no previous history of thrombophilia or clotting problems. No history of bleeding. No family history of bleeding or clotting problems. He has had no recent immobilization or injury. He has no diagnosis of cancer. He reports no ill exposures. No recent travel. He also notes that he has had some urinary incontinence. Particularly at night he gets nurse to void but as incontinence before he get to the bathroom. He was seen in clinic about this 17 days ago. At that time was having some testicular pain and he had at testicular ultrasound which was unremarkable. He has also been followed by a urologist for elevated PSA and concerns about prostate cancer he tells me his urologist told him he does not have cancer after prostate biopsies done 2 years ago. He has been diagnosed with BPH is an on tamsulosin 0.4 mg 2 capsules daily. Urinalysis done on February 04 was normal. Review of Systems Narrative: He reports his bipolar depression continues to be a problem for him. He was hospitalized with suicidal ideation in June 2024. He reports still being depressed. He was seen by his psychiatrist 6 days ago. [facility] Medical History (Updated 02/21/25 @ 16:45 by Juan Muir MD) Pituitary adenoma ?D35.2 - Benign neoplasm of pituitary gland (ICD-10) Constipation ?K59.00 - Constipation, unspecified (ICD-10) Hyperlipidemia ?E78.5 - Hyperlipidemia, unspecified (ICD-10) Hypertension ?I10 - Essential (primary) hypertension (ICD-10) COPD (chronic obstructive pulmonary disease) ?J44.9 - Chronic obstructive pulmonary disease, unspecified (ICD-10) BPH (benign prostatic hyperplasia) ?N40.0 - Benign prostatic hyperplasia without lower urinary tract symptoms (ICD-10) Neuroendocrine carcinoma ?C7A.8 - Other malignant neuroendocrine tumors (ICD-10) History of bipolar disorder ?Z86.59 - Personal history of other mental and behavioral disorders (ICD-10) Surgical History (Updated 02/21/25 @ 16:38 by Juan Muir MD) History of arthroplasty of right knee ?Z96.651 - Presence of right artificial knee joint (ICD-10) History of thoracotomy ?Z98.890 - Other specified postprocedural states (ICD-10) History of arthroplasty of left knee ?Z96.652 - Presence of left artificial knee joint (ICD-10) Family History (Updated 02/21/25 @ 16:39 by Juan Muir MD) Sister Heart disease High blood pressure Mother Schizophrenia Bipolar 1 disorder Father High blood pressure Social History (Updated 02/21/25 @ 16:40 by Juan Muir MD) Narrative: He lives at the [facility]. He lives independently. He does have a [facility] nurse come in to set up his medications every 2 weeks. He is present here with his girlfriend. His code status is full code for witnessed arrest only. He indicates that his niece, Christiane, is healthcare power of transactional attorney. She lives in [facility]. Lifelong smoker quit about a year ago. Rarely drinks alcohol. No recreational drug use. Smoking Status: Former smoker Do you use any of these nicotine containing products: None How often do you have a drink containing alcohol: never How often do you have six or more drinks on one occasion: Never AUDIT-C Alcohol total score: 0 Non-prescribed substance use: denies use Meds Home Medications and Allergies Home Medications ?Medication ?Instructions ?Recorded ?Confirmed ?Type albuterol sulfate 90 mcg/actuation 1 - 2 puff inhalation Q4H PRN 04/15/23 02/21/25 History aerosol inhaler wheezing fluticasone propionate 50 1 spray intranasal DAILY 04/15/23 02/21/25 History mcg/actuation nasal spray,suspension tamsulosin 0.4 mg capsule 0.8 mg PO DAILY 04/15/23 02/21/25 History amlodipine 5 mg tablet 5 mg PO DAILY 02/21/25 02/21/25 History atorvastatin 20 mg tablet 20 mg PO DAILY 02/21/25 02/21/25 History carbamazepine 200 mg 200 mg PO BID 02/21/25 02/21/25 History tablet,extended release,12 hr carbamazepine 400 mg 400 mg PO BID 02/21/25 02/21/25 History tablet,extended release,12 hr risperidone 4 mg tablet 4 mg PO BID 02/21/25 02/21/25 History Allergies Allergy/AdvReac Type Severity Reaction Status Date / Time quetiapine (From Seroquel) AdvReac Severe Hallucinati Verified 02/21/25 11:09 ng Exam Narrative: Exam Narrative: He is alert and appears to have mild increased work of breathing. He gives his own history. Head is without trauma. Eyes normal. Oropharynx normal except small airway. Neck is supple without mass or adenopathy. No jugular venous distension. Respirations are clear to auscultation except a few right basal and lateral crackles. Somewhat diminished breath sounds but no wheezing. No consolidation. Cardiovascular: S1, S2, regular rate and rhythm. Abdomen is soft without tenderness or mass bowel sounds are present. Extremities without edema or tenderness. No rash. He has intact pedal pulses he moves all 4 extremities well. Const: Vital Signs, click to edit/add: Vital Signs - 24 hr 02/21/25 08:35 02/21/25 08:47 02/21/25 08:47 Temperature 98.4 F Pulse Rate 96 Pulse Rate [Pulse Oximeter] 106 H Respiratory Rate 28 H Blood Pressure 153/101 H Blood Pressure [Ri ght Upper Arm] 157/88 H Pulse Oximetry 90 88 91 Oxygen Delivery Me thod Room Air Room Air 02/21/25 08:48 02/21/25 08:58 02/21/25 09:19 Temperature Pulse Rate 95 91 Pulse Rate [Pulse Oximeter] Respiratory Rate 22 Blood Pressure 143/98 H Blood Pressure [Ri ght Upper Arm] Pulse Oximetry 91 90 92 Oxygen Delivery Me thod 02/21/25 09:32 02/21/25 10:05 02/21/25 11:08 Temperature Pulse Rate 89 96 93 Pulse Rate [Pulse Oximeter] Respiratory Rate 25 H 26 H Blood Pressure 145/93 H 157/103 H 150/87 H Blood Pressure [Ri ght Upper Arm] Pulse Oximetry 92 92 92 Oxygen Delivery Me thod Room Air 02/21/25 11:30 02/21/25 12:00 02/21/25 12:30 Temperature Pulse Rate 78 79 77 Pulse Rate [Pulse Oximeter] Respiratory Rate 21 28 H 23 Blood Pressure Blood Pressure [Ri ght Upper Arm] Pulse Oximetry 91 91 92 Oxygen Delivery Me thod Room Air Room Air Room Air 02/21/25 12:49 02/21/25 13:01 02/21/25 13:15 Temperature Pulse Rate 79 80 86 Pulse Rate [Pulse Oximeter] Respiratory Rate 24 23 18 Blood Pressure 142/95 H 152/96 H Blood Pressure [Ri ght Upper Arm] Pulse Oximetry 93 92 92 Oxygen Delivery Me thod Room Air Room Air Room Air 02/21/25 13:31 02/21/25 14:01 02/21/25 14:31 Temperature Pulse Rate 77 86 84 Pulse Rate [Pulse Oximeter] Respiratory Rate 26 H 22 Blood Pressure 153/106 H 161/98 H 143/83 H Blood Pressure [Ri ght Upper Arm] Pulse Oximetry 93 91 92 Oxygen Delivery Nv thod Room Air Room Air Room Air 02/21/25 15:02 Temperature Pulse Rate 87 Pulse Rate [Pulse Oximeter] Respiratory Rate Blood Pressure 135/83 Blood Pressure [Ri ght Upper Arm] Pulse Oximetry 93 [facility] - [facility]: Result Labs Labs: Short CBC 02/21/25 Range/Units 08:55 WBC 10.51 (4.50-11.00) K/uL Hgb 13.5 (13.5-17.5) gm/dL Hct 39.8 (37.0-53.0) % Plt Count 280 (140-440) K/uL BMP 02/21/25 08:55 Sodium 133 L Potassium 3.8 Chloride 104 Carbon Dioxide 23 BUN 14 Creatinine 0.8 Glucose 122 H Calcium 9.2 Liver Function 02/21/25 Range/Units 08:55 Total Bilirubin 0.4 (0.1-1.5) mg/dL Direct Bilirubin 0.2 (0.0-0.5) mg/dL AST 27 (12-35) U/L ALT 26 (4-50) U/L Alkaline Phosphatase 96 (40-150) U/L Albumin 3.7 (3.3-5.0) g/dL Urine 02/21/25 Range/Units 10:00 Urine Color Yellow (Yellow) Urine Appearance Clear (Clear) Urine pH 6.0 (5.0-8.5) Ur Specific [place] 1.020 (1.000-1.030) Urine Protein 1+ A (Negative) Urine Glucose (UA) Negative (Negative) Imaging CT scan - chest: Radiologist's impression: INDICATION: Pulmonary embolism suspected, high probability. Cough TECHNIQUE: CT chest PE was acquired with 95 cc Omnipaque 350 IV contrast. Coronal and MIP reconstructions were performed. COMPARISON: None. FINDINGS: Thrombus subsegmental left upper lobe pulmonary arteries. Thrombus within segmental and subsegmental right middle lobe pulmonary arteries. Right lower lobe segmental thrombus is seen. No saddle pulmonary embolus is seen. Indeterminate patchy nodular right lower lobe consolidation with a small amount of ground-glass and clustered nodularity. There is associated bronchial wall thickening with evidence of mucous plugging. A trace right pleural effusion is present. Moderate emphysema is noted within the background. Likely prior right upper lobe wedge resection. Indeterminate right perihilar lymphadenopathy. Mild cardiomegaly. Subtle bowing of the IV septum could represent subtle findings of heart strain. Small pericardial effusion. No axillary lymphadenopathy. No chest wall mass is seen. Images of the upper abdomen are unremarkable. Bone windows demonstrate indeterminate T8 lucent lesion. Recommend close attention on follow-up. IMPRESSION: 1. Bilateral pulmonary emboli. Mild bowing of the interventricular cardiac septum could represent subtle findings of heart strain. Recommend correlation with echocardiogram. 2. Indeterminate patchy right lower lobe consolidations. Primary differential considerations are pneumonia, less likely malignancy or pulmonary infarct. Associated bronchial wall thickening, likely represents bronchitis. Short-term chest CT follow-up is recommended in 6-8 weeks. 3. Prominent right perihilar lymph nodes. Recommend close attention on follow-up.
[2025-02-21] MEDS: ATORVASTATIN CALCIUM 10 MG TABLET 20 MG PO (18:37)
--- NOTE | 2025-02-21 18:49 | PC.NURSE ---
patient up to floor at 1548. VSS, on RA, tolerating a reg diet. afebrile denies N/V/SOB or pain. Ambulates with 4 ww to BR.
[2025-02-21] MEDS: SENNOSIDES/DOCUSATE TABLET 1 TAB PO (20:16)
[2025-02-21] MEDS: APIXABAN 5 MG TABLET 10 MG PO (20:16)
[2025-02-21] MEDS: IPRAT-ALBUT 0.5-2.5 MG/3 ML NEB 1 NEB IH (20:16)
[2025-02-21] MEDS: CARBAMAZEPINE 200 MG 200 EACH PO (20:16)
[2025-02-21] MEDS: CARBAMAZEPINE 400 MG 400 EACH PO (20:16)
[2025-02-21] MEDS: SODIUM CHLORIDE 0.9 % (FLUSH) 10 ML SYRINGE 5 ML IVF (20:26)
[2025-02-22] VITALS (7 sets, daily range): BP systolic 121–177; BP diastolic 86–100; PULSE 73–94; RESP 16–20; TEMP 36.2–37.1; O2SAT 93–95
--- NOTE | 2025-02-22 04:00 | PC.NURSE ---
Shift note: Patient is alert and oriented. Assist of 1 with walker and GB. Patient preferred to use urinal standing in the BR. He had urinary frequency which disturbed his sleep. Elevated diastolic Bp. Other vital signs stable. Patient continue to have intermittent productive cough. Encouraged to use the Aerobika. Doing well on room air. Pt denied any pain and SOB.
[2025-02-22 06:39] LABS: Hematocrit* 37.2 % (37.0-53.0); Hemoglobin* 12.5 gm/dL (13.5-17.5); Immature Granulocytes Abs Auto 0.01 K/uL (0.00-0.30); Immature Granulocytes Pct Auto 0.1 %; Mean Corpuscular HGB Conc 34 gm/dL (32-36); Mean Corpuscular Hemoglobin 32 pg (26-34); Mean Corpuscular Volume 95 fL (80-100); RDW Coefficient of Variation % 12.2 % (11.5-15.5); Red Blood Count* 3.93 m/uL (4.30-5.90); White Blood Count* 7.27 K/uL (4.50-11.00)
[2025-02-22 06:42] LABS: HCO3 VBG 26 mmol/L (21-28); PCO2 VBG 39 mmHG (40-50); PO2 VBG 62.2 mmHG (25-47); pH VBG 7.431 (7.32-7.43)
[2025-02-22 06:45] LABS: Lymphocytes Absolute Auto 1.30 K/uL (0.90-2.90); Slide Review Reflex No
[2025-02-22 06:55] LABS: INR 1.22 (0.91-1.10); Prothrombin Time 16.3 Seconds
[2025-02-22 06:57] LABS: Chloride* 106 mmol/L (96-114)
[2025-02-22 06:58] LABS: Potassium* 4.1 mmol/L (3.6-5.1); Sodium* 137 mmol/L (135-149)
[2025-02-22 07:01] LABS: Anion Gap 4 mEq/L (7-15); Blood Urea Nitrogen* 16 mg/dL (7-30); Calcium* 9.0 mg/dL (8.4-10.6); Carbon Dioxide* 27 mmol/L (20-32); Creatinine* 0.7 mg/dL (0.5-1.5); Est. Creatinine Clearance* 83.34; Estimated Glomerular Filt Rate 101 ml/min; Glucose* 103 mg/dL (60-115)
[2025-02-22] MEDS: AMLODIPINE 5 MG TABLET PO (09:23)
[2025-02-22] MEDS: AZITHROMYCIN 250 MG TABLET 500 MG PO (09:23)
[2025-02-22] MEDS: APIXABAN 5 MG TABLET 10 MG PO ×2 (09:23→20:44)
[2025-02-22] MEDS: IPRAT-ALBUT 0.5-2.5 MG/3 ML NEB 1 NEB IH ×3 (09:23→20:45)
[2025-02-22] MEDS: SENNOSIDES/DOCUSATE TABLET 1 TAB PO ×2 (09:23→20:44)
[2025-02-22] MEDS: TAMSULOSIN HCL 0.4 MG CAPSULE 0.8 MG PO (09:23)
[2025-02-22] MEDS: CARBAMAZEPINE 200 MG 200 EACH PO ×2 (09:23→20:45)
[2025-02-22] MEDS: CARBAMAZEPINE 400 MG 400 EACH PO ×2 (09:24→20:45)
[2025-02-22] MEDS: cefTRIAXone 1 GM in 0.9 % SODIUM CHLORIDE Mini-bag 100 ML IVPB (09:24)
[2025-02-22] MEDS: SODIUM CHLORIDE 0.9 % (FLUSH) 10 ML SYRINGE 5 ML IVF ×2 (09:30→20:46)
--- NOTE | 2025-02-22 13:20 | PM.IMPN1 ---
Assessment and Plan Assessment and plan (1) Bacterial pneumonia: Problem comment: CT chest shows indeterminate patchy right lower lobe consolidations No leukocytosis, CRP 15.8, VBG pH 7.431, pCO2 39, PO2 62. BC x2 NGTD Continue ceftriaxone and azithromycin Mucinex, incentive spirometry, nebs p.r.n. Status: Acute (2) Pulmonary embolism: Problem comment: CT shows Bilateral pulmonary emboli. Mild bowing of the interventricular cardiac septum could represent subtle findings of heart strain ECHO ordered quality assurance monitor body Continue apixaban 10 mg b.i.d. x7 days of by 5 mg b.i.d. thereafter (received heparin in the ED) PT to assess function upon returning home Status: Acute (3) COPD (chronic obstructive pulmonary disease): Problem comment: Does not regularly use inhaled treatments. Quit smoking about 2023 Status: Acute (4) Lymphadenopathy: Problem comment: Perihilar right lymphadenopathy seen on chest CT from 02/21/2025. With history of right neuroendocrine tumor 10 years ago would definitely want close follow-up Repeat CT chest recommended 6-8 weeks Status: Acute (5) History of bipolar disorder: Problem comment: Currently reporting ongoing symptoms of depression. Saw his psychiatrist a week ago. Outpatient follow-up Status: Acute (6) Neuroendocrine carcinoma: Problem comment: Vats assisted right thoracotomy to remove a right upper lobe lung nodule in October of 2014. Biopsy showed a typical carcinoid tumor which is well differentiated/low-grade neuroendocrine tumor negative surgical margins Status: Acute (7) Pituitary adenoma: Problem comment: Followed with serial a brain MRI. September 2019 for MRI showed slight increase in size compared to October of 2021 Status: Acute (8) Constipation: Problem comment: Needs more aggressive management of chronic constipation. Senna and MiraLax ordered. May also help with bladder problems. Status: Acute (9) BPH (benign prostatic hyperplasia): Problem comment: On tamsulosin 0.8 mg daily Status: Acute (10) Urinary incontinence: Problem comment: Check bladder scan. If large postvoid residual may need urology follow-up. Status: Acute (11) Hypertension: Problem comment: Elevated following admission Continue home amlodipine, adjust as needed Status: Acute Plan Echocardiogram. Likely discharge 02/23/2025 on oral antibiotics and anticoagulation Total Time Spent Total Time Spent: Today I spent 45 minutes seeing the patient, reviewing Expanse and EPIC notes/diagnostics, discussing the care plan with our care time that includes social work, PT/OT, pharmacy, RT, assisted and documenting my impressions and plan in the medical record. Subjective Date Seen: 02/22/25 Interval history: Patient is seen lying in bed this morning. Reports feeling better though tired. Reports chest congestion. Occasionally coughs up phlegm but mostly dry. No supplemental oxygen requirement. Denies chest pain. Remains afebrile. Tolerating orals without nausea vomiting. Exam Narrative: Exam Narrative: PHYSICAL EXAM General: Appropriately conversant, mildly flat affect, otherwise NAD HEENT: Normocephalic, atraumatic, sclera white, EOMI, oral mucosa moist Cardiovascular: RRR, S1S2. No pitting edema Pulmonary: Diffusely diminished without rhonchi, rales, expiratory wheezes. No dyspnea on room air Abdominal: Soft, nondistended, NTTP Neurological: Alert, answering questions appropriately, cranial nerves intact, no focal findings Extremities: No gross joint deformity or swelling. AROMI. Neurovascularly intact Skin: Warm, dry. Const: Vital Signs, click to edit/add: Vital Signs - 24 hr 02/21/25 13:31 02/21/25 14:01 02/21/25 14:31 Temperature Pulse Rate 77 86 84 Pulse Rate [Pulse Oximeter] Respiratory Rate 26 H 22 Blood Pressure 153/106 H 161/98 H 143/83 H Blood Pressure [Ri ght Arm] Pulse Oximetry 93 91 92 Oxygen Delivery Me thod Room Air Room Air Room Air 02/21/25 15:02 02/21/25 15:48 02/21/25 15:48 Temperature 98.4 F Pulse Rate 87 Pulse Rate [Pulse Oximeter] 84 Respiratory Rate 20 20 Blood Pressure 135/83 Blood Pressure [Ri ght Arm] 128/82 Pulse Oximetry 93 94 94 Oxygen Delivery Nh thod Room Air Room Air 02/21/25 16:12 02/21/25 19:00 02/21/25 23:00 Temperature 98.1 F Pulse Rate Pulse Rate [Pulse Oximeter] 83 78 Respiratory Rate 20 20 20 Blood Pressure Blood Pressure [Ri ght Arm] 143/91 H Pulse Oximetry 92 96 Oxygen Delivery Nh thod Room Air Room Air 02/21/25 23:00 02/21/25 23:00 02/21/25 23:00 Temperature 98.1 F Pulse Rate 77 Pulse Rate [Pulse Oximeter] 78 Respiratory Rate 20 20 Blood Pressure Blood Pressure [Ri ght Arm] 144/99 H Pulse Oximetry 93 93 Oxygen Delivery Me thod Room Air Room Air 02/22/25 02:16 02/22/25 07:00 02/22/25 07:00 Temperature 97.7 F Pulse Rate Pulse Rate [Pulse Oximeter] 78 80 Respiratory Rate 20 18 Blood Pressure Blood Pressure [Ri ght Arm] 177/100 H Pulse Oximetry 94 Oxygen Delivery Nh thod Room Air Room Air 02/22/25 07:00 02/22/25 07:00 Temperature 97.7 F Pulse Rate 78 Pulse Rate [Pulse Oximeter] 80 Respiratory Rate 18 Blood Pressure Blood Pressure [Ri ght Arm] 154/94 H Pulse Oximetry 95 Oxygen Delivery Nh thod Room Air Labs Labs: Laboratory Results - last 24 hr 02/21/25 02/22/25 18:45 06:04 WBC 7.27 RBC 3.93 L Hgb 12.5 L Hct 37.2 MCV 95 MCH 32 MCHC 34 RDW Coeff of Janina 12.2 Plt Count 256 Neut % (Auto) 62.7 Lymph % (Auto) 17.2 L [place] % (Auto) 15.3 H Eos % (Auto) 4.0 Baso % (Auto) 0.7 Neut # (Auto) 4.56 Lymph # (Auto) 1.30 [place] # (Auto) 1.10 H Eos # (Auto) 0.29 Baso # (Auto) 0.05 Abs Immat Gran (auto) 0.01 Imm/Tot Granulo (auto) 0.1 INR 1.22 H APTT 103 H* VBG pH 7.431 H VBG pCO2 39 L VBG pO2 62.2 H VBG HCO3 26 Sodium 137 Potassium 4.1 Chloride 106 Carbon Dioxide 27 Anion Gap 4 L BUN 16 Creatinine 0.7 Estimated Creat Clear 83.34 Estimated GFR 101 Glucose 103 Calcium 9.0 Troponin I < 0.01 C-Reactive Protein 15.8 H
[2025-02-22] MEDS: ATORVASTATIN CALCIUM 10 MG TABLET 20 MG PO (18:11)
[2025-02-22] MEDS: guaiFENesin 600 MG TAB.ER.12H PO (20:44)
--- NOTE | 2025-02-22 23:10 | PC.NURSE ---
End of Shift (): Patient pleasant and cooperative. Denies pain. O2 sats greater than 90% on room air. Up independently in room. Tolerating regular diet with no nausea.
[2025-02-23 03:00] VITALS: BP 162/97; PULSE 84; RESP 16; TEMP 36.2; O2SAT 93
--- NOTE | 2025-02-23 06:52 | PC.NURSE ---
End of shift ([id number]): Pt pleasant, alert and oriented.?VSS. Tele?read NSR with 1st degree AV. Pt denies pain. Pt stated dry cough with minimal sputum production. Up with SBA, tolerates well. Pt in bed, appears to be resting, call light within reach.?
[2025-02-23 07:00] VITALS: BP 158/113; PULSE 73; PULSE 84; PULSE 95; RESP 18; TEMP 36.5; O2SAT 95
[2025-02-23] MEDS: cefTRIAXone 1 GM in 0.9 % SODIUM CHLORIDE Mini-bag 100 ML IVPB (09:31)
[2025-02-23] MEDS: IPRAT-ALBUT 0.5-2.5 MG/3 ML NEB 1 NEB IH (09:31)
[2025-02-23] MEDS: CARBAMAZEPINE 400 MG 400 EACH PO (09:32)
[2025-02-23] MEDS: TAMSULOSIN HCL 0.4 MG CAPSULE 0.8 MG PO (09:33)
[2025-02-23] MEDS: CARBAMAZEPINE 200 MG 200 EACH PO (09:33)
[2025-02-23] MEDS: APIXABAN 5 MG TABLET 10 MG PO (09:34)
[2025-02-23] MEDS: AMLODIPINE 5 MG TABLET PO (09:34)
[2025-02-23] MEDS: AZITHROMYCIN 250 MG TABLET 500 MG PO (09:35)
[2025-02-23] MEDS: guaiFENesin 600 MG TAB.ER.12H PO (09:35)
[2025-02-23] MEDS: SENNOSIDES/DOCUSATE TABLET 1 TAB PO (09:35)
[2025-02-23] MEDS: SODIUM CHLORIDE 0.9 % (FLUSH) 10 ML SYRINGE 5 ML IVF (10:05)
--- NOTE | 2025-02-23 11:38 | P.DS_ITS ---
DS: Providers Provider Date Seen: 02/23/25 Date of admission: 02/21/25 15:23 Primary care physician: Joon Dodson MD Admitting Clinician: Liza Washington MD Consults: 02/21/25 16:09 Consult to Respiratory Therapy [CONS] Routine Comment: Reason(s) for RT Consult:: Consult 02/22/25 Consult to Physical Therapy [CONS] Routine Comment: Reason(s) for PT Consult:: Evaluate and Treat Any Restrictions?:: No Restrictions Attending Physician on discharge: AUDREY Zamora, [facility] Date of Discharge: 02/23/25 DS: Diagnosis Discharge Diagnosis (1) Bacterial pneumonia: Status: Acute Problem details: CT chest shows indeterminate patchy right lower lobe consolidations No leukocytosis, CRP 15.8, VBG pH 7.431, pCO2 39, PO2 62. BC x2 NGTD Initiated on IV ceftriaxone and azithromycin admission, transitioned to oral doxycycline at time of discharge. Continue Mucinex, incentive spirometry, nebs p.r.n. Short-term chest CT follow-up is recommended in 6-8 weeks (2) Pulmonary embolism: Status: Acute Problem details: CT shows Bilateral pulmonary emboli. Mild bowing of the interventricular cardiac septum could represent subtle findings of heart strain ECHO 02/21/25 Final Impressions: 1. Normal LV size, normal wall thickness, hyperdynamic global systolic function with an estimated EF of > 75%. 2. Grade 1 pattern of LV diastolic filling. 3. Right ventricular cavity size is normal, global systolic RV function is normal. 4. Unable to estimate right sided cardiac pressures. 5. The aortic valve is sclerotic, no stenosis and mild regurgitation. 6. Trivial pericardial effusion. Continue apixaban 10 mg b.i.d. x7 days followed by 5 mg b.i.d. thereafter (received heparin in the ED). Ongoing medication management with PCP. (3) COPD (chronic obstructive pulmonary disease): Status: Acute Problem details: Does not regularly use inhaled treatments. Quit smoking about 2023 (4) Lymphadenopathy: Status: Acute Problem details: Perihilar right lymphadenopathy seen on chest CT from 02/21/2025. With history of right neuroendocrine tumor 10 years ago would definitely want close follow-up Repeat CT chest recommended 6-8 weeks with PCP (5) History of bipolar disorder: Status: Acute Problem details: Currently reporting ongoing symptoms of depression. Saw his psychiatrist a week ago. Outpatient follow-up (6) Neuroendocrine carcinoma: Status: Acute Problem details: Vats assisted right thoracotomy to remove a right upper lobe lung nodule in October of 2014. Biopsy showed a typical carcinoid tumor which is well differentiated/low-grade neuroendocrine tumor negative surgical margins (7) Pituitary adenoma: Status: Acute Problem details: Followed with serial a brain MRI. September 2019 for MRI showed slight increase in size compared to October of 2021 (8) Constipation: Status: Acute Problem details: Needs more aggressive management of chronic constipation. Senna and MiraLax on discharge (9) BPH (benign prostatic hyperplasia): Status: Acute Problem details: On tamsulosin 0.8 mg daily (10) Urinary incontinence: Status: Acute Problem details: Chronic (11) Hypertension: Status: Acute Problem details: Continue amlodipine (12) Weakness: Status: Acute Problem details: In setting of acute PE and pneumonia. Four wheel walker ordered on discharge. DS: Summary Hospital Course Hospital Course: Course of care and details as noted above. Admitted with acute PE, bacterial pneumonia. Initiated on IV antibiotics and transition to oral doxycycline on discharge. Received IV heparin in the ED, transition to oral apixaban for PEs. Outpatient follow-up with PCP for ongoing medication management as well as repeat CT scan 6-8 weeks. Status at Discharge Functional status at discharge: uses cane/walker Overall status at discharge: patient is progressing back to baseline Time Spent with Patient Time attestation: Total time spent providing and/or coordinating discharge services: Time spent: Greater than 30 minutes Exam Narrative: Exam Narrative: PHYSICAL EXAM General: Pleasant, conversant, NAD Cardiovascular: RRR Pulmonary: No dyspnea Neurological: Alert, answering questions appropriately Skin: Warm, dry. Const: Vital Signs, click to edit/add: Vital Signs - 24 hr 02/22/25 15:00 02/22/25 15:00 02/22/25 15:00 Temperature 98.7 F Pulse Rate Pulse Rate [Pulse Oximeter] 94 94 Respiratory Rate 16 16 16 Blood Pressure [Le ft Arm] Blood Pressure [Ri ght Arm] 121/86 Pulse Oximetry 94 94 Oxygen Delivery Me thod Room Air Room Air 02/22/25 15:00 02/22/25 19:00 02/22/25 23:00 Temperature 98.5 F Pulse Rate 73 77 Pulse Rate [Pulse Oximeter] 77 Respiratory Rate 16 Blood Pressure [Le ft Arm] Blood Pressure [Ri ght Arm] 132/89 Pulse Oximetry 94 Oxygen Delivery Me thod Room Air 02/22/25 23:00 02/22/25 23:00 02/22/25 23:37 Temperature 97.1 F L Pulse Rate Pulse Rate [Pulse Oximeter] 83 83 Respiratory Rate 16 16 16 Blood Pressure [Le ft Arm] Blood Pressure [Ri ght Arm] 146/91 H Pulse Oximetry 94 94 Oxygen Delivery Me thod Room Air Room Air 02/23/25 03:00 02/23/25 07:00 02/23/25 07:00 Temperature 97.2 F L 97.7 F Pulse Rate 73 Pulse Rate [Pulse Oximeter] 84 84 Respiratory Rate 16 18 Blood Pressure [Le ft Arm] 162/97 H Blood Pressure [Ri ght Arm] 158/113 H Pulse Oximetry 93 95 Oxygen Delivery Me thod Room Air Room Air 02/23/25 07:00 02/23/25 07:00 Temperature Pulse Rate Pulse Rate [Pulse Oximeter] 95 Respiratory Rate Blood Pressure [Le ft Arm] Blood Pressure [Ri ght Arm] Pulse Oximetry 95 Oxygen Delivery Me thod Room Air DS: Data Data Completed and Pending Completed studies during hospitalization: BC x2 NGTD Labs on day of discharge: Preliminary micro results at discharge 02/21/25 09:21 Blood Culture - Preliminary Blood NO GROWTH AFTER 48 HOURS 02/21/25 08:55 Blood Culture - Preliminary Blood NO GROWTH AFTER 48 HOURS Imaging CTA chest PE: Attestation: I have reviewed the pertinent imaging results. Radiologist's impression: Thrombus subsegmental left upper lobe pulmonary arteries. Thrombus within segmental and subsegmental right middle lobe pulmonary arteries. Right lower lobe segmental thrombus is seen. No saddle pulmonary embolus is seen. Indeterminate patchy nodular right lower lobe consolidation with a small amount of ground-glass and clustered nodularity. There is associated bronchial wall thickening with evidence of mucous plugging. A trace right pleural effusion is present. Moderate emphysema is noted within the background. Likely prior right upper lobe wedge resection. Indeterminate right perihilar lymphadenopathy. Mild cardiomegaly. Subtle bowing of the IV septum could represent subtle findings of heart strain. Small pericardial effusion. No axillary lymphadenopathy. No chest wall mass is seen. Images of the upper abdomen are unremarkable. Bone windows demonstrate indeterminate T8 lucent lesion. Recommend close attention on follow-up. IMPRESSION: 1. Bilateral pulmonary emboli. Mild bowing of the interventricular cardiac septum could represent subtle findings of heart strain. Recommend correlation with echocardiogram. 2. Indeterminate patchy right lower lobe consolidations. Primary differential considerations are pneumonia, less likely malignancy or pulmonary infarct. Associated bronchial wall thickening, likely represents bronchitis. Short-term chest CT follow-up is recommended in 6-8 weeks. 3. Prominent right perihilar lymph nodes. Recommend close attention on follow-up. Chest x-ray: Attestation: I have reviewed the pertinent imaging results. Radiologist's impression: Normal cardiomediastinal silhouette. Mild patchy right basilar opacity. No pleural effusions or visualized pneumothorax. Moderate degenerative changes of the visualized spine. Impression: Mild patchy right basilar opacity is compatible with atelectasis or developing infection. Discharge Plan Discharge Disposition: Home, Self-Care Date of Admission: 02/21/25 15:23 Attending Provider on Discharge: Irma Aguillon Primary Care Provider: Joon Dodson Condition: Guarded Anticipated Discharge Date/Time: 02/23/25 11:24 Discharge Medications: New polyethylene glycol 3350 17 gram Powder In Packet 17 g PO DAILY Qty: 238 0RF sennosides-docusate sodium [Stool Softener-Laxative] 8.6-50 mg Tablet 1 tab PO BID Qty: 30 0RF Eliquis 5 mg Tablet 10 mg PO BID 5 Days Qty: 20 0RF Rx Instructions: Complete 5 day course of 10mg bid then begin 5mg bid guaifenesin [Mucinex] 600 mg Tablet Extended Release 12hr 600 mg PO BID Qty: 20 0RF apixaban 5 mg tablet 5 mg PO BID Qty: 60 0RF doxycycline hyclate 100 mg capsule 100 mg PO BID Qty: 10 0RF (DME) [facility] See Rx Instructions .Route Qty: 1 0RF Rx Instructions: As directed Continued tamsulosin 0.4 mg capsule 0.8 mg PO DAILY albuterol sulfate 90 mcg/actuation HFA aerosol inhaler 1 - 2 puff INHALATION Q4H PRN (Reason: wheezing) fluticasone propionate 50 mcg/actuation spray,suspension 1 spray INTRANASAL DAILY atorvastatin 20 mg tablet 20 mg PO DAILY risperidone 4 mg tablet 4 mg PO BID amlodipine 5 mg tablet 5 mg PO DAILY carbamazepine 400 mg tablet extended release 12 hr 400 mg PO BID carbamazepine 200 mg tablet extended release 12 hr 200 mg PO BID Discharge Orders: Discharge Order (Routine); Ordered 02/23/25 Ordered By: Irma Aguillon Patient Education: Doxycycline (By mouth), Polyethylene Glycol 3350 (By mouth), Guaifenesin/Phenylephrine (By mouth), Apixaban (By mouth) (Eliquis), Senna (By mouth), Pneumonia (DC), Shortness of Breath (DC) Activity Level: Light activity and Use Walker Discharge Diet: Regular Follow Up Appointments: Joon Dodson MD [Primary Care Provider, Family Practice] Referral Note: Post hospital follow up 3-7 days Forms: Patient Belongings, MyHealth Info Instructions
--- NOTE | 2025-02-23 12:27 | PC.NURSE ---
Discharge Note 253 Patient was very pleasant and cooperative throughout the shift. VSS. Afebrile. Moving independently. Patient was educated on medications and follow up appointment was done. A&Ox4. Patient was discharged at 12:15 pm, and was accompanied by his significant other.
--- NOTE | 2025-02-23 17:17 | W.PM.CROSSCO ---
Subjective Subjective Date Seen: 02/23/25 Principal diagnosis: Pulmonary embolism Interval history: 69-year-old male hospitalized for pulmonary embolism and pneumonia. Discharged earlier today. Discharged on apixaban for treatment of pulmonary embolism. Dina Pacheco was notified that apixaban is relatively contraindicated with carbamazepine. Recommendation is warfarin for treatment of thromboembolism in a patient taking carbamazepine. I called the patient, the pharmacy, [facility], and his significant other, Mallory [phone], to discuss a change in anticoagulation. Apixaban prescription is canceled and new prescription for warfarin 5 mg daily #30 and enoxaparin 80 mg subQ b.i.d. #10. are called to [facility]. He will return to the hospital this evening with Mallory to be taught self injection with enoxaparin. She has experience giving insulin injections in the past and reports she will be comfortable with this plan. Initial dose of warfarin dina will be 7.5 mg followed by 5 mg daily. Check INR in 3 days and 5 days, Friday and Friday, at [facility] lab. Test results should be called to the hospitalist who can advise on warfarin dosing. After that, outpatient management of anticoagulation can be referred to Dr. Dodson at [facility].
--- NOTE | 2025-02-26 09:51 | PM.EN ---
Chart Event Note Time Seen by Provider: :45 Date Seen: 02/26/25 Chart Event Note: I received a notification from the lab that this patient's INR today was 1.53. I have reviewed this patient's records. He was started on warfarin 7.5 mg on 02/23/25, then 5 mg daily since then for PE. He is also taking enoxaparin BID until the INR reaches a therapeutic level of 2-3. I spoke with our pharmacist, Majo, who agreed that we should increase his warfarin dose to 10 mg daily, starting tonight. I called the patient, , today at 9:45 a.m. and spoke with him and his girlfriend, Mallory. They confirmed that he has taken the warfarin and enoxaparin as prescribed and that he has another blood draw in our lab on Friday. He also has an appointment with his PCP, Dr. Dodson, on Friday at 12:30 p.m. I advised him to continue taking the enoxaprin as prescribed through Friday morning and to increase warfarin to 10 mg (two 5 mg tablets) daily, starting with this evening's dose. He and Mallory demonstrated understanding.
== END 2025-02-23 12:15 | disposition home or self-care (01) | DRG 193 ==
LOC: ED 15:06 → MEDSURG 15:23
PROVIDERS: Admitting Provider Family Medicine; Emergency Provider Family Medicine; PCP Surgery; Visit Provider Family Medicine
DX: J15.9 Unspecified bacterial pneumonia (principal); I26.99 Other pulmonary embolism without acute cor pulmonale; C7A.8 Other malignant neuroendocrine tumors; F31.9 Bipolar disorder, unspecified; K59.09 Other constipation; N40.1 Benign prostatic hyperplasia with lower urinary tract symptoms; N39.498 Other specified urinary incontinence; I10 Essential (primary) hypertension; D35.2 Benign neoplasm of pituitary gland; R59.0 Localized enlarged lymph nodes; J44.9 Chronic obstructive pulmonary disease, unspecified; Z87.891 Personal history of nicotine dependence
CPT/HCPCS: 36415; 51798; 71046; 71275; 80048; 80076; 80306; 81001; 82077; 82803; 83605; 83880; 84145; 84484; 85025; 85379; 85610; 85730; 86140; 87040; 87631; 93005; 93306; 94664; 94761; 97116; 97161; 99285; A9270; J0456; J0696; J1644; J7030; J7050; Q9967

== ENCOUNTER 2025-02-26 08:10 | Outpatient (REF) | payer MEDICARE, MEDICAID, SELFPAY ==
[2025-02-26 08:35] LABS: Prothrombin Time 19.4 Seconds
[2025-02-26 08:42] LABS: INR 1.53 (0.91-1.10)
--- OUTSIDE RECORDS SUMMARY | 2025-02-27 00:06 | XMS_ITS | Encounter Summary ---
Author Organization formerly [facility] Address [address] [place] [id number] Care Team Providers Care Service Technician Copier Name Role Phone Joon Dodson MD Primary Care Provider [phone] Encounter Details Date Type Department Care Team (Late st Contact Info) Description 01/01/2021 Lab Requisition [facility] [address] [facility]. [place], [place] [address] Julia Victor MD [facility] [place], [place] [id number] Dyspnea, unspecified Social History Tobacco Use Types [...] - 10.5 x10(9)/L 01/02/2021 2:16 PM CDT [facility] RBC 3.46(L) 4.32 - 5.72 x10(12)/L 01/02/2021 2:16 PM CDT [facility] Hemoglobin 10.7(L) 13.5 - 17.5 g/dL 01/02/2021 2:16 PM CDT [facility] HCT 35.4(L) 38.8 - 50.0 % 01/02/2021 2:16 PM CDT [facility] MCV 102.3(H) 80.0 - 100.0 fL 01/02/2021 2:16 PM CDT [facility] MCH 30.9 27.6 - 33.3 pg 01/02/2021 2:16 PM CDT [facility] MCHC 30.2(L) 31.5 - 35.2 g/dL 01/02/2021 2:16 PM CDT [facility] RDW 13.4 11.9 - 15.5 % 01/02/2021 2:16 PM CDT [facility] Platelets 486(H) 150 - 450 x10(9)/L 01/02/2021 2:16 PM CDT [facility] Automated NRBC 0 <=0 /100 WBC 01/02/2021 2:16 PM CDT [facility] Neutrophil Absolute 4.3 1.7 - 7.0 10(9)/L 01/02/2021 2:16 PM CDT [facility] Lymphocyte Absolute 2.3 1.0 - 4.8 10(9)/L 01/02/2021 2:16 PM CDT [facility] Monocyte Absolute 0.8 0.2 - 0.9 10(9)/L 01/02/2021 2:16 PM CDT [facility] Eosinophil Absolute 0.6(H) 0.0 - 0.5 10(9)/L 01/02/2021 2:16 PM CDT [facility] Basophil Absolute 0.1 0.0 - 0.3 10(9)/L 01/02/2021 2:16 PM CDT [facility] Immature Granulocyte % 2.0(H) 0.0 - 0.5 % 01/02/2021 2:16 PM CDT [facility] Blood Venipuncture / Unknown 01/02/2021 6:30 AM CDT 01/02/2021 1:45 PM CDT Julia Victor MD LAB_1 Final Result Performing Organization Address City/[facility]/ZIP Co de Phone Number [facility] [address] * B-Type Natriuretic Peptide (01/02/2021 6:30 AM CDT) B Type Natr. Peptide <10 <=99 pg/mL 01/02/2021 2:33 PM CDT [facility] Blood Venipuncture / Unknown 01/02/2021 6:30 AM CDT 01/02/2021 1:43 PM CDT Julia Victor MD LAB_1 Final Result Performing Organization Address City/[facility]/ZIP Co de Phone Number [facility] [address] documented in this encounter Visit Diagnoses Diagnosis Dyspnea, unspecified documented in this encounter Care Teams Service Technician Copier Relationship Specialty Start Date End Date Joon Dodson MD [address] [place] [address] PCP - General Family Practice 10/16/17 documented as of this encounter
--- OUTSIDE RECORDS SUMMARY | 2025-02-27 00:06 | XMS_ITS | Data Portability ---
Author Organization [facility] Address [address] [facility] [address] [place] [address] Care Team Providers Care Braille [employer] Talking Books Clerk Name Role Phone [facility] Primary Care Provider Assessment No assessment recorded. Plan of Treatment Reminders Order Date Submit Date Provider Last Modified By Organization Details Last Modified Time Details Appointments None recorded. Lab PSA, serum or plasma 2023 024 [email or web address] [facility], [address], [place], [address], 4 14:50:00 PSA, total, serum or plasma 2023 024 chuy [facility], [address] [place] [address], [place], [address], 4 08:11:52 biopsy, prostate 2022 023 [email or web address] 30 Not available 3 14:11:37 PSA, serum or plasma 2022 023 [email or web address] [facility], [address], [place], [address], 3 15:23:46 PSA, total, serum or plasma 2022 023 [email or web address] Not available 3 10:01:08 Referral None recorded. Procedures None recorded. Surgeries None recorded. Imaging MRI, prostate, w/wo contrast 2022 023 [email or web address] [facility], [address], [address], [place], [address], 3 09:04:34 Medication Orders ceftriaxone 1 gram solution for injection 2022 023 [id number], [address], [address], 4 14:32:29 Patient TargetsNo targets recorded. Patient InstructionsNo instructions recorded. Reason for Referral None Reported. Results Created Date Observation Date Name Description Value Unit Range Abnormal Flag Note LastModifiedBy Organization Detail LastModifiedTime 12/10/19 23 12/09/2022 PSA, serum or plasm a PSA 5.5 ng/mL 0-4.0 Not Available [facility] [address], [place], [address], 12/09/2022 15:23:28 09/08/19 24 09/08/2023 PSA, serum or plasm a PSA 4.8ng/ mL 0-4.0 Not Available [facility] [address], [place], [address], 09/08/2023 14:39:05 12/20/19 23 12/18/2022 MRI, prost ate, w/wo contr ast No observ ation record ed. [facility] [address], [place], [address], 12/23/2022 15:25:47 Result Notes None recorded. Procedures Surgical History Date Name Laterality Status Provider Name and Address Organization Details Recorded Time 4 Blood Draw/BACTERIOLOGIST INDUSTRIAL/PSA RESULTS completed Cindi Hidalgo [facility] 09/04/2023 15:51:29 3 Prostate Biopsy Procedure completed Valentino [place] MD [address] [facility],[address], [place], [address], [facility] 01/31/2023 17:08:26 3 URONAV completed Valentino [place] MD [address] [facility],[address], [place], [address], [facility] 01/30/2023 23:48:02 3 Blood Draw/BACTERIOLOGIST INDUSTRIAL/PSA RESULTS completed Toyin Rodrigues [facility] 12/09/2022 15:23:15 3 Bladder Scan completed [facility] 09/23/2022 15:41:40 Hernia Repair completed [facility] 09/23/2022 15:41:47 Orthopedic Surgery completed [facility] 09/23/2022 15:41:56 repair of lung completed [facility] 09/23/2022 15:42:13 Imaging Results None recorded. Procedure Notes None recorded. Medical Equipment None [...] mcg/actuati on nasal spray,suspe nsion Inhale 1 [place] to both nostrils once daily.* active Not [...] Updated DateTime 09/08/2023 185.42 cm 25.1 kg/m2 25427.55 g Valentino [place] MD [address] [facility], [place], [address], [facility] 09/08/2023 14:31:28 Date Recorded Body height Body mass index (BMI) Body weight Provider Name and Address Organization Details Last Updated DateTime 09/23/2022 185.42 cm 28.4 kg/m2 80184.36 g Segundo Leonardo [facility] 09/23/2022 15:39:11 Date Recorded Body height Body mass index (BMI) Body weight Provider Name and Address Organization Details Last Updated DateTime 12/09/2022 185.42 cm 28.4 kg/m2 71831.36 g Toyin Rodrigues [facility] 12/09/2022 15:17:31 Social History Question Answer Notes LastModified by [employer] Details LastModified Time Tobacco Smoking Status Never Smoker Segundo Leonardo [facility] 09/23/2022 15:41:29 What Is Your Level Of Caffeine Consumption? Moderate Information not available 09/23/2022 What Was The Date Of Your Most Recent Tobacco Screening? 09/08/2023 Information not available 09/08/2023 Have You Ever Been Counseled For Unhealthy Alcohol Use? No Information not available 09/08/2023 How Many Days In The Past Year Have You Consumed 5 Or More Drinks? 0 Information not available 09/08/2023 Sex: Unknown Functional Status Question Answer Note LastModified by [employer] Details LastModified Time Do you use any illicit or recreational drugs? No Information not available 09/23/2022 Do you or have you ever used any other forms of tobacco or nicotine? No Information not available 09/23/2022 What is your level of alcohol consumption? Occasional Information not available 09/08/2023 Mental Status None recorded. Family History Relationship Description Onset Age of this Age Resolved Age Notes LastModified by Organization Details LastModified Time Father Family history of Hypertension [email or web address] Not available 03/2023 15:21:54 Sister Family history of Hypertension carlito Not available 03/2023 15:21:54 Medical History Condition Response High Blood Pressure Y Kidney Stones N Depression Y GERD/Acid Reflux N High Cholesterol Y Heart Disease N Immunizations Vaccine Type Date Status Note Provider Allen laguerre and Address Organization Details Recorded Time zoster recombinant 3 completed Valentino [place] MD [address] [place] [address],[address], [place], [address], [facility] 09/08/2023 14:30:44 zoster recombinant 0 completed Valentino [place] MD [address] [place] [address],[address], [place], [address], [facility] 09/08/2023 14:30:44 COVID-19, mRNA, LNP-S, PF, 100 mcg/0.5mL dose or 50 mcg/0.25mL dose 1 completed Valentino [place] MD [address] [place] [address],[facility] [address], [place], [address], [facility] 09/08/2023 14:30:44 COVID-19, mRNA, LNP-S, PF, 100 mcg/0.5mL dose or 50 mcg/0.25mL dose 1 completed Valentino [place] MD [address] [place] [address],[address], [place], [address], [facility] 09/08/2023 14:30:44 Pneumococcal conjugate PCV20, polysaccharide LAL563 conjugate, adjuvant, PF 3 completed Valentino [place] MD [address] [place] [address],[address], [place], [address], [facility] 09/08/2023 14:30:44 pneumococcal polysaccharide PPV23 1 completed Valentino [place] MD [address] [place] [address],[address], [address], [facility] 09/08/2023 14:30:44 influenza, unspecified formulation 0 completed Valentino [place] MD [address] [place] [address],[facility] [address], [place], [address], [facility] 09/08/2023 14:30:44 Tdap 3 completed Valentino [place] MD [address] [place] [address],[address], [place], [address], [facility] 09/08/2023 14:30:44 Tdap 1 completed Valentino [place] MD [address] [place] [address],[address], [place], [address], [facility] 09/08/2023 14:30:44 Tdap 2 completed Valentino [place] MD [address] [place] [address],[address], [place], [address], [facility] 09/08/2023 14:30:44 zoster live 1 completed Valentino [place] MD [address] [place] [address],[address], [place], [address], [facility] 09/08/2023 14:30:44 Influenza, split virus, trivalent, PF 1 completed Valentino [place] MD [address] [place] [address],[address], [place], [address], [facility] 09/08/2023 14:30:44 influenza, seasonal, intradermal, preservative free 2 completed Valentino [place] MD [address] [place] [address],[address], [place], [address], [facility] 09/08/2023 14:30:44 Influenza, split virus, quadrivalent, PF 2 completed Valentino [place] MD [address] [place] [address],[address], [place], [address], [facility] 09/08/2023 14:30:44 Influenza, split virus, quadrivalent, PF 0 completed Valentino [place] MD [address] [place] [address],[address], [place], [address], [facility] 09/08/2023 14:30:44 Influenza, split virus, quadrivalent, PF 9 completed Valentino [place] MD [address] [place] [address],[address], [place], [address], [facility] 09/08/2023 14:30:44 Influenza, split virus, quadrivalent, PF 7 completed Valentino [place] MD [address] [place] [address],[address], [place], [address], [facility] 09/08/2023 14:30:44 Influenza, split virus, quadrivalent, PF 5 completed Valentino [place] MD [address] [place] [address],[address], [place], [address], [facility] 09/08/2023 14:30:44 Influenza, split virus, quadrivalent, PF 8 completed Valentino [place] MD [address] [facility],[address], [place], [address], [facility] 09/08/2023 14:30:44 Past Encounters Encounter ID Performer Location Encounter Start Date Encounter Closed Date Diagnosis/Indication Diagnosis SNOMED-CT Code Diagnosis ICD10 Code Diagnosis IMO Codes Diagnosis Note [id number] [facility] [place] [facility] [place] [address] 09/23/2022 15:21:35 09/26/2022 13:52:50 Prostate specific antigen above reference range 758873720 R97.20 1. Elevated PSA- + Family Hx of prostate cancer - (m) 1st cousin- PSA has fluctuated - no nodule on KURTIS- discussed options - recheck PSA, Prostate MRI, or TRUS bx of the prostate- recheck PSA in October(if PSA increases - recommend Prostate MRI and TRUS bx of prostate) Benign pro static hyperplasia with outflow obstruction [id number] N40.1 2. BPH- voiding okay- bladder empties well (PVR = 10 ml)- continue Flomax 0.8 mg daily [id number] [facility] [place] [facility] [address] [place] [address] 12/09/2022 14:58:31 12/13/2022 09:54:04 Prostate specific antigen above reference range [id number] R97.20 1. Elevated PSA- + Family Hx of prostate cancer - (m) 1st cousin- PSA (5.5) - increased - has fluctuated - no nodule on KURTIS- discussed options - recheck PSA, Prostate MRI, or TRUS bx of the prostate- recommend Prostate MRI and TRUS bx of prostate) Benign pro static hyperplasia with outflow obstruction [id number] N40.1 2. BPH- voiding okay- bladder has emptied well (PVR = 10 ml)- continue Flomax 0.8 mg daily [id number] MD [facility] [address] [place] [address] 01/31/2023 15:42:30 02/08/2023 19:45:05 Prostate specific antigen above reference range [id number] R97.20 1. Elevated PSA- + Family Hx of prostate cancer - (m) 1st cousin- PSA (5.5) - increased - has fluctuated - no nodule on DREProstat e MRI (12/18/22) - 67 gm - Lesion 1 - (PI-RADS 4) - 1 x 1 cm - Left lateral mid-gland (PZ)- UroNav bx aborted today due to pain- plan TRUS bx with MRI cognitive fusion with MAC anesthesia Benign pro static hyperplasia with outflow obstruction [id number] N40.1 2. BPH- voiding okay- bladder has emptied well (PVR = 10 ml)- continue Flomax 0.8 mg daily Antibiotic prophylaxis indicated [id number] Z78.9 [id number] Valentino [place] MD [facility] [address] [place] [address] 09/08/2023 14:15:26 09/09/2023 08:34:28 Prostate specific antigen above reference range [id number] R97.20 1. Elevated PSA- + Family Hx of prostate cancer - (m) 1st cousin- Prostate MRI (12/18/22) - 67 gm - Lesion 1 - (PI-RADS 4) - 1 x 1 cm - Left lateral mid-gland (PZ)(had severe pain with UroNav bx)- s/p (MRI cognitive) TRUS bx with MAC - (02/21/23) - 56 mL - benign- PSA (4.8) - decreased - has fluctuated - Follow-up in 1 year with PSA Benign pro static hyperplasia with outflow obstruction [id number] N40.1 2. BPH- voiding okay- bladder has emptied well (PVR = 10 ml)- continue Flomax 0.8 mg daily Health Concerns Section Related Observation LastModified by Organization Detai ls LastModified Time None Recorded Concern Status LastModified by Organization Details LastModified Time None Recorded Advance Directives Directive None Recorded Payers Insurance Date Sequence Insurance Name Policy Number Policy Cochran Covered Member ID Cochran Member ID Guarantor Name 09/11/2023 2 [place] [id number] Reynaldo [id number] Reynaldo Rivers 09/05/2023 1 [place] [employer] [facility] Reynaldo Rivers [id number] Reynaldo Rivers Notes Date Note Type Note Provider Name [...] occasional urgency - denies weak stream and dysuria.- PVR -10mL PSA - 2.21 (09/06/14)- 2.55 (10/20/15)- 2.10 (11/05/16)- 3.18 (12/28/18)- 4.33 (01/27/20)- 2.09 (04/12/20)- 5.33 (09/21/21)- 4.11 (12/14/21)- 5.0 (07/22/22)CT scan (10/31/14)Impression:1 . 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 This contains mural calcifications or small calculi.2. 1.2 cm hyperdense cyst anterior inter pole aspect left kidney.3. Tiny cortical cyst anterior mid pole right kidney. Renal MRI (06/22/16) - Left - 2.4 cm dilated upper pole calyx - 1.3 cm cyst (upper pole) - benign Valentino [place] MD [address] [place] [address],[address], [place], [address], [place] [facility] 09/23/2022 21:33:28 12/09/2022 text/html 67 yo [...] 5.33 (09/21/21)- 4.11 (12/14/21)- 5.0 (07/22/22)- 5.5 (12/09/22)CT scan (10/31/14)Impression:1 . 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 This contains mural calcifications or small calculi.2. 1.2 cm hyperdense cyst anterior inter pole aspect left kidney.3. Tiny cortical cyst anterior mid pole right kidney. Renal MRI (06/22/16) - Left - 2.4 cm dilated upper pole calyx - 1.3 cm cyst (upper pole) - benign Valentino [place] MD [address] [facility],[address], [place], [address], [facility] 12/09/2022 17:49:45 01/31/2023 text/html 67 yo [...] x 1 cm - Left lateral mid-gland (PZ)CT scan (10/31/14)Impression:1 . 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 This contains mural calcifications or small calculi.2. 1.2 cm hyperdense cyst anterior inter pole aspect left kidney.3. Tiny cortical cyst anterior mid pole right kidney. Renal MRI (06/22/16) - Left - 2.4 cm dilated upper pole calyx - 1.3 cm cyst (upper pole) - benign Valentino [place] MD [address] [facility],[address], [place], [address], [place] [facility] 01/31/2023 17:11:06 09/08/2023 text/html 68 yo [...] on Flomax 0.8 mg daily and Saw Agus - s/p (MRI cognitive) TRUS bx - [...] x 1 cm - Left lateral mid-gland (PZ)CT scan (10/31/14)Impression:1 . 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 This contains mural calcifications or small calculi.2. 1.2 cm hyperdense cyst anterior inter pole aspect left kidney.3. Tiny cortical cyst anterior mid pole right kidney. Renal MRI (06/22/16) - Left - 2.4 cm dilated upper pole calyx - 1.3 cm cyst (upper pole) - benign Valentino [place] MD [address] [facility],[address], [place], [address], [facility] 09/08/2023 17:50:28
--- OUTSIDE RECORDS SUMMARY | 2025-02-27 00:06 | XMS_ITS | Encounter Summary ---
Author Organization [facility] Address [address] [place] [address] Care Team Providers Care Pumper Hand Name Role Phone Joon Dodson MD Primary Care Provider [phone] Encounter Details Date Type Department Care Team (Late st Contact Info) Description 12/26/2020 Lab Requisition [facility] [address] [facility] [place] [address] De[facility] [place] [address] Anemia, unspecified Social History Tobacco [...] - 17.5 g/dL 12/26/2020 1:51 PM CDT [facility] Blood Venipuncture / Unknown 12/26/2020 7:10 AM CDT 12/26/2020 1:25 PM CDT us Deonna Swenson LAB_1 Final Result [facility] [address] [place], [place] [address] [place] [address] documented in this encounter Visit Diagnoses Diagnosis Anemia, unspecified documented in this encounter Care Teams Pumper Hand Relationship Specialty Start Date End Date Joon Dodson MD [address] [place] [address] PCP - General Family Practice 10/16/17 documented as of this encounter
--- OUTSIDE RECORDS SUMMARY | 2025-02-27 00:06 | XMS_ITS | Encounter Summary ---
Author Organization [facility] Address [address] [place] [address] Care Team Providers Care Car Varnisher Name Role Phone Joon Dodson MD Primary Care Provider [phone] Encounter Details Date Type Department Care Team (Late st Contact Info) Description 01/02/2021 Lab Requisition [facility] [address] [facility] 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
--- OUTSIDE RECORDS SUMMARY | 2025-02-27 00:06 | XMS_ITS | Clinical Summary ---
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 Gender Identity Not on file Sexual Orientation Not on file Last Filed Vital Signs Vital Sign Reading Time Taken Comments Blood Pressure 97/61 06/06/2024 2:06 PM BENDING MACHINE OPERATOR Pulse 62 06/06/2024 2:06 PM BENDING MACHINE OPERATOR Temperature 36.6 C (97.8 F) 06/06/2024 9:11 AM BENDING MACHINE OPERATOR Respiratory Rate 16 06/06/2024 2:06 PM BENDING MACHINE OPERATOR Oxygen Saturation 98% 06/06/2024 2:06 PM BENDING MACHINE OPERATOR Inhaled Oxygen Concentration - - Weight 77.2 kg (170 lb 3.1 oz) 06/05/2024 1:08 P M BENDING MACHINE OPERATOR Height 185.4 cm (6' 1) 06/05/2024 1:08 PM BENDING MACHINE OPERATOR Body Mass Index 22.45 06/05/2024 1:08 PM BENDING MACHINE OPERATOR Plan of Treatment Health Maintenance Due Date [...] this topic Medical Devices Implanted Type Area Digital Content Specialist Device Identifier Shelf Expiration Date Model / Serial / Lot Bone Cement Simplex Full Dose 6191-1-001 Implanted:Qty : 1 on 10/07/2016 by Panda Mesa MD at [facility] Cement, Bone Right: Knee [employer] 01/30/2019 6191-1-00 1 / / [id number] Bone Cement Simplex Full Dose 6191-1-001 Implanted:Qty : 1 on 10/07/2016 by Panda Mesa MD at [facility] Cement, Bone Right: Knee [employer] 04/01/2018 6191-1-00 1 / / [id number] Bone Cement Simplex Full Dose 6191-1-001 - [id number] Implanted:Qty : 2 on 12/18/2020 by Seth Sutton MD at [facility] Cement, Bone Left: Knee [employer] 03/01/2022 6191-1-00 1 / / [id number] Imp Comp Fem Strk Triathln Ps Rt 6 5515-F-602 Implanted:Qty : 1 on 10/07/2016 by Panda Mesa MD at [facility] Total Joint Component /Insert Right: Knee [employer] 06/26/2021 5515-F-60 2 / / [id number] Imp Peg Distal Femoral Strk 5575-X-000 Implanted:Qty : 1 on 10/07/2016 by Panda Mesa MD at [facility] Total Joint Component /Insert Right: Knee [employer] 07/31/2021 5575-X-00 0 / / [id number] Imp Comp Patella Strk Tri Sym X3 33x9mm 5550-G-339 Implanted:Qty : 1 on 10/07/2016 by Panda Mesa MD at [facility] Total Joint Component /Insert Right: Knee [employer] 09/04/2021 5550-G-33 9 / / [id number] Imp Baseplate Tibial Howm Tri 6 5520-B-600 Implanted:Qty : 1 on 10/07/2016 by Panda Mesa MD at [facility] Total Joint Component /Insert Right: Knee [employer] 06/10/2021 5520-B-60 0 / / [id number] Imp Insert Tibial Howm Tri Size 6 09mm 5532-G-609 Implanted:Qty : 1 on 10/07/2016 by Panda Mesa MD at [facility] Total Joint Component /Insert Right: Knee [employer] 04/10/2021 5532-G-60 9 / / [id number] Imp Insert Baseplate Tibial Howm Tri 5 5521-B-500 - [id number] Implanted:Qty : 1 on 12/18/2020 by Seth Sutton MD at [facility] Total Joint Component /Insert Left: Knee [employer] 07/19/2025 5521-B-50 0 / / [id number] Imp Comp Patella Tri 33x9mm 5550-L-339 - [id number] Implanted:Qty : 1 on 12/18/2020 by Seth Sutton MD at [facility] Total Joint Component /Insert Left: Knee [employer] 06/06/2025 5550-L-33 9 / / [id number] Imp Insert Tibial Howm Tri Size 5 09mm 5532-G-509 - [id number] Implanted:Qty : 1 on 12/18/2020 by Seth Sutton MD at [facility] Total Joint Component /Insert Left: Knee [employer] 03/22/2024 5532-G-50 9 / / [id number] Imp Insert Tibial Howm Tri Size 5 09mm 5532-G-509 - [id number] Implanted:Qty : 1 on 12/18/2020 by Seth Sutton MD at [facility] Total Joint Component /Insert Left: Knee [employer] [id number] 08/31/2022 5532-G-50 9 / / [id number] Imp Comp Fem Strk Triathln Ps Lt 5 5515-F-501 - [id number] Implanted:Qty : 1 on 12/18/2020 by Seth Sutton MD at [facility] Total Joint Component /Insert Left: Knee [employer] 08/15/2025 5515-F-50 4UD Procedures Procedure Name Priority Date/Time Associated Diagnosis Comments COMPREHENSIVE METABOLIC PANEL STAT 06/05/2024 7:36 PM BENDING MACHINE OPERATOR LIPID REFLEX TO DIRECT LDL PANEL Routine 06/08/2021 8:24 AM BENDING MACHINE OPERATOR CT CHEST W/O CONTRAST Routine 11/18/2014 7:48 AM CDT Lung nodule from Last 3 Months or Most Recently Relevant to Health Maintenance Results * (ABNORMAL) Comprehensive metabolic panel (06/05/2024 7:36 PM BENDING MACHINE OPERATOR) Sodium 137 135 - 145 mmol/L 06/05/2024 8:12 PM BENDING MACHINE OPERATOR [facility] Potassium 4.4 3.4 - 5.3 mmol/L 06/05/2024 8:12 PM BENDING MACHINE OPERATOR [facility] Carbon Dioxide (CO2) 23 22 - 29 mmol/L 06/05/2024 8:12 PM BENDING MACHINE OPERATOR [facility] Anion Gap 11 7 - 15 mmol/L 06/05/2024 8:12 PM BENDING MACHINE OPERATOR [facility] Urea Nitrogen 20.7 8.0 - 23.0 mg/dL 06/05/2024 8:12 PM BENDING MACHINE OPERATOR [facility] Creatinine 0.91 0.67 - 1.17 mg/dL 06/05/2024 8:12 PM BENDING MACHINE OPERATOR [facility] GFR Estimate >90 >60 mL/min/1.7 3m2 06/05/2024 8:12 PM BENDING MACHINE OPERATOR [facility] Comment:eGFR calculated usin g 2020 CKD-EPI equation. Calcium 9.2 8.8 - 10.4 mg/dL 06/05/2024 8:12 PM BENDING MACHINE OPERATOR [facility] Comment:Reference intervals for this test were updated on 12/16/2023 to reflect our healthy population more accurately. There may be differences in the flagging of prior results with similar values performed with this method. Those prior results can be interpreted in the context of the updated reference intervals. Chloride 103 98 - 107 mmol/L 06/05/2024 8:12 PM BENDING MACHINE OPERATOR [facility] Glucose 169(H) 70 - 99 mg/dL 06/05/2024 8:12 PM BENDING MACHINE OPERATOR [facility] Alkaline Phosphatase 98 40 - 150 U/L 06/05/2024 8:12 PM BENDING MACHINE OPERATOR [facility] AST 16 0 - 45 U/L 06/05/2024 8:12 PM BENDING MACHINE OPERATOR [facility] ALT 19 0 - 70 U/L 06/05/2024 8:12 PM BENDING MACHINE OPERATOR [facility] Protein Total 6.2(L) 6.4 - 8.3 g/dL 06/05/2024 8:12 PM BENDING MACHINE OPERATOR [facility] Albumin 3.8 3.5 - 5.2 g/dL 06/05/2024 8:12 PM BENDING MACHINE OPERATOR [facility] Bilirubin Total <0.2 <=1.2 mg/dL 06/05/2024 8:12 PM BENDING MACHINE OPERATOR [facility] Blood STRUCTURE OF LEFT UPPER LIMB / Unknown Venipuncture / Unknown 06/05/2024 7:36 PM BENDING MACHINE OPERATOR 06/05/2024 7:43 PM BENDING MACHINE OPERATOR us Earle Jamil DO LAB - BLOOD ORDERABLES Final Res ult [facility] [address] Lab (1st floor, no room number) [place] [address], [facility] * Lipid panel reflex to direct LDL (06/08/2021 8:24 AM BENDING MACHINE OPERATOR) Cholesterol 169 <200 mg/dL 06/08/2021 9:48 AM BENDING MACHINE OPERATOR [facility] Triglycerides 130 <150 mg/dL 06/08/2021 9:48 AM BENDING MACHINE OPERATOR [facility] Direct Measure HDL 51 >=40 mg/dL 2021 9:48 AM BENDING MACHINE OPERATOR [facility] LDL Cholesterol Calculated 92 <=100 mg/dL 06/08/2021 9:48 AM BENDING MACHINE OPERATOR [facility] Non HDL Cholesterol 118 <130 mg/dL 06/08/2021 9:48 AM BENDING MACHINE OPERATOR [facility] Blood STRUCTURE OF RIGHT HAND / Unknown Venipuncture / Unknown 06/08/2021 8:24 AM BENDING MACHINE OPERATOR 06/08/2021 8:57 AM BENDING MACHINE OPERATOR Narrative [facility] - 06/08/2021 9:48 AM BENDING MACHINE OPERATOR Cholesterol Desirable: <200 mg/dL Triglycerides Normal: Less [...] James MD LAB - BLOOD ORDERABLES Kim schwraz Result [facility] [address] [facility], [address] [place] [id number], [facility] [phone] * CT Chest w/o Contrast (11/18/2014 7:48 AM CDT) Anatomical Region Laterality Modality Chest, [facility]AD CT BODY, [facility] CT CHEST Computed Tomography Impressions 11/18/2014 8:12 [...] of the left kidney. DARLEEN SCHULTZ MD [facility] Cooper Ivey MD IMG CT ORDERABLES Kim l Result from Last 3 Months or Most Recently Relevant to Health Maintenance Insurance [employer] MED[employer]ARE ADVANTAGE * Guarantor: Reynaldo Rivers Account Type Relation to Patient Date of Phone Billing Address Behavioral Self 1955 [address] [place] [address] * Guarantor: Reynaldo Rivers Account Type Relation to Patient Date of Phone Billing Address Medication Therapy Self 1955 [address] [place] [address] Advance Directives For more information, please contact: [phone] * Full Code (Latest Code Status on [...] continue PREVIOUSLY ORDERED code status Care Teams Leather Sponger Relationship Specialty Start Date End Date Joon Dodson MD [facility] [place] [address] PCP - General 06/05/24 Tanya Montoya, [facility] [address] [address] Pharmacist Pharmacist 11/08/20
--- OUTSIDE RECORDS SUMMARY | 2025-02-27 00:06 | XMS_ITS | Clinical Summary ---
Author Organization [employer] [facility] Address [address] [place] [address] Care Team Providers Care Operations Intelligence Name Role Phone Joon Dodson MD Primary Care Provider [phone] Steph Oneil MD Unavailable Zen Ybarra MD [...] (FLONASE)Indicati ons:Chronic sinusitis, unspecified location Inhale 1 [place] in both nostrils once daily. 16 mL 5 02/27/20 24 Active ketoconazole 2 % creamIndications: Groin rash Use twice daily as needed for rash in groin 60 g 1 02/27/20 24 Active tamsulosin (FLOMAX) 0.4 mg capsuleIndication s:BPH with urinary obstruction Take 2 Capsules (0.8 mg) by mouth once daily after a meal. 180 Capsule 3 02/27/20 24 Active Rwhky-[id number]-[id number]-F ramonita Oil (Fish OiL) 1,200 (144-216) mg [...] Joey Ramirez MD, psychiatry on 02/12/24 / MANUEL [...] CODE. Jeannette Espinoza, FAIZAN/GNP [facility] M &Weds: 3760-1201 Brad: [phone] Pager: [phone] Constipation 10/14/2016 Insomnia due to mental condition [...] low sats 81% Park Manpreet Freking / ESTHETICIAN Ed. Order 01/28/13 [place] Setting: Auto /15 Supplied by: PSG done: 05-24-11 AHI 84 RDI 103 Lowest O2 Sat: 81% Freking / ESTHETICIAN Ed. Order 01/28/13 [place] CMS/cmn 2-24-16 mailed to home ; Severe Obstructive sleep apnea Resolved Problems Problem Noted Date Diagnosed Date Resolved Date Neuroleptic-induced tardive dyskinesia 12/25/2023 02/12/2024 Medication-induced postural tremor 08/25/2023 01/10/2025 History of partial adherence to treatment 02/17/2023 02/12/2024 Nowthen-induced postural and intention tremor 03/14/20 22 05/09/2023 [...] Encounters Date Type Department Care Team Description 02/25/2025 Travel 02/24/2025 Telephone [facility] [address] [place] [address] Joon Dodson MD Questions (pneumonia) 02/21/2025 4:00 PM CDT Ancillary Procedure [facility] [address] [place] [address] 02/21/2025 Orders Only [facility] Scanner 1 scan: (1-Ord) [facility], CT ANGIO CHEST PE PROTOCOL, 02/21/2025 02/21/2025 Orders Only [facility] Scanner 1 scan: (1-Ord) [facility], CHEST 2 VIEW, 02/21/2025 02/15/2025 9:00 AM CDT Office Visit [address] [address] Joey Ramirez MD Follow Up; Medication Management (been better, anxiety, last couple weeks have been rough) 02/14/2025 Travel 02/07/2025 4:00 PM CDT Ancillary Procedure [facility] [address] [place] [address] 02/07/2025 Travel 02/04/2025 2:05 PM CDT Office Visit [address] [address] Estlele Perez PA Testicle Pain (2-3 weeks, urinary leaking); Abdominal Pain (lower right side abdomen pain intermittent 1-2 weeks); Cough (1-2 weeks coughs up phlegm) 02/04/2025 Travel 02/04/2025 Nurse Triage [address] [place] [address] Joon Dodson MD Urinary Problem (Frequently ) 01/19/2025 Telephone [facility] [address] [place] [address] Joey Ramirez MD Abnormal Lab Results 01/18/2025 Refill [facility] [address] [place] [address] Joon Dodson MD Refill Request (Atorvastatin) 01/10/2025 12:30 PM CDT Office Visit [facility] [address] [place] [address] Joey Ramirez MD Follow Up 01/10/2025 Travel 12/07/2024 8:30 AM CDT Office Visit [facility] [address] [place] [address] Joey Ramirez MD Follow Up; Medication Management 12/07/2024 Travel 11/29/2024 1:25 PM CDT Office Visit [facility] [address] [place] [address] Joon Dodson MD Follow Up 11/29/2024 Travel from Last 3 Months Immunizations Immunization Administration Dates Next Due COVID-19 vaccine (Moderna 100mcg/0.5mL) PF, MDV 11/03/2020 Influenza Intradermal PF 18-64 yrs 2012 Influenza Virus, Unspecified 2012,02/20/20 10 Influenza, IIV3 (Age 6-35 mos) 05/01/2011 Influenza, IIV3 (Age >=3 years) 05/01/2011,02/19 Influenza, IIV4 02/08/2022,,03/04/2019,2017,04/28/2017,05/09/2015 Pneumococcal Conj 20-valent (Prevnar 20) 06/11/2022 Pneumococcal [...] Care Team (Late st Contact Info) Description 02/28/2025 12:35 PM CDT Office Visit [facility] [address] [place] [address] Joon Dodson MD [address] [place] [address] 03/03/2025 11:05 AM CDT Office Visit [facility] [address] [place] [address] Joon Dodson MD [address] [place] [address] 03/21/2025 10:30 AM CDT Office Visit [facility] [address] [place] [address] Joey Ramirez MD [address] [place] [address] 04/18/2025 10:30 AM [employer]ENT[employer] TECHNICAL LEAD SENIOR DEVELOPER Office Visit [facility] [address] [place] [address] Joey Ramirez MD [address] [place] [address] 05/16/2025 9:00 AM [employer]ENT[employer] TECHNICAL LEAD SENIOR DEVELOPER Office Visit [facility] [address] [place] [address] Joey Ramirez MD [address] [place] [address] 06/13/2025 9:00 AM CENTUR[employer] TECHNICAL LEAD SENIOR DEVELOPER Office Visit [facility] [address] [place] [address] Joey Ramirez MD [address] [place] [address] 07/18/2025 9:00 AM CENT[employer] TECHNICAL LEAD SENIOR DEVELOPER Office Visit [facility] [address] [place] [address] Joey Ramirez MD [address] [place] [address] 08/15/2025 9:30 AM CDT Office Visit [facility] [address] [place] [address] Joey Ramirez MD [address] [place] [address] 09/12/2025 10:30 AM CDT Office Visit [facility] [address] [place] [address] Joey Ramirez MD [address] [place] [address] 10/17/2025 10:30 AM CDT Office Visit [facility] [address] [place] [address] Joey Ramirez MD [address] [place] [address] Health Maintenance Due Date Last Done Comments [...] Procedure Name Priority Date/Time Associated Diagnosis Comments ECHO TTE COMPLETE WO CONTRAST Routine 02/21/2025 2:57 PM CDT Pulmonary embolism (HC) SCAN-CT INTERPRETATION 5 12:00 AM CDT SCAN-RADIOLOGY REPORT 02/21/2025 12:00 AM CDT US SCROTUM WITH DUPLEX BELINDA 5 4:00 PM CDT Pain in both testicles URINE CULTURE Routine 02/04/2025 2:16 PM CDT Lower urinary tract symptoms (LUTS) URINALYSIS [facility] ONLY POC DIP ([facility]) Routine 02/04/2025 2:16 PM CDT Lower urinary tract symptoms (LUTS) PSA TOTAL Routine 01/10/2025 1:45 PM CDT Elevated PSA RISPERIDONE AND METABOLITE Routine 01/10/2025 1:45 PM CDT Long-term use of high-risk medication CARBAMAZEPINE TOTAL Routine 01/10/2025 1 :45 PM CDT Long-term use of high-risk medication LIPID PANEL W REFLEX MEASURED LDL Routine 04/05/2024 2:14 PM [employer]ENT[employer] TECHNICAL LEAD SENIOR DEVELOPER Long-term use of high-risk medication COLONOSCOPY 10/24/2022 11:01 AM CDT US ABD AORTA SCREENING Routine 3 2:00 PM [employer] TECHNICAL LEAD SENIOR DEVELOPER Screening for AAA (aortic abdominal aneurysm) ANTI HCV Routine 10/20/2015 2:41 PM CDT Need for hepatitis C screening test from Last 3 Months or Most Recently Relevant to Health Maintenance Results * ECHO TTE COMPLETE WO CONTRAST (02/21/2025 2:57 PM CDT) AORTIC VALVE MEAN PG 6 mmHg EJECTION FRACTION 82 % LVEDD 4.6 cm EJECTION FRACTION > 75% Anatomical Region Laterality Modality Ultrasound 02/21/2025 2:19 PM CDT Narrative 02/21/2025 3:26 PM CDT ECHOCARDIOGRAM EMY PACHECO : 1955 69 years Study Date: 02/21/2025 2:19:01 PM Gender: M BP: 143/83 mmHg Height: 183.00 cm BSA: 2.12 m Weight: 90.00 kg Tech: [facility] MD: ZACH LEMOS Site: [facility] [place] Location: MOBILE IP Patient Location: Inpatient. Procedure: 2D, Color Doppler and Spectral Doppler. Indication for study: Pulmonary embolism (HC) Cardiac Rhythm: Normal sinus.Study quality: Good. Imaging limitations: This study was subject to imaging limitations due to upright in bed. Final Impressions: 1. Normal LV size, normal wall thickness, hyperdynamic global systolic function with an estimated EF of > 75%. 2. Grade 1 pattern of LV diastolic filling. 3. Right ventricular cavity size is normal, global systolic RV function is normal. 4. Unable to estimate right sided cardiac pressures. 5. The aortic valve is sclerotic, no stenosis and mild regurgitation. 6. Trivial pericardial effusion. Chamber Sizes and Function Normal left ventricular size, normal wall thickness, hyperdynamic global systolic function with an estimated EF of > 75%. No resting regional wall motion abnormality visualized. Left atrial size is normal. Left atrial pressure is normal. Right ventricular cavity size is normal, global systolic RV function is normal. RV wall thickness is normal. The right atrium is normal. Right atrial volume index is 15 ml/m . Right atrial area is 14 cm . The pulmonary artery is of normal size and origin. The sinus of Valsalva is normal for age/sex/bsa. The ascending aorta is normal for age/sex/bsa. Valves, RV Pressures and Diastolic Function The aortic valve is sclerotic, no stenosis and mild regurgitation. The mitral valve is normal in structure, trace mitral regurgitation. Spectral Doppler shows Grade 1 pattern of LV diastolic filling. The tricuspid valve is normal in structure, trace tricuspid regurgitation. Unable to assess right ventricular systolic pressure. The pulmonic valve is not well visualized. No pulmonary regurgitation. Masses, Effusion, Shunts There is trivial pericardial effusion. The inferior vena cava is normal sized, respiratory size variation greater than 50%. No left to right shunting was detected by limited color flow Doppler interrogation of the interatrial septum. MEASUREMENTS AND CALCULATIONS 2-D Measurements and LV Function: LVID (d) 4.6 cm LV FS% (2D) 47 % LVID (s) 2.4 cm LVOT diameter 2.2 cm IVS (d) 1.1 cm HR 84 bpm LVPW (d) 1.2 cm LA Vol index 22 ml/m2 Ao Sinus 4.2 cm RA Vol index 15 ml/m2 Ao Sinus ULN 4.2 cm * RA area 14 cm Asc Ao 4.0 cm RV Basal Diam 3.9 cm Asc Ao ULN 4.2 cm * RV Mid Diam 2.2 cm * Input BSA outside of range, reported values correspond to BSA = 2.1 Diastology: Mitral Tissue Doppler E Peak 0.8 m/s e', Septum 0.08 m/s A Peak 1.2 m/s e', Lateral 0.07 m/s E/A 0.7 E/e' Average 10.55 DT 348 msec Aortic Valve: Vmax 1.7 m/s KEYSHA (V) 3.02 cm VTI 0.28 m KEYSHA (I) 2.97 cm LVOT V max 1.3 m/s Max PG 11 mmHg LVOT VTI 0.21 m Mean PG 6 mmHg SV 82 ml Dim Index 0.75 SV index 39 ml/m CO 6.9 l/min CI 3.3 l/min/m Mitral Valve: MVA 2.2 cm MV P 1/2 101 msec MV Mean G 3 mmHg MV VTI 0.25 m Tricuspid Valve and estimated PA pressures: TAPSE 3.2 cm Pulmonic Valve: PV Vmax 0.9 m/s PV AT 88 msec . This study was interpreted by an [facility] accredited facility. CC: Med/Surg - IP [facility]. Final Procedure Note Crow Jerez MD - 02/21/2025 ECHOCARDIOGRAM EMY PACHECO : 1955 69 years Study Date: 02/21/2025 2:19:01 PM Gender: M BP: 143/83 mmHg Height: 183.00 cm BSA: 2.12 m Weight: 90.00 kg Tech: [facility] MD: ZACH LEMOS Site: [facility] [place] Location: MOBILE IP Patient Location: Inpatient. Procedure: 2D, Color Doppler and Spectral Doppler. Indication for study: Pulmonary embolism (HC) Cardiac Rhythm: Normal sinus.Study quality: Good. Imaging limitations: This study was subject to imaging limitations due toupright in bed. Final Impressions: 1. Normal LV size, normal wall thickness, hyperdynamic global systolicfunction with an estimated EF of > 75%. 2. Grade 1 pattern of LV diastolic filling. 3. Right ventricular cavity size is normal, global systolic RV functionis normal. 4. Unable to estimate right sided cardiac pressures. 5. The aortic valve is sclerotic, no stenosis and mild regurgitation. 6. Trivial pericardial effusion. Chamber Sizes and Function Normal left ventricular size, normal wall thickness, hyperdynamic globalsystolic function with an estimated EF of > 75%. No resting regional wallmotion abnormality visualized. Left atrial size is normal. Left atrialpressure is normal. Right ventricular cavity size is normal, globalsystolic RV function is normal. RV wall thickness is normal. The rightatrium is normal. Right atrial volume index is 15 ml/m . Right atrialarea is 14 cm . The pulmonary artery is of normal size and origin. Thesinus of Valsalva is normal for age/sex/bsa. The ascending aorta is normalfor age/sex/bsa. Valves, RV Pressures and Diastolic Function The aortic valve is sclerotic, no stenosis and mild regurgitation. Themitral valve is normal in structure, trace mitral regurgitation. SpectralDoppler shows Grade 1 pattern of LV diastolic filling. The tricuspid valveis normal in structure, trace tricuspid regurgitation. Unable to assessright ventricular systolic pressure. The pulmonic valve is not wellvisualized. No pulmonary regurgitation. Masses, Effusion, Shunts There is trivial pericardial effusion. The inferior vena cava is normalsized, respiratory size variation greater than 50%. No left to rightshunting was detected by limited color flow Doppler interrogation of theinteratrial septum. MEASUREMENTS AND CALCULATIONS 2-D Measurements and LV Function: LVID (d) 4.6 cm LV FS% (2D) 47% LVID (s) 2.4 cm LVOT diameter2.2 cm IVS (d) 1.1 cm HR 84bpm LVPW (d) 1.2 cm LA Vol index 22ml/m2 Ao Sinus 4.2 cm RA Vol index 15ml/m2 Ao Sinus ULN 4.2 cm * RA area 14cm Asc Ao 4.0 cm RV Basal Diam3.9 cm Asc Ao ULN 4.2 cm * RV Mid Diam2.2 cm * Input BSA outside of range, reported values correspond to BSA = 2.1 Diastology: Mitral Tissue Doppler E Peak 0.8 m/s e', Septum 0.08 m/s A Peak 1.2 m/s e', Lateral 0.07 m/s E/A 0.7 E/e' Average 10.55 DT 348 msec Aortic Valve: Vmax 1.7 m/s KEYSHA (V) 3.02 cm VTI 0.28 m KEYSHA (I) 2.97 cm LVOT V max 1.3 m/s Max PG 11 mmHg LVOT VTI 0.21 m Mean PG 6 mmHg SV 82 ml Dim Index 0.75 SV index 39 ml/m CO 6.9 l/min CI 3.3 l/min/m Mitral Valve: MVA 2.2 cm MV P 1/2 101 msec MV Mean G 3 mmHg MV VTI 0.25 m Tricuspid Valve and estimated PA pressures: TAPSE 3.2 cm Pulmonic Valve: PV Vmax 0.9 m/s PV AT 88 msec . This study was interpreted by an [facility] accredited facility. CC: Med/Surg - IP [facility]. Final us Zach Lemos MD ECHO ORD Final Res ult * SCAN-RADIOLOGY REPORT (02/21/2025 12:00 AM CDT) Anatomical Region Laterality Modality Other us Scanner OTHER Final Result * SCAN-CT INTERPRETATION (02/21/2025 12:00 AM CDT) Anatomical Region Laterality Modality Other us Scanner OTHER Final Result * US SCROTUM W DUPLEX (02/07/2025 4:00 [...] 02/07/2025 4:19:22 PM (Electronically Signed) Estelle MARTINES US Final Result * (ABNORMAL) POCT Urinalysis Dipstick Only [[id number]] (02/04/2025 2:16 PM CDT) Pathologist [facility] SPECIFIC GRAVITY 1.015 1.001 - 1.035 02/04/2025 [...] PM CDT Estelle MARTINES URINE Final Result [facility] [address] [place] [address], [place] [phone] [facility] [address] [place] [address], [place] [phone] * URINE CULTURE [11505.2] (02/04/2025 2:16 PM CDT) CULTURE <10,000 CFU/mL multiple organisms 02/06/2025 3:12 PM CDT [facility] Urine URINE SPECIMEN / Unknown Non-Blood / Unknown 02/04/2025 2:16 PM CDT 02/04/2025 2:16 PM CDT Estelle MARTINES MICROBIOLOGY Final Result [facility] [address] [place] [address], [place] * RISPERIDONE AND METABOLITE (01/10/2025 1:45 PM CDT) RISPERIDONE <1.0 ng/mL [facility] Comment: This test was developed and its analytical performance characteristics have been determined by [facility]. It has not been cleared or approved by the FDA. This assay has been validated pursuant to the CLIA regulations and is used for clinical purposes. [place] RISPERIDONE 15.1 ng/mL [facility] Comment: This test was developed and its analytical performance characteristics have been determined by [facility]. It has not been cleared or approved by the FDA. This assay has been validated pursuant to the CLIA regulations and is used for clinical purposes. RISPERIDONE+ [place] RISPERIDONE [facility] Comment: Unable to accurately calculate [...] analytical performance characteristics have been determined by [facility]. It has not been cleared or approved by the FDA. This assay has been validated pursuant to the CLIA regulations and is used for clinical purposes. Blood BLOOD SPECIMEN / Unknown 01/10/2025 1:45 PM CDT 01/10/2025 1:46 PM CDT Joey Ramirez MD SEND OUTS Final Result [facility] [address] [facility] [address], [address] [place] [address], [place] * PSA TOTAL (DIAG OR SCREEN) (01/10/2025 1:45 PM CDT) PSA, TOTAL 3.60 < OR = 4.00 ng/mL [facility] Comment: The total PSA value from this assay system is standardized against the WHO standard. The test result will be approximately 20% lower when compared to the equimolar-standardized total PSA (Oly Brie). Comparison of serial PSA results should be [...] CHEMISTRY Final Resu lt Performing Organization Address [facility] Co de Phone Number [facility] [address] [place] [address], [facility] [address] [place] [address] * CARBAMAZEPINE TOTAL (01/10/2025 1:45 PM CDT) CARBAMAZEPINE, TOTAL 9.7 4.0 - 12.0 mg/L [facility] Blood BLOOD SPECIMEN / Unknown 01/10/2025 1:45 PM CDT 01/10/2025 1:46 PM CDT Joey Ramirez MD CHEMISTRY Final Result Performing Organization Address City/[facility]/ZIP Co de Phone Number [facility] [address] [facility] [place] [address], [facility] [address] [place] [address] * LIPID PANEL W REFLEX MEASURED LDL (04/05/2024 2:14 PM [employer]ENT[employer] TECHNICAL LEAD SENIOR DEVELOPER) CHOLESTEROL, TOTAL 169 <200 mg/dL [facility] [...] LDL-C. Trino SS et al. EVELYN. 2013;310(19): 7678-2270 (http://education.[employer] [place]/faq/KDZ515) CHOL/HDLC RATIO 2.5 <5.0 (calc) [facility] NON HDL CHOLESTEROL 102 <130 mg/dL (calc) [facility] Comment: For patients with diabetes plus 1 major ASCVD risk factor, treating to a non-HDL-C goal of <100 mg/dL (LDL-C of <70 mg/dL) is considered a therapeutic option. Blood BLOOD SPECIMEN / Unknown 04/05/2024 2:14 PM CENTUR[employer] TECHNICAL LEAD SENIOR DEVELOPER 04/05/2024 2:15 PM [employer]ENTUR[employer] TECHNICAL LEAD SENIOR DEVELOPER Joey Ramirez MD CHEMISTRY Final Result [facility] [address] [facility] [place] [address], [place] [phone] [facility] [address] [place] [address] * COLONOSCOPY (10/24/2022 11:01 AM CDT) 10/24/2022 11:0 1 AM CDT Narrative Transcriptions Trino Strickland MD - 10/24/2022 12:15 PM CDT Patient Name: Emy Pacheco Procedure Date: 10/24/2022 Gender: Male Date of : 1955 Admit Type: Outpatient Procedure: Colonoscopy Proceduralist: Trino Strickland MD , Elly Espinoza, RN(Nurse), Carmen Dickinson (Nurse) Referring MD: Joon [...] adequate candidate for conscious sedation. The endoscope [id number] was passed through the anus andadvanced to [...] there are any questions, please contact the hothouse worker. Moderate Sedation: A time out was performed [...] 11:01 AM Procedure Code(s): --- Professional --- 58255, Colonoscopy, flexible; with removalof tumor(s), polyp(s), or other lesion(s) bysnare technique Diagnosis Code(s): --- Professional --- Z12.11, Encounter for screening formalignant neoplasm of colon D12.0, Benign neoplasm of cecum D12.3, Benign neoplasm of transverse colon (hepatic flexure or splenic flexure) D12.4, Benign neoplasm of descending colon K57.30, Diverticulosis of large intestine without perforation or abscess withoutbleeding CPT copyright 2021 [employer]. All rights reserved. The codes documented in this report are preliminary and upon athletic agent reviewmay be revised to meet current compliance requirements. Scope In: 11:33:03 AM Scope Withdrawal Time 0 hours 21 minutes 20 seconds Scope Out: 12:01:37 PM us Trino Strickland MD PROCEDURE ORD Final Res ult * US ABD AORTA SCREENING [[id number]] (07/22/2022 2:00 PM [employer] TECHNICAL LEAD SENIOR DEVELOPER) Anatomical Region Laterality Modality Abdomen, AORTA Ultrasound 07/22/2022 3:15 PM [employer]ENTUR[employer] TECHNICAL LEAD SENIOR DEVELOPER Narrative 07/22/2022 3:15 PM CENTURA TECHNICAL LEAD SENIOR DEVELOPER For Patients: As a result of the Century Cures Act, medical imaging exams and procedure [...] 2022 3:15PM (Electronically Signed) Joon Dodson MD Final Resu lt * ANTI HCV [[id number]] (10/20/2015 2:41 PM CDT) HEPATITIS C ANTIBODY Non-Reacti ve Non-Reacti ve 10/20/2015 8:58 PM CDT [facility] Blood specimen (specimen) BLOOD SPECIMEN / Unknown Venipuncture / Unknown 10/20/2015 2:41 PM CDT 10/20/2015 2:41 PM CDT Narrative [facility] - 10/20/2015 8:58 PM CDT Antibodies to HCV not detected; does not exclude the possibility of exposure to HCV. Joon Dodson MD SEND OUTS Final Resu lt [facility] [address] [place] [address], [place] from Last 3 Months or Most Recently Relevant to Health Maintenance Insurance [facility] [id number] [facility] [place] [id number] MEDICARE PART B HB ONLY MEDICARE PART A HB ONLY [facility] Advance Directives * Full Code (Latest Code Status on File) Date Activated Date Inactivated Comments 02/21/2023 7:05 AM 02/21/2023 2:50 PM Question Answer Comments Code Status Discussion: Not Discussed Care Teams Operations Intelligence Relationship Specialty Start Date End Date Joon Dodson MD [address] [place] [address] PCP - General Family Practice 08/29/14 [place] [address] [place] [address] Clinical Nurse Specialist 01/27/20 Zen Ybarra MD [address] [facility] [address] [place] [address] Endocrinology 07/23/23
--- OUTSIDE RECORDS SUMMARY | 2025-02-27 00:07 | XMS_ITS ---
Author Organization [facility] Care Team Providers Care Forestry Patrolman Name Role Phone ^\\, ^\\ Unavailable Unavailable AYESHA Swenson, Deonna Unavailable Unavailroseann Munguia PA-C, Mayco Unavailable Unavailable MD Kayleigh, Julia Beth Unavailable Darlene Seth Gerardo Unavailable Unavailable Allergies and adverse reactions Code CodeSystem Substance Reaction Severity StartDate Concern Status Mold Unknown 12/19/2020 active Dust Unknown 12/19/2020 active Care Team Name Role Address Phone Organization Dates Julia Victor MD PCP [address], [place], [address], [place] (Office[place] : [facility] 12/20/2020 - 01/05/2021 ^\\ ^\\ [place] [facility] 12/20/2020 - 01/05/2021 Deonna Swenson NP [address] [address], [place], [address], [place] (Office): : : [facility] 12/20/2020 - 01/05/2021 Mayco Munguia PA-C [address], [place], [address], [place] States (Office): : [facility] 12/20/2020 - 01/05/2021 Seth Sutton [address], [place], [address], [place] (Office): : [facility] 12/20/2020 - 01/05/2021 Immunizations Immunization Status Vaccine Details Vaccine Code CodeSystem Date Notes Influenza completed Influenza, high-dose, split virus, quadrivalent, injectable, preservative free 197 CVX created date: 12/20/2020 administere d date: 02/19/2020 Pneumovax Dose 1 completed pneumococcal polysaccharide vaccine, 23 valent 33 CVX created date: 12/20/2020 administere d date: 05/14/2011 TB 2 Step Mantoux Skin Test completed tuberculin skin test; unspecified formulation lotNumber: [id number] expiry: 12/05/2022 Mfg: Ici Montreuil Given 0.1 ml Right Forearm intradermally Step 1 of Multi-step with next step required 98 CVX created date: 12/20/2020 consent date: 12/20/2020 administere d date: 12/20/2020 TB 2 Step Mantoux Skin Test completed tuberculin skin test; unspecified formulation lotNumber: [id number] expiry: 03/29/2018 Mfg: Radialpoint Given 0.1 ml Left Forearm intradermally Step [...] Concern Status 1 PNEUMONIA, UNSPECIFIED ORGANISM 12/22/[address] active 2 AFTERCARE FOLLOWING JOINT REPLACEMENT SURGERY 12/20/[address] active 3 BENIGN PROSTATIC HYPERPLASIA WITHOUT LOWER URINARY TRACT SYMPTOMS 12/20/[address] active 4 CHRONIC OBSTRUCTIVE PULMONARY DISEASE, UNSPECIFIED 12/20/[address] active 5 CYST OF KIDNEY, ACQUIRED 12/20/[address] active 6 DEPENDENCE ON OTHER ENABLING MACHINES AND DEVICES 12/20/[address] active 7 ESSENTIAL (PRIMARY) HYPERTENSION 12/20/[address] active 8 INSOMNIA, UNSPECIFIED 12/20/[address] active 9 NICOTINE DEPENDENCE, UNSPECIFIED, IN REMISSION 12/20/[address] active 10 OBSTRUCTIVE SLEEP APNEA (ADULT) (PEDIATRIC) 12/20/[address] active 11 OTHER MALIGNANT NEUROENDOCRINE TUMORS 12/20/[address] active 12 PRESENCE OF LEFT ARTIFICIAL KNEE JOINT 12/20/[address] active 13 SYNCOPE AND COLLAPSE 12/20/19 21 12/20/[address] completed 14 UNSPECIFIED OSTEOARTHRITIS, UNSPECIFIED SITE 12/20/[address] active 15 DIFFICULTY IN WALKING, NOT ELSEWHERE CLASSIFIED 10/12/19 17 12/20/[address] completed 16 MUSCLE WEAKNESS (GENERALIZED) 10/12/19 17 12/20/[address] completed 17 PAIN IN RIGHT KNEE 10/12/19 17 12/20/[address] completed 18 AFTERCARE FOLLOWING JOINT REPLACEMENT SURGERY 10/11/19 17 12/20/[address] completed 19 ANXIETY DISORDER, UNSPECIFIED 10/11/[address] active 20 BIPOLAR DISORDER, UNSPECIFIED 10/11/[address] active 21 GASTRO-ESOPHAGEAL REFLUX DISEASE WITHOUT ESOPHAGITIS 10/11/[address] active 22 HYPERLIPIDEMIA, UNSPECIFIED 10/11/[address] active 23 MAJOR DEPRESSIVE DISORDER, SINGLE EPISODE, UNSPECIFIED 10/11/[address] active 24 PRESENCE OF RIGHT ARTIFICIAL KNEE JOINT 10/11/[address] active 25 RETENTION OF URINE, UNSPECIFIED 10/11/19 17 12/20/[address] completed 26 SOLITARY PULMONARY NODULE 10/11/[address] active 27 STIFFNESS OF RIGHT KNEE, NOT ELSEWHERE CLASSIFIED 10/11/19 17 12/20/[address] completed 28 UNILATERAL PRIMARY OSTEOARTHRITIS, RIGHT KNEE 10/11/19 17 12/20/[address] completed 29 UNSPECIFIED ASTHMA, UNCOMPLICATED 10/11/[address] active Reason for Referral No Reasons for Referral Entered Social History Social History Observation Description Start Date End Date Code Code System Current Smoking Status Tobacco smoking consumption unknown 374959992 SNOMED CT Sex Assigned At Male 1955 [address]58[address]-3 [facility] Gender Identity Sexual Orientation Vital Signs Code Code System Vitals Name Values and Units Timing Information 20101-8 LOINC Pain Level Value=1.0 01/05/2021 9279-1 LOINC Respiratory Rate Value=18.0 Units=/m in 01/05/2021 8462-4 LOINC Blood Pressure-Diastolic Value=80 Un its=mmHg 01/05/2021 8480-6 LOINC Blood Pressure-Systolic Gcedj=137 Un its=mmHg 01/05/2021 8310-5 [facility] Body Temperature Value=98.1 Units= F 01/05/2021 8867-4 [facility] Heart rate Value=90.0 Units=/min 10/2020 92652-1 [facility] O2 % BldC Oximetry Value=93.0 Units= % 01/05/2021 93631-9 [facility] Weight Pwxew=826.2 Units=Lbs 07/2020 8302-2 [facility] Height Value=70.0 Units=Inches 10/11/2016
--- OUTSIDE RECORDS SUMMARY | 2025-02-27 00:07 | XMS_ITS | Encounter Summary ---
Author Organization [facility] Address [address] [place] [address] Care Team Providers Care Stopper Maker Helper Name Role Phone Joon Dodson MD Primary Care Provider Adrianne Steele Primary Care Provider Unavailab Tanya Ruiz PharmD Unavailable Joon Dodson MD Primary Care Provider Adrianne Steele Primary Care Provider Unavailab Tanya Ruiz PharmD Unavailable Tanya Montoya PharmD Unavailable Joon Dodson MD Primary Care Provider Encounter Details Date Type Department Care Team (Late st Contact Info) Description 08/29/2020 [facility] Only [facility] Laboratory [address] [place] [phone] Seth Sutton MD [facility] [address] [place] [address] Pre-operative laboratory examination (Primary Dx) Social History Tobacco Use Types Packs/Day Years Used Date Smoking Tobacco: Former Cigarettes 0.5 35 0 11/27/1980 - 11/28/2015 Smokeless Tobacco: Never Alcohol Use Standard Drinks/Week Comments No 0 (1 standard drink = 0.6 oz pur e alcohol) Sex and Gender Information Value Date Recorded Sex Assigned at Not on file Legal Sex Male 3:29 AM SLIP LASTER Gender Identity Not on file Sexual Orientation Not on file documented as of this encounter Plan of Treatment Not on file documented as of this encounter Visit Diagnoses Diagnosis Pre-operative laboratory examination- Primary Pre-procedural laboratory examination documented in this encounter Additional Health Concerns Infection Onset Date Last Indicated Resolved Time COVID-19 06/26/2021 06/26/2021 07/07/2021 9:38 AM SLIP LASTER 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 Pt meets Covid Recovered criteria. 06/26/2021 08/28/2021 09/25/2021 11:39 PM CDT documented as of this encounter Care Teams Stopper Maker Helper Relationship Specialty Start Date End Date Joon Dodson MD [address] [place] [address] PCP - General 03/25/17 10/04/20 Adrianne Steele PCP - General 10/05/20 12/17/20 Joon Dodson MD [address] [place] [address] PCP - General 12/18/20 08/30/21 Adrianne Steele PCP - General 08/31/21 06/04/24 Joon Dodson MD [address] [place] [address] PCP - General 06/05/24 Tanya Montoya PharmD [address] [phone] Pharmacist Pharmacist 11/08/20 Tanya Montoya, MartitaD [address] [facility] [place], [place] [address] Assigned MTM Pharmacist 10/27/21 Tanya Montoya, MartitaD [address] [place], [place] [id number] [place] [address] Assigned MTM Pharmacist 02/27/22 1// 3 documented as of this encounter
--- OUTSIDE RECORDS SUMMARY | 2025-02-27 00:07 | XMS_ITS | Encounter Summary ---
Author Organization [facility] Address [address] [place] [address] Care Team Providers Care Honeycomb Blanket Maker Name Role Phone [facility] [place] Primary Care Provider Joon Dodson MD Primary Care Provider [phone] Adrianne Steele Primary Care Provider Unavailab Tanya Ruiz PharmD Unavailable Joon Dodson MD Primary Care Provider [phone] Adrianne Steele Primary Care Provider Unavailab Tanya Ruiz PharmD Unavailable Tanya Montoya PharmD Unavailable Joon Dodson MD Primary Care Provider Encounter Details Date Type Department Care Team (Late st Contact Info) Description 01/23/2017 [facility] [address] [place] [phone] Panda Mesa MD [facility] [address] [place] [address] Pre-operative laboratory examination (Primary Dx) [...] file Legal Sex Male 3:29 AM RADIOLOGY SPECIALIST Gender Identity Not on file Sexual Orientation Not on file documented as of this encounter Plan of Treatment Not on file documented as of this encounter Results * ABO/Rh type and screen (01/24/2017 1:49 PM CDT) ABO O 01/24/2017 2:53 PM CDT [facility] RH(D) Pos [facility] Antibody Screen Neg 01/24/2017 2:53 PM CDT [facility] Test Valid Only At [facility] 01/24/2017 2:54 PM CDT [facility] Specimen Expires 01/30/2017 01/24/2017 2:54 PM CDT [facility] Blood specimen (specimen) 01/24/2017 1:49 PM CDT 01/24/2017 1:52 PM CDT us Panda Mesa MD LAB - BLOOD BANK TEST ORDER Fi nal Result Performing Organization Address [facility] Co de Phone Number [facility] [address] [phone] * Hemoglobin (01/24/2017 1:49 PM CDT) Hemoglobin 14.9 13.3 - 17.7 g/dL 01/24/2017 1:55 PM CDT [facility] Blood specimen (specimen) 01/24/2017 1:49 PM CDT 01/24/2017 1:52 PM CDT Panda Mesa MD LAB - BLOOD ORDERABLES Final R esult Performing Organization Address City/[facility] Co de Phone Number [facility] [address] [phone] documented in this encounter Visit Diagnoses Diagnosis Pre-operative laboratory examination- Primary Pre-procedural laboratory examination documented in this encounter Additional Health Concerns Infection Onset Date Last Indicated Resolved Time COVID-19 06/26/2021 06/26/2021 07/07/2021 9:38 AM RADIOLOGY SPECIALIST 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 Pt meets Covid Recovered criteria. 06/26/2021 08/28/2021 09/25/2021 11:39 PM CDT documented as of this encounter Care Teams Honeycomb Blanket Maker Relationship Specialty Start Date End Date Clinic, [facility] [address] [place] [address] PCP - General 09/30/14 03/24/17 Joon Dodson MD [address] [place] [address] PCP - General 03/25/17 10/04/20 Adrianne Steele PCP - General 10/05/20 12/17/20 Joon Dodson MD [address] [place] [address] PCP - General 12/18/20 08/30/21 Adrianne Steele PCP - General 08/31/21 06/04/24 Joon Dodson MD [address] [place] [address] PCP - General 06/05/24 Tanya Montoya, PharmD [address] [place], [place] [phone] Pharmacist Pharmacist 11/08/20 Tanya Montoya, PharmD [address] [place] [address] Assigned MTM Pharmacist 10/27/21 Tanya Montoya, PharmD [address] [facility] [address] [place] [address] Assigned MTM Pharmacist 02/27/22 3 documented as of this encounter
--- OUTSIDE RECORDS SUMMARY | 2025-02-27 00:07 | XMS_ITS | Encounter Summary ---
Author Organization [facility] Address [address] [place] [address] Care Team Providers Care Tire Mechanic Name Role Phone [facility] [place] Primary Care Provider oJon Dodson MD Primary Care Provider Adrianne Steele Primary Care Provider Unavailab Tanya Ruiz PharmD Unavailable Joon Dodson MD Primary Care Provider Adrianne Steele Primary Care Provider Unavailab Tanya Ruiz PharmD Unavailable Tanya Montoya PharmD Unavailable Joon Dodson MD Primary Care Provider Encounter Details Date Type Department Care Team (Late st Contact Info) Description 09/11/2016 [facility] Laboratory [address] [place] [address] Panda Mesa MD [facility] [address] [place] [address] Pre-operative laboratory examination (Primary Dx) Social History Tobacco Use Types Packs/Day Years Used Date Smoking Tobacco: Every Day Cigarettes 0.5 35 Smokeless Tobacco: Never Alcohol Use Standard Drinks/Week Comments Yes 0 (1 standard drink = 0.6 oz pur e alcohol) rare Sex and Gender Information Value Date Recorded Sex Assigned at Not on file Legal Sex Male 3:29 AM WEB MASTER Gender Identity Not on file Sexual Orientation Not on file documented as of this encounter Plan of Treatment Not on file documented as of this encounter Results * Methicillin Resistant Staph Aureus PCR (09/12/2016 12:36 PM CDT) Specimen Description Nares [facility] Methicillin Resist/Sens S. aureus PCR Negative MRSA Negative: SA Negative MRSA and Staphylococcus aureus target DNA not detected, presumed negative for MRSA and SA colonization or the number of bacteria present may be below the limit of detection for the assay. FDA approved assay performed using Pharmly GeneXpert(R) real-time PCR. NEG [facility] 09/12/2016 12:3 6 PM CDT 09/12/2016 1:24 PM CDT Panda Mesa MD LAB - MICRO GENERAL ORDERABLES Final Result Performing Organization Address City/State/[facility] Co de Phone Number [facility] [address] [place] [address], [facility] [address] [phone] documented in this encounter Visit Diagnoses Diagnosis Pre-operative laboratory examination- Primary Pre-procedural laboratory examination documented in this encounter Additional Health Concerns Infection Onset Date Last Indicated Resolved Time COVID-19 06/26/2021 06/26/2021 07/07/2021 9:38 AM WEB MASTER 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 Pt meets Covid Recovered criteria. 06/26/2021 08/28/2021 09/25/2021 11:39 PM CDT documented as of this encounter Care Teams Tire Mechanic Relationship Specialty Start Date End Date Clinic, [facility] [address] [place] [address] PCP - General 09/30/14 03/24/17 Joon Dodson MD [address] [place] [address] [place] [address] PCP - General 03/25/17 10/04/20 Adrianne Steele PCP - General 10/05/20 12/17/20 Joon Dodson MD [address] [facility] [address] PCP - General 12/18/20 08/30/21 Ivette Adrianne Pappas PCP - General 08/31/21 06/04/24 Joon Dodson MD [address] [facility] [address] PCP - General 06/05/24 Tanya Montoya, PharmD [facility] [address] Pharmacist Pharmacist 11/08/20 Tanya Montoya, PharmD [address] [address] Assigned MTM Pharmacist 10/27/21 Tanya Montoya, PharmD [address] [facility] [address] [place] [address] Assigned MTM Pharmacist 02/27/22 3 documented as of this encounter
--- OUTSIDE RECORDS SUMMARY | 2025-02-27 00:07 | XMS_ITS | Clinical Summary ---
Author Organization [facility] Address [address] [place] [address] Care Team Providers Care Sole Layer Hand Name Role Phone Unavailable Primary Care Provider Unavailabl e Source Comments [facility],non-owned Affiliates and Associated Physician Practices is amultiple site organization consisting of ambulatory clinics and hospital sitesin [place], [place], [place] and [place]. This disclosure is being madepursuant to the Care Everywhere program and may not contain all information available regarding this patient. Last updated 18.[facility] Allergies Active Allergy Reactions Criticality Noted Date [...] on file Legal Sex Male 9:17 AM PERIOPERATIVE NURSE Gender Identity Not on file Sexual Orientation Not on file Last Filed Vital Signs Vital Sign Reading Time Taken Comments Blood Pressure 171/92 05/30/2023 9:25 AM PERIOPERATIVE NURSE Pulse 81 05/30/2023 9:25 AM PERIOPERATIVE NURSE Temperature 36.9 C (98.4 F) 05/30/2023 9:25 AM PERIOPERATIVE NURSE Respiratory Rate 20 05/30/2023 9:25 AM PERIOPERATIVE NURSE Oxygen Saturation 98% 05/30/2023 9:25 AM PERIOPERATIVE NURSE Inhaled Oxygen Concentration - - Weight - [...] age to complete this topic Insurance MEDICARE [facility] [employer] LIABILITY MEDICARE SUPPLEMENT PAYOR GENERIC
--- OUTSIDE RECORDS SUMMARY | 2025-02-27 00:07 | XMS_ITS | Encounter Summary ---
Author Organization [facility] Address [address] [place] [address] Care Team Providers Care Culinary Manager Name Role Phone Joon Dodson MD Primary Care Provider Adrianne Steele Primary Care Provider Unavailab Tanya Ruiz PharmD Unavailable Joon Dodson MD Primary Care Provider Adrianne Steele Primary Care Provider Unavailab Tanya Ruiz PharmD Unavailable Tanya Montoya PharmD Unavailable Joon Dodson MD Primary Care Provider [phone] Encounter Details Date Type Department Care Team (Late st Contact Info) Description 02/10/2019 [facility] Laboratory [address] [place] [phone] Seth Sutton MD [facility] [address] [place], [place] [phone] Pre-operative laboratory examination (Primary Dx) Social History Tobacco Use Types Packs/Day Years Used Date Smoking Tobacco: Former Cigarettes 0.5 35 0 11/27/1980 - 11/28/2015 Smokeless Tobacco: Never Alcohol Use Standard Drinks/Week Comments No 0 (1 standard drink = 0.6 oz pur e alcohol) Sex and Gender Information Value Date Recorded Sex Assigned at Not on file Legal Sex Male 3:29 AM ORCHESTRA TEACHER Gender Identity Not on file Sexual Orientation Not on file documented as of this encounter Plan of Treatment Not on file documented as of this encounter Results * Methicillin Resist/Sens S. aureus PCR (02/16/2019 2:50 PM CDT) Specimen Description Nares 02/16/2019 2:55 PM CDT [facility] Methicillin Resist/Sens S. aureus PCR Negative NEG^Negat darius 02/16/2019 10:12 PM CDT [facility] Comment: MRSA Negative: SA Negative MRSA and Staphylococcus aureus target DNA not detected, presumed negative for MRSA and SA colonization or the number of bacteria present may be below the limit of detection for the assay. FDA approved assay performed using [employer] GeneXpert(R) real-time PCR. Nasal structure (body structure) 02/16/2019 2:50 PM CDT 02/16/2019 2:55 PM CDT us Seth Sutton MD LAB - MICRO GENERAL ORDERA BLES Final Result [facility] [address] [phone] documented in this encounter Visit Diagnoses Diagnosis Pre-operative laboratory examination- Primary Pre-procedural laboratory examination documented in this encounter Additional Health Concerns Infection Onset Date Last Indicated Resolved Time COVID-19 06/26/2021 06/26/2021 07/07/2021 9:38 AM ORCHESTRA TEACHER 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 Pt meets Covid Recovered criteria. 06/26/2021 08/28/2021 09/25/2021 11:39 PM CDT documented as of this encounter Care Teams Culinary Manager Relationship Specialty Start Date End Date Joon Dodson MD [address] [place] [address] PCP - General 03/25/17 10/04/20 Adrianne Steele PCP - General 10/05/20 12/17/20 Joon Dodson MD [address] [place] [address] PCP - General 12/18/20 08/30/21 Adrianne Steele PCP - General 08/31/21 06/04/24 Joon Dodson MD [address] [place] [address] PCP - General 06/05/24 Tanya Montoya, PharmD [address] [address] Pharmacist Pharmacist 11/08/20 Tanya Montoya, PharmD [address] [phone] Assigned MTM Pharmacist 10/27/21 Tanya Montoya, PharmD [address] [phone] Assigned MTM Pharmacist 02/27/22 3 documented as of this encounter
--- OUTSIDE RECORDS SUMMARY | 2025-02-27 00:07 | XMS_ITS | Clinical Summary ---
Author Organization [facility] Address [address] [place] [address] Care Team Providers Care Manager Assembly Name Role Phone Joon Dodson MD Primary Care Provider [phone] Source Comments You are receiving this document as you are listed as the primary care provider,follow-up provider, or the patient has been referred to you for consultation.This is in compliance with the Medicare and[facility] Memorial Hospitalcaid EHR Incentive Program,which states Providers who transition their patient to another setting of careor provider of care or refers their patient to another provider of care shouldprovide summary care record for each transition of care or referral. [facility] Allergies Active Allergy Reactions Criticality Noted Date [...] mouth daily (every 24 hours). 3 Active Molino-3 Fatty Acids (SUPER OMEGA 3 EPA/DHA OR) [...] 103 Lowest O2 Sat: 81% Freking / FOOD SERVICE ATTENDANT Ed. Order 01/28/13 Addison [facility]/cmn 2-24-16 mailed to home ; Severe Obstructive [...] bipolar, marbella cide Heart Disease Sister 1 FL's in 50's Hypertension Sister 1 Hypertension Sister [...] PROSTATIC SPECIFIC ANTIGEN(SCREEN) Routine 06/24/2013 11:41 AM WIRE BRUSHER Screening for prostate cancer from Last 3 [...] Prostatic Specific Antigen (Screen) (06/24/2013 11:41 AM WIRE BRUSHER) Prostate Specific Antigen 1.7 0.0 - 4.0 ng/mL HP CONVERSION 06/24/2013 11:4 1 AM WIRE BRUSHER 06/24/2013 1:22 PM WIRE BRUSHER us Panda Escamilla MD LAB_1 Final Resul t HP CONVERSION from Last 3 Months or Most Recently Relevant to Health Maintenance Insurance [id number] [place] [address] MEDICARE MANAGED CARE [facility] [place] [employer] [place] [id number] MEDICARE MANAGED CARE BC [facility] [employer] Advance Directives * Full Code (Latest Code Status on File) Date Activated Date Inactivated Comments 10/16/2017 7:45 AM 10/16/2017 11:45 AM Care Teams Manager Assembly Relationship Specialty Start Date End Date Joon Dodson MD [address] [place] [address] PCP - General Family Practice 10/16/17
--- OUTSIDE RECORDS SUMMARY | 2025-02-27 00:07 | XMS_ITS | Encounter Summary ---
Author Organization [facility] Address [address] [place] [address] Care Team Providers Care Psychopaedic Nurse Name Role Phone [facility], Inder Morrill Primary Care Provider Joon Dodson MD Primary Care Provider Adrianne Steele Primary Care Provider Unavailab Tanya Ruiz PharmD Unavailable Joon Dodson MD Primary Care Provider Adrianne Steele Primary Care Provider Unavailab Tanya Ruiz PharmD Unavailable Tanya Montoya PharmD Unavailable Joon Dodson MD Primary Care Provider [phone] Encounter Details Date Type Department Care Team (Late st Contact Info) Description 01/03/2017 [facility] [address] [place] [id number] Panda Mesa MD [facility] [address] [place] [address] Pre-operative laboratory examination (Primary Dx) [...] on file Legal Sex Male 3:29 AM KITCHEN BATH DESIGNER Gender Identity Not on file Sexual Orientation Not on file documented as of this encounter Plan of Treatment Not on file documented as of this encounter Results * Methicillin Resistant Staph Aureus PCR (01/14/2017 1:00 PM CDT) Specimen Description Nares 01/14/2017 1:41 PM CDT [facility] Methicillin Resist/Sens S. aureus PCR Negative NEG^Negat darius 01/14/2017 8:[address] [facility] Comment: MRSA Negative: SA Negative MRSA and Staphylococcus aureus target DNA not detected, presumed negative for MRSA and SA colonization or the number of bacteria present may be below the limit of detection for the assay. FDA approved assay performed using [employer] GeneXpert(R) real-time PCR. Nasal structure (body structure) 01/14/2017 1:00 PM CDT 01/14/2017 1:42 PM CDT us Panda Mesa MD LAB - MICRO GENERAL ORDERABLES Final Result Performing Organization Address City/State/[facility] Co de Phone Number [address] [address], [facility] [address] [place], [place] [address] [phone] documented in this encounter Visit Diagnoses Diagnosis Pre-operative laboratory examination- Primary Pre-procedural laboratory examination documented in this encounter Additional Health Concerns Infection Onset Date Last Indicated Resolved Time COVID-19 06/26/2021 06/26/2021 07/07/2021 9:38 AM KITCHEN BATH DESIGNER 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 Pt meets Covid Recovered criteria. 06/26/2021 08/28/2021 09/25/2021 11:39 PM CDT documented as of this encounter Care Teams Psychopaedic Nurse Relationship Specialty Start Date End Date [facility], [address] [address] PCP - General 09/30/14 03/24/17 Joon Dodson MD [address] [place] [address] PCP - General 03/25/17 10/04/20 Harshil Steelen Elyse PCP - General 10/05/20 12/17/20 Joon Dodson MD [address] [place] [address] [address] PCP - General 12/18/20 08/30/21 Ivette Adrianne Elyse PCP - General 08/31/21 06/04/24 Joon Dodson MD [address] [place] [address] PCP - General 06/05/24 Tanya Montoya, PharmD [address] [place], [place] [address] Pharmacist Pharmacist 11/08/20 Tanya Montoya, PharmD [address] [place] [address] Assigned MTM Pharmacist 10/27/21 Tanya Montoya, PharmD [address] [place] [address] Assigned MTM Pharmacist 02/27/22 3 documented as of this encounter
--- OUTSIDE RECORDS SUMMARY | 2025-02-27 00:07 | XMS_ITS | Encounter Summary ---
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 Pt meets Covid Recovered criteria. 06/26/2021 08/28/2021 09/25/2021 11:39 PM CDT documented as of this encounter Care Teams Chemical Instrumentation Officer Relationship Specialty Start Date End Date Joon Dodson MD [address] [place] [address] PCP - General 03/25/17 10/04/20 Adrianne Steele PCP - General 10/05/20 12/17/20 Joon Dodson MD [address] [place] [address] PCP - General 12/18/20 08/30/21 Adrianne Steele PCP - General 08/31/21 06/04/24 Joon Dodson MD [address] [place] [address] PCP - General 06/05/24 Tanya Montoya, MartitaD [address] [place] [address] Pharmacist Pharmacist 11/08/20 Tanya Montoya, PharmD [address] [place] [address] Assigned MTM Pharmacist 10/27/21 Tanya Montoya, PharmD [address] [place] [address] Assigned MTM Pharmacist 02/27/22 3 documented as of this encounter
--- OUTSIDE RECORDS SUMMARY | 2025-02-27 00:08 | XMS_ITS | Encounter Summary ---
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 No / Unsure 07/18/2021 8:10 AM CHEMICAL ECONOMIST documented as of this encounter Plan of [...] Depression Total Score: 26 022 9:58 AM CHEMICAL ECONOMIST documented as of this encounter Care Teams Fiber Analyst Relationship Specialty Start Date End Date Joon Dodson MD [address] [place] [address] PCP - General 12/18/20 08/30/21 Adrianne Steele PCP - General 08/31/21 06/04/24 Joon Dodson MD [address] [place] [address] PCP - General 06/05/24 Tanya Montoya, PharmD [address] [place] [address] Pharmacist Pharmacist 11/08/20 Tanya Montoya, PharmD [address] [place] [address] [address] Assigned MTM Pharmacist 10/27/21 Tanya Montoya, PharmD [address] [id number] Assigned MTM Pharmacist 02/27/22 3 documented as of this encounter
--- OUTSIDE RECORDS SUMMARY | 2025-02-27 00:08 | XMS_ITS | Clinical Summary ---
Author Organization [facility] Address [address] [place] [address] Care Team Providers Care Logistics/Shipper Name Role Phone Unavailable Primary Care Provider Unavailabl e Source Comments Patient records contain information from all sites at [facility]. For routine questions regarding patient records, call [phone] during business hours, M-F 8:00 AM - 5:00 PM Central Time. 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 Gender Identity Not on file Sexual Orientation Not on file Last Filed Vital Signs Vital Sign Reading Time Taken Comments Blood Pressure 116/80 07/02/2024 7:23 AM FLOOR TECH Pulse 63 07/02/2024 7:23 AM FLOOR TECH Temperature 36.3 C (97.3 F) 07/02/2024 7:23 AM FLOOR TECH Respiratory Rate 19 07/02/2024 7:23 AM FLOOR TECH Oxygen Saturation 97% 07/02/2024 7:23 AM FLOOR TECH Inhaled Oxygen Concentration - - Weight 75.6 kg (166 lb 10.7 oz) 06/26/2024 9:37 AM FLOOR TECH Height 186.7 cm (6' 1.5) 06/06/2024 3:51 PM FLOOR TECH Body Mass Index 21.69 06/06/2024 3:51 PM FLOOR TECH Plan of Treatment Health Maintenance Due Date [...] this topic Medical Devices Implanted Type Area Carpenter General Device Identifier Shelf Expiration Date Model / Serial / Lot Knee Implant Knee Implant Right: Knee Knee Implant Knee Implant Right: Knee Procedures Procedure Name Priority Date/Time Associated Diagnosis Comments BASIC METABOLIC PANEL, S/P STAT 05/26/2019 4:58 PM FLOOR TECH from Last 3 Months or Most Recently Relevant to Health Maintenance Results * BMP (Basic Metabolic Panel) (05/26/2019 4:58 PM FLOOR TECH) Potassium, P 4.3 3.6 - 5.2 mmol/L 05/26/2019 5:22 PM FLOOR TECH [facility] Sodium, P 138 135 - 145 mmol/L 05/26/2019 5:22 PM FLOOR TECH [facility] Chloride, P 103 98 - 107 mmol/L 05/26/2019 5:22 PM FLOOR TECH [facility] Bicarbonate, P 24 22 - 29 mmol/L 05/26/2019 5:22 PM FLOOR TECH [facility] Anion Gap, P 11 7 - 15 05/26/2019 5:22 PM FLOOR TECH [facility] BUN (Blood Urea Nitrogen), P 24 8 - 24 mg/dL 05/26/2019 5:22 PM FLOOR TECH [facility] Creatinine 1.04 0.74 - 1.35 mg/dL 05/26/2019 5:22 PM FLOOR TECH [facility] eGFR-Black/Afric an Nigerien 89 >=60 mL/min/BSA 05/26/2019 5:22 PM FLOOR TECH [facility] Comment: ----ADDITIONAL INFORMATION---- Estimated GFR calculated using the 2009 CKD_EPI creatinine equation. eGFR Non-Black/Katlyn n Nigerien 77 >=60 mL/min/BSA 05/26/2019 5:22 PM FLOOR TECH [facility] Comment: ----ADDITIONAL INFORMATION---- Estimated GFR calculated using the 2009 CKD_EPI creatinine equation. Calcium, Total, P 9.5 8.8 - 10.2 mg/dL 05/26/2019 5:22 PM FLOOR TECH [facility] Glucose, P 104 70 - 140 mg/dL 05/26/2019 5:22 PM FLOOR TECH [facility] Blood (Blood, Venous) 05/26/2019 4:58 PM FLOOR TECH 05/26/2019 5:04 PM FLOOR TECH Nayla Hassan M.D. LAB BLOOD ADD-ON Final Result [facility] [address] [place] [address], [facility] [address] [place] [address] from Last 3 Months or Most Recently Relevant to Health Maintenance Insurance * Guarantor: Reynaldo Rivers Account Type Relation to Patient Date of Phone Billing Address Personal/Family Self 1955 [address] [place] [address] [employer] Advance Directives For more information, please contact: [phone] * Full Code (Latest Code Status on File) Date Activated Date Inactivated Comments 06/06/2024 5:02 PM 07/02/2024 1:12 PM Question Answer Comments Full Code: Not Discussed Due to: Not medically appropriate Care Teams Logistics/Shipper Relationship Specialty Start Date End Date Kimberly Lopez Expedition Supervisor 01/31/22
== END 2025-02-26 08:11 | disposition home or self-care (01) ==
LOC: NPINS 08:10
PROVIDERS: PCP Surgery; Visit Provider Family Medicine
DX: Z51.81 Encounter for therapeutic drug level monitoring (principal); I26.99 Other pulmonary embolism without acute cor pulmonale; J15.9 Unspecified bacterial pneumonia
CPT/HCPCS: 85610

== ENCOUNTER 2025-02-28 08:42 | Outpatient (CLI) | payer MEDICARE, MEDICAID, SELFPAY ==
[2025-02-28 09:17] LABS: INR 2.57 (0.91-1.10); Prothrombin Time 28.7 Seconds
== END 2025-02-28 08:43 | disposition home or self-care (01) ==
LOC: LAB 08:43
PROVIDERS: PCP Surgery; Visit Provider Surgery
DX: I26.99 Other pulmonary embolism without acute cor pulmonale (principal)
CPT/HCPCS: 36415; 85610